=== PATIENT | female | born 1975 | race Caucasian/White ===

== ENCOUNTER 2020-08-11 17:58 | Emergency (ER) | payer OTHER, SELFPAY ==
[2020-08-11 18:09] VITALS: BP 129/85; PULSE 88; RESP 16; TEMP 37.7; O2SAT 100; BMI 36.8
[2020-08-11 19:58] LABS: MANUAL DIFF FLAG NO
[2020-08-11 20:00] LABS: Basophils Absolute Auto 0.1 X10*3/uL (0.0-0.2); Basophils Percent Auto 0.3 % (0-2); Eosinophils Absolute Auto 0.7 X10*3/uL (0.0-0.4); Eosinophils Percent Auto 4.5 % (0-4); Hematocrit 40.8 % (37-47); Hemoglobin 13.3 g/dl (12.0-16.0); Imm Gran Abs Auto 0.05 X10*3/uL (0.00-0.03); Imm Gran Pct Auto 0.3 % (0.0-0.4); Lymphocytes Absolute Auto 4.4 X10*3/uL (1.2-4.9); Lymphocytes Percent Auto 26.7 % (20-40); Mean Corpuscular HGB Conc 32.6 g/dl (31.0-35.0); Mean Corpuscular Hemoglobin 27.9 pg (27.0-33.0); Mean Corpuscular Volume 85.7 fL (80-98); Monocytes Absolute Auto 1.1 X10*3/uL (0.1-1.2); Monocytes Percent Auto 6.4 % (2-11); Neutrophils Absolute Auto 10.1 X10*3/uL (2.0-8.3); Neutrophils Percent Auto 61.8 % (45-73); Platelet Count 487 X10*3/uL (160-400); Red Blood Count 4.76 X10*6/uL (4.20-5.50); Red Cell Distribution Width 12.7 % (11.0-16.0); White Blood Count 16.4 X10*3/uL (4.8-10.8)
[2020-08-11 20:01] LABS: Glucose Urine UA NEG (NEG); Leukocyte Esterase Urine 2+ (NEG); Nitrite Urine POS (NEG); PH 5.5 (5.0-8.0); Specific Gravity - Urine 1.025 (1.005-1.025); UACC Culture Trigger YES; Urine Blood 2+ (NEG); Urine Ketones 5 MG/DL (NEG); Urine Protein 1+ MG/DL (NEG-TRACE)
[2020-08-11 20:05] VITALS: TEMP 37.8
[2020-08-11 20:05] LABS: Appearance Urine HAZY; Color Urine YELLOW
[2020-08-11] MEDS: Acetaminophen 325 MG TABLET 650 MG PO (20:08)
[2020-08-11 20:12] LABS: Bacteria Urine 3+ /LPF; Mucus Urine 1+ /LPF; Squamous Epithelial Cell Urine 2+ /LPF
[2020-08-11 20:18] LABS: Alanine Aminotransferase 9 U/L (0-31); Albumin Level 3.8 g/dL (3.5-5.0); Alkaline Phosphatase 73 U/L (39-117); Anion Gap 12 (12-20); Aspartate Amino Transferase 8 U/L (5-31); Bilirubin Total 0.7 mg/dL (0.0-1.0); Blood Urea Nitrogen 9 mg/dL (9-16); Calcium 9.4 mg/dL (8.4-10.2); Carbon Dioxide 29 mmol/L (22-29); Chloride 102 mmol/L (96-108); Creatinine Clr Calc Pharmacy 82.9; Estimated Glomerular Filt Rate > 60; Glucose Random 104 mg/dL (60-115); Potassium 3.9 mmol/L (3.3-5.1); Sodium 139 mmol/L (135-145); Total Protein 7.5 g/dL (6.5-8.0)
--- NOTE | 2020-08-11 21:32 | ED.ABDPAIN ---
HPI - Abdominal Pain General Chief Complaint: Abdominal Pain Stated Complaint: LOWER BACK PAIN Time Seen by Provider: 08/11/20 21:24 Source: patient Mode of arrival: ambulatory Limitations: no limitations History of Present Illness HPI narrative: Patient complaining of pain in the right flank and right upper abdomen area since 07:00 o'clock when she woke up patient does have a history of gallstones no nausea no vomiting no fever slight dysuria+ no sign of kidney stone Related Data Previous Rx's Medication Instructions Recorded ciprofloxacin HCl [Cipro] 500 mg PO Q12H #20 tab 08/11/20 ondansetron 4 mg PO Q6-8H PRN #7 tab 08/11/20 Allergies Allergy/AdvReac Type Severity Reaction Status Date / Time No Known Allergies Allergy Verified 08/11/20 18:08 [No Known Allergies*] Review of Systems Review of Systems Constitutional : No Weight loss, No Fever, No Chills ENT/Mouth : No sore throat, No Rhinorrhea Eyes: No Eye Pain, No Swelling Cardiovascular : No Chest Pain, no palpitations Respiratory : No Cough, No Sputum, no shortness of breath Gastrointestinal : no Nausea, No Vomiting, No Diarrhea,+ abdominal Pain, no black stools Genitourinary : No Dysuria, No Urinary Frequency Musculoskeletal : No joint pain, No Myalgias, No Joint Swelling Skin : No Skin Lesions, No rash Neuro : No Weakness, No Numbness, No Dizziness, No Headache Psych : No Anxiety/Panic, No Depression Heme/Lymph: No Bruising, No Lymphadenopathy Endocrine : No Polyuria, No Polydipsia All other systems reviewed and are negative Physical Exam Vital Signs: Vital Signs: Last Vital Signs Temp 100.1 F 08/11/20 20:05 Pulse 78 08/11/20 22:00 Resp 18 08/11/20 22:00 BP 108/70 08/11/20 22:00 Pulse Ox 95 08/11/20 22:00 Body Mass Index 36.8 Appearance: Alert. Oriented X3. No acute distress. Eyes: PERRLA, No Nystagmus ENT: Pharynx normal. Oral Mucosa moist Neck: Normal inspection. Neck supple. CVS: Normal heart rate and rhythm. Pulses normal. Respiratory: No respiratory distress. Equal air entry bilateral, no wheezing/rales/rhonchi Abdomen: Soft and mild tenderness right upper quadrant and right flank area Bowel sounds are present, no mass palpable, right CVA tenderness + Skin: Skin warm and dry. Normal skin color. Normal skin turgor. Extremities: No lower extremity edema. No calf tenderness Neuro: Oriented X 3. No motor deficit. No sensory deficit. MDM - Abdominal Pain MDM Narrative Medical decision making narrative: Patient workup shows UTI with normal LFTs will start her on ciprofloxacin 500 mg twice daily received 1 dose of Rocephin in the ER Lab Data Attestation: I reviewed the patient's lab results. Result diagrams: 08/11/20 19:47 08/11/20 19:47 Labs: Lab Results 08/11/20 08/11/20 08/11/20 Range/Units 19:47 19:47 19:47 WBC 16.4 H (4.8-10.8) X10*3/uL RBC 4.76 (4.20-5.50) X10*6/uL Hgb 13.3 (12.0-16.0) g/dl Hct 40.8 (37-47) % MCV 85.7 (80-98) fL MCH 27.9 (27.0-33.0) pg MCHC 32.6 (31.0-35.0) g/dl RDW 12.7 (11.0-16.0) % Plt Count 487 H (160-400) X10*3/uL MPV 10.0 (9.4-12.3) fL Immature Gran % (Auto) 0.3 (0.0-0.4) % Neut % (Auto) 61.8 (45-73) % Lymph % (Auto) 26.7 (20-40) % [place] % (Auto) 6.4 (2-11) % Eos % (Auto) 4.5 H (0-4) % Baso % (Auto) 0.3 (0-2) % Lymph # (Auto) 4.4 (1.2-4.9) X10*3/uL [place] # (Auto) 1.1 (0.1-1.2) X10*3/uL Eos # (Auto) 0.7 H (0.0-0.4) X10*3/uL Baso # (Auto) 0.1 (0.0-0.2) X10*3/uL Abs Immat Gran (auto) 0.05 H (0.00-0.03) X10*3/uL Absolute Neuts (auto) 10.1 H (2.0-8.3) X10*3/uL Absolute Nucleated RBC 0.000 (0.0-0.012) X10*3/uL Nucleated RBC % (auto) 0.0 (0.0-0.2) /100WBC Hold Blue Top SEE NOTE Sodium 139 (135-145) mmol/L Potassium 3.9 (3.3-5.1) mmol/L Chloride 102 (96-108) mmol/L Carbon Dioxide 29 (22-29) mmol/L Anion Gap 12 (12-20) BUN 9 (9-16) mg/dL Creatinine 0.78 (0.5-1.4) mg/dL Estim Creat Clear Calc 82.9 Estimated GFR > 60 Random Glucose 104 (60-115) mg/dL Calcium 9.4 (8.4-10.2) mg/dL Total Bilirubin 0.7 (0.0-1.0) mg/dL AST 8 (5-31) U/L ALT 9 (0-31) U/L Alkaline Phosphatase 73 (39-117) U/L Total Protein 7.5 (6.5-8.0) g/dL Albumin 3.8 (3.5-5.0) g/dL Lipase 4 L (8-78) U/L Urine Color Urine Appearance Urine pH (5.0-8.0) Ur Specific [place] (1.005-1.025) Urine Protein (NEG-TRACE) MG/DL Urine Glucose (UA) (NEG) MG/DL Urine Ketones (NEG) MG/DL Urine Blood (NEG) Urine Nitrite (NEG) Ur Leukocyte Esterase (NEG) Urine RBC (0) /HPF Urine WBC (0-4) /HPF Ur Squamous Epith Cells /LPF Urine Bacteria /LPF Urine Mucus /LPF 08/11/20 Range/Units 19:53 WBC (4.8-10.8) X10*3/uL RBC (4.20-5.50) X10*6/uL Hgb (12.0-16.0) g/dl Hct (37-47) % MCV (80-98) fL MCH (27.0-33.0) pg MCHC (31.0-35.0) g/dl RDW (11.0-16.0) % Plt Count (160-400) X10*3/uL MPV (9.4-12.3) fL Immature Gran % (Auto) (0.0-0.4) % Neut % (Auto) (45-73) % Lymph % (Auto) (20-40) % [place] % (Auto) (2-11) % Eos % (Auto) (0-4) % Baso % (Auto) (0-2) % Lymph # (Auto) (1.2-4.9) X10*3/uL [place] # (Auto) (0.1-1.2) X10*3/uL Eos # (Auto) (0.0-0.4) X10*3/uL Baso # (Auto) (0.0-0.2) X10*3/uL Abs Immat Gran (auto) (0.00-0.03) X10*3/uL Absolute Neuts (auto) (2.0-8.3) X10*3/uL Absolute Nucleated RBC (0.0-0.012) X10*3/uL Nucleated RBC % (auto) (0.0-0.2) /100WBC Hold Blue Top Sodium (135-145) mmol/L Potassium (3.3-5.1) mmol/L Chloride (96-108) mmol/L Carbon Dioxide (22-29) mmol/L Anion Gap (12-20) BUN (9-16) mg/dL Creatinine (0.5-1.4) mg/dL Estim Creat Clear Calc Estimated GFR Random Glucose (60-115) mg/dL Calcium (8.4-10.2) mg/dL Total Bilirubin (0.0-1.0) mg/dL AST (5-31) U/L ALT (0-31) U/L Alkaline Phosphatase (39-117) U/L Total Protein (6.5-8.0) g/dL Albumin (3.5-5.0) g/dL Lipase (8-78) U/L Urine Color YELLOW Urine Appearance HAZY Urine pH 5.5 (5.0-8.0) Ur Specific [place] 1.025 (1.005-1.025) Urine Protein 1+ H (NEG-TRACE) MG/DL Urine Glucose (UA) NEG (NEG) MG/DL Urine Ketones 5 (NEG) MG/DL Urine Blood 2+ H (NEG) Urine Nitrite POS H (NEG) Ur Leukocyte Esterase 2+ H (NEG) Urine RBC 1-4 (0) /HPF Urine WBC 15-29 H (0-4) /HPF Ur Squamous Epith Cells 2+ /LPF Urine Bacteria 3+ /LPF Urine Mucus 1+ /LPF Discharge Plan Discharge Clinical Impression: UTI (urinary tract infection) Patient Disposition: Home, Self-Care Instructions: Urinary Tract Infection in Women (ED) Additional Instructions: Drink plenty of fluids take antibiotic as prescribed. Report to the ER/PCP for high-grade fever/vomiting/increased abdominal pain Prescriptions: New ondansetron 4 mg tablet,disintegrating 4 mg PO Q6-8H PRN (Reason: nausea and vomiting) Qty: 7 RF: 0 ciprofloxacin HCl [Cipro] 500 mg tablet 500 mg PO Q12H Qty: 20 RF: 0 Interventions: ED Discharge Assessment Last Done: 08/11/20 23:48 Discharge Date/Time: 08/11/20 23:49 [facility] Past Medical History Medical History Depression GERD (gastroesophageal reflux disease) Hypercholesteremia Hypothyroid Leg swelling Surgical History Gastric bypass status for obesity History of History of hysterectomy Social History Social History Alcohol intake: never Use of substances other than those prescribed or required for medical reasons: No Advance Directives: No Advance Directives Information Provided: Yes Patient : No
[2020-08-11 21:55] LABS: Lipase 4 U/L (8-78)
[2020-08-11 22:00] VITALS: BP 108/70; PULSE 78; RESP 18; O2SAT 95
[2020-08-11] MEDS: cefTRIAXone sodium 1 GM in 0.9 % Sodium Chloride 50 ML IV (22:03)
[2020-08-11] MEDS: ondansetron HCL 4 MG/2 ML VIAL IVPUSH (22:03)
[2020-08-11] MEDS: Ketorolac Tromethamine 30 MG/ML VIAL IVPUSH (22:06)
== END 2020-08-11 23:49 | disposition home or self-care (01) ==
PROVIDERS: Emergency Provider Internal Medicine; PCP Internal Medicine
DX: N39.0 Urinary tract infection, site not specified (principal)
CPT/HCPCS: 36415; 80053; 81001; 81003; 83690; 85025; 87086; 87088; 87186; 96365; 96375; 99284; 99285; J0696; J1885; J2405

== ENCOUNTER → 2020-11-25 13:54 | Outpatient (BNVA) | payer OTHER, SELFPAY | PROVIDERS: PCP Internal Medicine; Visit Provider Nurse Practitioner Family | DX: R14.0 Abdominal distension (gaseous) (principal); K21.9 Gastro-esophageal reflux disease without esophagitis; K59.00 Constipation, unspecified | CPT/HCPCS: 99202 ==

== ENCOUNTER 2020-11-27 08:55 | Outpatient (REF) | payer OTHER, SELFPAY ==
--- NOTE | ~2020-11-27 | US_ITS ---
EXAMINATION: US ABDOMEN COMPLETE CLINICAL INFORMATION: Gaseous abdominal distention. COMPARISON: CT abdomen and pelvis 12/29/2010; abdominal ultrasound dated 12/29/2010. TECHNIQUE: Real-time imaging of the abdominal viscera. FINDINGS: PANCREAS: Largely obscured by overlapping bowel gas. ABDOMINAL AORTA: The proximal, mid, and distal segments are normal in caliber. INFERIOR VENA CAVA: Visualized portions are normal. LIVER: The liver is normal in size. The liver contour is normal. There is diffuse increased liver parenchymal echotexture. Corresponding with the prior CT examination, a 1.3 x 1.5 x 1.2 cm hyperechoic, circumscribed hemangioma is seen within hepatic segment 4A, abutting the diaphragm. Dimensions appear relatively stable from the prior CT examination (102:13). There is no intrahepatic biliary duct dilatation seen. GALLBLADDER: There are large shadowing gallstones. No evidence of gallbladder wall thickening or pericholecystic fluid. COMMON BILE DUCT: Normal in caliber measuring 0.3 cm in diameter. RIGHT KIDNEY: Normal. No hydronephrosis. No renal calculi or focal parenchymal lesions. The kidney measures 9.6 cm in maximum dimension. LEFT KIDNEY: Normal. No hydronephrosis. No renal calculi or focal parenchymal lesions. The kidney measures 11.3 cm in maximum dimension. SPLEEN: Normal. The spleen measures 10.5 cm in maximum dimension. FREE FLUID: None. US/US abdomen complete IMPRESSION: 1. There is cholelithiasis, without cholecystitis or choledocholithiasis. 2. A small benign hepatic hemangioma is redemonstrated.
== END 2020-11-27 08:56 | disposition home or self-care (01) ==
LOC: HO.HMGCX 08:55
PROVIDERS: PCP Internal Medicine; Visit Provider Nurse Practitioner Family
DX: R14.0 Abdominal distension (gaseous) (principal)
CPT/HCPCS: 76700

== ENCOUNTER → 2020-12-26 13:22 | Outpatient (BNVA) | payer OTHER, SELFPAY | PROVIDERS: PCP Internal Medicine; Visit Provider Nurse Practitioner Family | DX: K59.04 Chronic idiopathic constipation (principal); K21.9 Gastro-esophageal reflux disease without esophagitis; R14.0 Abdominal distension (gaseous) | CPT/HCPCS: 99212 ==

== ENCOUNTER 2021-01-10 10:04 | Outpatient (REF) | payer OTHER, SELFPAY ==
[2021-01-10 11:27] LABS: C Reactive Protein 0.35 mg/dL (< or = 0.50); Lipase 8 U/L (8-78)
[2021-01-14 05:26] LABS: Transglutaminase Ab IgG <1.0 U/mL; Transglutaminase IgA <1.0 U/mL
== END 2021-01-10 10:05 | disposition home or self-care (01) ==
LOC: HO.HMGCLDS 10:04
PROVIDERS: PCP Internal Medicine; Visit Provider Nurse Practitioner Family
DX: R19.7 Diarrhea, unspecified (principal); K58.9 Irritable bowel syndrome, unspecified; R14.0 Abdominal distension (gaseous); R10.11 Right upper quadrant pain
CPT/HCPCS: 36415; 83516; 83690; 86140

== ENCOUNTER 2021-11-24 09:56 | Emergency (ER) | payer OTHER, SELFPAY ==
--- NOTE | ~2021-11-24 | CT_ITS ---
EXAMINATION: CT ABDOMEN AND PELVIS WITHOUT CONTRAST CLINICAL INFORMATION: Right upper quadrant abdominal pain, gastric sleeve, bloated, diarrhea. COMPARISON: CT abdomen and pelvis 12/29/2010 and ultrasound abdomen 11/27/2020. TECHNIQUE: Multidetector volumetric imaging was performed from the superior aspect of the liver through the pubic symphysis. Sagittal and coronal reformatted images were obtained on the technologist's workstation. This CT examination was performed using dose optimization techniques as appropriate, variously including the following: *Automated exposure control *Adjustment of mA and/or kV according to patient size (this includes techniques or standardized protocols for targeted exams where dose is matched to indication/reason for exam; i.e. extremities or head) *Use of iterative reconstruction technique DLP: 479 mGy-cm FINDINGS: LUNG BASES: The visualized lung bases are unremarkable. LIVER, GALLBLADDER, AND BILIARY TREE: The liver is enlarged measuring 23 cm in greatest length. Attenuation remains significantly higher than the spleen, not suggestive of hepatic steatosis. Normal in size, shape, and attenuation. Some punctate calcified granulomas are present. No focal hepatic lesion or biliary ductal dilatation is present. The gallbladder is distended and contains multiple large gallstones measuring approximately 2 cm in size. No gallbladder wall thickening or pericholecystic fluid is present. Similar findings were seen on the prior ultrasound. The common bile duct measures 5.5 mm. No obstructing calculi are seen. PANCREAS: Unremarkable. SPLEEN: Unremarkable. ADRENAL GLANDS: Unremarkable. KIDNEYS AND URETERS: The kidneys are normal in size, shape, and attenuation. No hydronephrosis, hydroureter, or calculi seen. No perinephric stranding. BLADDER: There is a cystic mass anterior and just slightly superior to the bladder which measures 3.2 x 2.2 x 2.6 cm. There is an ill-defined cystic/solid component just to the right of this measuring 2.2 x 1.6 x 2.2 cm. In retrospect, this was present on the 12/29/2010 study. The solid/complex component appears about the same size but the cystic component was smaller measuring 1.6 x 1.1 cm. This most likely represents a urachal remnant. GASTROINTESTINAL TRACT: A small hiatal hernia is present. Patient is status post gastric sleeve. The small and large bowel are unremarkable. The appendix is not seen with certainty. ABDOMINAL WALL: Midline scar lower abdomen. No abdominal wall hernias. LYMPH NODES: No retroperitoneal lymphadenopathy. VASCULAR: Unremarkable. PELVIC VISCERA: Surgically removed. OSSEOUS STRUCTURES: Degenerative changes at L5-S1. No bony destructive lesions are seen. CT/CT abdomen pelvis wo con IMPRESSION: 1. Cholelithiasis without cholecystitis. 2. Status post gastric sleeve with small hiatal hernia. 3. Hepatomegaly. 4. 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 Pre and postcontrast MRI is recommended for further evaluation to exclude enhancing components that might suggest urachal carcinoma. Fleischner guidelines were followed.
[2021-11-24 10:02] VITALS: BP 141/85; PULSE 106; RESP 16; TEMP 36.9; O2SAT 98; BMI 30.2
--- NOTE | 2021-11-24 11:33 | ED_ITS ---
HPI - Abdominal Pain General Chief Complaint: Nausea/Vomiting/Diarrhea Stated Complaint: fever, vomiting, backache Time Seen by Provider: 11/24/21 11:18 Source: patient Mode of arrival: ambulatory Limitations: no limitations History of Present Illness HPI narrative: 46-year-old female who presents emergency department for evaluation abdominal pain, lower back pain, nausea, vomiting, diarrhea and fever. 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 She states that 5 days prior to presentation she developed lower back pain, pain came on gradually and is constant, she points to her lumbar sacral spinal area when asked to localize the pain. She states the pain is a constant, steady, gnawing pain which is worse with movement. She states that this morning at 03:00 hours she woke up with abdominal pain. She runs her hand across her upper abdomen when asked to localize the pain. She describes the pain as a bloating achiness. She states that came on suddenly. The pain is constant but waxes and wanes in intensity. The pain is 5/10 at its worst. The patient has had associated nausea and belching with 2 episodes of vomiting. She also states that since last night she has had diarrhea. She describes the stool as watery with no blood in the, she has had at least 5 episodes. She states she did developed a fever this morning of 100.8 degrees F. She denied chills, rhinorrhea, sore throat, cough, chest pain, shortness of breath, frequency, dysuria, black stools or bloody stools. She has noted dark urine over the past 3 days despite staying hydrated. The patient has not traveled anywhere and has not been on antibiotics recently. The patient had a gastric sleeve surgery 05/2020 at [facility]. She states that since the gastric sleeve surgery she has had persistent bloating sensation with negative workup. She had a . She has also had a hysterectomy in the past complicated by injury to the ureter and bladder. MD elicited complaint: abdominal pain Pertinent past history: other (Gastric sleeve surgery 05/2021, hysterectomy) Onset (ago): hour(s) (8) Pain Consistency: constant (Waxes and wanes in intensity) Location: epigastric, LUQ and RUQ Severity: moderate Pain scale (0-10): 5 Quality: aching and other (Bloated) Radiation: none Migration to: no migration Exacerbating factors: nothing Relieving factors: nothing Associated symptoms: nausea, vomiting, diarrhea and fever Related Data Home Medications Medication Instructions Recorded Confirmed bupropion HCl 150 mg 24 hr tablet, 150 mg PO DAILY 11/25/20 extended release furosemide 20 mg tablet 20 mg PO DAILY 11/25/20 levothyroxine 100 mcg tablet 100 mcg PO DAILY 11/25/20 pantoprazole 40 mg tablet,delayed 40 mg PO BID 11/25/20 release sertraline 100 mg tablet 200 mg PO DAILY 11/25/20 Previous Rx's Medication Instructions Recorded docusate sodium 100 mg capsule 100 mg PO BEDTIME #30 caps 11/25/20 sennosides 8.6 mg tablet (Natural 8.6 mg PO BEDTIME constipation #30 11/25/20 Senna Laxative) tabs simethicone 180 mg capsule (Gas 180 mg PO BID PRN abdominal 11/25/20 Relief (simethicone)) distention #60 caps morphine 15 mg immediate release 15 mg PO Q4-6H PRN pain #10 tabs 11/24/21 tablet ondansetron 4 mg disintegrating 4 mg PO Q6-8H PRN nausea and 11/24/21 tablet vomiting #14 tabs Allergies Allergy/AdvReac Type Severity Reaction Status Date / Time No Known Allergies Allergy Verified 12/26/20 13:39 [No Known Allergies*] Review of Systems Review of Systems Yes all other systems are reviewed and are negative [facility] Past Medical History [facility] Narrative: Social history: 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 She denies tobacco use. She states she rarely drinks alcohol. She denies drug use. Medical History Depression GERD (gastroesophageal reflux disease) Hypercholesteremia Hypothyroid Leg swelling Surgical History Gastric bypass status for obesity History of History of hysterectomy Social History Social History Alcohol intake: never Patient Tobacco Use Status: Never used Tobacco Physical Exam ED Vital Signs: Vital Signs - 24 hr 11/24/21 10:02 11/24/21 11:42 11/24/21 14:15 Temperature 98.5 F 99.3 F 99.1 F Pulse Rate 106 H 97 94 Respiratory Rate 16 18 12 Blood Pressure 141/85 H 122/81 110/67 Pulse Oximetry 98 97 96 Oxygen Delivery Method Room Air Room Air Room Air BMI result Body Mass Index 30.2 Const General: cooperative and no acute distress Orientation/consciousness: oriented to person and oriented to place Limitations: no limitations HENMT Head: Yes normal to inspection, Yes normocephalic and Yes atraumatic Ears: external ears normal General nose exam: Normal external nose present Face and sinus: Yes normal facial exam Mouth: Normal oral and palatal mucosa present Throat: Yes posterior oropharynx normal Eyes General: appearance normal, both eyes and all related structures Pupils: Equal, round and reactive pupils present Neck Neck: Yes normal visual inspection, Yes no lymphadenopathy, Yes trachea midline and Yes supple Chest Chest palpation & inspection: normal inspection of the chest and normal palpation of entire chest wall Resp Effort & Inspection: normal respiratory effort and able to speak in complete sentences Auscultation: clear to auscultation bilaterally Cardio Rate: regular rate Rhythm: regular rhythm Heart sounds: S1 normal heart sound present, S2 normal heart sound present and no murmurs GI Other: Patient has upper abdominal tenderness with increased tenderness in the right upper quadrant which is [id number], she has hyperactive bowel sounds, does not appear to be distended, she has no rebound, there is a midline umbilical to pelvic scar General: Yes no CVA tenderness Back/Spine/Pelvis Other: She has tenderness palpation of her paraspinal muscles in lumbar sacral area with no spasm Back: no CVA tenderness Skin General skin exam: no rashes or lesions noted Neuro General: oriented to person and oriented to place Cranial nerves: Yes CN's II-XII intact bilaterally and Yes Equal, round and reactive pupils present Cognition (Neuro): normal cognition Motor exam (neuro): 5/5 motor strength present throughout Extrem General: Yes normal to inspection Psych Appearance: grossly normal Speech and movement: Normal speech and movement present Affect: normal affect Attitude: cooperative Thought process: Normal thought process present Thought content: Normal thought content present Course Course Course Narrative: 46-year-old female who presents emergency department fever, upper abdominal pain, nausea, vomiting and diarrhea 03:00 hours and lower back pain x5 days. She has also noted dark urine over 3 days. Patient does have a history of gastric sleeve surgery in 2020, and hysterectomy. Initial vital signs revealed an elevated blood pressure 141/85 with an elevated heart rate of 106. Patient's abdominal exam did reveal upper abdominal tenderness greater in the right upper quadrant and hyperactive bowel sounds. She does have pain with palpation of the lower lumbar spine and paraspinal muscles in lumbar sacral area. Differential includes was not limited to cholecystitis, colitis, pyelonephritis, kidney stone, intra-abdominal hernia with incarceration/ischemic bowel, pancreatitis. I ordered a CBC, CMP, PT/INR, PTT, lipase, lactic acid, blood cultures x2, urinalysis, GI panel, C diff. CT scan of the abdomen pelvis with IV contrast will be obtained. Patient's pain and nausea was treated with Toradol 15 mg IV and Zofran 4 mg IV. She was also ordered to get normal saline x1 L. 1654: Laboratory evaluation: CBC normal. CMP normal. COVID-19 negative. Urinalysis/microscopic unremarkable. GI panel positive for norovirus. Radiology evaluation: CT scan of the abdomen pelvis with IV contrast, radiology reading as follows: IMPRESSION: 1. Cholelithiasis without cholecystitis. 2. Status post gastric sleeve with small hiatal hernia. 3. Hepatomegaly. 4. 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 Pre and postcontrast MRI is recommended for further evaluation to exclude enhancing components that might suggest urachal carcinoma. Fleischner guidelines were followed. Dictated By:Johnnie Price MD The patient got only minimal with the Toradol and was given morphine 4 mg IV with significant improvement discomfort. The patient's presentation is consistent with viral diarrhea secondary to norovirus. I did discuss this with the patient. The patient will be discharged home with printed and verbal instructions. There was an incidental finding on CT scan (uracchal remnant- increase in size) which I discussed with the patient. Radiologist recommends MRI with and without contrast for follow-up. Patient was advised to take Tylenol and ibuprofen for pain and for pain not relieved by these 2 medications she was prescribed morphine. She also prescribed Zofran. She was advised to try Gaviscon to see if this helps with her belching increased gas. MDM - Abdominal Pain Lab Data Result diagrams: 11/24/21 14:18 11/24/21 14:18 Labs: Lab Results 11/24/21 11/24/2111/24/22 Range/Units 14:00 14:00 14:03 WBC (4.8-10.8) X10*3/uL RBC (4.20-5.50) X10*6/uL Hgb (12.0-16.0) g/dl Hct (37.0-47.0) % MCV (80.0-98.0) fL MCH (27.0-33.0) pg MCHC (31.0-35.0) g/dl RDW (11.0-16.0) % Plt Count (160-400) X10*3/uL MPV (9.4-12.3) fL Immature Gran % (Auto) (0.0-0.4) % Neut % (Auto) (45-73) % Lymph % (Auto) (20-40) % [place] % (Auto) (2-11) % Eos % (Auto) (0-4) % Baso % (Auto) (0-2) % Lymph # (Auto) (1.2-4.9) X10*3/uL [place] # (Auto) (0.1-1.2) X10*3/uL Eos # (Auto) (0.0-0.4) X10*3/uL Baso # (Auto) (0.0-0.2) X10*3/uL Abs Immat Gran (auto) (0.00-0.03) X10*3/uL Absolute Neuts (auto) (2.0-8.3) x10*3/uL Absolute Nucleated RBC (0.0-0.012) X10*3/uL Nucleated RBC % (auto) (0.0-0.2) /100WBC PT (10.0-13.1) SEC INR (0.9-1.1) APTT (26.0-36.4) SEC Sodium (135-145) mmol/L Potassium (3.3-5.1) mmol/L Chloride (96-108) mmol/L Carbon Dioxide (22-29) mmol/L Anion Gap (12-20) BUN (9-16) mg/dL Creatinine (0.5-1.4) mg/dL Estim Creat Clear Calc Estimated GFR Random Glucose (60-115) mg/dL Lactic Acid 1.3 (0.5-2.0) mmol/L Calcium (8.4-10.2) mg/dL Total Bilirubin (0.0-1.0) mg/dL AST (5-31) U/L ALT (0-31) U/L Alkaline Phosphatase (39-117) U/L Total Protein (6.5-8.0) g/dL Albumin (3.5-5.0) g/dL Lipase (8-78) U/L Urine Color Urine Appearance Urine pH (5.0-8.0) Ur Specific [place] (1.005-1.025) Urine Protein (Neg-Trace) mg/dL Urine Glucose (UA) (Negative) mg/dL Urine Ketones (Negative) mg/dL Urine Blood (Negative) Urine Nitrite (Negative) Ur Leukocyte Esterase (Negative) Urine RBC (0-2) /HPF Urine WBC (0-5) /HPF Ur Squamous Epith Cells (0-2) /HPF Urine Bacteria (None Seen) Hyaline Casts (0-2) /LPF Stl C. cayetanensis PCR Not Detected (Not Detect.) Stool Rotavirus A PCR Not Detected (Not Detect.) Stl Adenov F 40/41 PCR Not Detected (Not Detect.) Stool Astrovirus (PCR) Not Detected (Not Detect.) Stool Campylobacter PCR Not Detected (Not Detect.) Stool Cryptosporidium PCR Not Detected (Not Detect.) Stl Sh Tox Pr E STEC PCR Not Detected (Not Detect.) Stool E coli O157 PCR Not applicable (Not Detect.) Stl Enterotoxigenic E PCR Not Detected (Not Detect.) Stool EPEC (PCR) Not Detected (Not Detect.) Stool EAEC (PCR) Not Detected (Not Detect.) Stl E. histolytica PCR Not Detected (Not Detect.) Stool Giardia Lamblia PCR Not Detected (Not Detect.) Stl P. shigelloides PCR Not Detected (Not Detect.) Stool Salmonella PCR Not Detected (Not Detect.) Stool Sapovirus (PCR) Not Detected (Not Detect.) Stl Shigella/EIEC PCR Not Detected (Not Detect.) St Y.enterocolitica PCR Not Detected (Not Detect.) Stool Vibrio (PCR) Not Detected (Not Detect.) Stl Vibrio cholerae PCR Not Detected (Not Detect.) Stl Norovirus GI/GII PCR Detected A (Not Detect.) COVID-19 (JOSE) Negative (Negative) COVID-19 Clin Com See Note 11/24/21 11/24/21 11/24/21 Range/Units 14:18 14:18 14:18 WBC 9.4 (4.8-10.8) X10*3/uL RBC 4.49 (4.20-5.50) X10*6/uL Hgb 13.0 (12.0-16.0) g/dl Hct 38.7 (37.0-47.0) % MCV 86.2 (80.0-98.0) fL MCH 29.0 (27.0-33.0) pg MCHC 33.6 (31.0-35.0) g/dl RDW 12.1 (11.0-16.0) % Plt Count 264 (160-400) X10*3/uL MPV 9.4 (9.4-12.3) fL Immature Gran % (Auto) 0.2 (0.0-0.4) % Neut % (Auto) 87.8 H (45-73) % Lymph % (Auto) 6.0 L (20-40) % [place] % (Auto) 3.7 (2-11) % Eos % (Auto) 2.1 (0-4) % Baso % (Auto) 0.2 (0-2) % Lymph # (Auto) 0.6 L (1.2-4.9) X10*3/uL [place] # (Auto) 0.4 (0.1-1.2) X10*3/uL Eos # (Auto) 0.2 (0.0-0.4) X10*3/uL Baso # (Auto) 0.0 (0.0-0.2) X10*3/uL Abs Immat Gran (auto) 0.02 (0.00-0.03) X10*3/uL Absolute Neuts (auto) 8.3 (2.0-8.3) x10*3/uL Absolute Nucleated RBC 0.000 (0.0-0.012) X10*3/uL Nucleated RBC % (auto) 0.0 (0.0-0.2) /100WBC PT 10.9 (10.0-13.1) SEC INR 1.0 (0.9-1.1) APTT 32.0 (26.0-36.4) SEC Sodium 139 (135-145) mmol/L Potassium 4.4 (3.3-5.1) mmol/L Chloride 105 (96-108) mmol/L Carbon Dioxide 27 (22-29) mmol/L Anion Gap 11 L (12-20) BUN 18 H (9-16) mg/dL Creatinine 0.74 (0.5-1.4) mg/dL Estim Creat Clear Calc 73.5 Estimated GFR > 60 Random Glucose 99 (60-115) mg/dL Lactic Acid (0.5-2.0) mmol/L Calcium 8.3 L D (8.4-10.2) mg/dL Total Bilirubin 0.6 (0.0-1.0) mg/dL AST 10 (5-31) U/L ALT 7 (0-31) U/L Alkaline Phosphatase 58 D (39-117) U/L Total Protein 6.4 L (6.5-8.0) g/dL Albumin 3.6 (3.5-5.0) g/dL Lipase 44 (8-78) U/L Urine Color Urine Appearance Urine pH (5.0-8.0) Ur Specific [place] (1.005-1.025) Urine Protein (Neg-Trace) mg/dL Urine Glucose (UA) (Negative) mg/dL Urine Ketones (Negative) mg/dL Urine Blood (Negative) Urine Nitrite (Negative) Ur Leukocyte Esterase (Negative) Urine RBC (0-2) /HPF Urine WBC (0-5) /HPF Ur Squamous Epith Cells (0-2) /HPF Urine Bacteria (None Seen) Hyaline Casts (0-2) /LPF Stl C. cayetanensis PCR (Not Detect.) Stool Rotavirus A PCR (Not Detect.) Stl Adenov F 40/41 PCR (Not Detect.) Stool Astrovirus (PCR) (Not Detect.) Stool Campylobacter PCR (Not Detect.) Stool Cryptosporidium PCR (Not Detect.) Stl Sh Tox Pr E STEC PCR (Not Detect.) Stool E coli O157 PCR (Not Detect.) Stl Enterotoxigenic E PCR (Not Detect.) Stool EPEC (PCR) (Not Detect.) Stool EAEC (PCR) (Not Detect.) Stl E. histolytica PCR (Not Detect.) Stool Giardia Lamblia PCR (Not Detect.) Stl P. shigelloides PCR (Not Detect.) Stool Salmonella PCR (Not Detect.) Stool Sapovirus (PCR) (Not Detect.) Stl Shigella/EIEC PCR (Not Detect.) St Y.enterocolitica PCR (Not Detect.) Stool Vibrio (PCR) (Not Detect.) Stl Vibrio cholerae PCR (Not Detect.) Stl Norovirus GI/GII PCR (Not Detect.) COVID-19 (JOSE) (Negative) COVID-19 Clin Com 11/24/21 Range/Units 15:48 WBC (4.8-10.8) X10*3/uL RBC (4.20-5.50) X10*6/uL Hgb (12.0-16.0) g/dl Hct (37.0-47.0) % MCV (80.0-98.0) fL MCH (27.0-33.0) pg MCHC (31.0-35.0) g/dl RDW (11.0-16.0) % Plt Count (160-400) X10*3/uL MPV (9.4-12.3) fL Immature Gran % (Auto) (0.0-0.4) % Neut % (Auto) (45-73) % Lymph % (Auto) (20-40) % [place] % (Auto) (2-11) % Eos % (Auto) (0-4) % Baso % (Auto) (0-2) % Lymph # (Auto) (1.2-4.9) X10*3/uL [place] # (Auto) (0.1-1.2) X10*3/uL Eos # (Auto) (0.0-0.4) X10*3/uL Baso # (Auto) (0.0-0.2) X10*3/uL Abs Immat Gran (auto) (0.00-0.03) X10*3/uL Absolute Neuts (auto) (2.0-8.3) x10*3/uL Absolute Nucleated RBC (0.0-0.012) X10*3/uL Nucleated RBC % (auto) (0.0-0.2) /100WBC PT (10.0-13.1) SEC INR (0.9-1.1) APTT (26.0-36.4) SEC Sodium (135-145) mmol/L Potassium (3.3-5.1) mmol/L Chloride (96-108) mmol/L Carbon Dioxide (22-29) mmol/L Anion Gap (12-20) BUN (9-16) mg/dL Creatinine (0.5-1.4) mg/dL Estim Creat Clear Calc Estimated GFR Random Glucose (60-115) mg/dL Lactic Acid (0.5-2.0) mmol/L Calcium (8.4-10.2) mg/dL Total Bilirubin (0.0-1.0) mg/dL AST (5-31) U/L ALT (0-31) U/L Alkaline Phosphatase (39-117) U/L Total Protein (6.5-8.0) g/dL Albumin (3.5-5.0) g/dL Lipase (8-78) U/L Urine Color Dark Yellow Urine Appearance Clear Urine pH 6.0 (5.0-8.0) Ur Specific [place] >= 1.030 H (1.005-1.025) Urine Protein Trace (Neg-Trace) mg/dL Urine Glucose (UA) Negative (Negative) mg/dL Urine Ketones Trace (Negative) mg/dL Urine Blood Negative (Negative) Urine Nitrite Negative (Negative) Ur Leukocyte Esterase Trace H (Negative) Urine RBC 0-2 (0-2) /HPF Urine WBC 0-5 (0-5) /HPF Ur Squamous Epith Cells 6-10 (0-2) /HPF Urine Bacteria 1+ (None Seen) Hyaline Casts 0-2 (0-2) /LPF Stl C. cayetanensis PCR (Not Detect.) Stool Rotavirus A PCR (Not Detect.) Stl Adenov F 40/41 PCR (Not Detect.) Stool Astrovirus (PCR) (Not Detect.) Stool Campylobacter PCR (Not Detect.) Stool Cryptosporidium PCR (Not Detect.) Stl Sh Tox Pr E STEC PCR (Not Detect.) Stool E coli O157 PCR (Not Detect.) Stl Enterotoxigenic E PCR (Not Detect.) Stool EPEC (PCR) (Not Detect.) Stool EAEC (PCR) (Not Detect.) Stl E. histolytica PCR (Not Detect.) Stool Giardia Lamblia PCR (Not Detect.) Stl P. shigelloides PCR (Not Detect.) Stool Salmonella PCR (Not Detect.) Stool Sapovirus (PCR) (Not Detect.) Stl Shigella/EIEC PCR (Not Detect.) St Y.enterocolitica PCR (Not Detect.) Stool Vibrio (PCR) (Not Detect.) Stl Vibrio cholerae PCR (Not Detect.) Stl Norovirus GI/GII PCR (Not Detect.) COVID-19 (JOSE) (Negative) COVID-19 Clin Com Discharge Plan Discharge Clinical Impression: Norovirus, Abdominal pain, Anomalies of urachus Diarrhea Qualifiers: Diarrhea type: infectious Qualified Code(s): A09 - Infectious gastroenteritis and colitis, unspecified Patient Disposition: Home, Self-Care Instructions: Acute Diarrhea (ED) Additional Instructions: Your laboratory evaluation was unremarkable. Your COVID-19 test was negative. Your GI panel was positive for norovirus. This is a common virus that can cause diarrhea. This virus is contagious and can be spread by stool that gets on your finger, then gets on a surface and if someone comes in contact with the contaminated service and touches there mouth they will get infected as well (oral fecal route). Your contagious and cannot work until your diarrhea has resolved for at least 24 hours. Please see the work note. Stay on a brat diet for the next 24-48 hours (bananas, rice, applesauce, tea and toast) Take Tylenol (acetaminophen) 2 pills every 4-6 hours as needed for pain. For pain not relieved by Tylenol take morphine 15 mg pills, 1 pill every 4 hours as needed for pain. This medication will make you sleepy, do not drive or work while taking this medication. Morphine is a narcotic medication and can be addicting. If you are concerned about addiction you can ask the pharmacist for less pills or do not get this prescription filled. Take Zofran ODT 4 mg pills, 1 pill dissolved in your mouth every 8 hours as needed for nausea and vomiting. Take Gaviscon as directed on the bottle for increased gas and belching. Follow-up with your doctor in 2 days. Please return to the emergency department if your symptoms get worse or if you develop any symptoms that are concerning to you. Please see the work note You have [address] scan. 1. The radiologist is recommending that you get an MRI with and without contrast to evaluate the increased size of the urachal remnant 2. You have gallstones without any evidence inflammation of the gallbladder IMPRESSION: 1. Cholelithiasis without cholecystitis. 2. Status post gastric sleeve with small hiatal hernia. 3. Hepatomegaly. 4. 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 Pre and postcontrast MRI is recommended for further evaluation to exclude enhancing components that might suggest urachal carcinoma. Fleischner guidelines were followed. Dictated By:Johnnie Price MD Prescriptions: New morphine 15 mg tablet 15 mg PO Q4-6H PRN (Reason: pain) Qty: 10 0RF Rx Instructions: The patient may ask for partial fill; Partial Fill upon patient request. ondansetron 4 mg tablet,disintegrating 4 mg PO Q6-8H PRN (Reason: nausea and vomiting) Qty: 14 0RF No Action levothyroxine 100 mcg tablet 100 mcg PO DAILY furosemide 20 mg tablet 20 mg PO DAILY pantoprazole 40 mg tablet,delayed release (DR/EC) 40 mg PO BID sertraline 100 mg tablet 200 mg PO DAILY bupropion HCl 150 mg tablet extended release 24 hr 150 mg PO DAILY sennosides [Natural Senna Laxative] 8.6 mg tablet 8.6 mg PO BEDTIME Qty: 30 2RF docusate sodium 100 mg capsule 100 mg PO BEDTIME Qty: 30 3RF simethicone [Gas Relief (simethicone)] 180 mg capsule 180 mg PO BID PRN (Reason: abdominal distention) Qty: 60 1RF Stand Alone Forms: Work/School Release
[2021-11-24 11:42] VITALS: BP 122/81; PULSE 97; RESP 18; TEMP 37.4; O2SAT 97
--- NOTE | 2021-11-24 11:48 | PC.NURSE ---
patient a/ox4 . pearrla . lungs clear . heart rate regular at 100 . skin pink warm and dry . abdomin soft . tender on palpation . hyper active bowel sounds . patient c/o belching excessively . history of gastric sleeve procedure 16 months ago at [facility] . patient has had these similar symptoms of increased nausea / diarrhea and vomiting over the last 16 months . patient placed on monitor . aware of plan of care .
[2021-11-24] MEDS: ondansetron HCL 4 MG/2 ML VIAL IVPUSH (12:18)
[2021-11-24] MEDS: Ketorolac Tromethamine 15 MG/ML VIAL IVPUSH (12:18)
[2021-11-24] MEDS: 0.9 % Sodium Chloride 1,000 ML 999 ML IV (12:19)
[2021-11-24 14:15] VITALS: BP 110/67; PULSE 94; RESP 12; TEMP 37.3; O2SAT 96
[2021-11-24 14:16] LABS: Lactic Acid 1.3 mmol/L (0.5-2.0)
[2021-11-24 14:23] LABS: MANUAL DIFF FLAG NO
[2021-11-24] MEDS: Morphine Sulfate 4 MG/ML CARTRIDGE IVPUSH (14:24)
[2021-11-24 14:25] LABS: Basophils Percent Auto 0.2 % (0-2); Eosinophils Absolute Auto 0.2 X10*3/uL (0.0-0.4); Eosinophils Percent Auto 2.1 % (0-4); Hematocrit 38.7 % (37.0-47.0); Imm Gran Abs Auto 0.02 X10*3/uL (0.00-0.03); Imm Gran Pct Auto 0.2 % (0.0-0.4); Lymphocytes Absolute Auto 0.6 X10*3/uL (1.2-4.9); Mean Corpuscular HGB Conc 33.6 g/dl (31.0-35.0); Mean Corpuscular Volume 86.2 fL (80.0-98.0); Mean Platelet Volume 9.4 fL (9.4-12.3); Monocytes Absolute Auto 0.4 X10*3/uL (0.1-1.2); Monocytes Percent Auto 3.7 % (2-11); Neutrophils Absolute Auto 8.3 x10*3/uL (2.0-8.3); Neutrophils Percent Auto 87.8 % (45-73); Platelet Count 264 X10*3/uL (160-400); Red Blood Count 4.49 X10*6/uL (4.20-5.50); Red Cell Distribution Width 12.1 % (11.0-16.0); White Blood Count 9.4 X10*3/uL (4.8-10.8)
[2021-11-24 14:35] LABS: Prothrombin Time 10.9 SEC (10.0-13.1)
[2021-11-24 14:50] LABS: COVID-19 Test Negative (Negative)
[2021-11-24 14:52] LABS: Alanine Aminotransferase 7 U/L (0-31); Albumin Level 3.6 g/dL (3.5-5.0); Alkaline Phosphatase 58 U/L (39-117); Anion Gap 11 (12-20); Aspartate Amino Transferase 10 U/L (5-31); Bilirubin Total 0.6 mg/dL (0.0-1.0); Blood Urea Nitrogen 18 mg/dL (9-16); Calcium 8.3 mg/dL (8.4-10.2); Carbon Dioxide 27 mmol/L (22-29); Chloride 105 mmol/L (96-108); Creatinine Clr Calc Pharmacy 73.5; Estimated Glomerular Filt Rate > 60; Glucose Random 99 mg/dL (60-115); Lipase 44 U/L (8-78); Potassium 4.4 mmol/L (3.3-5.1); Sodium 139 mmol/L (135-145); Total Protein 6.4 g/dL (6.5-8.0)
[2021-11-24 15:57] LABS: Appearance Urine Clear; Color Urine Dark Yellow; Glucose Urine UA Negative (Negative); Leukocyte Esterase Urine Trace (Negative); Nitrite Urine Negative (Negative); Urine Blood Negative (Negative); Urine Ketones Trace mg/dL (Negative); Urine Protein Trace mg/dL (Neg-Trace)
[2021-11-24 16:00] LABS: Bacteria Urine 1+ (None Seen); Hyaline Casts Urine 0-2 /LPF (0-2); RBC Urine 0-2 /HPF (0-2); WBC Urine 0-5 /HPF (0-5)
[2021-11-24 16:01] LABS: Specific Gravity - Urine >= 1.030 (1.005-1.025); UACC Culture Trigger YES
[2021-11-24 16:17] LABS: Adenovirus F 40/41 Not Detected (Not Detect.); Astrovirus Not Detected (Not Detect.); Campylobacter Not Detected (Not Detect.); Cryptosporidium Not Detected (Not Detect.); Cyclospora cayetanensis Not Detected (Not Detect.); E. coli EAEC Not Detected (Not Detect.); E. coli EPEC Not Detected (Not Detect.); E. coli ETEC Not Detected (Not Detect.); E. coli STEC Not Detected (Not Detect.); Entamoeba histolytica Not Detected (Not Detect.); Giardia lamblia Not Detected (Not Detect.); Plesiomonas shigelloides Not Detected (Not Detect.); Rotavirus A Not Detected (Not Detect.); Salmonella Not Detected (Not Detect.); Sapovirus Not Detected (Not Detect.); Shigella sp./EIEC Not Detected (Not Detect.); Vibrio Not Detected (Not Detect.); Vibrio Cholerae Not Detected (Not Detect.); Yersinia enterocolitica Not Detected (Not Detect.)
[2021-11-24 16:19] LABS: Norovirus GI/GII Detected (Not Detect.)
[2021-11-24 16:43] LABS: CDiff Gene PCR NEGATIVE (Negative)
--- NOTE | 2021-11-24 17:36 | PC.NURSE ---
patient pain controlled . ambulatory . went over discharge instructions as ordered by provider . no questions at this time .
== END 2021-11-24 17:37 | disposition home or self-care (01) ==
PROVIDERS: Emergency Provider Emergency Medicine Emergency Medical Services; PCP Internal Medicine
DX: R11.2 Nausea with vomiting, unspecified (principal); A09 Infectious gastroenteritis and colitis, unspecified; A08.11 Acute gastroenteropathy due to Norwalk agent; M54.50 Low back pain, unspecified; Z20.822 Contact with and (suspected) exposure to COVID-19; Z98.84 Bariatric surgery status; Z79.899 Other long term (current) drug therapy
CPT/HCPCS: 36415; 74176; 80053; 81001; 83605; 83690; 85025; 85610; 85730; 87040; 87086; 87493; 87507; 87635; 96361; 96374; 96375; 99284; J1885; J2270; J2405

== ENCOUNTER 2022-04-01 18:33 | Outpatient (REF) | payer OTHER, SELFPAY ==
[2022-04-01 19:05] LABS: COVID-19 Test Positive (Negative)
== END 2022-04-01 18:34 | disposition home or self-care (01) ==
LOC: HO.LAB 18:33
PROVIDERS: PCP Internal Medicine; Visit Provider Internal Medicine
DX: Z20.822 Contact with and (suspected) exposure to COVID-19 (principal)
CPT/HCPCS: 87635

== ENCOUNTER 2022-08-09 06:58 | Outpatient (REF) | payer OTHER, SELFPAY ==
[2022-08-09 07:10] LABS: MANUAL DIFF FLAG NO
[2022-08-09 07:31] LABS: Basophils Absolute Auto 0.1 X10*3/uL (0.0-0.2); Basophils Percent Auto 1.1 % (0-2); Eosinophils Absolute Auto 0.4 X10*3/uL (0.0-0.4); Eosinophils Percent Auto 5.2 % (0-4); Hematocrit 42.1 % (37.0-47.0); Hemoglobin 14.4 g/dl (12.0-16.0); Imm Gran Abs Auto 0.02 X10*3/uL (0.00-0.03); Imm Gran Pct Auto 0.3 % (0.0-0.4); Lymphocytes Percent Auto 27.6 % (20-40); Mean Corpuscular HGB Conc 34.2 g/dl (31.0-35.0); Mean Corpuscular Hemoglobin 29.6 pg (27.0-33.0); Mean Corpuscular Volume 86.6 fL (80.0-98.0); Mean Platelet Volume 9.6 fL (9.4-12.3); Monocytes Absolute Auto 0.4 X10*3/uL (0.1-1.2); Monocytes Percent Auto 5.8 % (2-11); Neutrophils Absolute Auto 4.2 x10*3/uL (2.0-8.3); Platelet Count 373 X10*3/uL (160-400); Red Blood Count 4.86 X10*6/uL (4.20-5.50); Red Cell Distribution Width 12.2 % (11.0-16.0); White Blood Count 7.1 X10*3/uL (4.8-10.8)
[2022-08-09 08:03] LABS: Anion Gap 12 (12-20); Blood Urea Nitrogen 9 mg/dL (9-16); Calcium 9.4 mg/dL (8.4-10.2); Carbon Dioxide 29 mmol/L (22-29); Chloride 105 mmol/L (96-108); Cholesterol 257 mg/dL; Estimated Glomerular Filt Rate > 60; HDL Cholesterol 63 mg/dL; LDL Cholesterol Calculated 155 mg/dl; Potassium 4.2 mmol/L (3.3-5.1); Sodium 142 mmol/L (135-145); Triglycerides 197 mg/dL
[2022-08-09 12:01] LABS: Glucose Random 93 mg/dL (60-115)
== END 2022-08-09 06:59 | disposition home or self-care (01) ==
LOC: HO.LAB 06:58
PROVIDERS: PCP Internal Medicine; Visit Provider Internal Medicine
DX: Z13.220 Encounter for screening for lipoid disorders (principal); R06.02 Shortness of breath; I10 Essential (primary) hypertension
CPT/HCPCS: 36415; 80048; 80061; 85025

== ENCOUNTER 2022-08-18 07:25 | Outpatient (REF) | payer OTHER, SELFPAY ==
[2022-08-18 09:11] LABS: Free T4 (Free Thyroxine) 0.98 ng/dL (0.71-1.85); Thyroid Stimulating Hormone 1.99 uIU/mL (0.32-4.0)
== END 2022-08-18 07:26 | disposition home or self-care (01) ==
LOC: HO.LAB 07:25
PROVIDERS: Visit Provider Internal Medicine
DX: E03.9 Hypothyroidism, unspecified (principal)
CPT/HCPCS: 36415; 84439; 84443

== ENCOUNTER 2022-09-15 12:50 | Outpatient (REF) | payer OTHER, SELFPAY ==
[2022-09-15 14:46] LABS: CDiff Gene PCR NEGATIVE (Negative)
[2022-09-16 08:58] LABS: Adenovirus F 40/41 Not Detected (Not Detect.); Astrovirus Not Detected (Not Detect.); Campylobacter Not Detected (Not Detect.); Cryptosporidium Not Detected (Not Detect.); Cyclospora cayetanensis Not Detected (Not Detect.); E. coli EAEC Not Detected (Not Detect.); E. coli EPEC Not Detected (Not Detect.); E. coli ETEC Not Detected (Not Detect.); E. coli STEC Not Detected (Not Detect.); Entamoeba histolytica Not Detected (Not Detect.); Giardia lamblia Not Detected (Not Detect.); Norovirus GI/GII Not Detected (Not Detect.); Plesiomonas shigelloides Not Detected (Not Detect.); Rotavirus A Not Detected (Not Detect.); Salmonella Not Detected (Not Detect.); Sapovirus Not Detected (Not Detect.); Shigella sp./EIEC Not Detected (Not Detect.); Vibrio Not Detected (Not Detect.); Vibrio Cholerae Not Detected (Not Detect.); Yersinia enterocolitica Not Detected (Not Detect.)
== END 2022-09-15 12:51 | disposition home or self-care (01) ==
LOC: HO.LNP 12:50
PROVIDERS: Visit Provider Internal Medicine
DX: A09 Infectious gastroenteritis and colitis, unspecified (principal)
CPT/HCPCS: 87493; 87507

== ENCOUNTER 2022-10-14 11:45 | Outpatient (REF) | payer OTHER, SELFPAY ==
--- NOTE | ~2022-10-14 | MR_ITS ---
EXAMINATION: MRI PELVIS WITH AND WITHOUT CONTRAST CLINICAL INFORMATION: Reason for Exam MALFORMATION OF URACHUS, URACHAL REMNANT COMPARISON: CT of abdomen 11/24/2021 TECHNIQUE: Multiple routine MRI sequences through the pelvis were obtained on a high-field MRI before and after the uneventful administration of 6.5 mL of Gadavist gadolinium-based IV contrast. FINDINGS: PARTIALLY VISUALIZED UPPER ABDOMEN: Cholelithiasis without evidence of acute cholecystitis. Liver appears enlarged measuring 21.4 cm in span. 2 normally positioned kidneys without hydronephrosis. VISUALIZED BOWEL:: Rectum are significantly distended with gas. REPRODUCTIVE ORGANS: Status post hysterectomy. No adnexal mass. BLADDER: Urinary bladder is completely decompressed limiting evaluation. 2.9 cm cystic structure along the dome of the bladder suggesting a urachal cyst versus possibly a vesicourethral diverticulum. Motion degradation on postcontrast images and artifact from bowel gas obscures evaluation of the urachal remnant on the postcontrast sequences limiting assessment for any solid enhancing components however there is no solid components appreciated on the T2-weighted sequences. PELVIC FREE FLUID: No free fluid or ascites. LYMPH NODES: No pathologically enlarged lymph nodes. OSSEOUS STRUCTURES AND SOFT TISSUES: No acute or suspicious osseous abnormalities. Midline ventral abdominal surgical scarring. MR/MR pelvis wo/w con IMPRESSION: 1. A 2.9 cm cystic structure along the dome of the bladder suggesting a urachal cyst versus possibly a vesicourethral diverticulum. Motion degradation on postcontrast images and artifact from bowel gas obscures evaluation of the urachal remnant on the postcontrast sequences limiting assessment for any solid enhancing components however there is no solid components appreciated on the T2-weighted sequences. Given limitations of a CT urogram may be of adequate diagnostic value. 2. Cholelithiasis without evidence of acute cholecystitis. 3. Liver appears enlarged measuring 21.4 cm in span.
== END 2022-10-14 11:46 | disposition home or self-care (01) ==
LOC: HO.MRI 11:45
PROVIDERS: PCP Internal Medicine; Visit Provider Internal Medicine
DX: Q64.4 Malformation of urachus (principal)
CPT/HCPCS: 72197; A9585

== ENCOUNTER 2022-11-20 09:58 | Emergency (ER) | payer OTHER, SELFPAY ==
[2022-11-20 10:27] VITALS: BP 177/112; PULSE 86; RESP 16; TEMP 37.1; O2SAT 98; BMI 30.3
--- OUTSIDE RECORDS SUMMARY | 2022-11-20 11:46 | XMS_ITS | Continuity of Care Document ---
Author Name Unknown Organization [facility] Jodie mehreen Address [address] [place] [address] [address] [place] [address]- Care Team Providers Care Visual Specialist Name Role Phone Keven Robison MD Primary Care Physician [phone] Encounter [facility] [place] Date(s): 09/05/19 - 10/17/19 [facility] [address] [place] [address] Drive [address] [place] [address]- [facility] Attending Physician: Gregg Hayward MD Referring Physician: Keven Robison MD Allergies, Adverse Reactions, Alerts Substance Reaction Severity Status NKA Active Immunizations Given and Recorded Vaccine Date Status Refusal Reason tetanus/diphtheria/pertussis, acel(Tdap) 1 10/19/17 Given influenza virus vaccine, inactivated 02/24/08 Give n Pneumococcal Vaccine (oldterm) 02/24/08 Given Not Given Vaccine Date Status Refusal Reason influenza virus vaccine, inactivated 06/11/15 Not Given Patient Refuses 1Result Comment: [10/19/2017] [id number] Medications atorvastatin 40 mg oral tablet 1 tablet = 40 mg, By Mouth, Daily, INCREASED DOSE, # 90 tablet, 1 Refills, Maintenance, 07/20/19 10:58:00 EDT, [facility] #[id number], INCREASED DOSE DC 20mg daily, 147.32, cm, 06/22/19 9:10:00 EDT, Height, 108.3, kg, 12/05/18 11:18:00 EDT, Dry W... Start Date: 07/20/19 Status: Ordered CPAP Machine See Instructions, # 1 each, Maintenance, iVAPS with EPAP 5 and TVa of 5.5 and PS min of 4 and PS max of 12 and MT 20 and height 80 inches with 2 liters oxygen. DME Provider--[facility]., 02/05/18 16:53:41 EDT, Compound Start Date: 02/05/18 Status: Ordered furosemide 20 mg oral tablet 20 mg, 1, tablet, By Mouth, Daily, # 30 tablet, Refills 5, Tot. Refills 5, Maintenance, 10/10/19 16:17:00 EDT, Route to Pharmacy Electronically, [facility] #[id number], 147.32, cm, 10/01/19 9:28:00 EDT, Height, 108.3, kg, 12/05/18 11:18:00 EDT, D... Start Date: 10/10/19 Status: Ordered levothyroxine 0.1 mg oral tablet 1 tablet = 100 mcg, By Mouth, Daily, # 90 tablet, 1 Refills, Maintenance, 05/11/19 19:48:00 EST, Tablet, [facility] #[id number], 147.32, cm, 04/16/19 8:24:00 EST, Height, 108.3, kg, 12/05/18 11:18:00 EDT, Dry Weight Start Date: 05/11/19 Status: Ordered metFORMIN 500 mg oral tablet, extended release 1 tablet = 500 mg, By Mouth, Daily, # 30 tablet, 5 Refills, Maintenance, 10/10/19 16:17:00 EDT, ER Tablet, [facility] #[id number], 147.32, cm, 10/01/19 9:28:00 EDT, Height, 108.3, kg, 12/05/18 11:18:00 EDT, Dry Weight Start Date: 10/10/19 Stop Date: 04/07/20 Status: Ordered Multivitamin Daily, 0 Refills, Maintenance, 05/22/19 14:28:00 EST Start Date: 05/22/19 Status: Ordered pantoprazole 40 mg oral delayed release tablet 1 tablet, By Mouth, Daily, # 90 tablet, 2 Refills, Maintenance, 06/13/19 12:01:00 EST, 147.32, cm, 05/22/19 14:26:00 EST, Height, 108.3, kg, 12/05/18 11:18:00 EDT, Dry Weight Start Date: 06/13/19 Status: Ordered sertraline 100 mg oral tablet 2 tablet = 200 mg, By Mouth, Daily, REFAXED, # 180 tablet, 1 Refills, Maintenance, 08/31/19 13:43:00 EDT, [facility] #[id number], 147.32, cm, 08/30/19 12:07:00 EDT, Height, 108.3, kg, 12/05/18 11:18:00 EDT, Dry Weight Start Date: 08/31/19 Status: Ordered Wellbutrin XL 150 mg/24 hours oral tablet, extended release 1 tablet = 150 mg, By Mouth, Every 24 hours, do not crush or chew., # 30 tablet, 5 Refills, Maintenance, 08/14/19 14:27:00 EDT, ER Tablet, [facility] #[id number], 147.32, cm, 06/22/19 9:10:00 EDT, Height, 108.3, kg, 12/05/18 11:18:00 EDT, Dry Weight Start Date: 08/14/19 Status: Ordered Problem List Condition Effective Dates Status Health Status Inform ant Anxiety and depression(Confirmed) Active Binge eating disorder, mild, in partial remission(Confirmed) Active Morbid obesity with BMI of 4 5.0-49.9, adult(Confirmed) Active Central sleep apnea(Confirmed) Active Chalazion(Confirmed) Active Chronic active hepatitis C(Confirmed) Active Depression(Confirmed) Active Drug addiction(Confirmed) Active Leg edema(Confirmed) Active Fibroma of mouth(Confirmed) Active GERD without esophagitis(Confirmed) Active Status post LASIK surgery(Confirmed) Active Hyperlipidemia(Confirmed) Active Hypothyroidism(Confirmed) Active Insomnia(Confirmed) Active Acute neck pain(Confirmed) Active NON-HEALING SURGICAL WOUND(Confirmed) Active MILTON (obstructive sleep apnea)(Confirmed) Active Prediabetes(Confirmed) Active Social History Social History Type Response Smoking Status Never smoker; Tobacc o user in household: No entered on: 06/20/15 Sex
--- OUTSIDE RECORDS SUMMARY | 2022-11-20 11:46 | XMS_ITS | Continuity of Care Document ---
Author Name Unknown Organization [facility] Address [address] [place] [address] [address] [place] [address]- Care Team Providers Care Cash Room Clerk Name Role Phone Enriqueta DUMONT, Keven Cho Primary Care Physician [phone] Encounter [facility] Date(s): 04/01/20 - 05/01/[address] [place] [address]- Attending Physician: Admtr, Ludy Admitting Physician: AdmtrLudy Referring Physician: Admtr, Ar8 Allergies, Adverse Reactions, Alerts Substance Reaction Severity Status NKA Active Immunizations Given and Recorded Vaccine Date Status Refusal Reason tetanus/diphtheria/pertussis, acel(Tdap) 1 10/19/17 Given influenza virus vaccine, inactivated 02/24/08 Give n Pneumococcal Vaccine (oldterm) 02/24/08 Given Not Given Vaccine Date Status Refusal Reason influenza virus vaccine, inactivated 06/11/15 Not Given Patient Refuses 1Result Comment: [10/19/2017] [id number] Medications atorvastatin 40 mg oral tablet 1 tablet = 40 mg, By Mouth, Daily, INCREASED DOSE, # 90 tablet, 1 Refills, Maintenance, 01/25/20 8:43:00 EDT, [facility] #[id number], INCREASED DOSE DC 20mg daily, 149.86, cm, 01/25/20 8:03:00 EDT, Height, 103, kg, 11/21/19 8:04:00 EDT, Dry Weight Start Date: 01/25/20 Status: Ordered CPAP Machine See Instructions, # 1 each, Maintenance, iVAPS with EPAP 5 and TVa of 5.5 and PS min of 4 and PS max of 12 and DE 20 and height 80 inches with 2 liters oxygen. DME Provider--[facility]., 02/05/18 16:53:41 EDT, Compound Start Date: 02/05/18 Status: Ordered furosemide 20 mg oral tablet 20 mg, 1, tablet, By Mouth, Daily, # 90 tablet, Refills 1, Tot. Refills 1, Maintenance, 01/25/20 8:44:00 EDT, Route to Pharmacy Electronically, [email or web address] #[id number], 149.86, cm, 01/25/20 8:03:00 EDT, Height, 103, kg, 11/21/19 8:04:00 EDT, Dry W... Start Date: 01/25/20 Status: Ordered levothyroxine 0.1 mg oral tablet 1 tablet = 100 mcg, By Mouth, Daily, # 90 tablet, 1 Refills, Maintenance, 11/20/19 12:52:00 EDT, Tablet, [facility] #[id number], 147.32, cm, 10/01/19 9:28:00 EDT, Height, 108.3, kg, 12/05/18 11:18:00 EDT, Dry Weight Start Date: 11/20/19 Status: Ordered metFORMIN 500 mg oral tablet, extended release 1 tablet = 500 mg, By Mouth, Daily, # 90 tablet, 1 Refills, Maintenance, 04/07/20 16:17:00 EST, ER Tablet, [email or web address] #[id number], 149.86, cm, 01/25/20 8:03:00 EDT, Height, 103, kg, 11/21/19 8:04:00 EDT, Dry Weight Start Date: 04/07/20 Status: Ordered Multivitamin 1 gummy, By Mouth, Daily in AM, 0 Refills, Maintenance, 05/22/19 14:28:00 EST Start Date: 05/22/19 Status: Ordered pantoprazole 40 mg oral delayed release tablet 1 tablet, By Mouth, Daily, # 90 tablet, 1 Refills, Maintenance, 01/25/20 8:47:00 EDT, 149.86, cm, 01/25/20 8:03:00 EDT, Height, 103, kg, 11/21/19 8:04:00 EDT, Dry Weight Start Date: 01/25/20 Status: Ordered sertraline 100 mg oral tablet 2 tablet = 200 mg, By Mouth, Daily, REFAXED, # 180 tablet, 3 Refills, Maintenance, 01/25/20 8:47:00EDT, [facility] #[id number], 149.86, cm, 01/25/20 8:03:00 EDT, Height, 103, kg, 11/21/19 8:04:00 EDT, Dry Weight Start Date: 01/25/20 Status: Ordered Wellbutrin XL 150 mg/24 hours oral tablet, extended release 1 tablet = 150 mg, By Mouth, Every 24 hours, do not crush or chew., # 90 tablet, 1 Refills, Maintenance, 01/25/20 8:44:00 EDT, ER Tablet, [facility] #[id number], 149.86, cm, 01/25/20 8:03:00 EDT, Height, 103, kg, 11/21/19 8:04:00 EDT, Dry Weight Start Date: 01/25/20 Status: Ordered Problem List Condition Effective Dates [...]
--- OUTSIDE RECORDS SUMMARY | 2022-11-20 11:46 | XMS_ITS | Continuity of Care Document ---
Author Name Unknown Organization [facility] Norm Address [address] [place] [address]- Care Team Providers Care Leadlighter Name Role Phone Keven Robison MD Primary Care Physician [phone] [place] [facility] [place] 01/09[place]21 - 05/09/21 [facility] [address] [place] [address]- Attending Physician: Keven Robison MD Allergies, Adverse Reactions, Alerts No Known Allergies Immunizations Given and Recorded Vaccine Date Status Refusal Reason SARS-CoV-2 (COVID-19) mRNA BNT-162b2 vac 10/13/20 Recorded SARS-CoV-2 (COVID-19) mRNA BNT-162b2 vac 08/30/20 Recorded tetanus/diphtheria/pertussis, acel(Tdap) 1 10/19/17 Given tetanus/diphtheria/pertussis, acel(Tdap) 05/20/11 Recorded Measles/Mumps/Rubella Virus Vaccine 06/21/11 Recor ded Measles/Mumps/Rubella Virus Vaccine 05/20/11 Recor ded influenza virus vaccine, inactivated 02/24/08 Give n Pneumococcal Vaccine (oldterm) 02/24/08 Given Not Given Vaccine Date Status Refusal Reason influenza virus vaccine, inactivated 06/11/15 Not Given Patient Refuses 1Result Comment: [10/19/2017] [id number] Medications buPROPion 150 mg/24 hours (XL) oral tablet, extended release 1 tablet, By Mouth, Every 24 hours, DO NOT CRUSH OR CHEW, # 90 tablet, 1 Refills, [facility] #[id number], 90, TAKE 1 TABLET BY MOUTH EVERY 24 HOURS. DO NOT CRUSH OR CHEW, 149.86, cm, 10/03/20 15:02:00 EDT, Height, 73.3, kg, 10/03/20 15:02:00 EDT,... Start Date: 02/17/21 Status: Ordered furosemide 20 mg oral tablet 1, tablet, By Mouth, Daily, # 30 tablet, Refills 0, Tot. Refills 0, Maintenance, 09/15/20 8:51:00 EDT, Route to Pharmacy Electronically, [facility] #[id number], 149.86, cm, 08/01/20 16:14:00 EDT, Height, 100.91, kg, 05/20/20 15:45:00 EST, Dry Weight Start Date: 09/15/20 Status: Ordered furosemide 20 mg oral tablet See Instructions, TAKE 1 TABLET BY MOUTH DAILY, # 30 tablet, Refills 0, Instructions Replace Required Details, Route to Pharmacy Electronically, [facility] #[id number], 149.86, cm, 10/03/20 15:02:00 EDT, Height, 73.3, kg, 10/03/20 15:02:00 EDT, D... Start Date: 12/29/20 Status: Ordered furosemide 20 mg oral tablet See Instructions, TAKE 1 TABLET BY MOUTH DAILY, # 30 tablet, Refills 0, Instructions Replace Required Details, Route to Pharmacy Electronically, [facility] #[id number], 149.86, cm, 10/03/20 15:02:00 EDT, Height, 73.3, kg, 10/03/20 15:02:00 EDT, D... Start Date: 12/01/20 Status: Ordered levothyroxine 0.1 mg oral tablet 1 tablet, By Mouth, Daily, # 90 tablet, 1 Refills, Maintenance, 11/11/20 16:04:00 EDT, [facility] #[id number], 149.86, cm, 10/03/20 15:02:00 EDT, Height, 73.3, kg, 10/03/20 15:02:00 EDT, Dry Weight Start Date: 11/11/20 Status: Ordered Multivitamin Daily, 0 Refills, Maintenance, 05/30/20 10:28:00 EST, Partial fill upon patient request if the prescription is for a schedule II opioid drug. Start Date: 05/30/20 Status: Ordered pantoprazole 40 mg oral delayed release tablet 1 tablet = 40 mg, By Mouth, 2 times a day, # 60 tablet, 2 Refills, Maintenance, 04/15/21 18:32:00 EST, CR Tablet, 149.86, cm, 10/03/20 15:02:00 EDT, Height, 73.3, kg, 10/03/20 15:02:00 EDT, Dry Weight Start Date: 04/15/21 Status: Ordered Protonix 40 mg oral delayed release tablet 1 tablet = 40 mg, By Mouth, 2 times a day, # 60 tablet, 6 Refills, Maintenance, 07/01/20 18:49:00 EDT, CR Tablet, 149.86, cm, 05/30/20 10:26:00 EST, Height, 100.91, kg, 05/20/20 15:45:00 EST, Dry Weight Start Date: 07/01/20 Status: Ordered sertraline 100 mg oral tablet See Instructions, TAKE 2 TABLETS BY MOUTH DAILY, # 180 tablet, 0 Refills, [facility] #[id number], 149.86, cm, 10/03/20 15:02:00 EDT, Height, 73.3, kg, 10/03/20 15:02:00 EDT, Dry Weight Start Date: 12/29/20 Status: Ordered sertraline 100 mg oral tablet 2 tablet = 200 mg, By Mouth, Daily, REFAXED, # 180 tablet, 3 Refills, Maintenance, 01/25/20 8:47:00EDT, [facility] #[id number], 149.86, cm, 01/25/20 8:03:00 EDT, Height, 103, [...]
--- OUTSIDE RECORDS SUMMARY | 2022-11-20 11:46 | XMS_ITS | Continuity of Care Document ---
Author Name Unknown Organization [facility] lt Address [address] [place] [address]- Care Team Providers Care Orthotics Prosthetics Technician Name Role Phone Keven Robison MD Primary Care Physician Encounter [facility] [place] Date(s): 01/25/20 - 02/01/20 [facility] [address] [place] [address]- [facility] Attending Physician: Keven Robison MD Allergies, Adverse Reactions, Alerts Substance Reaction Severity Status NKA Active Immunizations Given and Recorded Vaccine Date Status Refusal Reason tetanus/diphtheria/pertussis, acel(Tdap) 1 10/19/17 Given influenza virus vaccine, inactivated 02/24/08 Give n Pneumococcal Vaccine (oldterm) 02/24/08 Given Not Given Vaccine Date Status Refusal Reason influenza virus vaccine, inactivated 06/11/15 Not Given Patient Refuses 1Result Comment: [10/19/2017] [id number] Medications atorvastatin 40 mg oral tablet 1 tablet = 40 mg, By Mouth, Daily, INCREASED DOSE, # 90 tablet, 1 Refills, Maintenance, 01/25/20 8:43:00 EDT, [facility] #[id number], INCREASED DOSE DC 20mg daily, 149.86, cm, 01/25/20 8:03:00 EDT, Height, 103, kg, 11/21/19 8:04:00 EDT, Dry Weight Start Date: 01/25/20 Status: Ordered CPAP Machine See Instructions, # 1 each, Maintenance, iVAPS with EPAP 5 and TVa of 5.5 and PS min of 4 and PS max of 12 and NE 20 and height 80 inches with 2 liters oxygen. DME Provider--[facility]., 02/05/18 16:53:41 EDT, Compound Start Date: 02/05/18 Status: Ordered furosemide 20 mg oral tablet 20 mg, 1, tablet, By Mouth, Daily, # 90 tablet, Refills 1, Tot. Refills 1, Maintenance, 01/25/20 8:44:00 EDT, Route to Pharmacy Electronically, [facility] #[id number], 149.86, cm, 01/25/20 8:03:00 EDT, Height, 103, kg, 11/21/19 8:04:00 EDT, Dry W... Start Date: 01/25/20 Status: Ordered levothyroxine 0.1 mg oral tablet 1 tablet = 100 mcg, By Mouth, Daily, # 90 tablet, 1 Refills, Maintenance, 11/20/19 12:52:00 EDT, Tablet, [facility] #[id number], 147.32, cm, 10/01/19 9:28:00 EDT, Height, 108.3, kg, 12/05/18 11:18:00 EDT, Dry Weight Start Date: 11/20/19 Status: Ordered metFORMIN 500 mg oral tablet, extended release 1 tablet = 500 mg, By Mouth, Daily, # 90 tablet, 1 Refills, Maintenance, 04/07/20 16:17:00 EST, ER Tablet, [facility] #[id number], 149.86, cm, 01/25/20 8:03:00 EDT, Height, 103, kg, 11/21/19 8:04:00 EDT, Dry Weight Start Date: 04/07/20 Status: Ordered Multivitamin Daily, 0 [...] 180 tablet, 3 Refills, Maintenance, 01/25/20 8:47:00EDT, [facility] #[id number], 149.86, cm, 01/25/20 8:03:00 EDT, Height, 103, kg, 11/21/19 8:04:00 EDT, Dry Weight Start Date: 01/25/20 Status: Ordered Wellbutrin XL 150 mg/24 hours oral tablet, extended release 1 tablet = 150 mg, By Mouth, Every 24 hours, do not crush or chew., # 90 tablet, 1 Refills, Maintenance, 01/25/20 8:44:00 EDT, ER Tablet, [facility] #[id number], 149.86, cm, 01/25/20 8:03:00 EDT, Height, 103, [...] MILTON (obstructive sleep apnea)(Confirmed) Active Prediabetes(Confirmed) Active Vital Signs Most recent to oldest [Reference Range]: 1 Height 149.86 cm (01/25/20 8:03 AM) Social History Social History Type Response Smoking Status Never smoker; Tobacc o user in household: No entered on: 06/20/15 Sex
--- OUTSIDE RECORDS SUMMARY | 2022-11-20 11:46 | XMS_ITS | Continuity of Care Document ---
Author Name Unknown Organization [facility] Address [address] [place] [address]- Care Team Providers Care Training Instructor Name Role Phone Keven Robison MD Primary Care Physician [phone] [facility] [place] Date(s): 11/01/20 - 11/02/[address] [address]- Encounter Diagnosis S/P gastric surgery(Final) - 11/01/20 Discharge Disposition: A-D/C Home Attending Physician: Ivan Mi MD Admitting Physician: Ivan Mi MD Referring Physician: Not on Staff, Referring MD Allergies, Adverse Reactions, Alerts Substance Reaction Severity Status NKA Active Immunizations Given and Recorded Vaccine Date Status Refusal Reason SARS-CoV-2 (COVID-19) mRNA BNT-162b2 vac 08/30/20 Recorded tetanus/diphtheria/pertussis, acel(Tdap) 1 10/19/17 Given tetanus/diphtheria/pertussis, acel(Tdap) 05/20/11 Recorded Measles/Mumps/Rubella Virus Vaccine 06/21/11 Recor ded Measles/Mumps/Rubella Virus Vaccine 05/20/11 Recor ded influenza virus vaccine, inactivated 02/24/08 Give n Pneumococcal Vaccine (oldterm) 02/24/08 Given Not Given Vaccine Date Status Refusal Reason influenza virus vaccine, inactivated 06/11/15 Not Given Patient Refuses 1Result Comment: [10/19/2017] [id number] Medications furosemide 20 mg oral tablet 1, tablet, By Mouth, Daily, # 30 tablet, Refills 0, Tot. Refills 0, Maintenance, 09/15/20 8:51:00 EDT, Route to Pharmacy Electronically, [facility] #[id number], 149.86, cm, 08/01/20 16:14:00 EDT, Height, 100.91, kg, 05/20/20 15:45:00 EST, Dry Weight Start Date: 09/15/20 Status: Ordered levothyroxine 0.1 mg oral tablet 1 tablet = 100 mcg, By Mouth, Daily, # 90 tablet, 1 Refills, Maintenance, 05/23/20 9:52:00 EST, Tablet, [facility] #[id number], 149.86, cm, 05/22/20 13:49:00 EST, Height, 100.91, kg, 05/20/20 15:45:00 EST, Dry Weight Start Date: 05/23/20 Status: Ordered Multivitamin Daily, 0 Refills, Maintenance, 05/30/20 10:28:00 EST, Partial fill upon patient request if the prescription is for a schedule II opioid drug. Start Date: 05/30/20 Status: Ordered Protonix 40 mg oral delayed [...] 180 tablet, 3 Refills, Maintenance, 01/25/20 8:47:00EDT, [facility] #[id number], 149.86, cm, 01/25/20 8:03:00 EDT, Height, 103, kg, 11/21/19 8:04:00 EDT, Dry Weight Start Date: 01/25/20 Status: Ordered Wellbutrin XL 150 mg/24 hours oral tablet, extended release 1 tablet = 150 mg, By Mouth, Every 24 hours, # 30 tablet, 5 Refills, Maintenance, 09/29/20 13:43:00EDT, ER Tablet, Partial fill upon patient request if the prescription is for a schedule II opioid drug. Start Date: 09/29/20 Status: Ordered Problem List Condition Effective Dates [...] MILTON (obstructive sleep apnea)(Confirmed) Active Prediabetes(Confirmed) Active Results Radiology Reports * Exam Date Time Procedure Performing Provider Status 11/02/20 12:35 AM Chest 2 Views Frontal and Lat Jens Watt (Verified) Notes: (Chest 2 Views Frontal and Lat) Reason For Exam: Abdominal Pain RESULT: Chest 2 Views Frontal and Lat Examination: Chest performed on 11/02/2020.. History: Recent gastric sleeve with persistent burping and vomiting. Findings: Frontal and lateral views of the chest are compared to a prior study dated 05/27/2020. The cardiac and mediastinal silhouettes are within normal limits. The lungs are clear. Osteophyte formation within the thoracic spine is noted. Impression: There is no acute cardiopulmonary disease. WSN: [id number] Ordering Physician: Diane King Dictated By: Gala Capone MD Dictated Date/Time: 11/02/20 7:46 am Reviewed By: Gala Capone MD Signed By: Gala Capone MD Signed Date/Time: 11/02/20 7:46 am Transcribed By: MIMA Transcribed Date/Time: 11/02/20 7:45 am Vital Signs Most recent to oldest [Reference Range]: 1 2 3 Oxygen Saturation [94-100 %] 98 % (11/02/20 1:30 AM) 98 % (11/01/20 7:05 PM) 99 % (11/01/20 6:20 PM) Pulse Rate [55-90 bpm] 68 bpm (11/02/20 1:30 AM) 75 bpm (11/01/20 7:05 PM) 74 bpm (11/01/20 6:20 PM) Blood Pressure [90-138/55-84 mm Hg] 140/94mm Hg *H* (11/02/20 1:30 AM) 156/114mm Hg *H* (11/01/20 7:05 PM) 130/99mm Hg (11/01/20 6:20 PM) Respiratory Rate [16-30 br/min] 18 br/min (11/02/20 1:30 AM) 16 br/min (11/01/20 7:05 PM) 17 br/min (11/01/20 6:20 PM) Temperature [96.8-100.4 DegF] 97.9 DegF (11/02/20 1:30 AM) 98.1 DegF (11/01/20 7:05 PM) 98.1 DegF (11/01/20 6:20 PM) Mode of Delivery (Oxygen) Room air (11/02/20 1:30 AM) Room air (11/01/20 7:05 PM) Room air (11/01/20 6:20 PM) Temperature Route Oral (11/02/20 1:30 AM) Oral (11/01/20 7:05 PM) Oral (11/01/20 6:20 PM) Social History Social History Type Response Smoking Status Never smoker; Tobacc o user in household: No entered on: 06/20/15 Sex
--- OUTSIDE RECORDS SUMMARY | 2022-11-20 11:46 | XMS_ITS | Continuity of Care Document ---
Author Name Unknown Organization [facility] Address [address] [place] [address] ve [address] [place] [address]- Care Team Providers Care Powder Coat Painter Name Role Phone Enriqueta DUMONT, Keven Cho Primary Care Physician [phone] Encounter [facility] Date(s): 05/02/19 - 07/28/[address] [place] [address]- [facility] Attending Physician: Dc Cobian MD Referring Physician: Not on Staff, Referring MD Allergies, Adverse Reactions, Alerts Substance Reaction Severity Status NKA Active Immunizations Given and Recorded Vaccine Date Status Refusal Reason tetanus/diphtheria/pertussis, acel(Tdap) 1 10/19/17 Given influenza virus vaccine, inactivated 02/24/08 Give n Pneumococcal Vaccine (oldterm) 02/24/08 Given Not Given Vaccine Date Status Refusal Reason influenza virus vaccine, inactivated 06/11/15 Not Given Patient Refuses 1Result Comment: [10/19/2017] [id number] Medications atorvastatin 40 mg oral tablet 1 tablet = 40 mg, By Mouth, Daily, INCREASED DOSE, # 90 tablet, 1 Refills, Maintenance, 07/20/19 10:58:00 EDT, [facility] #[id number], INCREASED DOSE DC 20mg daily, 147.32, cm, 06/22/19 9:10:00 EDT, Height, 108.3, kg, 12/05/18 11:18:00 EDT, Dry W... Start Date: 07/20/19 Status: Ordered CPAP Machine See Instructions, # 1 each, Maintenance, iVAPS with EPAP 5 and TVa of 5.5 and PS min of 4 and PS max of 12 and AR 20 and height 80 inches with 2 liters oxygen. DME Provider--[facility] 02/05/18 16:53:41 EDT, Compound Start Date: 02/05/18 Status: Ordered furosemide 20 mg oral tablet 20 mg, 1, tablet, By Mouth, Daily, # 30 tablet, Refills 2, Tot. Refills 2, Maintenance, 07/20/19 9:06:00 EDT, Route to Pharmacy Electronically, [facility] #[id number], 147.32, cm, 06/22/19 9:10:00 EDT, Height, 108.3, kg, 12/05/18 11:18:00 EDT, . Start Date: 07/20/19 Status: Ordered levothyroxine 0.1 mg oral tablet 1 tablet = 100 mcg, By Mouth, Daily, # 90 tablet, 1 Refills, Maintenance, 05/11/19 19:48:00 EST, Tablet, [facility] #[id number], 147.32, cm, 04/16/19 8:24:00 EST, Height, 108.3, kg, 12/05/18 11:18:00 EDT, Dry Weight Start Date: 05/11/19 Status: Ordered metFORMIN 500 mg oral tablet, extended release 1 tablet = 500 mg, By Mouth, Daily, # 30 tablet, 5 Refills, Maintenance, 04/06/19 12:06:00 EST, ER Tablet, [facility], 147.32, cm, 03/05/19 9:49:00 EST, Height, 108.3, kg, 12/05/18 11:18:00 EDT, Dry Weight Start Date: 04/06/19 Stop Date: 10/03/19 Status: Ordered Multivitamin Daily, 0 Refills, Maintenance, 05/22/19 14:28:00 EST Start Date: 05/22/19 Status: Ordered pantoprazole 40 mg oral delayed release tablet 1 tablet, By Mouth, Daily, # 90 tablet, 2 Refills, Maintenance, 06/13/19 12:01:00 EST, 147.32, cm, 05/22/19 14:26:00 EST, Height, 108.3, kg, 12/05/18 11:18:00 EDT, Dry Weight Start Date: 06/13/19 Status: Ordered Wellbutrin XL 150 mg/24 hours oral tablet, extended release 1 tablet = 150 mg, By Mouth, Every 24 hours, do not crush or chew., # 30 tablet, 3 Refills, Maintenance, 02/09/19 11:05:38 EDT, ER Tablet Start Date: 02/09/19 Status: Ordered Zoloft 100 mg oral tablet 2 tablet = 200 mg, By Mouth, Daily, # 180 tablet, 1 Refills, Maintenance, 01/24/19 16:06:35 EDT, Tablet Start Date: 01/24/19 Status: Ordered Problem List Condition Effective Dates Status Health Status Inform ant Anxiety and depression(Confirmed) Active Binge eating disorder, mild, in partial remission(Confirmed) Active Morbid obesity with BMI of 4 5.0-49.9, adult(Confirmed) Active Central sleep apnea(Confirmed) Active Chalazion(Confirmed) Active Chronic active hepatitis C(Confirmed) Active Depression(Confirmed) Active Drug addiction(Confirmed) Active Leg edema(Confirmed) Active GERD without esophagitis(Confirmed) Active Status post LASIK surgery(Confirmed) Active Hyperlipidemia(Confirmed) Active Hypothyroidism(Confirmed) Active Insomnia(Confirmed) Active Acute neck pain(Confirmed) Active NON-HEALING SURGICAL WOUND(Confirmed) Active MILTON (obstructive sleep apnea)(Confirmed) Active Prediabetes(Confirmed) Active Social History Social History Type Response Smoking Status Never smoker; Tobacc o user in household: No entered on: 06/20/15 Sex
--- OUTSIDE RECORDS SUMMARY | 2022-11-20 11:46 | XMS_ITS | Continuity of Care Document ---
Author Name Unknown Organization [facility] Norm lt Address [address] [place] [address]- Care Team Providers Care Wound Care Center Consultant Name Role Phone Keven Robison MD Primary Care Physician [phone] Encounter [facility] [place] Date(s): 06/22/19 - 06/29/19 [facility] [address] [place] [address] Encounter Diagnosis Anxiety and depression(Discharge Diagnosis) - 06/22/19 Central sleep apnea(Discharge Diagnosis) - 06/22/19 Drug addiction(Discharge Diagnosis) - 06/22/19 Morbid obesity with BMI of 45.0-49.9, adult(Discharge Diagnosis) - 06/22/19 Attending Physician: Radha Corado NP Referring Physician: Keven Robison MD Allergies, Adverse Reactions, Alerts Substance Reaction Severity Status NKA Active Immunizations Given and Recorded Vaccine Date Status Refusal Reason tetanus/diphtheria/pertussis, acel(Tdap) 1 10/19/17 Given influenza virus vaccine, inactivated 02/24/08 Give n Pneumococcal Vaccine (oldterm) 02/24/08 Given Not Given Vaccine Date Status Refusal Reason influenza virus vaccine, inactivated 06/11/15 Not Given Patient Refuses 1Result Comment: [10/19/2017] [id number] Medications atorvastatin 40 mg oral tablet 1 tablet = 40 mg, By Mouth, Daily, INCREASED DOSE, # 30 tablet, 6 Refills, Maintenance, 01/24/19 16:53:45 EDT, INCREASED DOSE DC 20mg daily Start Date: 01/24/19 Status: Ordered CPAP Machine See Instructions, # [...] By Mouth, Daily, # 30 tablet, Refills 1, Tot. Refills 1, Maintenance, 05/11/19 19:48:00 EST, Route to Pharmacy Electronically, [facility] #[id number], 147.32, cm, 04/16/19 8:24:00 EST, Height, 108.3, kg, 12/05/18 11:18:00 EDT, D... Start Date: 05/11/19 Status: Ordered levothyroxine 0.1 mg oral tablet 1 tablet = 100 mcg, By Mouth, Daily, # 90 tablet, 1 Refills, Maintenance, 05/11/19 19:48:00 EST, Tablet, [facility] #[id number], 147.32, cm, 04/16/19 8:24:00 EST, Height, 108.3, kg, 12/05/18 11:18:00 EDT, Dry Weight Start Date: 05/11/19 Status: Ordered metFORMIN 500 mg oral tablet, extended release 1 tablet = 500 mg, By Mouth, Daily, # 30 tablet, 5 Refills, Maintenance, 04/06/19 12:06:00 EST, ER Tablet, [facility], 147.32, cm, 03/05/19 9:49:00 EST, Height, 108.3, [...] MILTON (obstructive sleep apnea)(Confirmed) Active Prediabetes(Confirmed) Active Diagnosis Diagnosis Type Effective Dates Health Status Clinical Service Informant Anxiety and depression Discharge Diagnosis 06/22/19 Central sleep apnea Discharge Diagnosis 06/22/19 Drug addiction Discharge Diagnosis 06/22/19 Morbid obesity with BMI of 45.0-49.9, adult Discharge Diagnosis 06/22/19 Vital Signs Most recent to oldest [Reference Range]: 1 Height 147.32 cm (06/22/19 9:10 AM) Weight 101.7 kg (06/22/19 9:10 AM) Oxygen Saturation [94-100 %] 97 % (06/22/19 9:10 AM) Pulse Rate [55-90 bpm] 103 bpm *H* (06/22/19 9:10 AM) Body Mass Index [18.5-24.99] 46.86 *>HHI* (06/22/19 9:10 AM) Blood Pressure [90-138/55-84 mm Hg] 118/ 80mm Hg (06/22/19 9:10 AM) Respiratory Rate [16-30 br/min] 16 br/mi n (06/22/19 9:10 AM) Temperature [96.8-100.4 DegF] 98.2 DegF (06/22/19 9:10 AM) Mode of Delivery (Oxygen) Room air (06/22/19 9:10 AM) Blood pressure sites Arm, right (06/22/19 9:10 AM) Temperature Route Oral (06/22/19 9:10 AM) Weight Obtained Via Standing scale (06/22/19 9:10 AM) Social History Social History Type Response Smoking Status Never smoker; Tobacc o user in household: No entered on: 06/20/15 Sex
--- OUTSIDE RECORDS SUMMARY | 2022-11-20 11:46 | XMS_ITS | Continuity of Care Document ---
Author Name Unknown Organization [facility] Norm lt Address [address] [place] [address]- Care Team Providers Care Ledger Poster Name Role Phone Keven Robison MD Primary Care Physician Encounter [facility] [place] Date(s): 06/08/21 - 07/08/21 [facility] Adult [address] [place] [address]- Allergies, Adverse Reactions, Alerts No Known Allergies [...] Not Given Patient Refuses 1Result Comment: [10/19/2017] [id number] Medications buPROPion 150 mg/24 hours (XL) oral tablet, extended release 1 tablet, By Mouth, Every 24 hours, DO NOT CRUSH OR CHEW, # 90 tablet, 1 Refills, [facility] #[id number], 90, TAKE 1 TABLET BY MOUTH EVERY 24 HOURS. DO NOT CRUSH OR CHEW, 149.86, cm, 10/03/20 15:02:00 EDT, Height, 73.3, kg, 10/03/20 15:02:00 EDT,... Start Date: 02/17/21 Status: Ordered furosemide 20 mg oral tablet 1, tablet, By Mouth, Daily, # 30 tablet, Refills 0, Tot. Refills 0, Maintenance, 09/15/20 8:51:00 EDT, Route to Pharmacy Electronically, [facility] #[id number], 149.86, cm, 08/01/20 16:14:00 EDT, Height, 100.91, kg, 05/20/20 15:45:00 EST, Dry Weight Start Date: 09/15/20 Status: Ordered furosemide 20 mg oral tablet See Instructions, TAKE 1 TABLET BY MOUTH DAILY, # 30 tablet, Refills 0, Instructions Replace Required Details, Route to Pharmacy Electronically, [facility] #[id number], 149.86, cm, 10/03/20 15:02:00 EDT, Height, 73.3, kg, 10/03/20 15:02:00 EDT, D... Start Date: 12/29/20 Status: Ordered furosemide 20 mg oral tablet See Instructions, TAKE 1 TABLET BY MOUTH DAILY, # 30 tablet, Refills 0, Instructions Replace Required Details, Route to Pharmacy Electronically, [facility] #[id number], 149.86, cm, 10/03/20 15:02:00 EDT, Height, 73.3, kg, 10/03/20 15:02:00 EDT, D... Start Date: 12/01/20 Status: Ordered levothyroxine 0.1 mg oral tablet 1 tablet, By Mouth, Daily, # 90 tablet, 1 Refills, Maintenance, 11/11/20 16:04:00 EDT, [facility] #[id number], 149.86, cm, 10/03/20 15:02:00 EDT, Height, 73.3, [...] MOUTH DAILY, # 180 tablet, 0 Refills, [facility] #[id number], 149.86, cm, 10/03/20 15:02:00 EDT, Height, 73.3, kg, 10/03/20 15:02:00 EDT, Dry Weight Start Date: 12/29/20 Status: Ordered sertraline 100 mg oral tablet 2 tablet = 200 mg, By Mouth, Daily, REFAXED, # 180 tablet, 3 Refills, Maintenance, 01/25/20 8:47:00EDT, [facility] #[id number], 149.86, cm, 01/25/20 8:03:00 EDT, Height, 103, kg, 11/21/19 8:04:00 EDT, Dry Weight Start Date: 01/25/20 Status: Ordered Wellbutrin XL 150 mg/24 hours oral tablet, extended release 1 tablet = 150 mg, By Mouth, Every 24 hours, # 90 tablet, 1 Refills, Maintenance, 06/08/21 13:12:00EST, [facility] #[id number], Partial fill upon patient request if the prescription is for a schedule II opioid drug., 149.86, cm, 05/29/21 8:37:00... Start Date: 06/08/21 Status: Ordered Problem List Condition Effective Dates [...]
--- OUTSIDE RECORDS SUMMARY | 2022-11-20 11:46 | XMS_ITS | Continuity of Care Document ---
Author Name Unknown Organization [facility] Address [address] [place] [address] ve [address] [place] [address]- Care Team Providers Care Grizzly Worker Name Role Phone Enriqueta DUMONT, Keven Cho Primary Care Physician Encounter [facility] Date(s): 12/05/19 - 01/04/20 [facility] [address] [place] [address]- [facility] Attending Physician: Admtr, [id number] Admitting Physician: [id number] Referring Physician: Admtr, Ar8 Allergies, Adverse Reactions, Alerts Substance Reaction Severity Status NKA Active Immunizations Given and Recorded Vaccine Date Status Refusal Reason tetanus/diphtheria/pertussis, acel(Tdap) 1 10/19/17 Given influenza virus vaccine, inactivated 02/24/08 Give n Pneumococcal Vaccine (oldterm) 02/24/08 Given Not Given Vaccine Date Status Refusal Reason influenza virus vaccine, inactivated 06/11/15 Not Given Patient Refuses 1Result Comment: [10/19/2017] [id number] Medications atorvastatin 40 mg oral tablet 1 tablet = 40 mg, By Mouth, Daily, INCREASED DOSE, # 90 tablet, 1 Refills, Maintenance, 07/20/19 10:58:00 EDT, [facility] #[id number], INCREASED DOSE DC 20mg daily, 147.32, cm, 06/22/19 9:10:00 EDT, Height, 108.3, kg, 12/05/18 11:18:00 EDT, Dry W... Start Date: 07/20/19 Status: Ordered CPAP Machine See Instructions, # 1 each, Maintenance, iVAPS with EPAP 5 and TVa of 5.5 and PS min of 4 and PS max of 12 and [place] 20 and height 80 inches with 2 liters oxygen. DME Provider--[facility]., 02/05/18 16:53:41 EDT, Compound Start Date: 02/05/18 Status: Ordered furosemide 20 mg oral tablet 20 mg, 1, tablet, By Mouth, Daily, # 30 tablet, Refills 5, Tot. Refills 5, Maintenance, 10/10/19 16:17:00 EDT, Route to Pharmacy Electronically, [facility] #[id number], 147.32, cm, 10/01/19 9:28:00 EDT, Height, 108.3, kg, 12/05/18 11:18:00 EDT, D... Start Date: 10/10/19 Status: Ordered levothyroxine 0.1 mg oral tablet 1 tablet = 100 mcg, By Mouth, Daily, # 90 tablet, 1 Refills, Maintenance, 11/20/19 12:52:00 EDT, Tablet, [facility] #[id number], 147.32, cm, 10/01/19 9:28:00 EDT, Height, 108.3, kg, 12/05/18 11:18:00 EDT, Dry Weight Start Date: 11/20/19 Status: Ordered metFORMIN 500 mg oral tablet, extended release 1 tablet = 500 mg, By Mouth, Daily, # 30 tablet, 5 Refills, Maintenance, 10/10/19 16:17:00 EDT, ER Tablet, [facility] #[id number], 147.32, cm, 10/01/19 9:28:00 EDT, Height, 108.3, [...] REFAXED, # 180 tablet, 1 Refills, Maintenance, 12/03/19 15:01:00 EDT, [facility] #[id number], 149.86, cm, 11/21/19 8:04:00 EDT, Height, 103, kg, 11/21/19 8:04:00 EDT, Dry Weight Start Date: 12/03/19 Status: Ordered Wellbutrin XL 150 mg/24 hours oral tablet, extended release 1 tablet = 150 mg, By Mouth, Every 24 hours, do not crush or chew., # 30 tablet, 5 Refills, Maintenance, 08/14/19 14:27:00 EDT, ER Tablet, [facility] #[id number], 147.32, cm, 06/22/19 9:10:00 EDT, Height, 108.3, [...]
--- OUTSIDE RECORDS SUMMARY | 2022-11-20 11:46 | XMS_ITS | Continuity of Care Document ---
Author Name Unknown Organization [facility] Address [address] [place] [address] [address] [place] [address]- Care Team Providers Care Cloth Shader Name Role Phone Keven Robison MD Primary Care Physician [phone] Encounter [facility] [place] Date(s): 06/04/20 - 06/11/[address] [place] [address]- Attending Physician: Knee RD, Dary Allergies, Adverse Reactions, Alerts Substance Reaction Severity Status NKA Active Immunizations Given and Recorded Vaccine Date Status Refusal Reason tetanus/diphtheria/pertussis, acel(Tdap) 1 10/19/17 Given influenza virus vaccine, inactivated 02/24/08 Give n Pneumococcal Vaccine (oldterm) 02/24/08 Given Not Given Vaccine Date Status Refusal Reason influenza virus vaccine, inactivated 06/11/15 Not Given Patient Refuses 1Result Comment: [10/19/2017] [id number] Medications atorvastatin 40 mg oral tablet 1 tablet = 40 mg, By Mouth, Daily, INCREASED DOSE, # 90 tablet, 1 Refills, Maintenance, 01/25/20 8:43:00 EDT, [facility] #[id number], INCREASED DOSE DC 20mg daily, 149.86, cm, 01/25/20 8:03:00 EDT, Height, 103, kg, 11/21/19 8:04:00 EDT, Dry Weight Start Date: 01/25/20 Status: Ordered Colace sodium 100 mg oral capsule 100 mg, 1, capsule, By Mouth, 2 times a day, with plenty of water, # 60 capsule, Refills 0, Tot. Refills 0, Maintenance, 05/22/20 12:36:00 EST, Route to Pharmacy Electronically, [facility], Partial fill upon patient request if the prescr... Start Date: 05/22/20 Status: Ordered CPAP Machine See Instructions, # 1 each, Maintenance, iVAPS with EPAP 5 and TVa of 5.5 and PS min of 4 and PS max of 12 and HI 20 and height 80 inches with 2 liters oxygen. DME Provider--[facility]., 02/05/18 16:53:41 EDT, Compound Start Date: 02/05/18 Status: Ordered furosemide 20 mg oral tablet 20 mg, 1, tablet, By Mouth, Daily, # 90 tablet, Refills 1, Tot. Refills 1, Maintenance, 01/25/20 8:44:00 EDT, Route to Pharmacy Electronically, [facility] #[id number], 149.86, cm, 01/25/20 8:03:00 EDT, Height, 103, kg, 11/21/19 8:04:00 EDT, Dry W... Start Date: 01/25/20 Status: Ordered levothyroxine 0.1 mg oral tablet 1 tablet = 100 mcg, By Mouth, Daily, # 90 tablet, 1 Refills, Maintenance, 05/23/20 9:52:00 EST, Tablet, [facility] #[id number], 149.86, cm, 05/22/20 13:49:00 EST, Height, 100.91, kg, 05/20/20 15:45:00 EST, Dry Weight Start Date: 05/23/20 Status: Ordered Multivitamin Daily, 0 Refills, Maintenance, 05/30/20 10:28:00 EST, Partial fill upon patient request if the prescription is for a schedule II opioid drug. Start Date: 05/30/20 Status: Ordered oxyCODONE 5 mg oral tablet 5 mg, 1, tablet, By Mouth, Every 4 hours, PRN, # 12 tablet, Refills 0, Tot. Refills 0, Maintenance,Pain , Severe, 05/22/20 12:36:00 EST, Route to Pharmacy Electronically, [facility], Partial fill upon patient request if the prescription... Start Date: 05/22/20 Status: Ordered pantoprazole 40 mg oral delayed release tablet 1 tablet, By Mouth, Daily, # 90 tablet, 1 Refills, Maintenance, 01/25/20 8:47:00 EDT, 149.86, cm, 01/25/20 8:03:00 EDT, Height, 103, kg, 11/21/19 8:04:00 EDT, Dry Weight Start Date: 01/25/20 Status: Ordered sertraline 100 mg oral tablet 2 tablet = 200 mg, By Mouth, Daily, REFAXED, # 180 tablet, 3 Refills, Maintenance, 01/25/20 8:47:00EDT, [facility] #[id number], 149.86, cm, 01/25/20 8:03:00 EDT, Height, 103, kg, 11/21/19 8:04:00 EDT, Dry Weight Start Date: 01/25/20 Status: Ordered Tylenol 325 mg oral tablet 975 mg, 3, tablet, By Mouth, Every 8 hours, Refills 0, Maintenance, 05/22/20 12:36:00 EST, Partial fill upon patient request if the prescription is for a schedule II opioid drug. Start Date: 05/22/20 Status: Ordered Wellbutrin XL 150 mg/24 hours oral tablet, extended release 1 tablet = 150 mg, By Mouth, Every 24 hours, do not crush or chew., # 90 tablet, 1 Refills, Maintenance, 01/25/20 8:44:00 EDT, ER Tablet, [facility] #[id number], 149.86, cm, 01/25/20 8:03:00 EDT, Height, 103, [...]
--- OUTSIDE RECORDS SUMMARY | 2022-11-20 11:46 | XMS_ITS | Continuity of Care Document ---
Author Name Unknown Organization [facility] Norm lt Address [address] [place] [address]- Care Team Providers Care Player Development Executive Name Role Phone Keven Robison MD Primary Care Physician Encounter [facility] [place] Date(s): 09/29/20 - 10/06/20 [facility] Adult [address] [place] [address]- Attending Physician: Keven Robison MD Allergies, Adverse [...] Not Given Patient Refuses 1Result Comment: [10/19/2017] [id number] Medications furosemide 20 mg oral tablet 1, tablet, By Mouth, Daily, # 30 tablet, Refills 0, Tot. Refills 0, Maintenance, 09/15/20 8:51:00 EDT, Route to Pharmacy Electronically, [facility] #[id number], 149.86, cm, 08/01/20 16:14:00 EDT, Height, 100.91, kg, 05/20/20 15:45:00 EST, Dry Weight Start Date: 09/15/20 Status: Ordered levothyroxine 0.1 mg oral tablet 1 tablet = 100 mcg, By Mouth, Daily, # 90 tablet, 1 Refills, Maintenance, 05/23/20 9:52:00 EST, Tablet, [facility] #[id number], 149.86, cm, 05/22/20 13:49:00 EST, Height, 100.91, [...] 180 tablet, 3 Refills, Maintenance, 01/25/20 8:47:00EDT, [facility] #[id number], 149.86, cm, 01/25/20 8:03:00 EDT, Height, 103, [...] oldest [Reference Range]: 1 Height 149.86 cm (09/29/20 8:33 AM) Weight 73.0 kg (09/29/20 8:33 AM) Oxygen Saturation [94-100 %] 99 % (09/29/20 8:33 AM) Pulse Rate [55-90 bpm] 96 bpm *H* (09/29/20 8:33 AM) Body Mass Index [18.5-24.99] 32.51 *>HHI* (09/29/20 8:33 AM) Blood Pressure [90-138/55-84 mm Hg] 98/7 2mm Hg (09/29/20 8:33 AM) Respiratory Rate [16-30 br/min] 16 br/mi n (09/29/20 8:33 AM) Temperature [96.8-100.4 DegF] 98.5 DegF (09/29/20 8:33 AM) Mode of Delivery (Oxygen) Room air (09/29/20 8:33 AM) Blood pressure sites Arm, right (09/29/20 8:33 AM) Temperature Route Oral (09/29/20 8:33 AM) Weight Obtained Via Standing scale (09/29/20 8:33 AM) Social History Social History Type Response Smoking Status Never smoker; Tobacc o user in household: No entered on: 06/20/15 Sex
--- OUTSIDE RECORDS SUMMARY | 2022-11-20 11:46 | XMS_ITS | Continuity of Care Document ---
Author Name Unknown Organization [facility] Norm lt Address [address] [place] [address]- Care Team Providers Care Crew Member Name Role Phone Enriqueta DUMONT, Keven Cho Primary Care Physician Encounter [facility] [place] Date(s): 08/30/19 - 09/29/19 [facility] Adult [address] [place] [address]- [facility] Attending Physician: AdmLudy camacho Admitting Physician: AdmtrLudy Referring Physician: AdmtrLudy Allergies, Adverse Reactions, Alerts Substance Reaction Severity Status NKA Active Immunizations Given and Recorded Vaccine Date Status Refusal Reason tetanus/diphtheria/pertussis, acel(Tdap) 1 10/19/17 Given influenza virus vaccine, inactivated 02/24/08 Give n Pneumococcal Vaccine (oldterm) 02/24/08 Given Not Given Vaccine Date Status Refusal Reason influenza virus vaccine, inactivated 06/11/15 Not Given Patient Refuses 1Result Comment: [10/19/2017] [id number] Medications atorvastatin 40 mg oral tablet 1 tablet = 40 mg, By Mouth, Daily, INCREASED DOSE, # 90 tablet, 1 Refills, Maintenance, 07/20/19 10:58:00 EDT, [facility] #[id number], INCREASED DOSE DC 20mg daily, 147.32, cm, 06/22/19 9:10:00 EDT, Height, 108.3, kg, 12/05/18 11:18:00 EDT, Dry W... Start Date: 07/20/19 Status: Ordered CPAP Machine See Instructions, # 1 each, Maintenance, iVAPS with EPAP 5 and TVa of 5.5 and PS min of 4 and PS max of 12 and [place] 20 and height 80 inches with 2 liters oxygen. DME Provider--[facility] 02/05/18 16:53:41 EDT, Compound Start Date: 02/05/18 Status: Ordered furosemide 20 mg oral tablet 20 mg, 1, tablet, By Mouth, Daily, # 30 tablet, Refills 2, Tot. Refills 2, Maintenance, 07/20/19 9:06:00 EDT, Route to Pharmacy Electronically, [facility] #[id number], 147.32, cm, 06/22/19 9:10:00 EDT, Height, 108.3, kg, 12/05/18 11:18:00 EDT, . Start Date: 07/20/19 Status: Ordered levothyroxine 0.1 mg oral tablet 1 tablet = 100 mcg, By Mouth, Daily, # 90 tablet, 1 Refills, Maintenance, 05/11/19 19:48:00 EST, Tablet, [facility] #[id number], 147.32, cm, 04/16/19 8:24:00 EST, Height, 108.3, kg, 12/05/18 11:18:00 EDT, Dry Weight Start Date: 05/11/19 Status: Ordered metFORMIN 500 mg oral tablet, extended release 1 tablet = 500 mg, By Mouth, Daily, # 30 tablet, 5 Refills, Maintenance, 04/06/19 12:06:00 EST, ER Tablet, [facility], 147.32, cm, 03/05/19 9:49:00 EST, Height, [...] tablet, 1 Refills, Maintenance, 08/31/19 13:43:00 EDT, [facility] #[id number], 147.32, cm, 08/30/19 12:07:00 EDT, Height, 108.3, kg, 12/05/18 11:18:00 EDT, Dry Weight Start Date: 08/31/19 Status: Ordered Wellbutrin XL 150 mg/24 hours oral tablet, extended release 1 tablet = 150 mg, By Mouth, Every 24 hours, do not crush or chew., # 30 tablet, 5 Refills, Maintenance, 08/14/19 14:27:00 EDT, ER Tablet, [facility] #[id number], 147.32, cm, 06/22/19 9:10:00 EDT, Height, 108.3, [...]
--- OUTSIDE RECORDS SUMMARY | 2022-11-20 11:46 | XMS_ITS | Continuity of Care Document ---
Author Name Unknown Organization [facility] Address [address] [place] [address] [address] [place] [address]- Care Team Providers Care Powdered Sugar Pulverizer Operator Name Role Phone Enriqueta DUMONT, Keven Cho Primary Care Physician [facility] Date(s): 08/12/22 - 09/11/22 [facility] [address] [place], [place] [address] Allergies, Adverse Reactions, Alerts No Known Allergies Immunizations Given and Recorded Vaccine Date Status Refusal Reason influenza virus vaccine, inactivated 02/03/22 Saúl rded influenza virus vaccine, inactivated 02/24/08 Give n SARS-CoV-2 (COVID-19) mRNA BNT-162b2 vac 10/13/20 Recorded SARS-CoV-2 (COVID-19) mRNA BNT-162b2 vac 08/30/20 Recorded tetanus/diphtheria/pertussis, acel(Tdap) 1 10/19/17 Given tetanus/diphtheria/pertussis, acel(Tdap) 05/20/11 Recorded Measles/Mumps/Rubella Virus Vaccine 06/21/11 Recor ded Measles/Mumps/Rubella Virus Vaccine 05/20/11 Recor ded Pneumococcal Vaccine (oldterm) 02/24/08 Given Not Given Vaccine Date Status Refusal Reason influenza virus vaccine, inactivated 06/11/15 Not Given Patient Refuses 1Result Comment: [10/19/2017] [id number] Medications furosemide 20 mg oral tablet See Instructions, TAKE 1 TABLET BY MOUTH DAILY, # 30 tablet, Refills 2, Tot. Refills 2, 01/15/22 11:17:00 EDT, Instructions Replace Required Details, Route to Pharmacy Electronically, [facility] #[id number], 147, cm, 01/01/22 10:56:00 EDT, Height... Start Date: 01/15/22 Status: Ordered furosemide 20 mg oral tablet 20 mg, 1, tablet, By Mouth, Daily, # 30 tablet, Refills 0, Tot. Refills 0, 07/20/22 15:16:00 EDT, Route to Pharmacy Electronically, [facility] #[id number], 147, cm, 05/31/22 15:05:00 EST, Height, 60.8, kg, 07/07/21 7:44:00 EDT, Dry Weight Start Date: 07/20/22 Status: Ordered levothyroxine 0.1 mg oral tablet 1 tablet, By Mouth, Daily, # 90 tablet, 0 Refills, Maintenance, 07/14/22 20:53:00 EDT, [facility] #[id number], 147, cm, 05/31/22 15:05:00 EST, Height, 60.8, kg, 07/07/21 7:44:00 EDT, Dry Weight Start Date: 07/14/22 Status: Ordered pantoprazole 40 mg oral delayed release tablet 1 tablet = 40 mg, By Mouth, 2 times a day, # 60 tablet, 0 Refills, Maintenance, 07/20/22 15:16:00 EDT, CR Tablet, 147, cm, 05/31/22 15:05:00 EST, Height, 60.8, kg, 07/07/21 7:44:00 EDT, Dry Weight Start Date: 07/20/22 Status: Ordered Protonix 40 mg oral delayed release tablet 1 tablet = 40 mg, By Mouth, 2 times a day, # 60 tablet, 2 Refills, Maintenance, 08/03/21 15:27:00 EDT, CR Tablet, 147, cm, 08/03/21 15:14:00 EDT, Height, 60.8, kg, 07/07/21 7:44:00 EDT, Dry Weight Start Date: 08/03/21 Status: Ordered Wellbutrin XL 150 mg/24 hours oral tablet, extended release 1 tablet = 150 mg, By Mouth, Every 24 hours, # 90 tablet, 3 Refills, Maintenance, 08/17/22 14:51:00EDT, [facility] #[id number], Partial fill upon patient request if the prescription is for a schedule II opioid drug., 147, cm, 05/09/23 14:33:00 E... Start Date: 08/17/22 Status: Ordered Problem List Condition Confirmation Course Effective Dates Status H ealth Status Informant Anxiety and depression Confirmed Active Binge eating disorder, mild, in partial remission Confirmed Active Morbid obesity with BMI of 45.0-49.9, adult Confirmed Active Central sleep apnea Confirmed Active Chalazion Confirmed Active Chronic active hepatitis C Confirmed Active Depression Confirmed Active Drug addiction Confirmed Active Leg edema Confirmed Active Fibroma of mouth Confirmed Active GERD without esophagitis Confirmed Active Status post LASIK surgery Confirmed Active Hyperlipidemia Confirmed Active Hypothyroidism Confirmed Active Insomnia Confirmed Active Urachal remnant Confirmed Active Acute neck pain Confirmed Active NON-HEALING SURGICAL WOUND Confirmed Active Obese class I Confirmed Active MILTON (obstructive sleep apnea) Confirmed Active Prediabetes Confirmed Active Social History Social History Type Response Smoking Status Never smoker; Tobacc o user in household: No entered on: 06/20/15 Sex Female Patient Care team information Care Team Personnel Name: Bozena Bateman RN Position: [facility] SN RN Member Role: Primary Care Nurse Name: Swati Thomas NP Position: [facility] Associate Professional Member Role: Primary Care Nurse Name: Kyara Catalan RN Position: [facility] RN Member Role: Primary Care Nurse Name: Torrey Blanchard MD Position: [facility] SURGERY SCHEDULING COORDINATOR MD Member Role: Lifetime SURGERY SCHEDULING COORDINATOR Physician Address: Address: [address] [place] [address] SURGERY [place] [address]- Name: Paz Villarreal RN Position: [facility] SN RN Member Role: Primary Care Nurse Name: Gege Paulino NP Position: [facility] Associate Professional Member Role: Primary Care Nurse Address: Address: [address] [facility] [place] [address]- Name: Hanh Devlin RN Position: [facility] RN Member Role: Primary Care Nurse Name: Christina Guerrero RN Position: [facility] RN Member Role: Primary Care Nurse Name: Jennifer Zendejas RN Position: [facility] RN Member Role: Primary Care Nurse Name: Keven Robison MD Position: [facility] Physician - Primary Care Member Role: PCP Address: Address: [address] [place] [address]- [place] Name: Dary Jensen RN Position: [facility] RN Member Role: Primary Care Nurse Care Team Related Persons Name: JUDI MARTINI Address: [address] [address]
--- OUTSIDE RECORDS SUMMARY | 2022-11-20 11:46 | XMS_ITS | Continuity of Care Document ---
Author Name Unknown Organization [facility] Address [address] [place] [address] [address] [place] [address]- Care Team Providers Care Team Leader/Research Psychologist Name Role Phone Enriqueta DUMONT, Keven Cho Primary Care Physician [facility] Date(s): 09/27/22 - 10/27/[address] [place], [place] [address] Allergies, Adverse Reactions, Alerts No Known Allergies [...] Not Given Patient Refuses 1Result Comment: [10/19/2017] [id number] Medications furosemide 20 mg oral tablet See Instructions, TAKE 1 TABLET BY MOUTH DAILY, # 30 tablet, Refills 2, Tot. Refills 2, 01/15/22 11:17:00 EDT, Instructions Replace Required Details, Route to Pharmacy Electronically, [facility] #[id number], 147, cm, 01/01/22 10:56:00 EDT, Height... Start Date: 01/15/22 Status: Ordered furosemide 20 mg oral tablet 20 mg, 1, tablet, By Mouth, Daily, # 30 tablet, Refills 0, Tot. Refills 0, 07/20/22 15:16:00 EDT, Route to Pharmacy Electronically, [facility] #[id number], 147, cm, 05/31/22 15:05:00 EST, Height, 60.8, kg, 07/07/21 7:44:00 EDT, Dry Weight Start Date: 07/20/22 Status: Ordered levothyroxine 0.1 mg oral tablet 1 tablet, By Mouth, Daily, # 90 tablet, 0 Refills, Maintenance, 07/14/22 20:53:00 EDT, [facility] #[id number], 147, cm, 05/31/22 15:05:00 EST, Height, 60.8, [...] 90 tablet, 3 Refills, Maintenance, 08/17/22 14:51:00EDT, [facility] #[id number], Partial fill upon patient request if the prescription is for a schedule II opioid drug., 147, cm, 08/17/22 14:33:00 E... Start Date: 08/17/22 Status: Ordered [...] Team Personnel Name: Bozena Bateman RN Position: [facility] SN RN Member Role: Primary Care Nurse Name: Swati Thomas NP Position: [facility] Associate Professional Member Role: Primary Care Nurse Name: Kyara Catalan RN Position: [facility] RN Member Role: Primary Care Nurse Name: Torrey Blanchard MD Position: [facility] PAPER GOODS MACHINE SET UP OPERATOR MD Member Role: Lifetime PAPER GOODS MACHINE SET UP OPERATOR Physician Address: Address: [address] [place] [address] [employer]ER [employer], [place] [address]- Name: Paz Villarreal RN Position: [facility] SN RN Member Role: Primary Care Nurse Name: Gege Paulino NP Position: [facility] PCO Associate Professional Member Role: Primary Care Nurse Address: Address: [address] [facility] [place] [address]- [place] Name: Hanh Devlin RN Position: [facility] RN Member Role: Primary Care Nurse Name: Christina Guerrero RN Position: [facility] RN Member Role: Primary Care Nurse Name: Jennifer Zendejas RN Position: [facility] RN Member Role: Primary Care Nurse Name: Keven Robison MD Position: [facility] Physician - Primary Care Member Role: PCP Address: Address: [address] [place] [address]- [place] Name: Dary Jensen RN Position: [facility] RN Member Role: Primary Care Nurse Care Team Related Persons Name: JUDI MARTINI Address: [address] [address]
--- OUTSIDE RECORDS SUMMARY | 2022-11-20 11:46 | XMS_ITS | Continuity of Care Document ---
Author Name Unknown Organization [facility] Address [address] [place] [address] [address] [place] [address]- Care Team Providers Care Wire Taper Name Role Phone Keven Robison MD Primary Care Physician [phone] [place] [facility] [place]/20 - 06/06/[address] [place] [address]- Encounter Diagnosis Morbid obesity with BMI of 45.0-49.9, adult(Discharge Diagnosis) - 05/30/20 Attending Physician: Dc Cobian MD Referring Physician: Keven Robison MD Allergies, Adverse Reactions, Alerts Substance Reaction Severity Status NKA Active Immunizations Given and Recorded Vaccine Date Status Refusal Reason tetanus/diphtheria/pertussis, acel(Tdap) 1 10/19/17 Given influenza virus vaccine, inactivated 02/24/08 Give n Pneumococcal Vaccine (oldterm) 02/24/08 Given Not Given Vaccine Date Status Refusal Reason influenza virus vaccine, inactivated 06/11/15 Not Given Patient Refuses 1Result Comment: [10/19/2017] [id number] Medications atorvastatin 40 mg oral tablet 1 tablet = 40 mg, By Mouth, Daily, INCREASED DOSE, # 90 tablet, 1 Refills, Maintenance, 01/25/20 8:43:00 EDT, [facility] #[id number], INCREASED DOSE DC 20mg daily, 149.86, cm, 01/25/20 8:03:00 EDT, Height, 103, kg, 11/21/19 8:04:00 EDT, Dry Weight Start Date: 01/25/20 Status: Ordered Colace sodium 100 mg oral capsule 100 mg, 1, capsule, By Mouth, 2 times a day, with plenty of water, # 60 capsule, Refills 0, Tot. Refills 0, Maintenance, 05/22/20 12:36:00 EST, Route to Pharmacy Electronically, [facility], Partial fill upon patient request if the prescr... Start Date: 05/22/20 Status: Ordered CPAP Machine See Instructions, # 1 each, Maintenance, iVAPS with EPAP 5 and TVa of 5.5 and PS min of 4 and PS max of 12 and VT 20 and height 80 inches with 2 liters oxygen. DME Provider--[facility] 02/05/18 16:53:41 EDT, Compound Start Date: 02/05/18 Status: Ordered furosemide 20 mg oral tablet 20 mg, 1, tablet, By Mouth, Daily, # 90 tablet, Refills 1, Tot. Refills 1, Maintenance, 01/25/20 8:44:00 EDT, Route to Pharmacy Electronically, [facility] #[id number], 149.86, cm, 01/25/20 8:03:00 EDT, Height, 103, kg, 11/21/19 8:04:00 EDT, Dry W... Start Date: 01/25/20 Status: Ordered levothyroxine 0.1 mg oral tablet 1 tablet = 100 mcg, By Mouth, Daily, # 90 tablet, 1 Refills, Maintenance, 05/23/20 9:52:00 EST, Tablet, [facility] #[id number], 149.86, cm, 05/22/20 13:49:00 EST, Height, 100.91, [...] 05/22/20 12:36:00 EST, Route to Pharmacy Electronically, [facility], Partial fill upon patient request [...] 180 tablet, 3 Refills, Maintenance, 01/25/20 8:47:00EDT, [facility] #25486, 149.86, cm, 01/25/20 8:03:00 EDT, Height, 103, [...] Refills, Maintenance, 01/25/20 8:44:00 EDT, ER Tablet, [facility] #[id number], 149.86, cm, 01/25/20 8:03:00 EDT, Height, 103, [...] Diagnosis Diagnosis Type Effective Dates Health Status Cl inical Service Informant Morbid obesity with BMI of 45.0-49.9, adult Discharge Diagnosis 05/30/20 Vital Signs Most recent to oldest [Reference Range]: 1 Height 149.86 cm (05/30/20 10:26 AM) Weight 95.9 kg (05/30/20 10:26 AM) Pulse Rate [55-90 bpm] 78 bpm (05/30/20 10:26 AM) Body Mass Index [18.5-24.99] 42.7 *>HHI* (05/30/20 10:26 AM) Blood Pressure [90-138/55-84 mm Hg] 116/ 73mm Hg (05/30/20 10:26 AM) Respiratory Rate [16-30 br/min] 16 br/mi n (05/30/20 10:26 AM) Temperature [96.8-100.4 DegF] 96.9 DegF (05/30/20 10:26 AM) Blood pressure sites Arm, right (05/30/20 10:26 AM) Temperature Route Temporal (05/30/20 10:26 AM) Weight Obtained Via Standing scale (05/30/20 10:26 AM) Social History Social History Type Response Smoking Status Never smoker; Tobacc o user in household: No entered on: 06/20/15 Sex
--- OUTSIDE RECORDS SUMMARY | 2022-11-20 11:46 | XMS_ITS | Continuity of Care Document ---
Author Name Unknown Organization [facility] Address [address] [place] [address] ve [address] [place] [address]- Care Team Providers Care Systems Support Specialist Name Role Phone Enriqueta DUMONT, Keven Cho Primary Care Physician [place] [facility] [place]/19 - 07/08/[address] [place] [address]- [facility] Attending Physician: Ludy Thakur Admitting Physician: AdmLudy camacho Referring Physician: AdmtrLudy Allergies, Adverse Reactions, Alerts Substance Reaction Severity Status NKA Active Immunizations Given and Recorded Vaccine Date Status Refusal Reason tetanus/diphtheria/pertussis, acel(Tdap) 1 10/19/17 Given influenza virus vaccine, inactivated 02/24/08 Give n Pneumococcal Vaccine (oldterm) 02/24/08 Given Not Given Vaccine Date Status Refusal Reason influenza virus vaccine, inactivated 06/11/15 Not Given Patient Refuses 1Result Comment: [10/19/2017] [id number] Medications atorvastatin 40 mg oral tablet 1 tablet = 40 mg, By Mouth, Daily, INCREASED DOSE, # 30 tablet, 6 Refills, Maintenance, 01/24/19 16:53:45 EDT, INCREASED DOSE DC 20mg daily Start Date: 01/24/19 Status: Ordered CPAP Machine See Instructions, # 1 each, Maintenance, iVAPS with EPAP 5 and TVa of 5.5 and PS min of 4 and PS max of 12 and IA 20 and height 80 inches with 2 liters oxygen. DME Provider--[facility] 02/05/18 16:53:41 EDT, Compound Start Date: 02/05/18 Status: Ordered furosemide 20 mg oral tablet 20 mg, 1, tablet, By Mouth, Daily, # 30 tablet, Refills 1, Tot. Refills 1, Maintenance, 05/11/19 19:48:00 EST, Route to Pharmacy Electronically, [facility] #[id number], 147.32, cm, 04/16/19 8:24:00 EST, Height, 108.3, kg, 12/05/18 11:18:00 EDT, D... Start Date: 05/11/19 Status: Ordered levothyroxine 0.1 mg oral tablet 1 tablet = 100 mcg, By Mouth, Daily, # 90 tablet, 1 Refills, Maintenance, 05/11/19 19:48:00 EST, Tablet, [facility] #[id number], 147.32, cm, 04/16/19 8:24:00 EST, Height, 108.3, kg, 12/05/18 11:18:00 EDT, Dry Weight Start Date: 05/11/19 Status: Ordered metFORMIN 500 mg oral tablet, extended release 1 tablet = 500 mg, By Mouth, Daily, # 30 tablet, 5 Refills, Maintenance, 04/06/19 12:06:00 EST, ER Tablet, [facility], 147.32, cm, 03/05/19 9:49:00 EST, Height, 108.3, [...]
--- OUTSIDE RECORDS SUMMARY | 2022-11-20 11:46 | XMS_ITS | Continuity of Care Document ---
Author Name Unknown Organization [facility] Address [address] [facility], [address] Floor, [address] [place] [address]- Care Team Providers Care Community Outreach Specialist Name Role Phone Enriqueta DUMONT, Keven Cho Primary Care Physician [place] [facility] [place] 10/10/20 - 11/09/20 [facility] [address] [place], [address] Floor, [address] [place] [address]- Allergies, Adverse Reactions, Alerts Substance Reaction Severity [...] Not Given Patient Refuses 1Result Comment: [10/19/2017] [id number] Medications furosemide 20 mg oral tablet 1, tablet, By Mouth, Daily, # 30 tablet, Refills 0, Tot. Refills 0, Maintenance, 09/15/20 8:51:00 EDT, Route to Pharmacy Electronically, [facility] #[id number], 149.86, cm, 08/01/20 16:14:00 EDT, Height, 100.91, kg, 05/20/20 15:45:00 EST, Dry Weight Start Date: 09/15/20 Status: Ordered levothyroxine 0.1 mg oral tablet 1 tablet = 100 mcg, By Mouth, Daily, # 90 tablet, 1 Refills, Maintenance, 05/23/20 9:52:00 EST, Tablet, [facility] #30639, 149.86, cm, 05/22/20 13:49:00 EST, Height, 100.91, [...] 180 tablet, 3 Refills, Maintenance, 01/25/20 8:47:00EDT, [facility] #00077, 149.86, cm, 01/25/20 8:03:00 EDT, Height, 103, [...]
--- OUTSIDE RECORDS SUMMARY | 2022-11-20 11:46 | XMS_ITS | Continuity of Care Document ---
Author Name Unknown Organization [facility] Address [address] [place] [address] ve [address] [place] [address]- Care Team Providers Care Range Examiner Name Role Phone Enriqueta DUMONT, Keven Cho Primary Care Physician [facility] Date(s): 03/18/20 - 04/17/[address] [place] [address]- Allergies, Adverse Reactions, Alerts Substance Reaction Severity Status NKA Active Immunizations Given and Recorded Vaccine Date Status Refusal Reason tetanus/diphtheria/pertussis, acel(Tdap) 1 10/19/17 Given influenza virus vaccine, inactivated 02/24/08 Give n Pneumococcal Vaccine (oldterm) 02/24/08 Given Not Given Vaccine Date Status Refusal Reason influenza virus vaccine, inactivated 06/11/15 Not Given Patient Refuses 1Result Comment: [10/19/2017] [id number] Medications atorvastatin 40 mg oral tablet 1 tablet = 40 mg, By Mouth, Daily, INCREASED DOSE, # 90 tablet, 1 Refills, Maintenance, 01/25/20 8:43:00 EDT, [facility] #[id number], INCREASED DOSE DC 20mg daily, 149.86, cm, 01/25/20 8:03:00 EDT, Height, 103, kg, 11/21/19 8:04:00 EDT, Dry Weight Start Date: 01/25/20 Status: Ordered CPAP Machine See Instructions, # 1 each, Maintenance, iVAPS with EPAP 5 and TVa of 5.5 and PS min of 4 and PS max of 12 and OR 20 and height 80 inches with 2 liters oxygen. DME Provider--[facility] 02/05/18 16:53:41 EDT, Compound Start Date: 02/05/18 Status: Ordered furosemide 20 mg oral tablet 20 mg, 1, tablet, By Mouth, Daily, # 90 tablet, Refills 1, Tot. Refills 1, Maintenance, 01/25/20 8:44:00 EDT, Route to Pharmacy Electronically, [facility] #[id number], 149.86, cm, 01/25/20 8:03:00 EDT, Height, 103, kg, 11/21/19 8:04:00 EDT, Dry W... Start Date: 01/25/20 Status: Ordered levothyroxine 0.1 mg oral tablet 1 tablet = 100 mcg, By Mouth, Daily, # 90 tablet, 1 Refills, Maintenance, 11/20/19 12:52:00 EDT, Tablet, [facility] #15803, 147.32, cm, 10/01/19 9:28:00 EDT, Height, 108.3, kg, 12/05/18 11:18:00 EDT, Dry Weight Start Date: 11/20/19 Status: Ordered metFORMIN 500 mg oral tablet, extended release 1 tablet = 500 mg, By Mouth, Daily, # 90 tablet, 1 Refills, Maintenance, 04/07/20 16:17:00 EST, ER Tablet, [facility] #[id number], 149.86, cm, 01/25/20 8:03:00 EDT, Height, 103, [...] 180 tablet, 3 Refills, Maintenance, 01/25/20 8:47:00EDT, [facility] #[id number], 149.86, cm, 01/25/20 8:03:00 EDT, Height, 103, kg, 11/21/19 8:04:00 EDT, Dry Weight Start Date: 01/25/20 Status: Ordered Wellbutrin XL 150 mg/24 hours oral tablet, extended release 1 tablet = 150 mg, By Mouth, Every 24 hours, do not crush or chew., # 90 tablet, 1 Refills, Maintenance, 01/25/20 8:44:00 EDT, ER Tablet, [facility] #[id number], 149.86, cm, 01/25/20 8:03:00 EDT, Height, 103, [...]
--- OUTSIDE RECORDS SUMMARY | 2022-11-20 11:46 | XMS_ITS | Continuity of Care Document ---
Author Name Unknown Organization [facility] Address [address] [place] [address]- Care Team Providers Care Grain Receiver Name Role Phone Enriqueta DUMONT, Keven Cho Primary Care Physician [phone] [facility]counter [facility] Date[facility]s): 09/16/22 - 10/16/22 [facility] [address] [place] [address]- Allergies, Adverse Reactions, Alerts No Known Allergies [...] Not Given Patient Refuses 1Result Comment: [10/19/2017] [id number] Medications furosemide 20 mg oral tablet See Instructions, TAKE 1 TABLET BY MOUTH DAILY, # 30 tablet, Refills 2, Tot. Refills 2, 01/15/22 11:17:00 EDT, Instructions Replace Required Details, Route to Pharmacy Electronically, [facility][id number], 147, cm, 01/01/22 10:56:00 EDT, Height... Start Date: 01/15/22 Status: Ordered furosemide 20 mg oral tablet 20 mg, 1, tablet, By Mouth, Daily, # 30 tablet, Refills 0, Tot. Refills 0, 07/20/22 15:16:00 EDT, Route to Pharmacy Electronically, [facility] #[id number], 147, cm, 05/31/22 15:05:00 EST, Height, 60.8, kg, 07/07/21 7:44:00 EDT, Dry Weight Start Date: 07/20/22 Status: Ordered levothyroxine 0.1 mg oral tablet 1 tablet, By Mouth, Daily, # 90 tablet, 0 Refills, Maintenance, 07/14/22 20:53:00 EDT, [facility] #59563, 147, cm, 05/31/22 15:05:00 EST, Height, 60.8, [...] 90 tablet, 3 Refills, Maintenance, 08/17/22 14:51:00EDT, [facility] #02265, Partial fill upon patient request if the [...] Team Personnel Name: Bozena Bateman RN Position: [facility] SN RN Member Role: Primary Care Nurse Name: Swati Thomas NP Position: [facility] Associate Professional Member Role: Primary Care Nurse Name: Kyara Catalan RN Position: [facility] RN Member Role: Primary Care Nurse Name: Torrey Blanchard MD Position: [facility] [employer]ER P[employer]ER MD Member Role: Lifetime VENEER P[employer]ER Physician Address: Address: [address] [place] [address] [employer], [place] [address]- Name: Paz Villarreal RN Position: [facility] SN RN Member Role: Primary Care Nurse Name: Gege Paulino NP Position: [facility] Associate Professional Member Role: Primary Care Nurse Address: Address: [address] [facility] [place] [address]- [place] Name: Hanh Devlin RN Position: [facility] RN Member Role: Primary Care Nurse Name: Christina Guerrero RN Position: [facility] RN Member Role: Primary Care Nurse Name: Jennifer Zendejas RN Position: [facility] RN Member Role: Primary Care Nurse Name: Keven Robison MD Position: [facility] Physician - Primary Care Member Role: PCP Address: Address: [address] [place] [address]- [place] Name: Dary Jensen RN Position: [facility] RN Member Role: Primary Care Nurse Care Team Related Persons Name: JUDI MARTINI Address: [address] [address]
--- OUTSIDE RECORDS SUMMARY | 2022-11-20 11:46 | XMS_ITS | Continuity of Care Document ---
Author Name Unknown Organization [facility] ter Address [address] [place] [address]- Care Team Providers Care Branch Sales And Service Representative Name Role Phone Keven Robison MD Primary Care Physician [phone] Encounter [facility] Date(s): 06/17/20 - 08/11/[address] [address] Attending Physician: Keven Robison MD Admitting Physician: Keven Robison MD Referring Physician: Keven Robison MD Allergies, Adverse Reactions, Alerts Substance Reaction Severity Status NKA Active Immunizations Given and Recorded Vaccine Date Status Refusal Reason tetanus/diphtheria/pertussis, acel(Tdap) 1 10/19/17 Given influenza virus vaccine, inactivated 02/24/08 Give n Pneumococcal Vaccine (oldterm) 02/24/08 Given Not Given Vaccine Date Status Refusal Reason influenza virus vaccine, inactivated 06/11/15 Not Given Patient Refuses 1Result Comment: [10/19/2017] [id number] Medications Colace sodium 100 mg oral capsule 100 mg, 1, capsule, By Mouth, 2 times a day, with plenty of water, # 60 capsule, Refills 0, Tot. Refills 0, Maintenance, 05/22/20 12:36:00 EST, Route to Pharmacy Electronically, [facility], Partial fill upon patient request if the prescr... Start Date: 05/22/20 Status: Ordered furosemide 20 mg oral tablet 20 mg, 1, tablet, By Mouth, Daily, # 90 tablet, Refills 1, Tot. Refills 1, Maintenance, 01/25/20 8:44:00 EDT, Route to Pharmacy Electronically, [facility] #[id number], 149.86, cm, 01/25/20 8:03:00 EDT, Height, 103, kg, 11/21/19 8:04:00 EDT, Dry W... Start Date: 01/25/20 Status: Ordered levothyroxine 0.1 mg oral tablet 1 tablet = 100 mcg, By Mouth, Daily, # 90 tablet, 1 Refills, Maintenance, 05/23/20 9:52:00 EST, Tablet, [facility] #[id number], 149.86, cm, 05/22/20 13:49:00 EST, Height, 100.91, [...] Dry Weight Start Date: 07/01/20 Status: Ordered Reglan 10 mg oral tablet 1 tablet = 10 mg, By Mouth, 4 times a day, # 120 tablet, 0 Refills, Acute 09/03/20 16:21:00 EDT, 08/04/20 16:21:00 EDT, Tablet, [facility] #[id number], Partial fill upon patient request if the prescription is for a schedule II opioid drug., 149.8... Start Date: 08/04/20 Stop Date: 09/03/20 Status: Ordered sertraline 100 mg oral tablet 2 tablet = 200 mg, By Mouth, Daily, REFAXED, # 180 tablet, 3 Refills, Maintenance, 01/25/20 8:47:00EDT, [facility] #[id number], 149.86, cm, 01/25/20 8:03:00 EDT, Height, 103, kg, 11/21/19 8:04:00 EDT, Dry Weight Start Date: 01/25/20 Status: Ordered Wellbutrin XL 300 mg/24 hours oral tablet, extended release 1 tablet = 300 mg, By Mouth, Every 24 hours, # 30 tablet, 5 Refills, Maintenance, 07/25/20 8:33:00 EDT, [facility] #[id number], Partial fill upon patient request if the prescription is for a schedule II opioid drug., 149.86, cm, 07/25/20 8:11:00... Start Date: 07/25/20 Status: Ordered Problem List Condition Effective Dates [...]
--- OUTSIDE RECORDS SUMMARY | 2022-11-20 11:46 | XMS_ITS | Continuity of Care Document ---
Author Name Unknown Organization [facility] lt Address [address] [place] [address]- Care Team Providers Care Human Resources Trainee Name Role Phone Keven Robison MD Primary Care Physician Encounter [facility] Date(s): 08/03/21 - 08/10/21 [facility] [address] [place] [address]- Attending Physician: Not on Staff, Attending MD Referring Physician: Keven Robison MD Allergies, [...] Not Given Patient Refuses 1Result Comment: [10/19/2017] [id number] Medications buPROPion 150 mg/24 hours (XL) oral tablet, extended release 1 tablet, By Mouth, Every 24 hours, DO NOT CRUSH OR CHEW, # 90 tablet, 1 Refills, [email or web address] #[id number], 90, TAKE 1 TABLET BY MOUTH EVERY 24 HOURS. DO NOT CRUSH OR CHEW, 149.86, cm, 10/03/20 15:02:00 EDT, Height, 73.3, kg, 10/03/20 15:02:00 EDT,... Start Date: 02/17/21 Status: Ordered furosemide 20 mg oral tablet 1, tablet, By Mouth, Daily, # 30 tablet, Refills 0, Tot. Refills 0, Maintenance, 09/15/20 8:51:00 EDT, Route to Pharmacy Electronically, [facility] #[id number], 149.86, cm, 08/01/20 16:14:00 EDT, Height, 100.91, kg, 05/20/20 15:45:00 EST, Dry Weight Start Date: 09/15/20 Status: Ordered furosemide 20 mg oral tablet See Instructions, TAKE 1 TABLET BY MOUTH DAILY, # 30 tablet, Refills 0, Instructions Replace Required Details, Route to Pharmacy Electronically, [facility] #[id number], 149.86, cm, 10/03/20 15:02:00 EDT, Height, 73.3, kg, 10/03/20 15:02:00 EDT, D... Start Date: 12/29/20 Status: Ordered furosemide 20 mg oral tablet See Instructions, TAKE 1 TABLET BY MOUTH DAILY, # 30 tablet, Refills 0, Instructions Replace Required Details, Route to Pharmacy Electronically, [facility] #[id number], 149.86, cm, 10/03/20 15:02:00 EDT, Height, 73.3, kg, 10/03/20 15:02:00 EDT, D... Start Date: 12/01/20 Status: Ordered levothyroxine 0.1 mg oral tablet 1 tablet, By Mouth, Daily, # 90 tablet, 1 Refills, Maintenance, 11/11/20 16:04:00 EDT, [facility] #[id number], 149.86, cm, 10/03/20 15:02:00 EDT, Height, 73.3, [...] Dry Weight Start Date: 08/03/21 Status: Ordered sertraline 100 mg oral tablet See Instructions, TAKE 2 TABLETS BY MOUTH DAILY, # 180 tablet, 0 Refills, [facility] #48245, 149.86, cm, 10/03/20 15:02:00 EDT, Height, 73.3, kg, 10/03/20 15:02:00 EDT, Dry Weight Start Date: 12/29/20 Status: Ordered sertraline 100 mg oral tablet 2 tablet = 200 mg, By Mouth, Daily, REFAXED, # 180 tablet, 3 Refills, Maintenance, 01/25/20 8:47:00EDT, [facility] #73253, 149.86, cm, 01/25/20 8:03:00 EDT, Height, 103, kg, 11/21/19 8:04:00 EDT, Dry Weight Start Date: 01/25/20 Status: Ordered Wellbutrin XL 150 mg/24 hours oral tablet, extended release 1 tablet = 150 mg, By Mouth, Every 24 hours, # 90 tablet, 1 Refills, Maintenance, 06/08/21 13:12:00EST, [facility] #[id number], Partial fill upon patient request if the [...] recent to oldest [Reference Range]: 1 Height 147 cm (08/03/21 3:14 PM) Weight 63.1 kg (08/03/21 3:14 PM) Oxygen Saturation [94-100 %] 100 % (08/03/21 3:14 PM) Body Mass Index [18.5-24.99] 29.2 *H* (08/03/21 3:14 PM) Blood Pressure [90-138/55-84 mm Hg] 127/ 84mm Hg (08/03/21 3:14 PM) Blood pressure sites Arm, right (08/03/21 3:14 PM) Weight Obtained Via Standing scale (08/03/21 3:14 PM) Social History Social History Type Response Smoking Status Never smoker; Tobacc o user in household: No entered on: 06/20/15 Sex Female
--- OUTSIDE RECORDS SUMMARY | 2022-11-20 11:46 | XMS_ITS | Continuity of Care Document ---
Author Name Unknown Organization [facility] Address [address] [place] [address] [address] [place] [address]- Care Team Providers Care Wool Carder Name Role Phone Enriqueta DUMONT, Keven Cho Primary Care Physician Encounter [facility] Date(s): 08/07/20 - 09/06/[address] [place] [address]- Allergies, Adverse Reactions, Alerts Substance Reaction Severity Status NKA Active Immunizations Given and Recorded Vaccine Date Status Refusal Reason tetanus/diphtheria/pertussis, acel(Tdap) 1 10/19/17 Given influenza virus vaccine, inactivated 02/24/08 Give n Pneumococcal Vaccine (oldterm) 02/24/08 Given Not Given Vaccine Date Status Refusal Reason influenza virus vaccine, inactivated 06/11/15 Not Given Patient Refuses 1Result Comment: [10/19/2017] [id number] Medications Colace sodium 100 mg oral capsule 100 mg, 1, capsule, By Mouth, 2 times a day, with plenty of water, # 60 capsule, Refills 0, Tot. Refills 0, Maintenance, 05/22/20 12:36:00 EST, Route to Pharmacy Electronically, [facility], Partial fill upon patient request if the prescr... Start Date: 05/22/20 Status: Ordered furosemide 20 mg oral tablet 20 mg, 1, tablet, By Mouth, Daily, # 90 tablet, Refills 1, Tot. Refills 1, Maintenance, 01/25/20 8:44:00 EDT, Route to Pharmacy Electronically, [facility] #[id number], 149.86, cm, 01/25/20 8:03:00 EDT, Height, 103, kg, 11/21/19 8:04:00 EDT, Dry W... Start Date: 01/25/20 Status: Ordered levothyroxine 0.1 mg oral tablet 1 tablet = 100 mcg, By Mouth, Daily, # 90 tablet, 1 Refills, Maintenance, 05/23/20 9:52:00 EST, Tablet, [facility] #[id number], 149.86, cm, 05/22/20 13:49:00 EST, Height, 100.91, [...] 180 tablet, 3 Refills, Maintenance, 01/25/20 8:47:00EDT, [facility] #10812, 149.86, cm, 01/25/20 8:03:00 EDT, Height, 103, kg, 11/21/19 8:04:00 EDT, Dry Weight Start Date: 01/25/20 Status: Ordered Wellbutrin XL 300 mg/24 hours oral tablet, extended release 1 tablet = 300 mg, By Mouth, Every 24 hours, # 30 tablet, 5 Refills, Maintenance, 07/25/20 8:33:00 EDT, [facility] #[id number], Partial fill upon patient request if the [...]
--- OUTSIDE RECORDS SUMMARY | 2022-11-20 11:46 | XMS_ITS | Continuity of Care Document ---
Author Name Unknown Organization [facility] Address [address] [place] [address]- Care Team Providers Care Help Desk Agent Name Role Phone Enriqueta DUMONT, Keven Cho Primary Care Physician Encounter [facility] Date(s): 05/15/19 - 05/25/19 [facility] [address] [address] Attending Physician: Ludy Thakur Admitting Physician: Ludy Thakur Referring Physician: AdmLudy camacho Allergies, Adverse Reactions, Alerts Substance Reaction Severity Status NKA Active Immunizations Given and Recorded Vaccine Date Status Refusal Reason tetanus/diphtheria/pertussis, acel(Tdap) 1 10/19/17 Given influenza virus vaccine, inactivated 02/24/08 Give n Pneumococcal Vaccine (oldterm) 02/24/08 Given Not Given Vaccine Date Status Refusal Reason influenza virus vaccine, inactivated 06/11/15 Not Given Patient Refuses 1Result Comment: [10/19/2017] [id number] Medications atorvastatin 40 mg oral tablet 1 tablet = 40 mg, By Mouth, Daily, INCREASED DOSE, # 30 tablet, 6 Refills, Maintenance, 01/24/19 16:53:45 EDT, INCREASED DOSE DC 20mg daily Start Date: 01/24/19 Status: Ordered CPAP Machine See Instructions, # 1 each, Maintenance, iVAPS with EPAP 5 and TVa of 5.5 and PS min of 4 and PS max of 12 and DC 20 and height 80 inches with 2 liters oxygen. DME Provider--[facility]., 02/05/18 16:53:41 EDT, Compound Start Date: 02/05/18 Status: Ordered furosemide 20 mg oral tablet 20 mg, 1, tablet, By Mouth, Daily, # 30 tablet, Refills 1, Tot. Refills 1, Maintenance, 05/11/19 19:48:00 EST, Route to Pharmacy Electronically, [facility] #[id number], 147.32, cm, 04/16/19 8:24:00 EST, Height, 108.3, kg, 12/05/18 11:18:00 EDT, D... Start Date: 05/11/19 Status: Ordered levothyroxine 0.1 mg oral tablet 1 tablet = 100 mcg, By Mouth, Daily, # 90 tablet, 1 Refills, Maintenance, 05/11/19 19:48:00 EST, Tablet, [facility] #[id number], 147.32, cm, 04/16/19 8:24:00 EST, Height, 108.3, kg, 12/05/18 11:18:00 EDT, Dry Weight Start Date: 05/11/19 Status: Ordered metFORMIN 500 mg oral tablet, extended release 1 tablet = 500 mg, By Mouth, Daily, # 30 tablet, 5 Refills, Maintenance, 04/06/19 12:06:00 EST, ER Tablet, [facility], 147.32, cm, 03/05/19 9:49:00 EST, Height, 108.3, kg, 12/05/18 11:18:00 EDT, Dry Weight Start Date: 04/06/19 Stop Date: 10/03/19 Status: Ordered Multivitamin Daily, 0 Refills, Maintenance, 05/22/19 14:28:00 EST Start Date: 05/22/19 Status: Ordered pantoprazole 40 mg oral delayed release tablet See Instructions, # 90 tablet, take 1 tablet by mouth once daily, [facility] Start Date: 01/14/19 Status: Ordered traZODone 50 mg oral tablet 50 mg, 1, tablet, By Mouth, Daily at bedtime, with food, # 30 tablet, Refills 5, Tot. Refills 5, Maintenance, 02/09/19 11:41:02 EDT, Route to Pharmacy Electronically, [id number], [facility] Start Date: 02/09/19 Stop Date: 08/08/19 Status: Ordered Wellbutrin XL 150 mg/24 hours [...]
--- OUTSIDE RECORDS SUMMARY | 2022-11-20 11:46 | XMS_ITS | Continuity of Care Document ---
Author Name Unknown Organization [facility] Address [address] [place] [address]- Care Team Providers Care Manager Local Name Role Phone Enriqueta DUMONT, Keven Cho Primary Care Physician [phone] Encounter [facility] Date(s): 12/01/20 - 12/31/[address] [address]- Attending Physician: Ludy Thakur Admitting Physician: Ludy Thakur Referring Physician: AdmtrLudy Allergies, Adverse Reactions, Alerts [...] Not Given Patient Refuses 1Result Comment: [10/19/2017] [id number] Medications furosemide 20 mg oral tablet 1, tablet, By Mouth, Daily, # 30 tablet, Refills 0, Tot. Refills 0, Maintenance, 09/15/20 8:51:00 EDT, Route to Pharmacy Electronically, [facility] #[id number], 149.86, cm, 08/01/20 16:14:00 EDT, Height, 100.91, kg, 05/20/20 15:45:00 EST, Dry Weight Start Date: 09/15/20 Status: Ordered furosemide 20 mg oral tablet See Instructions, TAKE 1 TABLET BY MOUTH DAILY, # 30 tablet, Refills 0, Instructions Replace Required Details, Route to Pharmacy Electronically, [facility][id number], 149.86, cm, 10/03/20 15:02:00 EDT, Height, 73.3, kg, 10/03/20 15:02:00 EDT, D... Start Date: 12/29/20 Status: Ordered furosemide 20 mg oral tablet See Instructions, TAKE 1 TABLET BY MOUTH DAILY, # 30 tablet, Refills 0, Instructions Replace Required Details, [id number], 149.86, cm, 10/03/20 15:02:00 EDT, Height, 73.3, kg, 10/03/20 15:02:00 EDT, D... Start Date: 12/01/20 Status: Ordered levothyroxine 0.1 mg oral tablet 1 tablet, By Mouth, Daily, # 90 tablet, 1 Refills, Maintenance, 11/11/20 16:04:00 EDT, [id number], 149.86, cm, 10/03/20 15:02:00 EDT, Height, 73.3, [...] MOUTH DAILY, # 180 tablet, 0 Refills, [facility] #[id number], 149.86, cm, 10/03/20 15:02:00 EDT, Height, 73.3, kg, 10/03/20 15:02:00 EDT, Dry Weight Start Date: 12/29/20 Status: Ordered sertraline 100 mg oral tablet 2 tablet = 200 mg, By Mouth, Daily, REFAXED, # 180 tablet, 3 Refills, Maintenance, 01/25/20 8:47:00EDT, [facility] #[id number], 149.86, cm, 01/25/20 8:03:00 EDT, Height, 103, [...]
--- OUTSIDE RECORDS SUMMARY | 2022-11-20 11:46 | XMS_ITS | Continuity of Care Document ---
Author Name Unknown Organization [facility] Norm lt Address [address] [place] [address]- Care Team Providers Care Senior Net Developer Architect Name Role Phone Keven Robison MD Primary Care Physician Encounter [facility] Date(s): 03/05/20 - 04/04/20 [facility] Adult [address] [place] [address]- Attending Physician: Admtr, Ar8 Admitting Physician: Admtr, Ar8 Referring Physician: Admtr, Ar8 Allergies, Adverse Reactions, Alerts Substance Reaction Severity Status NKA Active Immunizations Given and Recorded Vaccine Date Status Refusal Reason tetanus/diphtheria/pertussis, acel(Tdap) 1 10/19/17 Given influenza virus vaccine, inactivated 02/24/08 Give n Pneumococcal Vaccine (oldterm) 02/24/08 Given Not Given Vaccine Date Status Refusal Reason influenza virus vaccine, inactivated 06/11/15 Not Given Patient Refuses 1Result Comment: [10/19/2017] [id number] Medications atorvastatin 40 mg oral tablet 1 tablet = 40 mg, By Mouth, Daily, INCREASED DOSE, # 90 tablet, 1 Refills, Maintenance, 01/25/20 8:43:00 EDT, [facility] #[id number], INCREASED DOSE DC 20mg daily, 149.86, cm, 01/25/20 8:03:00 EDT, Height, 103, kg, 11/21/19 8:04:00 EDT, Dry Weight Start Date: 01/25/20 Status: Ordered CPAP Machine See Instructions, # 1 each, Maintenance, iVAPS with EPAP 5 and TVa of 5.5 and PS min of 4 and PS max of 12 and WA 20 and height 80 inches with 2 liters oxygen. DME Provider--[facility]., 02/05/18 16:53:41 EDT, Compound Start Date: 02/05/18 Status: Ordered furosemide 20 mg oral tablet 20 mg, 1, tablet, By Mouth, Daily, # 90 tablet, Refills 1, Tot. Refills 1, Maintenance, 01/25/20 8:44:00 EDT, Route to Pharmacy Electronically, [facility] #[id number], 149.86, cm, 01/25/20 8:03:00 EDT, Height, 103, kg, 11/21/19 8:04:00 EDT, Dry W... Start Date: 01/25/20 Status: Ordered levothyroxine 0.1 mg oral tablet 1 tablet = 100 mcg, By Mouth, Daily, # 90 tablet, 1 Refills, Maintenance, 11/20/19 12:52:00 EDT, Tablet, [facility] #[id number], 147.32, cm, 10/01/19 9:28:00 EDT, Height, 108.3, kg, 12/05/18 11:18:00 EDT, Dry Weight Start Date: 11/20/19 Status: Ordered metFORMIN 500 mg oral tablet, extended release 1 tablet = 500 mg, By Mouth, Daily, # 90 tablet, 1 Refills, Maintenance, 04/07/20 16:17:00 EST, ER Tablet, [facility] #[id number], 149.86, cm, 01/25/20 8:03:00 EDT, Height, 103, [...] 180 tablet, 3 Refills, Maintenance, 01/25/20 8:47:00EDT, [facility] #[id number], 149.86, cm, 01/25/20 8:03:00 EDT, Height, 103, kg, 11/21/19 8:04:00 EDT, Dry Weight Start Date: 01/25/20 Status: Ordered Wellbutrin XL 150 mg/24 hours oral tablet, extended release 1 tablet = 150 mg, By Mouth, Every 24 hours, do not crush or chew., # 90 tablet, 1 Refills, Maintenance, 01/25/20 8:44:00 EDT, ER Tablet, [facility] #58346, 149.86, cm, 01/25/20 8:03:00 EDT, Height, 103, [...]
--- OUTSIDE RECORDS SUMMARY | 2022-11-20 11:46 | XMS_ITS | Continuity of Care Document ---
Author Name Unknown Organization [facility] ter Address [address] [place] [address]- Care Team Providers Care Auto Body Repairman Name Role Phone Keven Robison MD Primary Care Physician Encounter [facility] Date(s): 09/09/22 - 11/09/[address] [email or web address] Attending Physician: Keven Robison MD Admitting Physician: [...] Not Given Patient Refuses 1Result Comment: [10/19/2017] [id number] Medications furosemide 20 mg oral tablet See Instructions, TAKE 1 TABLET BY MOUTH DAILY, # 30 tablet, Refills 2, Tot. Refills 2, 01/15/22 11:17:00 EDT, Instructions Replace Required Details, Route to Pharmacy Electronically, [facility][id number], 147, cm, 01/01/22 10:56:00 EDT, Height... Start Date: 01/15/22 Status: Ordered furosemide 20 mg oral tablet 20 mg, 1, tablet, By Mouth, Daily, # 30 tablet, Refills 0, Tot. Refills 0, 07/20/22 15:16:00 EDT, Route to Pharmacy Electronically, [facility]26302, 147, cm, 05/31/22 15:05:00 EST, Height, 60.8, kg, 07/07/21 7:44:00 EDT, Dry Weight Start Date: 07/20/22 Status: Ordered levothyroxine 0.1 mg oral tablet 1 tablet, By Mouth, Daily, # 90 tablet, 1 Refills, Maintenance, 11/02/22 17:25:00 EDT, [facility][id number], 147, cm, 08/17/22 14:33:00 EDT, Height, 60.8, kg, 07/07/21 7:44:00 EDT, Dry Weight Start Date: 11/02/22 Status: Ordered pantoprazole 40 mg oral delayed [...] mg, By Mouth, Daily, # 180 tablet, 3 Refills, Maintenance, 11/04/22 12:01:00 EDT, [facility][id number], Partial fill upon patient request if the prescription is for a schedule II opioid drug., 147, cm, 08/17/22 14:33:00 EDTHeig... Start Date: 11/04/22 Status: Ordered Wellbutrin XL 150 mg/24 hours oral tablet, extended release 1 tablet = 150 mg, By Mouth, Every 24 hours, # 90 tablet, 3 Refills, Maintenance, 08/17/22 14:[facility], Partial fill upon patient request if the [...] Team Personnel Name: Bozena Bateman RN Position: [facility] RN Member Role: Primary Care Nurse Name: Swati Thomas NP [facility] Associate Professional Member Role: Primary Care Nurse Name: Kyara Catalan RN Position: [facility] RN Member Role: Primary Care Nurse Name: Torrey Blanchard MD Position: [facility] CASE INVESTIGATOR MD Member Role: Lifetime CASE INVESTIGATOR Physician Address: Address: [address] [place] [address] CASE INVESTIGATOR Group, [address] Name: Paz Villarreal RN Position: [facility] RN Member Role: Primary Care Nurse Name: Gege Paulino NP Position: [facility] Associate Professional Member Role: Primary Care Nurse Address: Address: [address] [facility] [place] [address]- [place] Name: Hanh Devlin RN Position: S RN Member Role: Primary Care Nurse Name: Christina Guerrero RN Position: S RN Member Role: Primary Care Nurse Name: Jennifer Zendejas RN Position: S RN Member Role: Primary Care Nurse Name: Keven Robison MD Position: S Physician - Primary Care Member Role: PCP Address: Address: [address] [place] [address]- [place] Name: Dary Jensen RN Position: S RN Member Role: Primary Care Nurse Care Team Related Persons Name: JUDI MARTINI Address: [address] [address]
--- OUTSIDE RECORDS SUMMARY | 2022-11-20 11:46 | XMS_ITS | Continuity of Care Document ---
Author Name Unknown Organization [facility] Address [address] [place] [address] Dr [address] [place] [address]- Care Team Providers Care Bus Or Truck Garage Mechanic Name Role Phone Enriqueta DUMONT, Keven Cho Primary Care Physician [phone] Encounter [facility] Date(s): 09/09/20 - 10/09/[address] [place] [address]- Allergies, Adverse Reactions, Alerts Substance Reaction Severity [...] Not Given Patient Refuses 1Result Comment: [10/19/2017] [id number] Medications furosemide 20 mg oral tablet 1, tablet, By Mouth, Daily, # 30 tablet, Refills 0, Tot. Refills 0, Maintenance, 09/15/20 8:51:00 EDT, Route to Pharmacy Electronically, [facility] #[id number], 149.86, cm, 08/01/20 16:14:00 EDT, Height, 100.91, kg, 05/20/20 15:45:00 EST, Dry Weight Start Date: 09/15/20 Status: Ordered levothyroxine 0.1 mg oral tablet 1 tablet = 100 mcg, By Mouth, Daily, # 90 tablet, 1 Refills, Maintenance, 05/23/20 9:52:00 EST, Tablet, [facility] #[id number], 149.86, cm, 05/22/20 13:49:00 EST, Height, 100.91, [...] 180 tablet, 3 Refills, Maintenance, 01/25/20 8:47:00EDT, [facility] #54858, 149.86, cm, 01/25/20 8:03:00 EDT, Height, 103, [...]
--- OUTSIDE RECORDS SUMMARY | 2022-11-20 11:46 | XMS_ITS | Continuity of Care Document ---
Author Name Unknown Organization [facility] Address [address] [place] [address] [address] [place] [address]- Care Team Providers Care Business Continuity Analyst Name Role Phone Enriqueta DUMONT, Keven Cho Primary Care Physician Encounter [facility] Date(s): 11/19/19 - 12/19/[address] [place] [address]- [facility] Allergies, Adverse Reactions, Alerts Substance Reaction Severity Status NKA Active Immunizations Given and Recorded Vaccine Date Status Refusal Reason tetanus/diphtheria/pertussis, acel(Tdap) 1 10/19/17 Given influenza virus vaccine, inactivated 02/24/08 Give n Pneumococcal Vaccine (oldterm) 02/24/08 Given Not Given Vaccine Date Status Refusal Reason influenza virus vaccine, inactivated 06/11/15 Not Given Patient Refuses 1Result Comment: [10/19/2017] [id number] Medications atorvastatin 40 mg oral tablet 1 tablet = 40 mg, By Mouth, Daily, INCREASED DOSE, # 90 tablet, 1 Refills, Maintenance, 07/20/19 10:58:00 EDT, [facility] #[id number], INCREASED DOSE DC 20mg daily, 147.32, cm, 06/22/19 9:10:00 EDT, Height, 108.3, kg, 12/05/18 11:18:00 EDT, Dry W... Start Date: 07/20/19 Status: Ordered CPAP Machine See Instructions, # 1 each, Maintenance, iVAPS with EPAP 5 and TVa of 5.5 and PS min of 4 and PS max of 12 and OK 20 and height 80 inches with 2 liters oxygen. DME Provider--[facility]., 02/05/18 16:53:41 EDT, Compound Start Date: 02/05/18 Status: Ordered furosemide 20 mg oral tablet 20 mg, 1, tablet, By Mouth, Daily, # 30 tablet, Refills 5, Tot. Refills 5, Maintenance, 10/10/19 16:17:00 EDT, Route to Pharmacy Electronically, [facility] #[id number], 147.32, cm, 10/01/19 9:28:00 EDT, Height, 108.3, kg, 12/05/18 11:18:00 EDT, D... Start Date: 10/10/19 Status: Ordered levothyroxine 0.1 mg oral tablet 1 tablet = 100 mcg, By Mouth, Daily, # 90 tablet, 1 Refills, Maintenance, 11/20/19 12:52:00 EDT, Tablet, [facility] #[id number], 147.32, cm, 10/01/19 9:28:00 EDT, Height, 108.3, kg, 12/05/18 11:18:00 EDT, Dry Weight Start Date: 11/20/19 Status: Ordered metFORMIN 500 mg oral tablet, extended release 1 tablet = 500 mg, By Mouth, Daily, # 30 tablet, 5 Refills, Maintenance, 10/10/19 16:17:00 EDT, ER Tablet, [facility] #[id number], 147.32, cm, 10/01/19 9:28:00 EDT, Height, 108.3, [...] tablet, 1 Refills, Maintenance, 12/03/19 15:01:00 EDT, [facility] #[id number], 149.86, cm, 11/21/19 8:04:00 EDT, Height, 103, kg, 11/21/19 8:04:00 EDT, Dry Weight Start Date: 12/03/19 Status: Ordered Wellbutrin XL 150 mg/24 hours oral tablet, extended release 1 tablet = 150 mg, By Mouth, Every 24 hours, do not crush or chew., # 30 tablet, 5 Refills, Maintenance, 08/14/19 14:27:00 EDT, ER Tablet, [facility] #[id number], 147.32, cm, 06/22/19 9:10:00 EDT, Height, 108.3, [...]
--- OUTSIDE RECORDS SUMMARY | 2022-11-20 11:46 | XMS_ITS | Continuity of Care Document ---
Author Name Unknown Organization [facility] Address [address] [place] [address]- Care Team Providers Care General Repairer Name Role Phone Keven Robison MD Primary Care Physician [phone] [place] [facility] [place] 11/08/21 [facility] [place], [facility] [address] [place] [address]- Allergies, Adverse Reactions, Alerts No Known Allergies [...] Not Given Patient Refuses 1Result Comment: [10/19/2017] [id number] Medications buPROPion 150 mg/24 hours (XL) oral tablet, extended release 1 tablet, By Mouth, Every 24 hours, DO NOT CRUSH OR CHEW, # 90 tablet, 1 Refills, [facility] #[id number], 90, TAKE 1 TABLET BY MOUTH EVERY 24 HOURS. DO NOT CRUSH OR CHEW, 149.86, cm, 10/03/20 15:02:00 EDT, Height, 73.3, kg, 10/03/20 15:02:00 EDT,... Start Date: 02/17/21 Status: Ordered furosemide 20 mg oral tablet 1, tablet, By Mouth, Daily, # 30 tablet, Refills 0, Tot. Refills 0, Maintenance, 09/15/20 8:51:00 EDT, Route to Pharmacy Electronically, [facility] #[id number], 149.86, cm, 08/01/20 16:14:00 EDT, Height, 100.91, kg, 05/20/20 15:45:00 EST, Dry Weight Start Date: 09/15/20 Status: Ordered furosemide 20 mg oral tablet See Instructions, TAKE 1 TABLET BY MOUTH DAILY, # 30 tablet, Refills 2, Tot. Refills 2, 09/24/21 11:39:00 EDT, Instructions Replace Required Details, Route to Pharmacy Electronically, [facility] #[id number], 147, cm, 08/03/21 15:14:00 EDT, Height... Start Date: 09/24/21 Status: Ordered furosemide 20 mg oral tablet See Instructions, TAKE 1 TABLET BY MOUTH DAILY, # 30 tablet, Refills 0, Instructions Replace Required Details, Route to Pharmacy Electronically, [facility] #[id number], 149.86, cm, 10/03/20 15:02:00 EDT, Height, 73.3, kg, 10/03/20 15:02:00 EDT, D... Start Date: 12/01/20 Status: Ordered levothyroxine 0.1 mg oral tablet 1 tablet, By Mouth, Daily, # 90 tablet, 1 Refills, Maintenance, 09/24/21 11:40:00 EDT, [facility] #85656, 147, cm, 08/03/21 15:14:00 EDT, Height, 60.8, kg, 07/07/21 7:44:00 EDT, Dry Weight Start Date: 09/24/21 Status: Ordered Multivitamin Daily, 0 Refills, Maintenance, [...] Dry Weight Start Date: 04/15/21 Status: Ordered penicillin V potassium 500 mg oral tablet 1 tablet = 500 mg, By Mouth, 2 times a day, # 20 tablet, 0 Refills, Maintenance, 10/06/21 11:09:00 EDT, [facility] #[id number], Partial fill upon patient request if the prescription is for a schedule II opioid drug., 147, cm, 10/06/21 10:57:00 ED... Start Date: 10/06/21 Status: Ordered Protonix 40 mg oral delayed [...] MOUTH DAILY, # 180 tablet, 0 Refills, 09/24/21 11:39:00 EDT, [facility] #[id number], 147, cm, 08/03/21 15:14:00 EDT, Height, 60.8, kg, 07/07/21 7:44:00 EDT, Dry Weight Start Date: 09/24/21 Status: Ordered sertraline 100 mg oral tablet 2 tablet = 200 mg, By Mouth, Daily, REFAXED, # 180 tablet, 3 Refills, Maintenance, 01/25/20 8:47:00EDT, [facility] #[id number], 149.86, cm, 01/25/20 8:03:00 EDT, Height, 103, kg, 11/21/19 8:04:00 EDT, Dry Weight Start Date: 01/25/20 Status: Ordered Wellbutrin XL 150 mg/24 hours oral tablet, extended release 1 tablet = 150 mg, By Mouth, Every 24 hours, # 90 tablet, 1 Refills, Maintenance, 06/08/21 13:12:00[id number], Partial fill upon patient request if the [...]
--- OUTSIDE RECORDS SUMMARY | 2022-11-20 11:46 | XMS_ITS | Continuity of Care Document ---
Author Name Unknown Organization [facility] ter Address [address] [place] [address]- Care Team Providers Care Pleating Supervisor Name Role Phone Keven Robison MD Primary Care Physician Encounter [facility] Date(s): 11/21/19 - 11/21/[address] [address]- [facility] Discharge Disposition: A-D/C Home Attending Physician: Gregg Hayward MD Admitting Physician: Gregg Hayward MD Referring Physician: Gregg Hayward MD Allergies, Adverse Reactions, Alerts Substance Reaction Severity Status NKA Active Immunizations Given and Recorded Vaccine Date Status Refusal Reason tetanus/diphtheria/pertussis, acel(Tdap) 1 10/19/17 Given influenza virus vaccine, inactivated 02/24/08 Give n Pneumococcal Vaccine (oldterm) 02/24/08 Given Not Given Vaccine Date Status Refusal Reason influenza virus vaccine, inactivated 06/11/15 Not Given Patient Refuses 1Result Comment: [10/19/2017] [id number] Medications atorvastatin 40 mg oral tablet 1 tablet = 40 mg, By Mouth, Daily, INCREASED DOSE, # 90 tablet, 1 Refills, Maintenance, 07/20/19 10:58:00 EDT, [facility] #[id number], INCREASED DOSE DC 20mg daily, 147.32, cm, 06/22/19 9:10:00 EDT, Height, 108.3, kg, 12/05/18 11:18:00 EDT, Dry W... Start Date: 07/20/19 Status: Ordered Augmentin 875 mg-125 mg oral tablet 1 tablet, By Mouth, Every 12 hours, for 5 days, # 10 tablet, 0 Refills, Acute 11/26/19 10:36:00 EDT, 11/21/19 10:36:00 EDT, Tablet, [facility] #[id number], 149.86, cm, 11/21/19 8:04:00 EDT, Height, 103, kg, 11/21/19 8:04:00 EDT, Dry Weight Start Date: 11/21/19 Stop Date: 11/26/19 Status: Ordered CPAP Machine See Instructions, # 1 each, Maintenance, iVAPS with EPAP 5 and TVa of 5.5 and PS min of 4 and PS max of 12 and ND 20 and height 80 inches with 2 liters oxygen. DME Provider--[facility]., 02/05/18 16:53:41 EDT, Compound Start Date: 02/05/18 Status: Ordered furosemide 20 mg oral tablet 20 mg, 1, tablet, By Mouth, Daily, # 30 tablet, Refills 5, Tot. Refills 5, Maintenance, 10/10/19 16:17:00 EDT, Route to Pharmacy Electronically, [facility] #[id number], 147.32, cm, 10/01/19 9:28:00 EDT, Height, 108.3, kg, 12/05/18 11:18:00 EDT, [facility].. Start Date: 10/10/19 Status: Ordered ibuprofen 600 mg oral tablet 600 mg, 1, tablet, By Mouth, Every 6 hours, for 14 days, # 56 tablet, Refills 0, Tot. Refills 0, Acute 12/05/19 10:36:00 EDT, 11/21/19 10:36:00 EDT, Route to Pharmacy Electronically, [facility] #[id number], 149.86, cm, 11/21/19 8:04:00 EDT, [place] Start Date: 11/21/19 Stop Date: 12/05/19 Status: Ordered levothyroxine 0.1 mg oral tablet 1 tablet = 100 mcg, By Mouth, Daily, # 90 tablet, 1 Refills, Maintenance, 11/20/19 12:52:00 EDT, Tablet, [facility] #[id number], 147.32, cm, 10/01/19 9:28:00 EDT, Height, 108.3, kg, 12/05/18 11:18:00 EDT, Dry Weight Start Date: 11/20/19 Status: Ordered metFORMIN 500 mg oral tablet, extended release 1 tablet = 500 mg, By Mouth, Daily, # 30 tablet, 5 Refills, Maintenance, 10/10/19 16:17:00 EDT, ER Tablet, [facility] #[id number], 147.32, cm, 10/01/19 9:28:00 EDT, Height, 108.3, [...] tablet, 1 Refills, Maintenance, 08/31/19 13:43:00 EDT, [facility] #[id number], 147.32, cm, 08/30/19 12:07:00 EDT, Height, 108.3, kg, 12/05/18 11:18:00 EDT, Dry Weight Start Date: 08/31/19 Status: Ordered Tylenol 325 mg oral capsule 2 capsule = 650 mg, By Mouth, Every 6 hours, PRN as needed for pain, for 14 days, # 112 capsule, 0 Refills, Acute 12/05/19 10:36:00 EDT, 11/21/19 10:36:00 EDT, Capsule, [facility] #[id number], 149.86, cm, 11/21/19 8:04:00 EDT, Height, 103, kg, 08... Start Date: 11/21/19 Stop Date: 12/05/19 Status: Ordered Wellbutrin XL 150 mg/24 hours oral tablet, extended release 1 tablet = 150 mg, By Mouth, Every 24 hours, do not crush or chew., # 30 tablet, 5 Refills, Maintenance, 08/14/19 14:27:00 EDT, ER Tablet, [facility] #[id number], 147.32, cm, 06/22/19 9:10:00 EDT, Height, 108.3, [...] to oldest [Reference Range]: 1 2 3 Height 149.86 cm (11/21/19 8:04 AM) 149.86 cm (11/20/19 2:44 PM) Weight 103 kg (11/21/19 8:04 AM) 100.91 kg (11/20/19 2:44 PM) Oxygen Saturation [94-100 %] 94 % (11/21/19 11:30 AM) 100 % (11/21/19 11:15 AM) 99 % (11/21/19 11:00 AM) Pulse Rate [55-90 bpm] 104 bpm *H* (11/21/19 8:04 AM) Body Mass Index [18.5-24.99] 45.86 *>HHI* (11/21/19 8:04 AM) 44.93 *>HHI* (11/20/19 2:44 PM) Blood Pressure [90-138/55-84 mm Hg] 117/71mm Hg (11/21/19 11:30 AM) 117/58mm Hg (11/21/19 11:15 AM) 131/78mm Hg (11/21/19 11:00 AM) Respiratory Rate [16-30 br/min] 14 br/min *L* (11/21/19 11:30 AM) 12 br/min *L* (11/21/19 11:15 AM) 11 br/min *L* (11/21/19 11:00 AM) Temperature [96.8-100.4 DegF] 98.8 DegF (11/21/19 11:30 AM) 98.3 DegF (11/21/19 10:30 AM) 98.2 DegF (11/21/19 8:04 AM) Liters per Minute 2 L/min (11/21/19 11:15 AM) 2 L/min (11/21/19 11:00 AM) Mode of Delivery (Oxygen) Room air (11/21/19 11:30 AM) Nasal cannula (11/21/19 11:15 AM) Nasal cannula (11/21/19 11:00 AM) Blood pressure sites Arm, right (11/21/19 8:04 AM) Temperature Route Temporal (11/21/19 11:30 AM) Temporal (11/21/19 10:30 AM) Temporal (11/21/19 8:04 AM) Dry Weight 103 kg (11/21/19 8:04 AM) 100.91 kg (11/20/19 2:44 PM) Weight Obtained Via Standing scale (11/21/19 8:04 AM) Patient/family stated (11/20/19 2:44 PM) Dry Weight Obtained Via Standing scale (11/21/19 8:04 AM) Patient/family stated (11/20/19 2:44 PM) Social History Social History Type Response Smoking Status Never smoker; Tobacc o user in household: No entered on: 06/20/15 Sex
--- OUTSIDE RECORDS SUMMARY | 2022-11-20 11:47 | XMS_ITS | Continuity of Care Document ---
Author Name Unknown Organization [facility] ter Address [address] [place] [address]- Care Team Providers Care Defensive Fire Control Systems Operator Name Role Phone Keven Robison MD Primary Care Physician [phone] Encounter [facility] [place] Date(s): 05/20/20 - 05/22/[address] [address] Discharge Disposition: A-D/C Home Attending Physician: Dc Cobian MD Admitting Physician: Dc Cobian MD Referring Physician: Dc Cobian MD Allergies, Adverse Reactions, Alerts Substance Reaction Severity Status NKA Active Immunizations Given and Recorded Vaccine Date Status Refusal Reason tetanus/diphtheria/pertussis, acel(Tdap) 1 10/19/17 Given influenza virus vaccine, inactivated 02/24/08 Give n Pneumococcal Vaccine (oldterm) 02/24/08 Given Not Given Vaccine Date Status Refusal Reason influenza virus vaccine, inactivated 06/11/15 Not Given Patient Refuses 1Result Comment: [10/19/2017] [id number] Medications atorvastatin 40 mg oral tablet 1 tablet = 40 mg, By Mouth, Daily, INCREASED DOSE, # 90 tablet, 1 Refills, Maintenance, 01/25/20 8:43:00 EDT, [facility] #[id number], INCREASED DOSE DC 20mg daily, 149.86, cm, 01/25/20 8:03:00 EDT, Height, 103, kg, 11/21/19 8:04:00 EDT, Dry Weight Start Date: 01/25/20 Status: Ordered Colace sodium 100 mg oral capsule 100 mg, 1, capsule, By Mouth, 2 times a day, with plenty of water, # 60 capsule, Refills 0, Tot. Refills 0, Maintenance, 05/22/20 12:36:00 EST, Route to Pharmacy Electronically, [facility], Partial fill upon patient request if the prescr... Start Date: 05/22/20 Status: Ordered CPAP Machine See Instructions, # 1 each, Maintenance, iVAPS with EPAP 5 and TVa of 5.5 and PS min of 4 and PS max of [address] 20 and height 80 inches with 2 liters oxygen. DME Provider--[facility]., 02/05/18 16:53:41 EDT, Compound Start Date: 02/05/18 Status: Ordered furosemide 20 mg oral tablet 20 mg, 1, tablet, By Mouth, Daily, # 90 tablet, Refills 1, Tot. Refills 1, Maintenance, 01/25/20 8:44:00 EDT, Route to Pharmacy Electronically, [facility] #[id number], 149.86, cm, 01/25/20 8:03:00 EDT, Height, 103, kg, 11/21/19 8:04:00 EDT, Dry W... Start Date: 01/25/20 Status: Ordered levothyroxine 0.1 mg oral tablet 1 tablet = 100 mcg, By Mouth, Daily, # 90 tablet, 1 Refills, Maintenance, 11/20/19 12:52:00 EDT, Tablet, [facility] #[id number], 147.32, cm, 10/01/19 9:28:00 EDT, Height, 108.3, kg, 12/05/18 11:18:00 EDT, Dry Weight Start Date: 11/20/19 Status: Ordered oxyCODONE 5 mg oral tablet 5 mg, Tablet, By Mouth, Every 4 hours, PRN for Pain , Severe, Routine, 05/20/20 10:35:00 EST Start Date: 05/20/20 Stop Date: 05/23/20 Status: Discontinued oxyCODONE 5 mg oral tablet 5 mg, 1, tablet, By Mouth, Every 4 hours, PRN, # 12 tablet, Refills 0, Tot. Refills 0, Maintenance,Pain , Severe, 05/22/20 12:36:00 EST, Route to Pharmacy Electronically, [facility], Partial fill upon patient [...] 180 tablet, 3 Refills, Maintenance, 01/25/20 8:47:00EDT, [facility] #[id number], 149.86, cm, 01/25/20 8:03:00 EDT, Height, 103, [...] Refills, Maintenance, 01/25/20 8:44:00 EDT, ER Tablet, [facility] #[id number], 149.86, cm, 01/25/20 8:03:00 EDT, Height, 103, [...] Range]: 1 2 3 Height 149.86 cm (05/22/20 1:49 PM) 149.86 cm (05/22/20 11:15 AM) 149.86 cm (05/22/20 7:20 AM) Weight 100.91 kg (05/20/20 3:45 PM) 101.6 kg (05/20/20 6:30 AM) 100.91 kg (05/12/20 5:08 PM) Oxygen Saturation [94-100 %] 94 % (05/22/20 1:49 PM) 95 % (05/22/20 11:15 AM) 94 % (05/22/20 7:20 AM) Pulse Rate [55-90 bpm] 112 bpm *H* (05/22/20 1:49 PM) 107 bpm *H* (05/22/20 11:15 AM) 94 bpm *H* (05/22/20 7:20 AM) Body Mass Index [18.5-24.99] 44.93 *>HHI* (05/20/20 3:45 PM) 45.24 *>HHI* (05/20/20 6:30 AM) 44.93 *>HHI* (05/12/20 5:08 PM) Blood Pressure [90-138/55-84 mm Hg] 152/90mm Hg *H* (05/22/20 1:49 PM) 160/82mm Hg *H* (05/22/20 11:15 AM) 147/98mm Hg *H* (05/22/20 7:20 AM) Respiratory Rate [16-30 br/min] 18 br/min (05/22/20 1:49 PM) 18 br/min (05/22/20 11:31 AM) 16 br/min (05/22/20 11:15 AM) Temperature [96.8-100.4 DegF] 98.8 DegF (05/22/20 1:49 PM) 98.3 DegF (05/22/20 11:15 AM) 98.2 DegF (05/22/20 7:20 AM) Liters per Minute 0 L/min (05/20/20 11:42 PM) 2 L/min (05/20/20 3:45 PM) 6 L/min (05/20/20 2:00 PM) Mode of Delivery (Oxygen) Room air (05/22/20 1:49 PM) Room air (05/22/20 11:15 AM) Room air (05/22/20 7:20 AM) Blood pressure sites Arm, right (05/22/20 1:49 PM) Arm, right (05/22/20 11:15 AM) Arm, right (05/22/20 7:20 AM) Temperature Route Oral (05/22/20 1:49 PM) Oral (05/22/20 11:15 AM) Oral (05/22/20 7:20 AM) Dry Weight 100.91 kg (05/20/20 3:45 PM) 100.91 kg (05/12/20 5:08 PM) Weight Obtained Via Standing scale (05/20/20 6:30 AM) Patient/family stated (05/12/20 5:08 PM) Dry Weight Obtained Via Patient/family s tated (05/12/20 5:08 PM) Social History Social History Type Response Smoking Status Never smoker; Tobacc o user in household: No entered on: 06/20/15 Sex
--- OUTSIDE RECORDS SUMMARY | 2022-11-20 11:47 | XMS_ITS | Continuity of Care Document ---
Author Name Unknown Organization [facility] Chris Norm lt Address [address] [place] [address]- Care Team Providers Care Plant Hr Manager Name Role Phone Enriqueta DUMONT, Keven Cho Primary Care Physician [facility]counter [facility] Date(s): 12/25/21 - 01/24/22 [facility] [address] [place] [address]- Allergies, Adverse Reactions, Alerts No Known Allergies [...] Not Given Patient Refuses 1Result Comment: [10/19/2017] [id number] Medications buPROPion 150 mg/24 hours (XL) oral tablet, extended release 1 tablet, By Mouth, Every 24 hours, DO NOT CRUSH OR CHEW, # 90 tablet, 1 Refills, [facility] #[id number], 90, TAKE 1 TABLET BY MOUTH EVERY 24 HOURS. DO NOT CRUSH OR CHEW, 149.86, cm, 10/03/20 15:02:00 EDT, Height, 73.3, kg, 10/03/20 15:02:00 EDT,... Start Date: 02/17/21 Status: Ordered furosemide 20 mg oral tablet 1, tablet, By Mouth, Daily, # 30 tablet, Refills 0, Tot. Refills 0, Maintenance, 09/15/20 8:51:00 EDT, Route to Pharmacy Electronically, [facility][id number], 149.86, cm, 08/01/20 16:14:00 EDT, Height, 100.91, kg, 05/20/20 15:45:00 EST, Dry Weight Start Date: 09/15/20 Status: Ordered furosemide 20 mg oral tablet See Instructions, TAKE 1 TABLET BY MOUTH DAILY, # 30 tablet, Refills 2, Tot. Refills 2, 01/15/22 11:17:00 EDT, Instructions Replace Required Details, Route to Pharmacy Electronically, [facility] #[id number], 147, cm, 01/01/22 10:56:00 EDT, Height... Start Date: 01/15/22 Status: Ordered furosemide 20 mg oral tablet See Instructions, TAKE 1 TABLET BY MOUTH DAILY, # 30 tablet, Refills 0, Instructions Replace Required Details, Route to Pharmacy Electronically, [facility] #[id number], 149.86, cm, 10/03/20 15:02:00 EDT, Height, 73.3, kg, 10/03/20 15:02:00 EDT, D... Start Date: 12/01/20 Status: Ordered levothyroxine 0.1 mg oral tablet 1 tablet, By Mouth, Daily, # 90 tablet, 1 Refills, Maintenance, 09/24/21 11:40:00 EDT, [facility] #[id number], 147, cm, 08/03/21 15:14:00 EDT, Height, 60.8, [...] By Mouth, 2 times a day, # 180 tablet, 0 Refills, Maintenance, 11/11/21 17:25:00 EDT, CR Tablet, 147, cm, 10/06/21 10:57:00 EDT, Height, 60.8, kg, 07/07/21 7:44:00 EDT, Dry Weight Start Date: 11/11/21 Status: Ordered penicillin V potassium 500 mg oral tablet 1 tablet = 500 mg, By Mouth, 2 times a day, # 20 tablet, 0 Refills, Maintenance, 10/06/21 11:09:00 EDT, [facility] #[id number], Partial fill upon patient request if the [...] 180 tablet, 3 Refills, Maintenance, 01/25/20 8:47:00EDT, [facility] #[id number], 149.86, cm, 01/25/20 8:03:00 EDT, Height, 103, kg, 11/21/19 8:04:00 EDT, Dry Weight Start Date: 01/25/20 Status: Ordered sertraline 100 mg oral tablet See Instructions, TAKE 2 TABLETS BY MOUTH DAILY, # 180 tablet, 3 Refills, 12/26/21 13:09:00 EDT, [facility] #[id number], 147, cm, 10/06/21 10:57:00 EDT, Height, 60.8, kg, 07/07/21 7:44:00 EDT, Dry Weight Start Date: 12/26/21 Status: Ordered Wellbutrin XL 150 mg/24 hours oral tablet, extended release 1 tablet = 150 mg, By Mouth, Every 24 hours, # 90 tablet, 1 Refills, Maintenance, 06/08/21 13:12:00EST, [facility] #[id number], Partial fill upon patient request if the prescription is for a schedule II opioid drug., 149.86, cm, 05/29/21 8:37:00... Start Date: 06/08/21 Status: Ordered Problem List Condition Confirmation Course [...] Active Hypothyroidism Confirmed Active Insomnia Confirmed Active Acute neck pain Confirmed Active NON-HEALING SURGICAL WOUND Confirmed Active MILTON (obstructive sleep apnea) Confirmed Active Prediabetes Confirmed Active Social History Social History Type Response Smoking Status Never smoker; Tobacc o user in household: No entered on: 06/20/15 Sex Female Patient Care team information Personnel Name: Enriqueta DUMONT, Keven Cho Address: Address: [address] [place] [id number]
--- OUTSIDE RECORDS SUMMARY | 2022-11-20 11:47 | XMS_ITS | Continuity of Care Document ---
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 Refills 0, Maintenance, 09/15/20 8:51:00 EDT, Route to Pharmacy Electronically, [facility] #[id number], 149.86, cm, 08/01/20 16:14:00 EDT, Height, 100.91, kg, 05/20/20 15:45:00 EST, Dry Weight Start Date: 09/15/20 Status: Ordered levothyroxine 0.1 mg oral tablet 1 tablet = 100 mcg, By Mouth, Daily, # 90 tablet, 1 Refills, Maintenance, 05/23/20 9:52:00 EST, Tablet, [facility] #[id number], 149.86, cm, 05/22/20 13:49:00 EST, Height, 100.91, [...] 180 tablet, 3 Refills, Maintenance, 01/25/20 8:47:00EDT, [facility] #[id number], 149.86, cm, 01/25/20 8:03:00 EDT, Height, 103, [...]
--- OUTSIDE RECORDS SUMMARY | 2022-11-20 11:47 | XMS_ITS | Continuity of Care Document ---
Author Name Unknown Organization [facility] Norm lt Address [address] [place] [address]- Care Team Providers Care Finger Buff Sewer Name Role Phone Enriqueta DUMONT, Keven Cho Primary Care Physician [place] [facility] [place] 10/10/19 - 11/09/19 [facility] Adult [address] [place] [address]- [facility] Allergies, Adverse Reactions, Alerts Substance Reaction Severity Status NKA Active Immunizations Given and Recorded Vaccine Date Status Refusal Reason tetanus/diphtheria/pertussis, acel(Tdap) 1 10/19/17 Given influenza virus vaccine, inactivated 02/24/08 Give n Pneumococcal Vaccine (oldterm) 02/24/08 Given Not Given Vaccine Date Status Refusal Reason influenza virus vaccine, inactivated 06/11/15 Not Given Patient Refuses 1Result Comment: [10/19/2017] [id number] Medications atorvastatin 40 mg oral tablet 1 tablet = 40 mg, By Mouth, Daily, INCREASED DOSE, # 90 tablet, 1 Refills, Maintenance, 07/20/19 10:58:00 EDT, [facility] #[id number], INCREASED DOSE DC 20mg daily, 147.32, cm, 06/22/19 9:10:00 EDT, Height, 108.3, kg, 12/05/18 11:18:00 EDT, Dry W... Start Date: 07/20/19 Status: Ordered CPAP Machine See Instructions, # 1 each, Maintenance, iVAPS with EPAP 5 and TVa of 5.5 and PS min of 4 and PS max of 12 and [place] 20 and height 80 inches with 2 liters oxygen. DME Provider--[facility]., 02/05/18 16:53:41 EDT, Compound Start Date: 02/05/18 Status: Ordered furosemide 20 mg oral tablet 20 mg, 1, tablet, By Mouth, Daily, # 30 tablet, Refills 5, Tot. Refills 5, Maintenance, 10/10/19 16:17:00 EDT, Route to Pharmacy Electronically, [facility] #[id number], 147.32, cm, 10/01/19 9:28:00 EDT, Height, 108.3, kg, 12/05/18 11:18:00 EDT, D... Start Date: 10/10/19 Status: Ordered levothyroxine 0.1 mg oral tablet 1 tablet = 100 mcg, By Mouth, Daily, # 90 tablet, 1 Refills, Maintenance, 05/11/19 19:48:00 EST, Tablet, [facility] #[id number], 147.32, cm, 04/16/19 8:24:00 EST, Height, 108.3, kg, 12/05/18 11:18:00 EDT, Dry Weight Start Date: 05/11/19 Status: Ordered metFORMIN 500 mg oral tablet, extended release 1 tablet = 500 mg, By Mouth, Daily, # 30 tablet, 5 Refills, Maintenance, 10/10/19 16:17:00 EDT, ER Tablet, [facility] #[id number], 147.32, cm, 10/01/19 9:28:00 EDT, Height, 108.3, [...] tablet, 1 Refills, Maintenance, 08/31/19 13:43:00 EDT, [facility] #[id number], 147.32, cm, 08/30/19 12:07:00 EDT, Height, 108.3, kg, 12/05/18 11:18:00 EDT, Dry Weight Start Date: 08/31/19 Status: Ordered Wellbutrin XL 150 mg/24 hours oral tablet, extended release 1 tablet = 150 mg, By Mouth, Every 24 hours, do not crush or chew., # 30 tablet, 5 Refills, Maintenance, 08/14/19 14:27:00 EDT, ER Tablet, [facility] #38779, 147.32, cm, 06/22/19 9:10:00 EDT, Height, 108.3, [...]
--- OUTSIDE RECORDS SUMMARY | 2022-11-20 11:47 | XMS_ITS | Continuity of Care Document ---
Author Name Unknown Organization [facility] Norm lt Address [address] [place] [address]- Care Team Providers Care Eligibility Consultant Name Role Phone Enriqueta DUMONT, Keven Cho Primary Care Physician [facility] [place] Date(s): 07/25/20 - 08/24/20 [facility] Adult [address] [place] [address]- Attending Physician: Admtr, Ar8 Admitting Physician: Admtr, [...] Not Given Patient Refuses 1Result Comment: [10/19/2017] [id number] Medications Colace sodium 100 mg oral capsule 100 mg, 1, capsule, By Mouth, 2 times a day, with plenty of water, # 60 capsule, Refills 0, Tot. Refills 0, Maintenance, 05/22/20 12:36:00 EST, Route to Pharmacy Electronically, [facility], Partial fill upon patient request if the prescr... Start Date: 05/22/20 Status: Ordered furosemide 20 mg oral tablet 20 mg, 1, tablet, By Mouth, Daily, # 90 tablet, Refills 1, Tot. Refills 1, Maintenance, 01/25/20 8:44:00 EDT, Route to Pharmacy Electronically, [facility] #[id number], 149.86, cm, 01/25/20 8:03:00 EDT, Height, 103, kg, 11/21/19 8:04:00 EDT, Dry W... Start Date: 01/25/20 Status: Ordered levothyroxine 0.1 mg oral tablet 1 tablet = 100 mcg, By Mouth, Daily, # 90 tablet, 1 Refills, Maintenance, 05/23/20 9:52:00 EST, Tablet, [facility] #[id number], 149.86, cm, 05/22/20 13:49:00 EST, Height, 100.91, [...] 09/03/20 16:21:00 EDT, 08/04/20 16:21:00 EDT, Tablet, [facility] #[id number], Partial fill upon patient request if the prescription is for a schedule II opioid drug., 149.8... Start Date: 08/04/20 Stop Date: 09/03/20 Status: Ordered sertraline 100 mg oral tablet 2 tablet = 200 mg, By Mouth, Daily, REFAXED, # 180 tablet, 3 Refills, Maintenance, 01/25/20 8:47:00EDT, [facility] #[id number], 149.86, cm, 01/25/20 8:03:00 EDT, Height, 103, kg, 11/21/19 8:04:00 EDT, Dry Weight Start Date: 01/25/20 Status: Ordered Wellbutrin XL 300 mg/24 hours oral tablet, extended release 1 tablet = 300 mg, By Mouth, Every 24 hours, # 30 tablet, 5 Refills, Maintenance, 07/25/20 8:33:00 EDT, [facility] #[id number], Partial fill upon patient request if the [...]
--- OUTSIDE RECORDS SUMMARY | 2022-11-20 11:47 | XMS_ITS | Continuity of Care Document ---
Author Name Unknown Organization 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 [address] [place] [address]- Attending Physician: Jarad Muñoz MD Admitting Physician: Jarad Muñoz MD Referring Physician: Dc Cobian MD Allergies, [...] Not Given Patient Refuses 1Result Comment: [10/19/2017] [id number] Medications buPROPion 150 mg/24 hours (XL) oral tablet, extended release 1 tablet, By Mouth, Every 24 hours, DO NOT CRUSH OR CHEW, # 90 tablet, 1 Refills, [facility] #[id number], 90, TAKE 1 TABLET BY MOUTH EVERY 24 HOURS. DO NOT CRUSH OR CHEW, 149.86, cm, 10/03/20 15:02:00 EDT, Height, 73.3, kg, 10/03/20 15:02:00 EDT,... Start Date: 02/17/21 Status: Ordered furosemide 20 mg oral tablet 1, tablet, By Mouth, Daily, # 30 tablet, Refills 0, Tot. Refills 0, Maintenance, 09/15/20 8:51:00 EDT, Route to Pharmacy Electronically, [facility] #[id number], 149.86, cm, 08/01/20 16:14:00 EDT, Height, 100.91, kg, 05/20/20 15:45:00 EST, Dry Weight Start Date: 09/15/20 Status: Ordered furosemide 20 mg oral tablet See Instructions, TAKE 1 TABLET BY MOUTH DAILY, # 30 tablet, Refills 0, Instructions Replace Required Details, Route to Pharmacy Electronically, [facility] #[id number], 149.86, cm, 10/03/20 15:02:00 EDT, Height, 73.3, kg, 10/03/20 15:02:00 EDT, D... Start Date: 12/29/20 Status: Ordered furosemide 20 mg oral tablet See Instructions, TAKE 1 TABLET BY MOUTH DAILY, # 30 tablet, Refills 0, Instructions Replace Required Details, Route to Pharmacy Electronically, [facility] #[id number], 149.86, cm, 10/03/20 15:02:00 EDT, Height, 73.3, kg, 10/03/20 15:02:00 EDT, D... Start Date: 12/01/20 Status: Ordered levothyroxine 0.1 mg oral tablet 1 tablet, By Mouth, Daily, # 90 tablet, 1 Refills, Maintenance, 11/11/20 16:04:00 EDT, [facility] #[id number], 149.86, cm, 10/03/20 15:02:00 EDT, Height, 73.3, [...] MOUTH DAILY, # 180 tablet, 0 Refills, [facility] #21805, 149.86, cm, 10/03/20 15:02:00 EDT, Height, 73.3, kg, 10/03/20 15:02:00 EDT, Dry Weight Start Date: 12/29/20 Status: Ordered sertraline 100 mg oral tablet 2 tablet = 200 mg, By Mouth, Daily, REFAXED, # 180 tablet, 3 Refills, Maintenance, 01/25/20 8:47:00EDT, [facility] #[id number], 149.86, cm, 01/25/20 8:03:00 EDT, Height, 103, [...]
--- OUTSIDE RECORDS SUMMARY | 2022-11-20 11:47 | XMS_ITS | Continuity of Care Document ---
Author Name Unknown Organization [facility] Norm Address [address] [place] [address]- Care Team Providers Care Dam Tender Assistant Name Role Phone Enriqueta DUMONT, Keven Cho Primary Care Physician Encounter [facility] Date(s): 09/08/22 - 10/08/22 [facility] Adult [address] [place] [address]- Allergies, Adverse Reactions, Alerts No Known Allergies [...] Not Given Patient Refuses 1Result Comment: [10/19/2017] [id number] Medications furosemide 20 mg oral tablet See Instructions, TAKE 1 TABLET BY MOUTH DAILY, # 30 tablet, Refills 2, Tot. Refills 2, 01/15/22 11:17:00 EDT, Instructions Replace Required Details, Route to Pharmacy Electronically, [facility] #[id number], 147, cm, 01/01/22 10:56:00 EDT, Height... Start Date: 01/15/22 Status: Ordered furosemide 20 mg oral tablet 20 mg, 1, tablet, By Mouth, Daily, # 30 tablet, Refills 0, Tot. Refills 0, 07/20/22 15:16:00 EDT, Route to Pharmacy Electronically, [facility] #[id number], 147, cm, 05/31/22 15:05:00 EST, Height, 60.8, kg, 07/07/21 7:44:00 EDT, Dry Weight Start Date: 07/20/22 Status: Ordered levothyroxine 0.1 mg oral tablet 1 tablet, By Mouth, Daily, # 90 tablet, 0 Refills, Maintenance, 07/14/22 20:53:00 EDT, [facility] #[id number], 147, cm, 05/31/22 15:05:00 EST, Height, 60.8, [...] 90 tablet, 3 Refills, Maintenance, 08/17/22 14:51:00EDT, [facility] #[id number], Partial fill upon patient request if the [...] Personnel Name: Bozena Bateman RN Position: [facility] SN RN Member Role: Primary Care Nurse Name: Swati Thomas NP Position: [facility] Associate Professional Member Role: Primary Care Nurse Name: Kyara Catalan RN Position: [facility] RN Member Role: Primary Care Nurse Name: Torrey Blanchard MD Position: [facility] SENIOR MECHANICAL DEVELOPMENT ENGINEER MD Member Role: Lifetime SENIOR MECHANICAL DEVELOPMENT ENGINEER Physician Address: Address: [address] [place] [address] [employer], [place] [address]- Name: Paz Villarreal RN Position: [facility] SN RN Member Role: Primary Care Nurse Name: Gege Paulino NP Position: [facility] Associate Professional Member Role: Primary Care Nurse Address: Address: [address] [facility] [place] [address]- [place] Name: Hanh Devlin RN Position: [facility] RN Member Role: Primary Care Nurse Name: Christina Guerrero RN Position: [facility] RN Member Role: Primary Care Nurse Name: Jennifer Zendejas RN Position: [facility] RN Member Role: Primary Care Nurse Name: Keven Robison MD Position: [facility] Physician - Primary Care Member Role: PCP Address: Address: [address] [place] [address]- [place] Name: Dary Jensen RN Position: [facility] RN Member Role: Primary Care Nurse Care Team Related Persons Name: JUDI MARTINI Address: [address] [address]
--- OUTSIDE RECORDS SUMMARY | 2022-11-20 11:47 | XMS_ITS | Continuity of Care Document ---
Author Name Unknown Organization [facility] Address [address] [place] [address] ve [address] [place] [address]- Care Team Providers Care Director Payment Name Role Phone Keven Robison MD Primary Care Physician [place] [facility] [place] 08/08/[address] [place] [address]- Attending Physician: Dc Cobian MD Referring Physician: [...] Not Given Patient Refuses 1Result Comment: [10/19/2017] [id number] Medications Colace sodium 100 mg oral capsule 100 mg, 1, capsule, By Mouth, 2 times a day, with plenty of water, # 60 capsule, Refills 0, Tot. Refills 0, Maintenance, 05/22/20 12:36:00 EST, Route to Pharmacy Electronically, [facility], Partial fill upon patient request if the prescr... Start Date: 05/22/20 Status: Ordered furosemide 20 mg oral tablet 20 mg, 1, tablet, By Mouth, Daily, # 90 tablet, Refills 1, Tot. Refills 1, Maintenance, 01/25/20 8:44:00 EDT, Route to Pharmacy Electronically, [facility] #[id number], 149.86, cm, 01/25/20 8:03:00 EDT, Height, 103, kg, 11/21/19 8:04:00 EDT, Dry W... Start Date: 01/25/20 Status: Ordered levothyroxine 0.1 mg oral tablet 1 tablet = 100 mcg, By Mouth, Daily, # 90 tablet, 1 Refills, Maintenance, 05/23/20 9:52:00 EST, Tablet, [facility] #[id number], 149.86, cm, 05/22/20 13:49:00 EST, Height, 100.91, [...] 09/03/20 16:21:00 EDT, 08/04/20 16:21:00 EDT, Tablet, [facility] #39511, Partial fill upon patient request if the prescription is for a schedule II opioid drug., 149.8... Start Date: 08/04/20 Stop Date: 09/03/20 Status: Ordered sertraline 100 mg oral tablet 2 tablet = 200 mg, By Mouth, Daily, REFAXED, # 180 tablet, 3 Refills, Maintenance, 01/25/20 8:47:00EDT, [facility] #[id number], 149.86, cm, 01/25/20 8:03:00 EDT, Height, 103, kg, 11/21/19 8:04:00 EDT, Dry Weight Start Date: 01/25/20 Status: Ordered Wellbutrin XL 300 mg/24 hours oral tablet, extended release 1 tablet = 300 mg, By Mouth, Every 24 hours, # 30 tablet, 5 Refills, Maintenance, 07/25/20 8:33:00 EDT, [facility] #[id number], Partial fill upon patient request if the [...] oldest [Reference Range]: 1 Height 149.86 cm (08/01/20 4:14 PM) Weight 82.1 kg (08/01/20 4:14 PM) Pulse Rate [55-90 bpm] 103 bpm *H* (08/01/20 4:14 PM) Body Mass Index [18.5-24.99] 36.56 *>HHI* (08/01/20 4:14 PM) Blood Pressure [90-138/55-84 mm Hg] 129/ 91mm Hg (08/01/20 4:14 PM) Respiratory Rate [16-30 br/min] 16 br/mi n (08/01/20 4:14 PM) Temperature [96.8-100.4 DegF] 98.1 DegF (08/01/20 4:14 PM) Temperature Route Temporal (08/01/20 4:14 PM) Weight Obtained Via Standing scale (08/01/20 4:14 PM) Social History Social History Type Response Smoking Status Never smoker; Tobacc o user in household: No entered on: 06/20/15 Sex
--- OUTSIDE RECORDS SUMMARY | 2022-11-20 11:47 | XMS_ITS | Continuity of Care Document ---
Author Name Unknown Organization [facility] Address [address] [place] [address] [address] [place] [address]- Care Team Providers Care Printing Gray Cloth Tender Name Role Phone Enriqueta DUMONT, Keven Cho Primary Care Physician [place] [facility] [place] 06/[place]/[address] [place] [address]- Attending Physician: Knee RD, Dary Allergies, Adverse Reactions, Alerts Substance Reaction Severity Status NKA Active Immunizations Given and Recorded Vaccine Date Status Refusal Reason tetanus/diphtheria/pertussis, acel(Tdap) 1 10/19/17 Given influenza virus vaccine, inactivated 02/24/08 Give n Pneumococcal Vaccine (oldterm) 02/24/08 Given Not Given Vaccine Date Status Refusal Reason influenza virus vaccine, inactivated 06/11/15 Not Given Patient Refuses 1Result Comment: [10/19/2017] [id number] Medications atorvastatin 40 mg oral tablet 1 tablet = 40 mg, By Mouth, Daily, INCREASED DOSE, # 90 tablet, 1 Refills, Maintenance, 01/25/20 8:43:00 EDT, [facility] #[id number], INCREASED DOSE DC 20mg daily, 149.86, cm, 01/25/20 8:03:00 EDT, Height, 103, kg, 11/21/19 8:04:00 EDT, Dry Weight Start Date: 01/25/20 Status: Ordered Colace sodium 100 mg oral capsule 100 mg, 1, capsule, By Mouth, 2 times a day, with plenty of water, # 60 capsule, Refills 0, Tot. Refills 0, Maintenance, 05/22/20 12:36:00 EST, Route to Pharmacy Electronically, [facility], Partial fill upon patient request if the prescr... Start Date: 05/22/20 Status: Ordered CPAP Machine See Instructions, # 1 each, Maintenance, iVAPS with EPAP 5 and TVa of 5.5 and PS min of 4 and PS max of 12 and [place] 20 and height 80 inches with 2 liters oxygen. DME Provider--[facility]., 02/05/18 16:53:41 EDT, Compound Start Date: 02/05/18 Status: Ordered furosemide 20 mg oral tablet 20 mg, 1, tablet, By Mouth, Daily, # 90 tablet, Refills 1, Tot. Refills 1, Maintenance, 01/25/20 8:44:00 EDT, Route to Pharmacy Electronically, [facility] #[id number], 149.86, cm, 01/25/20 8:03:00 EDT, Height, 103, kg, 11/21/19 8:04:00 EDT, Dry W... Start Date: 01/25/20 Status: Ordered levothyroxine 0.1 mg oral tablet 1 tablet = 100 mcg, By Mouth, Daily, # 90 tablet, 1 Refills, Maintenance, 05/23/20 9:52:00 EST, Tablet, [facility] #[id number], 149.86, cm, 05/22/20 13:49:00 EST, Height, 100.91, [...] 05/22/20 12:36:00 EST, Route to Pharmacy Electronically, [facility], Partial fill upon patient request [...] 180 tablet, 3 Refills, Maintenance, 01/25/20 8:47:00EDT, [facility] #41451, 149.86, cm, 01/25/20 8:03:00 EDT, Height, 103, [...] Refills, Maintenance, 01/25/20 8:44:00 EDT, ER Tablet, [facility] #49267, 149.86, cm, 01/25/20 8:03:00 EDT, Height, 103, [...]
--- OUTSIDE RECORDS SUMMARY | 2022-11-20 11:47 | XMS_ITS | Continuity of Care Document ---
Author Name Unknown Organization [facility] ter Address [address] [place] [address]- Care Team Providers Care Banquet Attendant Name Role Phone Enriqueta DUMONT, Keven Cho Primary Care Physician [place] [facility] [place] - 04/18/[address] [address] Attending Physician: Dc Cobian MD Referring Physician: Dc [...] Not Given Patient Refuses 1Result Comment: [10/19/2017] [id number] Medications atorvastatin 40 mg oral tablet 1 tablet = 40 mg, By Mouth, Daily, INCREASED DOSE, # 90 tablet, 1 Refills, Maintenance, 01/25/20 8:43:00 EDT, [facility] #[id number], INCREASED DOSE DC 20mg daily, 149.86, cm, 01/25/20 8:03:00 EDT, Height, 103, kg, 11/21/19 8:04:00 EDT, Dry Weight Start Date: 01/25/20 Status: Ordered CPAP Machine See Instructions, # 1 each, Maintenance, iVAPS with EPAP 5 and TVa of 5.5 and PS min of 4 and PS max of 12 and [place] 20 and height 80 inches with 2 liters oxygen. DME Provider--[facility]., 02/05/18 16:53:41 EDT, Compound Start Date: 02/05/18 Status: Ordered furosemide 20 mg oral tablet 20 mg, 1, tablet, By Mouth, Daily, # 90 tablet, Refills 1, Tot. Refills 1, Maintenance, 01/25/20 8:44:00 EDT, Route to Pharmacy Electronically, [facility] #[id number], 149.86, cm, 01/25/20 8:03:00 EDT, Height, 103, kg, 11/21/19 8:04:00 EDT, Dry W... Start Date: 01/25/20 Status: Ordered levothyroxine 0.1 mg oral tablet 1 tablet = 100 mcg, By Mouth, Daily, # 90 tablet, 1 Refills, Maintenance, 11/20/19 12:52:00 EDT, Tablet, [facility] #29492, 147.32, cm, 10/01/19 9:28:00 EDT, Height, 108.3, kg, 12/05/18 11:18:00 EDT, Dry Weight Start Date: 11/20/19 Status: Ordered metFORMIN 500 mg oral tablet, extended release 1 tablet = 500 mg, By Mouth, Daily, # 90 tablet, 1 Refills, Maintenance, 04/07/20 16:17:00 EST, ER Tablet, [facility] #01689, 149.86, cm, 01/25/20 8:03:00 EDT, Height, 103, [...] 180 tablet, 3 Refills, Maintenance, 01/25/20 8:47:00EDT, [facility] #74061, 149.86, cm, 01/25/20 8:03:00 EDT, Height, 103, kg, 11/21/19 8:04:00 EDT, Dry Weight Start Date: 01/25/20 Status: Ordered Wellbutrin XL 150 mg/24 hours oral tablet, extended release 1 tablet = 150 mg, By Mouth, Every 24 hours, do not crush or chew., # 90 tablet, 1 Refills, Maintenance, 01/25/20 8:44:00 EDT, ER Tablet, [facility] #[id number], 149.86, cm, 01/25/20 8:03:00 EDT, Height, 103, [...] oldest [Reference Range]: 1 Height 149.86 cm (03/17/20 3:49 PM) Weight 101 kg (03/17/20 3:49 PM) Body Mass Index [18.5-24.99] 44.97 *>HHI* (03/17/20 3:49 PM) Dry Weight 101 kg (03/17/20 3:49 PM) Weight Obtained Via Patient/family state d (03/17/20 3:49 PM) Dry Weight Obtained Via Patient/family s tated (03/17/20 3:49 PM) Social History Social History Type Response Smoking Status Never smoker; Tobacc o user in household: No entered on: 06/20/15 Sex
--- OUTSIDE RECORDS SUMMARY | 2022-11-20 11:47 | XMS_ITS | Continuity of Care Document ---
Author Name Unknown Organization [facility] Norm lt Address [address] [place] [address]- Care Team Providers Care Photoengraver Name Role Phone Enriqueta DUMONT, Keven Cho Primary Care Physician Encounter [facility] Date(s): 12/25/21 - 01/24/22 [facility] Adult [address] [place] [address]- Allergies, Adverse Reactions, Alerts No Known Allergies [...] Not Given Patient Refuses 1Result Comment: [10/19/2017] [id number] Medications buPROPion 150 mg/24 hours (XL) oral tablet, extended release 1 tablet, By Mouth, Every 24 hours, DO NOT CRUSH OR CHEW, # 90 tablet, 1 Refills, [facility] #[id number], 90, TAKE 1 TABLET BY MOUTH EVERY 24 HOURS. DO NOT CRUSH OR CHEW, 149.86, cm, 10/03/20 15:02:00 EDT, Height, 73.3, kg, 10/03/20 15:02:00 EDT,... Start Date: 02/17/21 Status: Ordered furosemide 20 mg oral tablet 1, tablet, By Mouth, Daily, # 30 tablet, Refills 0, Tot. Refills 0, Maintenance, 09/15/20 8:51:00 EDT, Route to Pharmacy Electronically, [facility] #[id number], 149.86, cm, 08/01/20 16:14:00 EDT, Height, 100.91, kg, 05/20/20 15:45:00 EST, Dry Weight Start Date: 09/15/20 Status: Ordered furosemide 20 mg oral tablet See Instructions, TAKE 1 TABLET BY MOUTH DAILY, # 30 tablet, Refills 2, Tot. Refills 2, 01/15/22 11:17:00 EDT, Instructions Replace Required Details, Route to Pharmacy Electronically, [facility] #[id number], 147, cm, 01/01/22 10:56:00 EDT, Height... Start Date: 01/15/22 Status: Ordered furosemide 20 mg oral tablet See Instructions, TAKE 1 TABLET BY MOUTH DAILY, # 30 tablet, Refills 0, Instructions Replace Required Details, Route to Pharmacy Electronically, [facility] #[id number], 149.86, cm, 10/03/20 15:02:00 EDT, Height, 73.3, kg, 10/03/20 15:02:00 EDT, D... Start Date: 12/01/20 Status: Ordered levothyroxine 0.1 mg oral tablet 1 tablet, By Mouth, Daily, # 90 tablet, 1 Refills, Maintenance, 09/24/21 11:40:00 EDT, [facility] #[id number], 147, cm, 08/03/21 15:14:00 EDT, Height, 60.8, [...] tablet, 0 Refills, Maintenance, 10/06/21 11:09:00 EDT, [facility] #20606, Partial fill upon patient request if the [...] 180 tablet, 3 Refills, Maintenance, 01/25/20 8:47:00EDT, [facility] #[id number], 149.86, cm, 01/25/20 8:03:00 EDT, Height, 103, kg, 11/21/19 8:04:00 EDT, Dry Weight Start Date: 01/25/20 Status: Ordered sertraline 100 mg oral tablet See Instructions, TAKE 2 TABLETS BY MOUTH DAILY, # 180 tablet, 3 Refills, 12/26/21 13:09:00 EDT, [facility] #80052, 147, cm, 10/06/21 10:57:00 EDT, Height, 60.8, kg, 07/07/21 7:44:00 EDT, Dry Weight Start Date: 12/26/21 Status: Ordered Wellbutrin XL 150 mg/24 hours oral tablet, extended release 1 tablet = 150 mg, By Mouth, Every 24 hours, # 90 tablet, 1 Refills, Maintenance, 06/08/21 13:12:00[facility] #[id number], Partial fill upon patient request if the [...] Name: Enriqueta DUMONT, Keven Cho Address: Address: [address] [place] [id number]
--- OUTSIDE RECORDS SUMMARY | 2022-11-20 11:47 | XMS_ITS | Continuity of Care Document ---
Author Name Unknown Organization [facility] Address [address] [place] [address] [address] [place] [address]- Care Team Providers Care Procurement Technician Name Role Phone Enriqueta DUMONT, Keven Cho Primary Care Physician [place] [facility] [place]s): 05/22/19 - 05/29/19 [facility] [address] [place] [address]- [facility] Encounter Diagnosis Morbid obesity with BMI of 45.0-49.9, adult(Discharge Diagnosis) - 05/25/19 Attending Physician: Dc Cobian MD Referring Physician: [...] Not Given Patient Refuses 1Result Comment: [10/19/2017] [id number] Medications atorvastatin 40 mg oral tablet 1 tablet = 40 mg, By Mouth, Daily, INCREASED DOSE, # 30 tablet, 6 Refills, Maintenance, 01/24/19 16:53:45 EDT, INCREASED DOSE DC 20mg daily Start Date: 01/24/19 Status: Ordered CPAP Machine See Instructions, # 1 each, Maintenance, iVAPS with EPAP 5 and TVa of 5.5 and PS min of 4 and PS max of 12 and CA 20 and height 80 inches with 2 liters oxygen. DME Provider--[facility]., 02/05/18 16:53:41 EDT, Compound Start Date: 02/05/18 Status: Ordered furosemide 20 mg oral tablet 20 mg, 1, tablet, By Mouth, Daily, # 30 tablet, Refills 1, Tot. Refills 1, Maintenance, 05/11/19 19:48:00 EST, Route to Pharmacy Electronically, [facility] #[id number], 147.32, cm, 04/16/19 8:24:00 EST, Height, 108.3, kg, 12/05/18 11:18:00 EDT, D... Start Date: 05/11/19 Status: Ordered levothyroxine 0.1 mg oral tablet 1 tablet = 100 mcg, By Mouth, Daily, # 90 tablet, 1 Refills, Maintenance, 05/11/19 19:48:00 EST, Tablet, [facility] #[id number], 147.32, cm, 04/16/19 8:24:00 EST, Height, 108.3, kg, 12/05/18 11:18:00 EDT, Dry Weight Start Date: 05/11/19 Status: Ordered metFORMIN 500 mg oral tablet, extended release 1 tablet = 500 mg, By Mouth, Daily, # 30 tablet, 5 Refills, Maintenance, 04/06/19 12:06:00 EST, ER Tablet, [facility], 147.32, cm, 03/05/19 9:49:00 EST, Height, 108.3, kg, 12/05/18 11:18:00 EDT, Dry Weight Start Date: 04/06/19 Stop Date: 10/03/19 Status: Ordered Multivitamin Daily, 0 Refills, Maintenance, 05/22/19 14:28:00 EST Start Date: 05/22/19 Status: Ordered pantoprazole 40 mg oral delayed release tablet See Instructions, # 90 tablet, take 1 tablet by mouth once daily, [facility] Start Date: 01/14/19 Status: Ordered traZODone 50 mg oral tablet 50 mg, 1, tablet, By Mouth, Daily at bedtime, with food, # 30 tablet, Refills 5, Tot. Refills 5, Maintenance, 02/09/19 11:41:02 EDT, Route to Pharmacy Electronically, OKPDP_[id number], [facility] Start Date: 02/09/19 Stop Date: 08/08/19 Status: [...] with BMI of 45.0-49.9, adult Discharge Diagnosis 05/25/19 Vital Signs Most recent to oldest [Reference Range]: 1 Height 147.32 cm (05/22/19 2:26 PM) Weight 101 kg (05/22/19 2:26 PM) Pulse Rate [55-90 bpm] 103 bpm *H* (05/22/19 2:26 PM) Body Mass Index [18.5-24.99] 46.54 *>HHI* (05/22/19 2:26 PM) Blood Pressure [90-138/55-84 mm Hg] 122/ 87mm Hg (05/22/19 2:26 PM) Respiratory Rate [16-30 br/min] 16 br/mi n (05/22/19 2:26 PM) Temperature [96.8-100.4 DegF] 97.5 DegF (05/22/19 2:26 PM) Blood pressure sites Arm, right (05/22/19 2:26 PM) Temperature Route Temporal (05/22/19 2:26 PM) Weight Obtained Via Standing scale (05/22/19 2:26 PM) Social History Social History Type Response Smoking Status Never smoker; Tobacc o user in household: No entered on: 06/20/15 Sex
--- OUTSIDE RECORDS SUMMARY | 2022-11-20 11:47 | XMS_ITS | Continuity of Care Document ---
Author Name Unknown Organization [facility] Address [address] [place] [address] [address] [place] [address]- Care Team Providers Care Shroud Line Tier Name Role Phone Keven Robison MD Primary Care Physician [phone] [place] [facility] [facility] [place] - 05/09/[address] [place] [address]- [facility] Attending Physician: Dary Palma RD Referring Physician: Keven Robison MD Allergies, Adverse Reactions, Alerts Substance Reaction Severity Status NKA Active Immunizations Given and Recorded Vaccine Date Status Refusal Reason tetanus/diphtheria/pertussis, acel(Tdap) 1 10/19/17 Given influenza virus vaccine, inactivated 02/24/08 Give n Pneumococcal Vaccine (oldterm) 02/24/08 Given Not Given Vaccine Date Status Refusal Reason influenza virus vaccine, inactivated 06/11/15 Not Given Patient Refuses 1Result Comment: [10/19/2017] [id number] Medications atorvastatin 40 mg oral tablet 1 tablet = 40 mg, By Mouth, Daily, INCREASED DOSE, # 30 tablet, 6 Refills, Maintenance, 01/24/19 16:53:45 EDT, INCREASED DOSE DC 20mg daily Start Date: 01/24/19 Status: Ordered CPAP Machine See Instructions, # 1 each, Maintenance, iVAPS with EPAP 5 and TVa of 5.5 and PS min of 4 and PS max of 12 and [place] 20 and height 80 inches with 2 liters oxygen. DME Provider--[facility]., 02/05/18 16:53:41 EDT, Compound Start Date: 02/05/18 Status: Ordered furosemide 20 mg oral tablet 20 mg, 1, tablet, By Mouth, Daily, # 90 tablet, Refills 1, Tot. Refills 1, Maintenance, 01/24/19 16:53:45 EDT, Route to Pharmacy Electronically, NCPDP_ID- [id number], [facility] Start Date: 01/24/19 Status: Ordered levothyroxine 0.1 mg oral tablet 1 tablet = 100 mcg, By Mouth, Daily, # 90 tablet, 1 Refills, Maintenance, 01/24/19 16:53:44 EDT, Tablet Start Date: 01/24/19 Status: Ordered metFORMIN 500 mg oral tablet, extended release 1 tablet = 500 mg, By Mouth, Daily, # 30 tablet, 5 Refills, Maintenance, 04/06/19 12:06:00 EST, ER Tablet, [facility], 147.32, cm, 03/05/19 9:49:00 EST, Height, 108.3, kg, 12/05/18 11:18:00 EDT, Dry Weight Start Date: 04/06/19 Stop Date: 10/03/19 Status: Ordered pantoprazole 40 mg oral delayed release tablet See Instructions, # 90 tablet, take 1 tablet by mouth once daily, [facility] Start Date: 01/14/19 Status: Ordered traZODone 50 mg oral tablet 50 mg, 1, tablet, By Mouth, Daily at bedtime, with food, # 30 tablet, Refills 5, Tot. Refills 5, Maintenance, 02/09/19 11:41:02 EDT, Route to Pharmacy Electronically, NCPDP_ID-[id number], [facility] Start Date: 02/09/19 Stop Date: [...]
--- OUTSIDE RECORDS SUMMARY | 2022-11-20 11:47 | XMS_ITS | Continuity of Care Document ---
Author Name Unknown Organization [facility] Address [address] [place] [address] [address] [place] [address]- Care Team Providers Care Medical Record Assistant Name Role Phone Enriqueta DUMONT, Keven Cho Primary Care Physician [place] [facility] [place] 08/01/20 - 08/31/[address] [place] [address]- Attending Physician: AdmLudy camacho Admitting Physician: Admtr, Ar8 Referring Physician: Admtr, Ar8 Allergies, Adverse Reactions, Alerts Substance Reaction Severity Status NKA Active Immunizations Given and Recorded Vaccine Date Status Refusal Reason tetanus/diphtheria/pertussis, acel(Tdap) 1 10/19/17 Given influenza virus vaccine, inactivated 02/24/08 Give n Pneumococcal Vaccine (oldterm) 02/24/08 Given Not Given Vaccine Date Status Refusal Reason influenza virus vaccine, inactivated 06/11/15 Not Given Patient Refuses 1Result Comment: [10/19/2017] [id number] Medications Colace sodium 100 mg oral capsule 100 mg, 1, capsule, By Mouth, 2 times a day, with plenty of water, # 60 capsule, Refills 0, Tot. Refills 0, Maintenance, 05/22/20 12:36:00 EST, Route to Pharmacy Electronically, [facility], Partial fill upon patient request if the prescr... Start Date: 05/22/20 Status: Ordered furosemide 20 mg oral tablet 20 mg, 1, tablet, By Mouth, Daily, # 90 tablet, Refills 1, Tot. Refills 1, Maintenance, 01/25/20 8:44:00 EDT, Route to Pharmacy Electronically, [facility] #[id number], 149.86, cm, 01/25/20 8:03:00 EDT, Height, 103, kg, 11/21/19 8:04:00 EDT, Dry W... Start Date: 01/25/20 Status: Ordered levothyroxine 0.1 mg oral tablet 1 tablet = 100 mcg, By Mouth, Daily, # 90 tablet, 1 Refills, Maintenance, 05/23/20 9:52:00 EST, Tablet, [facility] #[id number], 149.86, cm, 05/22/20 13:49:00 EST, Height, 100.91, [...] 09/03/20 16:21:00 EDT, 08/04/20 16:21:00 EDT, Tablet, [facility] #[id number], Partial fill upon patient request if the prescription is for a schedule II opioid drug., 149.8... Start Date: 08/04/20 Stop Date: 09/03/20 Status: Ordered sertraline 100 mg oral tablet 2 tablet = 200 mg, By Mouth, Daily, REFAXED, # 180 tablet, 3 Refills, Maintenance, 01/25/20 8:47:00EDT, [facility] #[id number], 149.86, cm, 01/25/20 8:03:00 EDT, Height, 103, kg, 11/21/19 8:04:00 EDT, Dry Weight Start Date: 01/25/20 Status: Ordered Wellbutrin XL 300 mg/24 hours oral tablet, extended release 1 tablet = 300 mg, By Mouth, Every 24 hours, # 30 tablet, 5 Refills, Maintenance, 07/25/20 8:33:00 EDT, [facility] #[id number], Partial fill upon patient request if the [...]
--- OUTSIDE RECORDS SUMMARY | 2022-11-20 11:47 | XMS_ITS | Continuity of Care Document ---
Author Name Unknown Organization [facility] Address [address] [place] [address]- Care Team Providers Care Gun Perforator Loader Name Role Phone Enriqueta DUMONT, Keven Cho Primary Care Physician [place] [facility] [place] Date(s[place] 08/11/20 - 08/11/[address] [address]- Discharge Disposition: A-D/C Walkout Attending Physician: Not on Staff, Attending MD Admitting Physician: Not on Staff, Admitting MD Referring Physician: Not on Staff, Referring MD Allergies, Adverse Reactions, Alerts Substance Reaction Severity Status NKA Active Immunizations Given and Recorded Vaccine Date Status Refusal Reason tetanus/diphtheria/pertussis, acel(Tdap) 1 10/19/17 Given influenza virus vaccine, inactivated 02/24/08 Give n Pneumococcal Vaccine (oldterm) 02/24/08 Given Not Given Vaccine Date Status Refusal Reason influenza virus vaccine, inactivated 06/11/15 Not Given Patient Refuses 1Result Comment: [10/19/2017] [id number] Medications Colace sodium 100 mg oral capsule 100 mg, 1, capsule, By Mouth, 2 times a day, with plenty of water, # 60 capsule, Refills 0, Tot. Refills 0, Maintenance, 05/22/20 12:36:00 EST, Route to Pharmacy Electronically, [facility], Partial fill upon patient request if the prescr... Start Date: 05/22/20 Status: Ordered furosemide 20 mg oral tablet 20 mg, 1, tablet, By Mouth, Daily, # 90 tablet, Refills 1, Tot. Refills 1, Maintenance, 01/25/20 8:44:00 EDT, Route to Pharmacy Electronically, [facility] #[id number], 149.86, cm, 01/25/20 8:03:00 EDT, Height, 103, kg, 11/21/19 8:04:00 EDT, Dry W... Start Date: 01/25/20 Status: Ordered levothyroxine 0.1 mg oral tablet 1 tablet = 100 mcg, By Mouth, Daily, # 90 tablet, 1 Refills, Maintenance, 05/23/20 9:52:00 EST, Tablet, [facility] #[id number], 149.86, cm, 05/22/20 13:49:00 EST, Height, 100.91, [...] 09/03/20 16:21:00 EDT, 08/04/20 16:21:00 EDT, Tablet, [facility] #[id number], Partial fill upon patient request if the prescription is for a schedule II opioid drug., 149.8... Start Date: 08/04/20 Stop Date: 09/03/20 Status: Ordered sertraline 100 mg oral tablet 2 tablet = 200 mg, By Mouth, Daily, REFAXED, # 180 tablet, 3 Refills, Maintenance, 01/25/20 8:47:00EDT, [facility] #[id number], 149.86, cm, 01/25/20 8:03:00 EDT, Height, 103, kg, 11/21/19 8:04:00 EDT, Dry Weight Start Date: 01/25/20 Status: Ordered Wellbutrin XL 300 mg/24 hours oral tablet, extended release 1 tablet = 300 mg, By Mouth, Every 24 hours, # 30 tablet, 5 Refills, Maintenance, 07/25/20 8:33:00 EDT, [facility] #[id number], Partial fill upon patient request if the [...] 1 2 3 Oxygen Saturation [94-100 %] 100 % (08/11/20 5:36 PM) 100 % (08/11/20 4:03 PM) 100 % (08/11/20 2:42 PM) Pulse Rate [55-90 bpm] 83 bpm (08/11/20 5:36 PM) 89 bpm (08/11/20 4:03 PM) 104 bpm *H* (08/11/20 2:42 PM) Blood Pressure [90-138/55-84 mm Hg] 132/75mm Hg (08/11/20 5:36 PM) 135/85mm Hg (08/11/20 4:03 PM) Respiratory Rate [16-30 br/min] 16 br/min (08/11/20 5:36 PM) 20 br/min (08/11/20 4:03 PM) Temperature [96.8-100.4 DegF] 98.9 DegF (08/11/20 5:36 PM) 100.1 DegF (08/11/20 4:03 PM) Mode of Delivery (Oxygen) Room air (08/11/20 5:36 PM) Room air (08/11/20 4:03 PM) Room air (08/11/20 2:42 PM) Blood pressure sites Arm, left (08/11/20 5:36 PM) Temperature Route Oral (08/11/20 5:36 PM) Oral (08/11/20 4:03 PM) Social History Social History Type Response Smoking Status Never smoker; Tobacc o user in household: No entered on: 06/20/15 Sex
--- OUTSIDE RECORDS SUMMARY | 2022-11-20 11:47 | XMS_ITS | Continuity of Care Document ---
Author Name Unknown Organization [facility] Address Unknown Care Team Providers Care Aerial Photographer Name Role Phone Enriqueta DUMONT, Keven Cho Primary Care Physician [place] [facility] [place] 05/29/21 - 06/05/21 [facility] Attending Physician: Dc Cobian MD Referring Physician: [...] Not Given Patient Refuses 1Result Comment: [10/19/2017] [id number] Medications buPROPion 150 mg/24 hours (XL) oral tablet, extended release 1 tablet, By Mouth, Every 24 hours, DO NOT CRUSH OR CHEW, # 90 tablet, 1 Refills, [facility] #[id number], 90, TAKE 1 TABLET BY MOUTH EVERY 24 HOURS. DO NOT CRUSH OR CHEW, 149.86, cm, 10/03/20 15:02:00 EDT, Height, 73.3, kg, 10/03/20 15:02:00 EDT,... Start Date: 02/17/21 Status: Ordered furosemide 20 mg oral tablet 1, tablet, By Mouth, Daily, # 30 tablet, Refills 0, Tot. Refills 0, Maintenance, 09/15/20 8:51:00 EDT, Route to Pharmacy Electronically, [facility] #[id number], 149.86, cm, 08/01/20 16:14:00 EDT, Height, 100.91, kg, 05/20/20 15:45:00 EST, Dry Weight Start Date: 09/15/20 Status: Ordered furosemide 20 mg oral tablet See Instructions, TAKE 1 TABLET BY MOUTH DAILY, # 30 tablet, Refills 0, Instructions Replace Required Details, Route to Pharmacy Electronically, [facility] #[id number], 149.86, cm, 10/03/20 15:02:00 EDT, Height, 73.3, kg, 10/03/20 15:02:00 EDT, D... Start Date: 12/29/20 Status: Ordered furosemide 20 mg oral tablet See Instructions, TAKE 1 TABLET BY MOUTH DAILY, # 30 tablet, Refills 0, Instructions Replace Required Details, Route to Pharmacy Electronically, [facility] #[id number], 149.86, cm, 10/03/20 15:02:00 EDT, Height, 73.3, kg, 10/03/20 15:02:00 EDT, D... Start Date: 12/01/20 Status: Ordered levothyroxine 0.1 mg oral tablet 1 tablet, By Mouth, Daily, # 90 tablet, 1 Refills, Maintenance, 11/11/20 16:04:00 EDT, [facility] #[id number], 149.86, cm, 10/03/20 15:02:00 EDT, Height, 73.3, [...] MOUTH DAILY, # 180 tablet, 0 Refills, [facility] #[id number], 149.86, cm, 10/03/20 15:02:00 EDT, Height, 73.3, kg, 10/03/20 15:02:00 EDT, Dry Weight Start Date: 12/29/20 Status: Ordered sertraline 100 mg oral tablet 2 tablet = 200 mg, By Mouth, Daily, REFAXED, # 180 tablet, 3 Refills, Maintenance, 01/25/20 8:47:00EDT, [facility] #[id number], 149.86, cm, 01/25/20 8:03:00 EDT, Height, 103, [...] oldest [Reference Range]: 1 Height 149.86 cm (05/29/21 8:37 AM) Weight 60.6 kg (05/29/21 8:37 AM) Pulse Rate [55-90 bpm] 80 bpm (05/29/21 8:37 AM) Body Mass Index [18.5-24.99] 26.98 *H* (05/29/21 8:37 AM) Blood Pressure [90-138/55-84 mm Hg] 122/ 54mm Hg (05/29/21 8:37 AM) Respiratory Rate [16-30 br/min] 16 br/mi n (05/29/21 8:37 AM) Temperature [96.8-100.4 DegF] 97.9 DegF (05/29/21 8:37 AM) Blood pressure sites Arm, right (05/29/21 8:37 AM) Temperature Route Temporal (05/29/21 8:37 AM) Weight Obtained Via Standing scale (05/29/21 8:37 AM) Social History Social History Type Response Smoking Status Never smoker; Tobacc o user in household: No entered on: 06/20/15 Sex
--- OUTSIDE RECORDS SUMMARY | 2022-11-20 11:47 | XMS_ITS | Continuity of Care Document ---
Author Name Unknown Organization [facility] Address [address] [place] [address] ve [address] [place] [address]- Care Team Providers Care Consumer Marketing Analyst Name Role Phone Keven Robison MD Primary Care Physician [place] [facility] [place]05[place]19 - 12/12/19 [facility] [address] [place] [address]- [facility] Attending Physician: Jolene Jones NP Referring Physician: Keven Robison MD Allergies, Adverse Reactions, Alerts Substance Reaction Severity Status NKA Active Immunizations Given and Recorded Vaccine Date Status Refusal Reason tetanus/diphtheria/pertussis, acel(Tdap) 1 10/19/17 Given influenza virus vaccine, inactivated 02/24/08 Give n Pneumococcal Vaccine (oldterm) 02/24/08 Given Not Given Vaccine Date Status Refusal Reason influenza virus vaccine, inactivated 06/11/15 Not Given Patient Refuses 1Result Comment: [10/19/2017] [id number] Medications atorvastatin 40 mg oral tablet 1 tablet = 40 mg, By Mouth, Daily, INCREASED DOSE, # 90 tablet, 1 Refills, Maintenance, 07/20/19 10:58:00 EDT, [facility] #[id number], INCREASED DOSE DC 20mg daily, 147.32, cm, 06/22/19 9:10:00 EDT, Height, 108.3, kg, 12/05/18 11:18:00 EDT, Dry W... Start Date: 07/20/19 Status: Ordered CPAP Machine See Instructions, # 1 each, Maintenance, iVAPS with EPAP 5 and TVa of 5.5 and PS min of 4 and PS max of 12 and [place] 20 and height 80 inches with 2 liters oxygen. DME Provider--[facility]., 02/05/18 16:53:41 EDT, Compound Start Date: 02/05/18 Status: Ordered furosemide 20 mg oral tablet 20 mg, 1, tablet, By Mouth, Daily, # 30 tablet, Refills 5, Tot. Refills 5, Maintenance, 10/10/19 16:17:00 EDT, Route to Pharmacy Electronically, [facility] #[id number], 147.32, cm, 10/01/19 9:28:00 EDT, Height, 108.3, kg, 12/05/18 11:18:00 EDT, D... Start Date: 10/10/19 Status: Ordered levothyroxine 0.1 mg oral tablet 1 tablet = 100 mcg, By Mouth, Daily, # 90 tablet, 1 Refills, Maintenance, 11/20/19 12:52:00 EDT, Tablet, [facility] #[id number], 147.32, cm, 10/01/19 9:28:00 EDT, Height, 108.3, kg, 12/05/18 11:18:00 EDT, Dry Weight Start Date: 11/20/19 Status: Ordered metFORMIN 500 mg oral tablet, extended release 1 tablet = 500 mg, By Mouth, Daily, # 30 tablet, 5 Refills, Maintenance, 10/10/19 16:17:00 EDT, ER Tablet, [facility] #[id number], 147.32, cm, 10/01/19 9:28:00 EDT, Height, 108.3, [...] tablet, 1 Refills, Maintenance, 12/03/19 15:01:00 EDT, [facility] #[id number], 149.86, cm, 11/21/19 8:04:00 EDT, Height, 103, kg, 11/21/19 8:04:00 EDT, Dry Weight Start Date: 12/03/19 Status: Ordered Wellbutrin XL 150 mg/24 hours oral tablet, extended release 1 tablet = 150 mg, By Mouth, Every 24 hours, do not crush or chew., # 30 tablet, 5 Refills, Maintenance, 08/14/19 14:27:00 EDT, ER Tablet, [facility] #[id number], 147.32, cm, 06/22/19 9:10:00 EDT, Height, 108.3, [...] oldest [Reference Range]: 1 Height 149.86 cm (12/05/19 1:31 PM) Temperature [96.8-100.4 DegF] 98.6 DegF (12/05/19 1:31 PM) Temperature Route Temporal (12/05/19 1:31 PM) Social History Social History Type Response Smoking Status Never smoker; Tobacc o user in household: No entered on: 06/20/15 Sex
--- OUTSIDE RECORDS SUMMARY | 2022-11-20 11:47 | XMS_ITS | Continuity of Care Document ---
Author Name Unknown Organization [facility] Address [address] [place] [address] [address] [place] [address]- Care Team Providers Care Senior Telecommunications Consultant Name Role Phone Enriqueta DUMONT, Keven Cho Primary Care Physician Encounter [facility] Date(s): 12/04/19 - 12/11/[address] [place] [address]- [facility] Attending Physician: Dary Palma RD Allergies, Adverse Reactions, Alerts Substance Reaction Severity Status NKA Active Immunizations Given and Recorded Vaccine Date Status Refusal Reason tetanus/diphtheria/pertussis, acel(Tdap) 1 10/19/17 Given influenza virus vaccine, inactivated 02/24/08 Give n Pneumococcal Vaccine (oldterm) 02/24/08 Given Not Given Vaccine Date Status Refusal Reason influenza virus vaccine, inactivated 06/11/15 Not Given Patient Refuses 1Result Comment: [10/19/2017] [id number] Medications atorvastatin 40 mg oral tablet 1 tablet = 40 mg, By Mouth, Daily, INCREASED DOSE, # 90 tablet, 1 Refills, Maintenance, 07/20/19 10:58:00 EDT, [facility] #[id number], INCREASED DOSE DC 20mg daily, 147.32, cm, 06/22/19 9:10:00 EDT, Height, 108.3, kg, 12/05/18 11:18:00 EDT, Dry W... Start Date: 07/20/19 Status: Ordered CPAP Machine See Instructions, # 1 each, Maintenance, iVAPS with EPAP 5 and TVa of 5.5 and PS min of 4 and PS max of 12 and [place] 20 and height 80 inches with 2 liters oxygen. DME Provider--[facility]., 02/05/18 16:53:41 EDT, Compound Start Date: 02/05/18 Status: Ordered furosemide 20 mg oral tablet 20 mg, 1, tablet, By Mouth, Daily, # 30 tablet, Refills 5, Tot. Refills 5, Maintenance, 10/10/19 16:17:00 EDT, Route to Pharmacy Electronically, [facility] #[id number], 147.32, cm, 10/01/19 9:28:00 EDT, Height, 108.3, kg, 12/05/18 11:18:00 EDT, D... Start Date: 10/10/19 Status: Ordered levothyroxine 0.1 mg oral tablet 1 tablet = 100 mcg, By Mouth, Daily, # 90 tablet, 1 Refills, Maintenance, 11/20/19 12:52:00 EDT, Tablet, [facility] #[id number], 147.32, cm, 10/01/19 9:28:00 EDT, Height, 108.3, kg, 12/05/18 11:18:00 EDT, Dry Weight Start Date: 11/20/19 Status: Ordered metFORMIN 500 mg oral tablet, extended release 1 tablet = 500 mg, By Mouth, Daily, # 30 tablet, 5 Refills, Maintenance, 10/10/19 16:17:00 EDT, ER Tablet, [facility] #[id number], 147.32, cm, 10/01/19 9:28:00 EDT, Height, 108.3, [...] tablet, 1 Refills, Maintenance, 12/03/19 15:01:00 EDT, [facility] #[id number], 149.86, cm, 11/21/19 8:04:00 EDT, Height, 103, kg, 11/21/19 8:04:00 EDT, Dry Weight Start Date: 12/03/19 Status: Ordered Wellbutrin XL 150 mg/24 hours oral tablet, extended release 1 tablet = 150 mg, By Mouth, Every 24 hours, do not crush or chew., # 30 tablet, 5 Refills, Maintenance, 08/14/19 14:27:00 EDT, ER Tablet, [facility] #[id number], 147.32, cm, 06/22/19 9:10:00 EDT, Height, 108.3, [...]
--- OUTSIDE RECORDS SUMMARY | 2022-11-20 11:47 | XMS_ITS | Continuity of Care Document ---
Author Name Unknown Organization [facility] Norm Address [address] [place] [id number]- Care Team Providers Care Analysis Evaluator Name Role Phone Enriqueta DUMONT, Keven Cho Primary Care Physician [phone] Encounter [facility] [place] Date(s): 04/09/21 - 05/09/21 [facility] Adult [address] [place] [address]- Attending Physician: AdmEdmond [id number] Admitting Physician: AdmtrLudy Referring Physician: Admtr, Ar8 Allergies, Adverse Reactions, Alerts No Known Allergies [...] Not Given Patient Refuses 1Result Comment: [10/19/2017] [id number] Medications buPROPion 150 mg/24 hours (XL) oral tablet, extended release 1 tablet, By Mouth, Every 24 hours, DO NOT CRUSH OR CHEW, # 90 tablet, 1 Refills, [facility] #[id number], 90, TAKE 1 TABLET BY MOUTH EVERY 24 HOURS. DO NOT CRUSH OR CHEW, 149.86, cm, 10/03/20 15:02:00 EDT, Height, 73.3, kg, 10/03/20 15:02:00 EDT,... Start Date: 02/17/21 Status: Ordered furosemide 20 mg oral tablet 1, tablet, By Mouth, Daily, # 30 tablet, Refills 0, Tot. Refills 0, Maintenance, 09/15/20 8:51:00 EDT, Route to Pharmacy Electronically, [facility] #[id number], 149.86, cm, 08/01/20 16:14:00 EDT, Height, 100.91, kg, 05/20/20 15:45:00 EST, Dry Weight Start Date: 09/15/20 Status: Ordered furosemide 20 mg oral tablet See Instructions, TAKE 1 TABLET BY MOUTH DAILY, # 30 tablet, Refills 0, Instructions Replace Required Details, Route to Pharmacy Electronically, [facility] #[id number], 149.86, cm, 10/03/20 15:02:00 EDT, Height, 73.3, kg, 10/03/20 15:02:00 EDT, D... Start Date: 12/29/20 Status: Ordered furosemide 20 mg oral tablet See Instructions, TAKE 1 TABLET BY MOUTH DAILY, # 30 tablet, Refills 0, Instructions Replace Required Details, Route to Pharmacy Electronically, [facility] #[id number], 149.86, cm, 10/03/20 15:02:00 EDT, Height, 73.3, kg, 10/03/20 15:02:00 EDT, D... Start Date: 12/01/20 Status: Ordered levothyroxine 0.1 mg oral tablet 1 tablet, By Mouth, Daily, # 90 tablet, 1 Refills, Maintenance, 11/11/20 16:04:00 EDT, [facility] #[id number], 149.86, cm, 10/03/20 15:02:00 EDT, Height, 73.3, [...] MOUTH DAILY, # 180 tablet, 0 Refills, [facility] #[id number], 149.86, cm, 10/03/20 15:02:00 EDT, Height, 73.3, kg, 10/03/20 15:02:00 EDT, Dry Weight Start Date: 12/29/20 Status: Ordered sertraline 100 mg oral tablet 2 tablet = 200 mg, By Mouth, Daily, REFAXED, # 180 tablet, 3 Refills, Maintenance, 01/25/20 8:47:00EDT, [facility] #[id number], 149.86, cm, 01/25/20 8:03:00 EDT, Height, 103, [...]
--- OUTSIDE RECORDS SUMMARY | 2022-11-20 11:47 | XMS_ITS | Continuity of Care Document ---
Author Name Unknown Organization [facility] Norm Address [address] [place] [address]- Care Team Providers Care Cloud Physicist Name Role Phone Enriqueta DUMONT, Keven Cho Primary Care Physician Encounter [facility] Date(s): 07/18/22 - 08/17/22 [facility] Adult [address] [place] [address]- Allergies, Adverse Reactions, Alerts No Known Allergies [...] Not Given Patient Refuses 1Result Comment: [10/19/2017] [id number] Medications furosemide 20 mg oral tablet See Instructions, TAKE 1 TABLET BY MOUTH DAILY, # 30 tablet, Refills 2, Tot. Refills 2, 01/15/22 11:17:00 EDT, Instructions Replace Required Details, Route to Pharmacy Electronically, [facility] #[id number], 147, cm, 01/01/22 10:56:00 EDT, Height... Start Date: 01/15/22 Status: Ordered furosemide 20 mg oral tablet 20 mg, 1, tablet, By Mouth, Daily, # 30 tablet, Refills 0, Tot. Refills 0, 07/20/22 15:16:00 EDT, Route to Pharmacy Electronically, [facility] #[id number], 147, cm, 05/31/22 15:05:00 EST, Height, 60.8, kg, 07/07/21 7:44:00 EDT, Dry Weight Start Date: 07/20/22 Status: Ordered levothyroxine 0.1 mg oral tablet 1 tablet, By Mouth, Daily, # 90 tablet, 0 Refills, Maintenance, 07/14/22 20:53:00 EDT, [facility] #48262, 147, cm, 05/31/22 15:05:00 EST, Height, 60.8, [...] 90 tablet, 3 Refills, Maintenance, 08/17/22 14:51:00EDT, [facility] #60095, Partial fill upon patient request if the [...] Team Personnel Name: Bozena Bateman RN Position: [facility] SN RN Member Role: Primary Care Nurse Name: Swati Thomas NP Position: [facility] Associate Professional Member Role: Primary Care Nurse Name: Kyara Catalan RN Position: [facility] RN Member Role: Primary Care Nurse Name: Torrey Blanchard MD Position: [facility] CENSUS CLERK MD Member Role: Lifetime CENSUS CLERK Physician Address: Address: [address] [place] [address] [place] [address]- Name: Paz Villarreal RN Position: [facility] SN RN Member Role: Primary Care Nurse Name: Gege Paulino NP Position: [facility] Associate Professional Member Role: Primary Care Nurse Address: Address: [address] [facility] [place] [address]- Name: Hanh Devlin RN Position: [facility] RN Member Role: Primary Care Nurse Name: Christina Guerrero RN Position: [facility] RN Member Role: Primary Care Nurse Name: Jennifer Zendejas RN Position: [facility] RN Member Role: Primary Care Nurse Name: Keven Robison MD Position: [facility] Primary Care Physician Member Role: PCP Address: Address: [address] [place] [address]- [place] Name: Dary Jensen RN Position: [facility] RN Member Role: Primary Care Nurse Care Team Related Persons Name: JUDI MARTINI Address: [address] [address]
--- OUTSIDE RECORDS SUMMARY | 2022-11-20 11:47 | XMS_ITS | Continuity of Care Document ---
Author Name Unknown Organization [facility] Norm lt Address [address] [place] [address]- Care Team Providers Care Crewman Armoured Personnel Carrier M113 Name Role Phone Keven Robison MD Primary Care Physician [phone] Encounter [facility] [place] Date(s): 08/03/21 - 09/02/21 [facility] Adult [address] [place] [address]- Attending Physician: Admtr, Ar8 Admitting Physician: Admtr, [...] Not Given Patient Refuses 1Result Comment: [10/19/2017] [id number] Medications buPROPion 150 mg/24 hours (XL) oral tablet, extended release 1 tablet, By Mouth, Every 24 hours, DO NOT CRUSH OR CHEW, # 90 tablet, 1 Refills, [facility] #[id number], 90, TAKE 1 TABLET BY MOUTH EVERY 24 HOURS. DO NOT CRUSH OR CHEW, 149.86, cm, 10/03/20 15:02:00 EDT, Height, 73.3, kg, 10/03/20 15:02:00 EDT,... Start Date: 02/17/21 Status: Ordered furosemide 20 mg oral tablet 1, tablet, By Mouth, Daily, # 30 tablet, Refills 0, Tot. Refills 0, Maintenance, 09/15/20 8:51:00 EDT, Route to Pharmacy Electronically, [facility] #84905, 149.86, cm, 08/01/20 16:14:00 EDT, Height, 100.91, kg, 05/20/20 15:45:00 EST, Dry Weight Start Date: 09/15/20 Status: Ordered furosemide 20 mg oral tablet See Instructions, TAKE 1 TABLET BY MOUTH DAILY, # 30 tablet, Refills 0, Instructions Replace Required Details, Route to Pharmacy Electronically, [facility] #[id number], 149.86, cm, 10/03/20 15:02:00 EDT, Height, 73.3, kg, 10/03/20 15:02:00 EDT, D... Start Date: 12/29/20 Status: Ordered furosemide 20 mg oral tablet See Instructions, TAKE 1 TABLET BY MOUTH DAILY, # 30 tablet, Refills 0, Instructions Replace Required Details, Route to Pharmacy Electronically, [facility] #[id number], 149.86, cm, 10/03/20 15:02:00 EDT, Height, 73.3, kg, 10/03/20 15:02:00 EDT, D... Start Date: 12/01/20 Status: Ordered levothyroxine 0.1 mg oral tablet 1 tablet, By Mouth, Daily, # 90 tablet, 1 Refills, Maintenance, 11/11/20 16:04:00 EDT, [facility] #86301, 149.86, cm, 10/03/20 15:02:00 EDT, Height, 73.3, [...] MOUTH DAILY, # 180 tablet, 0 Refills, [facility] #06027, 149.86, cm, 10/03/20 15:02:00 EDT, Height, 73.3, kg, 10/03/20 15:02:00 EDT, Dry Weight Start Date: 12/29/20 Status: Ordered sertraline 100 mg oral tablet 2 tablet = 200 mg, By Mouth, Daily, REFAXED, # 180 tablet, 3 Refills, Maintenance, 01/25/20 8:47:00EDT, [facility] #86892, 149.86, cm, 01/25/20 8:03:00 EDT, Height, 103, kg, 11/21/19 8:04:00 EDT, Dry Weight Start Date: 01/25/20 Status: Ordered Wellbutrin XL 150 mg/24 hours oral tablet, extended release 1 tablet = 150 mg, By Mouth, Every 24 hours, # 90 tablet, 1 Refills, Maintenance, 06/08/21 13:12:00EST, [facility] #[id number], Partial fill upon patient request if the [...]
--- OUTSIDE RECORDS SUMMARY | 2022-11-20 11:47 | XMS_ITS | Continuity of Care Document ---
Author Name Unknown Organization [facility] Address [address] [place] [address]- Care Team Providers Care Multimedia Programmer Name Role Phone Keven Robison MD Primary Care Physician En[place] [facility] [place] Date(s): 03/11/21 - 04/10/21 [facility] [address] [place] [address]- Attending Physician: AdmEdmond [id number] Admitting Physician: Admtr, Ar8 Referring Physician: Admtr, [...] Not Given Patient Refuses 1Result Comment: [10/19/2017] [id number] Medications buPROPion 150 mg/24 hours (XL) oral tablet, extended release 1 tablet, By Mouth, Every 24 hours, DO NOT CRUSH OR CHEW, # 90 tablet, 1 Refills, [facility] #[id number], 90, TAKE 1 TABLET BY MOUTH EVERY 24 HOURS. DO NOT CRUSH OR CHEW, 149.86, cm, 10/03/20 15:02:00 EDT, Height, 73.3, kg, 10/03/20 15:02:00 EDT,... Start Date: 02/17/21 Status: Ordered furosemide 20 mg oral tablet 1, tablet, By Mouth, Daily, # 30 tablet, Refills 0, Tot. Refills 0, Maintenance, 09/15/20 8:51:00 EDT, Route to Pharmacy Electronically, [facility] #81674, 149.86, cm, 08/01/20 16:14:00 EDT, Height, 100.91, kg, 05/20/20 15:45:00 EST, Dry Weight Start Date: 09/15/20 Status: Ordered furosemide 20 mg oral tablet See Instructions, TAKE 1 TABLET BY MOUTH DAILY, # 30 tablet, Refills 0, Instructions Replace Required Details, Route to Pharmacy Electronically, [facility] #[id number], 149.86, cm, 10/03/20 15:02:00 EDT, Height, 73.3, kg, 10/03/20 15:02:00 EDT, D... Start Date: 12/29/20 Status: Ordered furosemide 20 mg oral tablet See Instructions, TAKE 1 TABLET BY MOUTH DAILY, # 30 tablet, Refills 0, Instructions Replace Required Details, Route to Pharmacy Electronically, [facility] #85679, 149.86, cm, 10/03/20 15:02:00 EDT, Height, 73.3, kg, 10/03/20 15:02:00 EDT, D... Start Date: 12/01/20 Status: Ordered levothyroxine 0.1 mg oral tablet 1 tablet, By Mouth, Daily, # 90 tablet, 1 Refills, Maintenance, 11/11/20 16:04:00 EDT, [facility] #38221, 149.86, cm, 10/03/20 15:02:00 EDT, Height, 73.3, [...] MOUTH DAILY, # 180 tablet, 0 Refills, [facility] #24089, 149.86, cm, 10/03/20 15:02:00 EDT, Height, 73.3, kg, 10/03/20 15:02:00 EDT, Dry Weight Start Date: 12/29/20 Status: Ordered sertraline 100 mg oral tablet 2 tablet = 200 mg, By Mouth, Daily, REFAXED, # 180 tablet, 3 Refills, Maintenance, 01/25/20 8:47:00EDT, [facility] #[id number], 149.86, cm, 01/25/20 8:03:00 EDT, Height, 103, [...]
--- OUTSIDE RECORDS SUMMARY | 2022-11-20 11:47 | XMS_ITS | Continuity of Care Document ---
Author Name Unknown Organization [facility] Norm Address [address] [place] [address]- Care Team Providers Care Customs Brokerage Manager Name Role Phone Keven Robison MD Primary Care Physician Encounter [facility] [place] Date(s): 07/25/20 - 08/01/20 [facility] Adult [address] [place] [address]- Attending Physician: Keven Robison MD Allergies, Adverse Reactions, Alerts Substance Reaction Severity Status NKA Active Immunizations Given and Recorded Vaccine Date Status Refusal Reason tetanus/diphtheria/pertussis, acel(Tdap) 1 10/19/17 Given influenza virus vaccine, inactivated 02/24/08 Give n Pneumococcal Vaccine (oldterm) 02/24/08 Given Not Given Vaccine Date Status Refusal Reason influenza virus vaccine, inactivated 06/11/15 Not Given Patient Refuses 1Result Comment: [10/19/2017] [id number] Medications Colace sodium 100 mg oral capsule 100 mg, 1, capsule, By Mouth, 2 times a day, with plenty of water, # 60 capsule, Refills 0, Tot. Refills 0, Maintenance, 05/22/20 12:36:00 EST, Route to Pharmacy Electronically, [facility], Partial fill upon patient request if the prescr... Start Date: 05/22/20 Status: Ordered furosemide 20 mg oral tablet 20 mg, 1, tablet, By Mouth, Daily, # 90 tablet, Refills 1, Tot. Refills 1, Maintenance, 01/25/20 8:44:00 EDT, Route to Pharmacy Electronically, [facility] #[id number], 149.86, cm, 01/25/20 8:03:00 EDT, Height, 103, kg, 11/21/19 8:04:00 EDT, Dry W... Start Date: 01/25/20 Status: Ordered levothyroxine 0.1 mg oral tablet 1 tablet = 100 mcg, By Mouth, Daily, # 90 tablet, 1 Refills, Maintenance, 05/23/20 9:52:00 EST, Tablet, [facility] #[id number], 149.86, cm, 05/22/20 13:49:00 EST, Height, 100.91, [...] day, # 120 tablet, 0 Refills, Acute 08/31/20 16:21:00 EDT, 08/01/20 16:21:00 EDT, Tablet, [facility] #[id number], Partial fill upon patient request if the prescription is for a schedule II opioid drug., 149.8... Start Date: 08/01/20 Stop Date: 08/31/20 Status: Ordered sertraline 100 mg oral tablet 2 tablet = 200 mg, By Mouth, Daily, REFAXED, # 180 tablet, 3 Refills, Maintenance, 01/25/20 8:47:00EDT, [facility] #03739, 149.86, cm, 01/25/20 8:03:00 EDT, Height, 103, kg, 11/21/19 8:04:00 EDT, Dry Weight Start Date: 01/25/20 Status: Ordered Wellbutrin XL 300 mg/24 hours oral tablet, extended release 1 tablet = 300 mg, By Mouth, Every 24 hours, # 30 tablet, 5 Refills, Maintenance, 07/25/20 8:33:00 EDT, [facility] #[id number], Partial fill upon patient request if the [...] [place]TON (obstructive sleep apnea)(Confirmed) Active Prediabetes(Confirmed) Active Procedures Procedure Date Related Diagnosis Body Site Status Surgery 1 05/20/20 Completed 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
--- OUTSIDE RECORDS SUMMARY | 2022-11-20 11:47 | XMS_ITS | Continuity of Care Document ---
Author Name Unknown Organization [facility] Address [address] [place] [address] ve [address] [place] [address]- Care Team Providers Care Handbag Designer Name Role Phone Enriqueta DUMONT, Keven Cho Primary Care Physician [place] [facility] [place]/05/[place] - 09/12/[address] [place] [address]- [facility] Attending Physician: Dary Palma RD Allergies, Adverse Reactions, Alerts Substance Reaction Severity Status NKA Active Immunizations Given and Recorded Vaccine Date Status Refusal Reason tetanus/diphtheria/pertussis, acel(Tdap) 1 10/19/17 Given influenza virus vaccine, inactivated 02/24/08 Give n Pneumococcal Vaccine (oldterm) 02/24/08 Given Not Given Vaccine Date Status Refusal Reason influenza virus vaccine, inactivated 06/11/15 Not Given Patient Refuses 1Result Comment: [10/19/2017] [id number] Medications atorvastatin 40 mg oral tablet 1 tablet = 40 mg, By Mouth, Daily, INCREASED DOSE, # 90 tablet, 1 Refills, Maintenance, 07/20/19 10:58:00 EDT, [facility] #[id number], INCREASED DOSE DC 20mg daily, 147.32, cm, 06/22/19 9:10:00 EDT, Height, 108.3, kg, 12/05/18 11:18:00 EDT, Dry W... Start Date: 07/20/19 Status: Ordered CPAP Machine See Instructions, # 1 each, Maintenance, iVAPS with EPAP 5 and TVa of 5.5 and PS min of 4 and PS max of 12 and UT 20 and height 80 inches with 2 liters oxygen. DME Provider--[facility]., 10/28/18 16:53:41 EDT, Compound Start Date: 02/05/18 Status: Ordered furosemide 20 mg oral tablet 20 mg, 1, tablet, By Mouth, Daily, # 30 tablet, Refills 2, Tot. Refills 2, Maintenance, 07/20/19 9:06:00 EDT, Route to Pharmacy Electronically, [facility] #[id number], 147.32, cm, 06/22/19 9:10:00 EDT, Height, 108.3, kg, 12/05/18 11:18:00 EDT, . Start Date: 07/20/19 Status: Ordered levothyroxine 0.1 mg oral tablet 1 tablet = 100 mcg, By Mouth, Daily, # 90 tablet, 1 Refills, Maintenance, 05/11/19 19:48:00 EST, Tablet, [facility] #71547, 147.32, cm, 04/16/19 8:24:00 EST, Height, 108.3, kg, 12/05/18 11:18:00 EDT, Dry Weight Start Date: 05/11/19 Status: Ordered metFORMIN 500 mg oral tablet, extended release 1 tablet = 500 mg, By Mouth, Daily, # 30 tablet, 5 Refills, Maintenance, 04/06/19 12:06:00 EST, ER Tablet, [facility], 147.32, cm, 03/05/19 9:49:00 EST, Height, 108.3, [...] tablet, 1 Refills, Maintenance, 08/31/19 13:43:00 EDT, [facility] #[id number], 147.32, cm, 08/30/19 12:07:00 EDT, Height, 108.3, kg, 12/05/18 11:18:00 EDT, Dry Weight Start Date: 08/31/19 Status: Ordered Wellbutrin XL 150 mg/24 hours oral tablet, extended release 1 tablet = 150 mg, By Mouth, Every 24 hours, do not crush or chew., # 30 tablet, 5 Refills, Maintenance, 08/14/19 14:27:00 EDT, ER Tablet, [facility] #[id number], 147.32, cm, 06/22/19 9:10:00 EDT, Height, 108.3, [...]
--- OUTSIDE RECORDS SUMMARY | 2022-11-20 11:47 | XMS_ITS | Continuity of Care Document ---
Author Name Unknown Organization [facility] Address [address] [place] [address] ve [address] [place] [address]- Care Team Providers Care Fence Installer Foreman Name Role Phone Enriqueta DUMONT, Keven Cho Primary Care Physician [place] [facility] [place] 08/07/19 - 08/14/[address] [place] [address]- [facility] Attending Physician: Dary Palma RD Allergies, Adverse Reactions, Alerts Substance Reaction Severity Status NKA Active Immunizations Given and Recorded Vaccine Date Status Refusal Reason tetanus/diphtheria/pertussis, acel(Tdap) 1 10/19/17 Given influenza virus vaccine, inactivated 02/24/08 Give n Pneumococcal Vaccine (oldterm) 02/24/08 Given Not Given Vaccine Date Status Refusal Reason influenza virus vaccine, inactivated 06/11/15 Not Given Patient Refuses 1Result Comment: [10/19/2017] [id number] Medications atorvastatin 40 mg oral tablet 1 tablet = 40 mg, By Mouth, Daily, INCREASED DOSE, # 90 tablet, 1 Refills, Maintenance, 07/20/19 10:58:00 EDT, [facility] #[id number], INCREASED DOSE DC 20mg daily, 147.32, cm, 06/22/19 9:10:00 EDT, Height, 108.3, kg, 12/05/18 11:18:00 EDT, Dry W... Start Date: 07/20/19 Status: Ordered CPAP Machine See Instructions, # 1 each, Maintenance, iVAPS with EPAP 5 and TVa of 5.5 and PS min of 4 and PS max of 12 and [place] 20 and height 80 inches with 2 liters oxygen. DME Provider--[facility] 10/28/18 16:53:41 EDT, Compound Start Date: 02/05/18 Status: Ordered furosemide 20 mg oral tablet 20 mg, 1, tablet, By Mouth, Daily, # 30 tablet, Refills 2, Tot. Refills 2, Maintenance, 07/20/19 9:06:00 EDT, Route to Pharmacy Electronically, [facility] #[id number], 147.32, cm, 06/22/19 9:10:00 EDT, Height, 108.3, kg, 12/05/18 11:18:00 EDT, . Start Date: 07/20/19 Status: Ordered levothyroxine 0.1 mg oral tablet 1 tablet = 100 mcg, By Mouth, Daily, # 90 tablet, 1 Refills, Maintenance, 05/11/19 19:48:00 EST, Tablet, [facility] #11444, 147.32, cm, 04/16/19 8:24:00 EST, Height, 108.3, [...] Refills, Maintenance, 08/14/19 14:27:00 EDT, ER Tablet, [facility] #58518, 147.32, cm, 06/22/19 9:10:00 EDT, Height, 108.3, kg, 12/05/18 11:18:00 EDT, Dry Weight Start Date: 08/14/19 Status: Ordered Zoloft 100 mg oral tablet [...]
--- OUTSIDE RECORDS SUMMARY | 2022-11-20 11:47 | XMS_ITS | Continuity of Care Document ---
Author Name Unknown Organization [facility] Address [address] [place] [address]- Care Team Providers Care Engineering Instructor Name Role Phone Enriqueta DUMONT, Keven Cho Primary Care Physician [phone] Encounter [facility] [place] Date(s): 07/14/21 - 08/13/21 [facility] [address] [place] [address]- [place] Allergies, Adverse Reactions, Alerts No Known Allergies [...] Not Given Patient Refuses 1Result Comment: [10/19/2017] [id number] Medications buPROPion 150 mg/24 hours (XL) oral tablet, extended release 1 tablet, By Mouth, Every 24 hours, DO NOT CRUSH OR CHEW, # 90 tablet, 1 Refills, [facility] #[id number], 90, TAKE 1 TABLET BY MOUTH EVERY 24 HOURS. DO NOT CRUSH OR CHEW, 149.86, cm, 10/03/20 15:02:00 EDT, Height, 73.3, kg, 10/03/20 15:02:00 EDT,... Start Date: 02/17/21 Status: Ordered furosemide 20 mg oral tablet 1, tablet, By Mouth, Daily, # 30 tablet, Refills 0, Tot. Refills 0, Maintenance, 09/15/20 8:51:00 EDT, Route to Pharmacy Electronically, [facility]315[facility], 149.86, cm, 08/01/20 16:14:00 EDT, Height, 100.91, kg, 05/20/20 15:45:00 EST, Dry Weight Start Date: 09/15/20 Status: Ordered furosemide 20 mg oral tablet See Instructions, TAKE 1 TABLET BY MOUTH DAILY, # 30 tablet, Refills 0, Instructions Replace Required Details, Route to Pharmacy Electronically, [facility] #[id number], 149.86, cm, 10/03/20 15:02:00 EDT, Height, 73.3, kg, 10/03/20 15:02:00 EDT, D... Start Date: 12/29/20 Status: Ordered furosemide 20 mg oral tablet See Instructions, TAKE 1 TABLET BY MOUTH DAILY, # 30 tablet, Refills 0, Instructions Replace Required Details, [facility]16[facility], 149.86, cm, 10/03/20 15:02:00 EDT, Height, 73.3, kg, 10/03/20 15:02:00 EDT, D... Start Date: 12/01/20 Status: Ordered levothyroxine 0.1 mg oral tablet 1 tablet, By Mouth, Daily, # 90 tablet, 1 Refills, Maintenance, 11/11/20 16:04:00 EDT, [facility] #[id number], 149.86, cm, 10/03/20 15:02:00 EDT, Height, 73.3, [...] MOUTH DAILY, # 180 tablet, 0 Refills, [facility] #63826, 149.86, cm, 10/03/20 15:02:00 EDT, Height, 73.3, kg, 10/03/20 15:02:00 EDT, Dry Weight Start Date: 12/29/20 Status: Ordered sertraline 100 mg oral tablet 2 tablet = 200 mg, By Mouth, Daily, REFAXED, # 180 tablet, 3 Refills, Maintenance, 01/25/20 8:47:00EDT, [facility] #94300, 149.86, cm, 01/25/20 8:03:00 EDT, Height, 103, kg, 11/21/19 8:04:00 EDT, Dry Weight Start Date: 01/25/20 Status: Ordered Wellbutrin XL 150 mg/24 hours oral tablet, extended release 1 tablet = 150 mg, By Mouth, Every 24 hours, # 90 tablet, 1 Refills, Maintenance, 06/08/21 13:12:00EST, [facility] #36525, Partial fill upon patient request if the [...]
--- OUTSIDE RECORDS SUMMARY | 2022-11-20 11:47 | XMS_ITS | Continuity of Care Document ---
Author Name Unknown Organization [facility] Address [address] [place] [address] Dr [address] [place] [address]- Care Team Providers Care Pay Station Attendant Name Role Phone Enriqueta DUMONT, Keven Cho Primary Care Physician [facility] Date[facility]s): 08/04/20 - 09/03/[address] [place] [address]- Allergies, Adverse Reactions, Alerts Substance Reaction Severity Status NKA Active Immunizations Given and Recorded Vaccine Date Status Refusal Reason tetanus/diphtheria/pertussis, acel(Tdap) 1 10/19/17 Given influenza virus vaccine, inactivated 02/24/08 Give n Pneumococcal Vaccine (oldterm) 02/24/08 Given Not Given Vaccine Date Status Refusal Reason influenza virus vaccine, inactivated 06/11/15 Not Given Patient Refuses 1Result Comment: [10/19/2017] [id number] Medications Colace sodium 100 mg oral capsule 100 mg, 1, capsule, By Mouth, 2 times a day, with plenty of water, # 60 capsule, Refills 0, Tot. Refills 0, Maintenance, 05/22/20 12:36:00 EST, Route to Pharmacy Electronically, [facility], Partial fill upon patient request if the prescr... Start Date: 05/22/20 Status: Ordered furosemide 20 mg oral tablet 20 mg, 1, tablet, By Mouth, Daily, # 90 tablet, Refills 1, Tot. Refills 1, Maintenance, 01/25/20 8:44:00 EDT, Route to Pharmacy Electronically, [facility] #[id number], 149.86, cm, 01/25/20 8:03:00 EDT, Height, 103, kg, 11/21/19 8:04:00 EDT, Dry W... Start Date: 01/25/20 Status: Ordered levothyroxine 0.1 mg oral tablet 1 tablet = 100 mcg, By Mouth, Daily, # 90 tablet, 1 Refills, Maintenance, 05/23/20 9:52:00 EST, Tablet, [facility] #[id number], 149.86, cm, 05/22/20 13:49:00 EST, Height, 100.91, [...] 180 tablet, 3 Refills, Maintenance, 01/25/20 8:47:00EDT, [facility] #[id number], 149.86, cm, 01/25/20 8:03:00 EDT, Height, 103, kg, 11/21/19 8:04:00 EDT, Dry Weight Start Date: 01/25/20 Status: Ordered Wellbutrin XL 300 mg/24 hours oral tablet, extended release 1 tablet = 300 mg, By Mouth, Every 24 hours, # 30 tablet, 5 Refills, Maintenance, 07/25/20 8:33:00 EDT, [facility] #[id number], Partial fill upon patient request if the [...]
--- OUTSIDE RECORDS SUMMARY | 2022-11-20 11:47 | XMS_ITS | Continuity of Care Document ---
Author Name Unknown Organization [facility] Address [address] [place] [address]- Care Team Providers Care Manager Motor Name Role Phone Enriqueta DUMONT, Keven Cho Primary Care Physician [facility] Date[facility]s): 08/11/20 - 09/10/20 [facility] [address] [place] [address]- Allergies, Adverse Reactions, Alerts Substance Reaction Severity Status NKA Active Immunizations Given and Recorded Vaccine Date Status Refusal Reason tetanus/diphtheria/pertussis, acel(Tdap) 1 10/19/17 Given influenza virus vaccine, inactivated 02/24/08 Give n Pneumococcal Vaccine (oldterm) 02/24/08 Given Not Given Vaccine Date Status Refusal Reason influenza virus vaccine, inactivated 06/11/15 Not Given Patient Refuses 1Result Comment: [10/19/2017] [id number] Medications Colace sodium 100 mg oral capsule 100 mg, 1, capsule, By Mouth, 2 times a day, with plenty of water, # 60 capsule, Refills 0, Tot. Refills 0, Maintenance, 05/22/20 12:36:00 EST, Route to Pharmacy Electronically, [facility], Partial fill upon patient request if the prescr... Start Date: 05/22/20 Status: Ordered furosemide 20 mg oral tablet 20 mg, 1, tablet, By Mouth, Daily, # 90 tablet, Refills 1, Tot. Refills 1, Maintenance, 01/25/20 8:44:00 EDT, Route to Pharmacy Electronically, [facility] #[id number], 149.86, cm, 01/25/20 8:03:00 EDT, Height, 103, kg, 11/21/19 8:04:00 EDT, Dry W... Start Date: 01/25/20 Status: Ordered levothyroxine 0.1 mg oral tablet 1 tablet = 100 mcg, By Mouth, Daily, # 90 tablet, 1 Refills, Maintenance, 05/23/20 9:52:00 EST, Tablet, [facility] #[id number], 149.86, cm, 05/22/20 13:49:00 EST, Height, 100.91, [...] 180 tablet, 3 Refills, Maintenance, 01/25/20 8:47:00EDT, [facility] #[id number], 149.86, cm, 01/25/20 8:03:00 EDT, Height, 103, kg, 11/21/19 8:04:00 EDT, Dry Weight Start Date: 01/25/20 Status: Ordered Wellbutrin XL 300 mg/24 hours oral tablet, extended release 1 tablet = 300 mg, By Mouth, Every 24 hours, # 30 tablet, 5 Refills, Maintenance, 07/25/20 8:33:00 EDT, [facility] #[id number], Partial fill upon patient request if the [...]
--- OUTSIDE RECORDS SUMMARY | 2022-11-20 11:47 | XMS_ITS | Continuity of Care Document ---
Author Name Unknown Organization [facility] Address [address] [place] [address] [address] [place] [address]- Care Team Providers Care Patrol Conductor Name Role Phone Enriqueta DUMONT, Keven Cho Primary Care Physician Encounter [facility] Date(s): 03/14/19 - 03/21/19 [facility] [address] [place] [address]- [facility] Attending Physician: Dary Palma RD Allergies, Adverse Reactions, Alerts Substance Reaction Severity Status NKA Active Immunizations Given and Recorded Vaccine Date Status Refusal Reason tetanus/diphtheria/pertussis, acel(Tdap) 1 10/19/17 Given influenza virus vaccine, inactivated 02/24/08 Give n Pneumococcal Vaccine (oldterm) 02/24/08 Given Not Given Vaccine Date Status Refusal Reason influenza virus vaccine, inactivated 06/11/15 Not Given Patient Refuses 1Result Comment: [10/19/2017] [id number] Medications atorvastatin 40 mg oral tablet 1 [...] 16:53:45 EDT, Route to Pharmacy Electronically, [id number], [facility] Start Date: 01/24/19 Status: Ordered levothyroxine 0.1 mg oral tablet 1 tablet = 100 mcg, By Mouth, Daily, # 90 tablet, 1 Refills, Maintenance, 01/24/19 16:53:44 EDT, Tablet Start Date: 01/24/19 Status: Ordered metFORMIN 500 mg oral tablet, extended release 1 tablet = 500 mg, By Mouth, Daily, # 30 tablet, 0 Refills, Maintenance, 02/09/19 11:06:52 EDT, ER Tablet Start Date: 02/09/19 Stop Date: 03/11/19 Status: Ordered pantoprazole 40 mg oral delayed release tablet See Instructions, # 90 tablet, take 1 tablet by mouth once daily, [facility] Start Date: 01/14/19 Status: Ordered traZODone 50 mg oral tablet 50 mg, 1, tablet, By Mouth, Daily at bedtime, with food, # 30 tablet, Refills 5, Tot. Refills 5, Maintenance, 02/09/19 11:41:02 EDT, Route to Pharmacy Electronically, [id number], [facility] Start Date: 02/09/19 Stop Date: 08/08/19 Status: [...]
--- OUTSIDE RECORDS SUMMARY | 2022-11-20 11:47 | XMS_ITS | Continuity of Care Document ---
Author Name Unknown Organization [facility] Address [address] [place] [address] [address] [place] [address]- Care Team Providers Care Shot Peen Operator Name Role Phone Keven Robison MD Primary Care Physician [place] [facility] [place] 10/03/[place] - 10/10/[address] [place] [address]- Attending Physician: Dc Cobian MD Referring Physician: [...] Not Given Patient Refuses 1Result Comment: [10/19/2017] [id number] Medications furosemide 20 mg oral tablet 1, tablet, By Mouth, Daily, # 30 tablet, Refills 0, Tot. Refills 0, Maintenance, 09/15/20 8:51:00 EDT, Route to Pharmacy Electronically, [facility] #[id number], 149.86, cm, 08/01/20 16:14:00 EDT, Height, 100.91, kg, 05/20/20 15:45:00 EST, Dry Weight Start Date: 09/15/20 Status: Ordered levothyroxine 0.1 mg oral tablet 1 tablet = 100 mcg, By Mouth, Daily, # 90 tablet, 1 Refills, Maintenance, 05/23/20 9:52:00 EST, Tablet, [facility] #[id number], 149.86, cm, 05/22/20 13:49:00 EST, Height, 100.91, [...] 180 tablet, 3 Refills, Maintenance, 01/25/20 8:47:00EDT, [facility] #[id number], 149.86, cm, 01/25/20 8:03:00 EDT, Height, 103, [...] oldest [Reference Range]: 1 Height 149.86 cm (10/03/20 3:02 PM) Weight 73.3 kg (10/03/20 3:02 PM) Pulse Rate [55-90 bpm] 102 bpm *H* (10/03/20 3:02 PM) Body Mass Index [18.5-24.99] 32.64 *>HHI* (10/03/20 3:02 PM) Blood Pressure [90-138/55-84 mm Hg] 149/ 92mm Hg *H* (10/03/20 3:02 PM) Temperature [96.8-100.4 DegF] 98.1 DegF (10/03/20 3:02 PM) Blood pressure sites Arm, left (10/03/20 3:02 PM) Temperature Route Temporal (10/03/20 3:02 PM) Dry Weight 73.3 kg (10/03/20 3:02 PM) Weight Obtained Via Standing scale (10/03/20 3:02 PM) Social History Social History Type Response Smoking Status Never smoker; Tobacc o user in household: No entered on: 06/20/15 Sex
--- OUTSIDE RECORDS SUMMARY | 2022-11-20 11:47 | XMS_ITS | Continuity of Care Document ---
Author Name Unknown Organization [facility] Address [address] [place] [address]- Care Team Providers Care Hydroelectric Production Manager Name Role Phone Enriqueta DUMONT, Keven Cho Primary Care Physician [phone] [facility]counter [facility] Date(s): 03/02/20 - 04/01/20 [facility] Adult [address] [place] [address]- Allergies, Adverse Reactions, Alerts Substance Reaction Severity Status NKA Active Immunizations Given and Recorded Vaccine Date Status Refusal Reason tetanus/diphtheria/pertussis, acel(Tdap) 1 10/19/17 Given influenza virus vaccine, inactivated 02/24/08 Give n Pneumococcal Vaccine (oldterm) 02/24/08 Given Not Given Vaccine Date Status Refusal Reason influenza virus vaccine, inactivated 06/11/15 Not Given Patient Refuses 1Result Comment: [10/19/2017] [id number] Medications atorvastatin 40 mg oral tablet 1 tablet = 40 mg, By Mouth, Daily, INCREASED DOSE, # 90 tablet, 1 Refills, Maintenance, 01/25/20 8:43:00 EDT, [facility] #[id number], INCREASED DOSE DC 20mg daily, 149.86, cm, [...] Medical., 02/05/18 16:53:41 EDT, Compound Start Date: 10/28/18 Status: Ordered furosemide 20 mg oral tablet 20 mg, 1, tablet, By Mouth, Daily, # 90 tablet, Refills 1, Tot. Refills 1, Maintenance, 01/25/20 8:44:00 EDT, Route to Pharmacy Electronically, [facility] #[id number], 149.86, cm, 01/25/20 8:03:00 EDT, Height, 103, kg, 11/21/19 8:04:00 EDT, Dry W... Start Date: 01/25/20 Status: Ordered levothyroxine 0.1 mg oral tablet 1 tablet = 100 mcg, By Mouth, Daily, # 90 tablet, 1 Refills, Maintenance, 11/20/19 12:52:00 EDT, Tablet, [facility] #[id number], 147.32, cm, 10/01/19 9:28:00 EDT, Height, 108.3, kg, 12/05/18 11:18:00 EDT, Dry Weight Start Date: 11/20/19 Status: Ordered metFORMIN 500 mg oral tablet, extended release 1 tablet = 500 mg, By Mouth, Daily, # 90 tablet, 1 Refills, Maintenance, 04/07/20 16:17:00 EST, ER Tablet, [facility] #[id number], 149.86, cm, 01/25/20 8:03:00 EDT, Height, 103, [...] 180 tablet, 3 Refills, Maintenance, 01/25/20 8:47:00EDT, [facility] #[id number], 149.86, cm, 01/25/20 8:03:00 EDT, Height, 103, kg, 11/21/19 8:04:00 EDT, Dry Weight Start Date: 01/25/20 Status: Ordered Wellbutrin XL 150 mg/24 hours oral tablet, extended release 1 tablet = 150 mg, By Mouth, Every 24 hours, do not crush or chew., # 90 tablet, 1 Refills, Maintenance, 01/25/20 8:44:00 EDT, ER Tablet, [facility] #11768, 149.86, cm, 01/25/20 8:03:00 EDT, Height, 103, [...]
--- OUTSIDE RECORDS SUMMARY | 2022-11-20 11:47 | XMS_ITS | Continuity of Care Document ---
Author Name Unknown Organization [facility] Address [address] [place] [address] [address] [place] [address]- Care Team Providers Care Trencher Driver Name Role Phone Enriqueta DUMONT, Keven Cho Primary Care Physician [facility]counter [facility] Date(s): 01/02/20 - 05/01/[address] [place] [address]- Attending Physician: Dc Cobian MD Allergies, Adverse Reactions, Alerts Substance Reaction Severity Status NKA Active Immunizations Given and Recorded Vaccine Date Status Refusal Reason tetanus/diphtheria/pertussis, acel(Tdap) 1 10/19/17 Given influenza virus vaccine, inactivated 02/24/08 Give n Pneumococcal Vaccine (oldterm) 02/24/08 Given Not Given Vaccine Date Status Refusal Reason influenza virus vaccine, inactivated 06/11/15 Not Given Patient Refuses 1Result Comment: [10/19/2017] [id number] Medications atorvastatin 40 mg oral tablet 1 tablet = 40 mg, By Mouth, Daily, INCREASED DOSE, # 90 tablet, 1 Refills, Maintenance, 01/25/20 8:43:00 EDT, [facility] #[id number], INCREASED DOSE DC 20mg daily, 149.86, cm, [...] 01/25/20 8:44:00 EDT, Route to Pharmacy Electronically, [facility] #[id number], 149.86, cm, 01/25/20 8:03:00 EDT, Height, 103, kg, 11/21/19 8:04:00 EDT, Dry W... Start Date: 01/25/20 Status: Ordered levothyroxine 0.1 mg oral tablet 1 tablet = 100 mcg, By Mouth, Daily, # 90 tablet, 1 Refills, Maintenance, 11/20/19 12:52:00 EDT, Tablet, [facility] #[id number], 147.32, cm, 10/01/19 9:28:00 EDT, Height, 108.3, kg, 12/05/18 11:18:00 EDT, Dry Weight Start Date: 11/20/19 Status: Ordered metFORMIN 500 mg oral tablet, extended release 1 tablet = 500 mg, By Mouth, Daily, # 90 tablet, 1 Refills, Maintenance, 04/07/20 16:17:00 EST, ER Tablet, [facility] #[id number], 149.86, cm, 01/25/20 8:03:00 EDT, Height, 103, [...] 180 tablet, 3 Refills, Maintenance, 01/25/20 8:47:00EDT, [facility] #04204, 149.86, cm, 01/25/20 8:03:00 EDT, Height, 103, kg, 11/21/19 8:04:00 EDT, Dry Weight Start Date: 01/25/20 Status: Ordered Wellbutrin XL 150 mg/24 hours oral tablet, extended release 1 tablet = 150 mg, By Mouth, Every 24 hours, do not crush or chew., # 90 tablet, 1 Refills, Maintenance, 01/25/20 8:44:00 EDT, ER Tablet, [facility] #03104, 149.86, cm, 01/25/20 8:03:00 EDT, Height, 103, [...]
--- OUTSIDE RECORDS SUMMARY | 2022-11-20 11:48 | XMS_ITS | Continuity of Care Document ---
Author Name Unknown Organization [facility] Address Unknown Care Team Providers Care Roofer Helper Name Role Phone Keven Robison MD Primary Care Physician [phone] Encounter [facility] [place] Date(s): 07/24/21 - 07/31/21 [facility] Attending Physician: Dc Cobian MD [...] Not Given Patient Refuses 1Result Comment: [10/19/2017] [id number] Medications buPROPion 150 mg/24 hours (XL) oral tablet, extended release 1 tablet, By Mouth, Every 24 hours, DO NOT CRUSH OR CHEW, # 90 tablet, 1 Refills, [facility] #[id number], 90, TAKE 1 TABLET BY MOUTH EVERY 24 HOURS. DO NOT CRUSH OR CHEW, 149.86, cm, 10/03/20 15:02:00 EDT, Height, 73.3, kg, 10/03/20 15:02:00 EDT,... Start Date: 02/17/21 Status: Ordered furosemide 20 mg oral tablet 1, tablet, By Mouth, Daily, # 30 tablet, Refills 0, Tot. Refills 0, Maintenance, 09/15/20 8:51:00 EDT, Route to Pharmacy Electronically, [facility] #53946, 149.86, cm, 08/01/20 16:14:00 EDT, Height, 100.91, kg, 05/20/20 15:45:00 EST, Dry Weight Start Date: 09/15/20 Status: Ordered furosemide 20 mg oral tablet See Instructions, TAKE 1 TABLET BY MOUTH DAILY, # 30 tablet, Refills 0, Instructions Replace Required Details, Route to Pharmacy Electronically, [facility] #72201, 149.86, cm, 10/03/20 15:02:00 EDT, Height, 73.3, kg, 10/03/20 15:02:00 EDT, D... Start Date: 12/29/20 Status: Ordered furosemide 20 mg oral tablet See Instructions, TAKE 1 TABLET BY MOUTH DAILY, # 30 tablet, Refills 0, Instructions Replace Required Details, Route to Pharmacy Electronically, [facility] #[id number], 149.86, cm, 10/03/20 15:02:00 EDT, Height, 73.3, kg, 10/03/20 15:02:00 EDT, D... Start Date: 12/01/20 Status: Ordered levothyroxine 0.1 mg oral tablet 1 tablet, By Mouth, Daily, # 90 tablet, 1 Refills, Maintenance, 11/11/20 16:04:00 EDT, [facility] #[id number], 149.86, cm, 10/03/20 15:02:00 EDT, Height, 73.3, [...] MOUTH DAILY, # 180 tablet, 0 Refills, [facility] #[id number], 149.86, cm, 10/03/20 15:02:00 EDT, Height, 73.3, kg, 10/03/20 15:02:00 EDT, Dry Weight Start Date: 12/29/20 Status: Ordered sertraline 100 mg oral tablet 2 tablet = 200 mg, By Mouth, Daily, REFAXED, # 180 tablet, 3 Refills, Maintenance, 01/25/20 8:47:00EDT, [facility] #[id number], 149.86, cm, 01/25/20 8:03:00 EDT, Height, 103, kg, 11/21/19 8:04:00 EDT, Dry Weight Start Date: 01/25/20 Status: Ordered Wellbutrin XL 150 mg/24 hours oral tablet, extended release 1 tablet = 150 mg, By Mouth, Every 24 hours, # 90 tablet, 1 Refills, Maintenance, 06/08/21 13:12:00EST, [facility] #[id number], Partial fill upon patient request if the [...] oldest [Reference Range]: 1 Height 147 cm (07/24/21 9:08 AM) Weight 62.6 kg (07/24/21 9:08 AM) Pulse Rate [55-90 bpm] 87 bpm (07/24/21 9:08 AM) Body Mass Index [18.5-24.99] 28.97 *H* (07/24/21 9:08 AM) Blood Pressure [90-138/55-84 mm Hg] 142/ 94mm Hg *H* (07/24/21 9:08 AM) Respiratory Rate [16-30 br/min] 16 br/mi n (07/24/21 9:08 AM) Temperature [96.8-100.4 DegF] 97.6 DegF (07/24/21 9:08 AM) Blood pressure sites Arm, right (07/24/21 9:08 AM) Temperature Route Temporal (07/24/21 9:08 AM) Weight Obtained Via Standing scale (07/24/21 9:08 AM) Social History Social History Type Response Smoking Status Never smoker; Tobacc o user in household: No entered on: 06/20/15 Sex Female
--- OUTSIDE RECORDS SUMMARY | 2022-11-20 11:48 | XMS_ITS | Continuity of Care Document ---
Author Name Unknown Organization [facility] Address [address] [place] [address]- Care Team Providers Care Geotechnical Intern Name Role Phone Enriqueta DUMONT, Keven Cho Primary Care Physician [phone] [facility] Date[facility]s): 09/23/22 - 10/23/22 [facility] Adult [address] [place] [address]- Allergies, Adverse Reactions, Alerts No Known Allergies [...] Not Given Patient Refuses 1Result Comment: [10/19/2017] [id number] Medications furosemide 20 mg oral tablet See Instructions, TAKE 1 TABLET BY MOUTH DAILY, # 30 tablet, Refills 2, Tot. Refills 2, 01/15/22 11:17:00 EDT, Instructions Replace Required Details, Route to Pharmacy Electronically, [facility] #[id number], 147, cm, 01/01/22 10:56:00 EDT, Height... Start Date: 01/15/22 Status: Ordered furosemide 20 mg oral tablet 20 mg, 1, tablet, By Mouth, Daily, # 30 tablet, Refills 0, Tot. Refills 0, 07/20/22 15:16:00 EDT, Route to Pharmacy Electronically, [facility] #01186, 147, cm, 05/31/22 15:05:00 EST, Height, 60.8, kg, 07/07/21 7:44:00 EDT, Dry Weight Start Date: 07/20/22 Status: Ordered levothyroxine 0.1 mg oral tablet 1 tablet, By Mouth, Daily, # 90 tablet, 0 Refills, Maintenance, 07/14/22 20:53:00 EDT, [facility] #[id number], 147, cm, 05/31/22 15:05:00 EST, Height, 60.8, [...] 90 tablet, 3 Refills, Maintenance, 08/17/22 14:51:00EDT, [facility] #05168, Partial fill upon patient request if the [...] Team Personnel Name: Bozena Bateman RN Position: [facility] SN RN Member Role: Primary Care Nurse Name: Swati Thomas NP [facility] Associate Professional Member Role: Primary Care Nurse Name: Kyara Catalan RN Position: [facility] RN Member Role: Primary Care Nurse Name: Torrey Blanchard MD Position: [facility] SCALE MECHANIC MD Member Role: Lifetime SCALE MECHANIC Physician Address: Address: [address] [place] [address] [employer], [place] [address]- Name: Paz Villarreal RN Position: [facility] SN RN Member Role: Primary Care Nurse Name: Gege Paulino NP Position: [facility] Associate Professional Member Role: Primary Care Nurse Address: Address: [address] [facility] [place] [address]- [place] Name: Hanh Devlin RN Position: [facility] RN Member Role: Primary Care Nurse Name: Christina Guerrero RN Position: [facility] RN Member Role: Primary Care Nurse Name: Jennifer Zendejas RN Position: [facility] RN Member Role: Primary Care Nurse Name: Keven Robison MD Position: [facility] Physician - Primary Care Member Role: PCP Address: Address: [address] [place] [address]- [place] Name: Dary Jensen RN Position: [facility] RN Member Role: Primary Care Nurse Care Team Related Persons Name: JUDI MARTINI Address: [address] [address]
--- OUTSIDE RECORDS SUMMARY | 2022-11-20 11:48 | XMS_ITS | Continuity of Care Document ---
Author Name Unknown Organization [facility] Address [address] [place] [address]- Care Team Providers Care Felt Tipping Machine Tender Name Role Phone Enriqueta DUMONT, Keven Cho Primary Care Physician [facility] Date(s): 04/13/21 - 05/13/21 [facility] Adult [address] [place] [address]- Allergies, Adverse Reactions, Alerts No Known Allergies [...] Not Given Patient Refuses 1Result Comment: [10/19/2017] [id number] Medications buPROPion 150 mg/24 hours (XL) oral tablet, extended release 1 tablet, By Mouth, Every 24 hours, DO NOT CRUSH OR CHEW, # 90 tablet, 1 Refills, [facility] #[id number], 90, TAKE 1 TABLET BY MOUTH EVERY 24 HOURS. DO NOT CRUSH OR CHEW, 149.86, cm, 10/03/20 15:02:00 EDT, Height, 73.3, kg, 10/03/20 15:02:00 EDT,... Start Date: 02/17/21 Status: Ordered furosemide 20 mg oral tablet 1, tablet, By Mouth, Daily, # 30 tablet, Refills 0, Tot. Refills 0, Maintenance, 09/15/20 8:51:00 EDT, Route to Pharmacy Electronically, [facility] #46124, 149.86, cm, 08/01/20 16:14:00 EDT, Height, 100.91, kg, 05/20/20 15:45:00 EST, Dry Weight Start Date: 09/15/20 Status: Ordered furosemide 20 mg oral tablet See Instructions, TAKE 1 TABLET BY MOUTH DAILY, # 30 tablet, Refills 0, Instructions Replace Required Details, Route to Pharmacy Electronically, [facility] #[id number], 149.86, cm, 10/03/20 15:02:00 EDT, Height, 73.3, kg, 10/03/20 15:02:00 EDT, D... Start Date: 12/29/20 Status: Ordered furosemide 20 mg oral tablet See Instructions, TAKE 1 TABLET BY MOUTH DAILY, # 30 tablet, Refills 0, Instructions Replace Required Details, Route to Pharmacy Electronically, [facility] #[id number], 149.86, cm, 10/03/20 15:02:00 EDT, Height, 73.3, kg, 10/03/20 15:02:00 EDT, D... Start Date: 12/01/20 Status: Ordered levothyroxine 0.1 mg oral tablet 1 tablet, By Mouth, Daily, # 90 tablet, 1 Refills, Maintenance, 11/11/20 16:04:00 EDT, [facility] #[id number], 149.86, cm, 10/03/20 15:02:00 EDT, Height, 73.3, [...] MOUTH DAILY, # 180 tablet, 0 Refills, [facility] #49723, 149.86, cm, 10/03/20 15:02:00 EDT, Height, 73.3, kg, 10/03/20 15:02:00 EDT, Dry Weight Start Date: 12/29/20 Status: Ordered sertraline 100 mg oral tablet 2 tablet = 200 mg, By Mouth, Daily, REFAXED, # 180 tablet, 3 Refills, Maintenance, 01/25/20 8:47:00EDT, [facility] #48877, 149.86, cm, 01/25/20 8:03:00 EDT, Height, 103, [...]
--- OUTSIDE RECORDS SUMMARY | 2022-11-20 11:48 | XMS_ITS | Continuity of Care Document ---
Author Name Unknown Organization [facility] Address Unknown Care Team Providers Care Home Demonstrator Name Role Phone Enriqueta DUMONT, Keven Cho Primary Care Physician [phone] [place] [facility] [place] 06/17/21 - 07/17/21 [facility] Allergies, Adverse Reactions, Alerts No Known Allergies Immunizations Given and Recorded Vaccine Date Status Refusal Reason SARS-CoV-2 (COVID-19) mRNA BNT-162b2 vac 10/13/20 Recorded SARS-CoV-2 (COVID-19) mRNA BNT-162t1 vac 08/30/20 Recorded tetanus/diphtheria/pertussis, acel(Tdap) 1 10/19/17 Given tetanus/diphtheria/pertussis, acel(Tdap) 05/20/11 Recorded Measles/Mumps/Rubella Virus Vaccine 06/21/11 Recor ded Measles/Mumps/Rubella Virus Vaccine 05/20/11 Recor ded influenza virus vaccine, inactivated 02/24/08 Give n Pneumococcal Vaccine (oldterm) 02/24/08 Given Not Given Vaccine Date Status Refusal Reason influenza virus vaccine, inactivated 06/11/15 Not Given Patient Refuses 1Result Comment: [10/19/2017] [id number] Medications buPROPion 150 mg/24 hours (XL) oral tablet, extended release 1 tablet, By Mouth, Every 24 hours, DO NOT CRUSH OR CHEW, # 90 tablet, 1 Refills, [email or web address] #[id number], 90, TAKE 1 TABLET BY MOUTH EVERY 24 HOURS. DO NOT CRUSH OR CHEW, 149.86, cm, 10/03/20 15:02:00 EDT, Height, 73.3, kg, 10/03/20 15:02:00 EDT,... Start Date: 02/17/21 Status: Ordered furosemide 20 mg oral tablet 1, tablet, By Mouth, Daily, # 30 tablet, Refills 0, Tot. Refills 0, Maintenance, 09/15/20 8:51:00 EDT, Route to Pharmacy Electronically, [facility] #[id number], 149.86, cm, 08/01/20 16:14:00 EDT, Height, 100.91, kg, 05/20/20 15:45:00 EST, Dry Weight Start Date: 09/15/20 Status: Ordered furosemide 20 mg oral tablet See Instructions, TAKE 1 TABLET BY MOUTH DAILY, # 30 tablet, Refills 0, Instructions Replace Required Details, [id number], 149.86, cm, 10/03/20 15:02:00 EDT, Height, 73.3, kg, 10/03/20 15:02:00 EDT, D... Start Date: 12/29/20 Status: Ordered furosemide 20 mg oral tablet See Instructions, TAKE 1 TABLET BY MOUTH DAILY, # 30 tablet, Refills 0, Instructions Replace Required Details, [id number], 149.86, cm, 10/03/20 15:02:00 EDT, Height, 73.3, kg, 10/03/20 15:02:00 EDT, D... Start Date: 12/01/20 Status: Ordered levothyroxine 0.1 mg oral tablet 1 tablet, By Mouth, Daily, # 90 tablet, 1 Refills, Maintenance, 11/11/20 16:04:00 EDT, [id number], 149.86, cm, 10/03/20 15:02:00 EDT, Height, 73.3, [...] MOUTH DAILY, # 180 tablet, 0 Refills, [facility] #[id number], 149.86, cm, 10/03/20 15:02:00 EDT, Height, 73.3, kg, 10/03/20 15:02:00 EDT, Dry Weight Start Date: 12/29/20 Status: Ordered sertraline 100 mg oral tablet 2 tablet = 200 mg, By Mouth, Daily, REFAXED, # 180 tablet, 3 Refills, Maintenance, 01/25/20 8:47:00EDT, [facility] #[id number], 149.86, cm, 01/25/20 8:03:00 EDT, Height, 103, kg, 11/21/19 8:04:00 EDT, Dry Weight Start Date: 01/25/20 Status: Ordered Wellbutrin XL 150 mg/24 hours oral tablet, extended release 1 tablet = 150 mg, By Mouth, Every 24 hours, # 90 tablet, 1 Refills, Maintenance, 06/08/21 13:12:00EST, [facility] #[id number], Partial fill upon patient request if the [...]
--- OUTSIDE RECORDS SUMMARY | 2022-11-20 11:48 | XMS_ITS | Continuity of Care Document ---
Author Name Unknown Organization [facility] Address [address] [place] [address]- Care Team Providers Care Vice President Corporate Communications Name Role Phone Enriqueta DUMONT, Keven Cho Primary Care Physician En[facility] [place] 07/14/22 - 08/13/22 [facility] [address] [place] [address]- Allergies, Adverse Reactions, Alerts No Known Allergies [...] Not Given Patient Refuses 1Result Comment: [10/19/2017] [id number] Medications furosemide 20 mg oral tablet See Instructions, TAKE 1 TABLET BY MOUTH DAILY, # 30 tablet, Refills 2, Tot. Refills 2, 01/15/22 11:17:00 EDT, Instructions Replace Required Details, Route to Pharmacy Electronically, [facility] #[id number], 147, cm, 01/01/22 10:56:00 EDT, Height... Start Date: 01/15/22 Status: Ordered furosemide 20 mg oral tablet 20 mg, 1, tablet, By Mouth, Daily, # 30 tablet, Refills 0, Tot. Refills 0, 07/20/22 15:16:00 EDT, Route to Pharmacy Electronically, [facility] #68401, 147, cm, 05/31/22 15:05:00 EST, Height, 60.8, kg, 07/07/21 7:44:00 EDT, Dry Weight Start Date: 07/20/22 Status: Ordered levothyroxine 0.1 mg oral tablet 1 tablet, By Mouth, Daily, # 90 tablet, 0 Refills, Maintenance, 07/14/22 20:53:00 EDT, [facility] #[id number], 147, cm, 05/31/22 15:05:00 EST, Height, 60.8, [...] 180 tablet, 3 Refills, Maintenance, 01/25/20 8:47:00EDT, [facility] #[id number], 149.86, cm, 01/25/20 8:03:00 EDT, Height, 103, kg, 11/21/19 8:04:00 EDT, Dry Weight Start Date: 01/25/20 Status: Ordered sertraline 100 mg oral tablet See Instructions, TAKE 2 TABLETS BY MOUTH DAILY, # 180 tablet, 3 Refills, 12/26/21 13:09:00 EDT, [facility] #[id number], 147, cm, 10/06/21 10:57:00 EDT, Height, 60.8, kg, 07/07/21 7:44:00 EDT, Dry Weight Start Date: 12/26/21 Status: Ordered Wellbutrin XL 150 mg/24 hours oral tablet, extended release 1 tablet = 150 mg, By Mouth, Every 24 hours, # 90 tablet, 0 Refills, Maintenance, 07/14/22 20:56:00EDT, [facility] #[id number], Partial fill upon patient request if the prescription is for a schedule II opioid drug., 147, cm, 05/31/22 15:05:00 E... Start Date: 07/14/22 Status: Ordered Problem List Condition Confirmation Course [...] Team Personnel Name: Bozena Bateman RN Position: [facility] SN RN Member Role: Primary Care Nurse Name: Swati Thomas NP Position: [facility] PCO Associate Professional Member Role: Primary Care Nurse Name: Kyara Catalan RN Position: [facility] RN Member Role: Primary Care Nurse Name: Torrey Blanchard MD Position: [facility] FURRIER SHOP SUPERVISOR MD Member Role: Lifetime FURRIER SHOP SUPERVISOR Physician Address: Address: [address] [place] [address] [employer], [address] Name: Paz Villarreal RN Position: [facility] SN RN Member Role: Primary Care Nurse Name: Gege Paulino NP Position: [facility] PCO Associate Professional Member Role: Primary Care Nurse Address: Address: [address] [place] [address]- [place] Name: Hanh Devlin RN Position: [facility] RN Member Role: Primary Care Nurse Name: Christina Guerrero RN Position: [facility] RN Member Role: Primary Care Nurse Name: Jennifer Zendejas RN Position: [facility] RN Member Role: Primary Care Nurse Name: Keven Robison MD Position: [facility] Primary Care Physician Member Role: PCP Address: Address: [address] [place] [address]- [place] Name: Dary Jensen RN Position: [facility] RN Member Role: Primary Care Nurse Care Team Related Persons Name: JUDI MARTINI Address: [address] [address]
--- OUTSIDE RECORDS SUMMARY | 2022-11-20 11:48 | XMS_ITS | Continuity of Care Document ---
Author Name Unknown Organization [facility] Jodie mehreen Address [address] [place] [address] Dri ve [address] [place] [address]- Care Team Providers Care Leisure Travel Agent Name Role Phone Keven Robison MD Primary Care Physician [phone] [place] [facility] [place] 10[place]19 [facility] [address] [place] [address] Drive [address] [place] [address]- [facility] Attending Physician: Gregg Hayward MD Referring Physician: [...] Not Given Patient Refuses 1Result Comment: [10/19/2017] [id number] Medications atorvastatin 40 mg oral tablet 1 tablet = 40 mg, By Mouth, Daily, INCREASED DOSE, # 90 tablet, 1 Refills, Maintenance, 07/20/19 10:58:00 EDT, [facility] #[id number], INCREASED DOSE DC 20mg daily, 147.32, cm, [...] 07/20/19 9:06:00 EDT, Route to Pharmacy Electronically, [facility] #[id number], 147.32, cm, 06/22/19 9:10:00 EDT, Height, 108.3, kg, 12/05/18 11:18:00 EDT, . Start Date: 07/20/19 Status: Ordered levothyroxine 0.1 mg oral tablet 1 tablet = 100 mcg, By Mouth, Daily, # 90 tablet, 1 Refills, Maintenance, 05/11/19 19:48:00 EST, Tablet, [facility] #[id number], 147.32, cm, 04/16/19 8:24:00 EST, Height, 108.3, kg, 12/05/18 11:18:00 EDT, Dry Weight Start Date: 05/11/19 Status: Ordered metFORMIN 500 mg oral tablet, extended release 1 tablet = 500 mg, By Mouth, Daily, # 30 tablet, 5 Refills, Maintenance, 04/06/19 12:06:00 EST, ER Tablet, [facility], 147.32, cm, 03/05/19 9:49:00 EST, Height, 108.3, [...] tablet, 1 Refills, Maintenance, 08/31/19 13:43:00 EDT, [facility] #[id number], 147.32, cm, 08/30/19 12:07:00 EDT, Height, 108.3, kg, 12/05/18 11:18:00 EDT, Dry Weight Start Date: 08/31/19 Status: Ordered Wellbutrin XL 150 mg/24 hours oral tablet, extended release 1 tablet = 150 mg, By Mouth, Every 24 hours, do not crush or chew., # 30 tablet, 5 Refills, Maintenance, 08/14/19 14:27:00 EDT, ER Tablet, [facility] #66123, 147.32, cm, 06/22/19 9:10:00 EDT, Height, 108.3, [...] oldest [Reference Range]: 1 Height 147.32 cm (10/01/19 9:28 AM) Weight 102.2 kg (10/01/19 9:28 AM) Pulse Rate [55-90 bpm] 104 bpm *H* (10/01/19 9:28 AM) Body Mass Index [18.5-24.99] 47.09 *>HHI* (10/01/19 9:28 AM) Blood Pressure [90-138/55-84 mm Hg] 143/ 95mm Hg *H* (10/01/19 9:28 AM) Temperature [96.8-100.4 DegF] 97.2 DegF (10/01/19 9:28 AM) Blood pressure sites Arm, right (10/01/19 9:28 AM) Temperature Route Temporal (10/01/19 9:28 AM) Social History Social History Type Response Smoking Status Never smoker; Tobacc o user in household: No entered on: 06/20/15 Sex
--- OUTSIDE RECORDS SUMMARY | 2022-11-20 11:48 | XMS_ITS | Continuity of Care Document ---
Author Name Unknown Organization [facility] Address [address] [place] [address]- Care Team Providers Care Residential Nurse Name Role Phone Keven Robison MD Primary Care Physician Encounter [facility] [place] Date(s): 10/09/20 - 11/08/20 [facility] [address] [place] [address]- Allergies, Adverse Reactions, Alerts Substance Reaction Severity [...] Not Given Patient Refuses 1Result Comment: [10/19/2017] [id number] Medications furosemide 20 mg oral tablet 1, tablet, By Mouth, Daily, # 30 tablet, Refills 0, Tot. Refills 0, Maintenance, 09/15/20 8:51:00 EDT, Route to Pharmacy Electronically, [facility] #[id number], 149.86, cm, 08/01/20 16:14:00 EDT, Height, 100.91, kg, 05/20/20 15:45:00 EST, Dry Weight Start Date: 09/15/20 Status: Ordered levothyroxine 0.1 mg oral tablet 1 tablet = 100 mcg, By Mouth, Daily, # 90 tablet, 1 Refills, Maintenance, 05/23/20 9:52:00 EST, Tablet, [facility] #[id number], 149.86, cm, 05/22/20 13:49:00 EST, Height, 100.91, [...] 180 tablet, 3 Refills, Maintenance, 01/25/20 8:47:00EDT, [facility] #[id number], 149.86, cm, 01/25/20 8:03:00 EDT, Height, 103, [...]
--- OUTSIDE RECORDS SUMMARY | 2022-11-20 11:48 | XMS_ITS | Continuity of Care Document ---
Author Name Unknown Organization [facility] Address [address] [place] [address] [address] [place] [address]- Care Team Providers Care Luggage Attendant Name Role Phone Keven Robison MD Primary Care Physician [phone] [place] [facility] [place]/27/20 - 06/03/[address] [place], [place] [address] Attending Physician: Dc Cobian MD Referring Physician: [...] Not Given Patient Refuses 1Result Comment: [10/19/2017] [id number] Medications atorvastatin 40 mg oral tablet 1 tablet = 40 mg, By Mouth, Daily, INCREASED DOSE, # 90 tablet, 1 Refills, Maintenance, 01/25/20 8:43:00 EDT, [facility] #[id number], INCREASED DOSE DC 20mg daily, 149.86, cm, 01/25/20 8:03:00 EDT, Height, 103, kg, 11/21/19 8:04:00 EDT, Dry Weight Start Date: 01/25/20 Status: Ordered Bactrim 400 mg-80 mg oral tablet 2 tablet, By Mouth, 2 times a day, for 7 days, # 28 tablet, 0 Refills, Acute 06/06/20 13:42:00 EST,05/30/20 13:42:00 EST, Tablet, [facility] #[id number], Partial fill upon patient request if the prescription is for a schedule II opioid drug., 2... Start Date: 05/30/20 Stop Date: 06/06/20 Status: Ordered Colace sodium 100 mg oral capsule 100 mg, 1, capsule, By Mouth, 2 times a day, with plenty of water, # 60 capsule, Refills 0, Tot. Refills 0, Maintenance, 05/22/20 12:36:00 EST, Route to Pharmacy Electronically, [facility], Partial fill upon patient request if the prescr... Start Date: 05/22/20 Status: Ordered CPAP Machine See Instructions, # 1 each, Maintenance, iVAPS with EPAP 5 and TVa of 5.5 and PS min of 4 and PS max of 12 and ND 20 and height 80 inches with 2 liters oxygen. DME Provider--[facility] 02/05/18 16:53:41 EDT, Compound Start Date: 02/05/18 Status: Ordered furosemide 20 mg oral tablet 20 mg, 1, tablet, By Mouth, Daily, # 90 tablet, Refills 1, Tot. Refills 1, Maintenance, 01/25/20 8:44:00 EDT, Route to Pharmacy Electronically, [facility] #[id number], 149.86, cm, 01/25/20 8:03:00 EDT, Height, 103, kg, 11/21/19 8:04:00 EDT, Dry W... Start Date: 01/25/20 Status: Ordered levothyroxine 0.1 mg oral tablet 1 tablet = 100 mcg, By Mouth, Daily, # 90 tablet, 1 Refills, Maintenance, 05/23/20 9:52:00 EST, Tablet, [facility] #[id number], 149.86, cm, 05/22/20 13:49:00 EST, Height, 100.91, [...] 05/22/20 12:36:00 EST, Route to Pharmacy Electronically, [facility], Partial fill upon patient request if [...] 180 tablet, 3 Refills, Maintenance, 01/25/20 8:47:00EDT, [facility] #[id number], 149.86, cm, 01/25/20 8:03:00 EDT, Height, 103, [...] Refills, Maintenance, 01/25/20 8:44:00 EDT, ER Tablet, [facility] #[id number], 149.86, cm, 01/25/20 8:03:00 EDT, Height, 103, [...] oldest [Reference Range]: 1 Height 149.86 cm (05/27/20 9:36 AM) Weight 97.7 kg (05/27/20 9:36 AM) Pulse Rate [55-90 bpm] 121 bpm *H* (05/27/20 9:36 AM) Body Mass Index [18.5-24.99] 43.5 *>HHI* (05/27/20 9:36 AM) Blood Pressure [90-138/55-84 mm Hg] 109/ 71mm Hg (05/27/20 9:36 AM) Respiratory Rate [16-30 br/min] 18 br/mi n (05/27/20 9:36 AM) Temperature [96.8-100.4 DegF] 96.4 DegF *L* (05/27/20 9:36 AM) Blood pressure sites Arm, right (05/27/20 9:36 AM) Temperature Route Temporal (05/27/20 9:36 AM) Weight Obtained Via Standing scale (05/27/20 9:36 AM) Social History Social History Type Response Smoking Status Never smoker; Tobacc o user in household: No entered on: 06/20/15 Sex
--- OUTSIDE RECORDS SUMMARY | 2022-11-20 11:48 | XMS_ITS | Continuity of Care Document ---
Author Name Unknown Organization [facility] Address [address] [place] [address]- Care Team Providers Care Supply Manager Name Role Phone Enriqueta DUMONT, Keven Cho Primary Care Physician [phone] [facility] [place] Date(s): 03/26/19 - 03/26/[address] [address]- [facility] Discharge Disposition: A-D/C Home Attending Physician: Deborah Alatorre MD Admitting Physician: Deborah Alatorre MD Referring Physician: Not on Staff, Referring MD Allergies, Adverse Reactions, Alerts Substance Reaction Severity Status NKA Active Immunizations Given and Recorded Vaccine Date Status Refusal Reason tetanus/diphtheria/pertussis, acel(Tdap) 1 10/19/17 Given influenza virus vaccine, inactivated 02/24/08 Give n Pneumococcal Vaccine (oldterm) 02/24/08 Given Not Given Vaccine Date Status Refusal Reason influenza virus vaccine, inactivated 06/11/15 Not Given Patient Refuses 1Result Comment: [10/19/2017] [id number] Medications atorvastatin 40 mg oral tablet 1 tablet = 40 mg, By Mouth, Daily, INCREASED DOSE, # 30 tablet, 6 Refills, Maintenance, 01/24/19 16:53:45 EDT, INCREASED DOSE DC 20mg daily Start Date: 01/24/19 Status: Ordered CPAP Machine See Instructions, # 1 each, Maintenance, iVAPS with EPAP 5 and TVa of 5.5 and PS min of 4 and PS max of 12 and IL 20 and height 80 inches with 2 liters oxygen. DME Provider--[facility] 02/05/18 16:53:41 EDT, Compound Start Date: 02/05/18 Status: Ordered furosemide 20 mg oral tablet 20 mg, 1, tablet, By Mouth, Daily, # 90 tablet, Refills 1, Tot. Refills 1, Maintenance, 01/24/19 16:53:45 EDT, Route to Pharmacy Electronically, [id number], [facility] Start Date: 01/24/19 Status: Ordered levothyroxine 0.1 [...] mouth once daily, [facility] Start Date: 01/14/19 Status: Ordered traZODone 50 mg oral tablet 50 mg, 1, tablet, By Mouth, Daily at bedtime, with food, # 30 tablet, Refills 5, Tot. 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 CPR initiated by father, was agonally breathingon fire dept arrival, given narcan and rescue breaths through BVM, now awake and alert. Reports OD not intentional, pt reports snorting heroin, 1 bag; Other Objective Findings: pt alert and awake, ans COMPARISON: None FINDINGS: LINES AND TUBES: None. LUNGS AND PLEURA: The lungs are clear, and the pulmonary vascularity is normal. No effusion or pneumothorax. HEART, MEDIASTINUM AND HAYLEE: Normal. BONES: No fractures or bone lesions. SOFT TISSUES: Normal. IMPRESSION: No displaced rib fracture. Of note, anterior rib fractures are difficult to exclude without CT. No pneumothorax. WSN: [id number] Dictated By: Shree Alvarez MD Dictated Date/Time: 03/26/19 3:39 pm Reviewed By: Shree Alvarez MD Signed By: Shree Alvarez MD Signed Date/Time: 03/26/19 3:39 pm Transcribed By: MIMA Transcribed Date/Time: 03/26/19 3:27 pm Vital Signs Most recent to oldest [Reference Range]: 1 2 3 Oxygen Saturation [94-100 %] 94 % (03/26/19 4:39 PM) 95 % (03/26/19 4:18 PM) 97 % (03/26/19 1:42 PM) Pulse Rate [55-90 bpm] 108 bpm *H* (03/26/19 4:39 PM) 103 bpm *H* (03/26/19 4:18 PM) 108 bpm *H* (03/26/19 1:42 PM) Blood Pressure [90-138/55-84 mm Hg] 103/80mm Hg (03/26/19 4:39 PM) 131/75mm Hg (03/26/19 4:18 PM) 140/90mm Hg *H* (03/26/19 1:42 PM) Respiratory Rate [16-30 br/min] 19 br/min (03/26/19 4:39 PM) 18 br/min (03/26/19 4:18 PM) 25 br/min (03/26/19 1:42 PM) Temperature [96.8-100.4 DegF] 98.2 DegF (03/26/19 1:42 PM) Mode of Delivery (Oxygen) Room air (03/26/19 4:39 PM) Room air (03/26/19 4:18 PM) Room air (03/26/19 1:42 PM) Blood pressure sites Arm, left (03/26/19 4:39 PM) Arm, right (03/26/19 4:18 PM) Arm, left (03/26/19 1:42 PM) Temperature Route Oral (03/26/19 1:42 PM) Social History Social History Type Response Smoking Status Never smoker; Tobacc o user in household: No entered on: 06/20/15 Sex
--- OUTSIDE RECORDS SUMMARY | 2022-11-20 11:48 | XMS_ITS | Continuity of Care Document ---
Author Name Unknown Organization [facility] Address [address] [place] [address] [address] [place] [address]- Care Team Providers Care Clerical Support Name Role Phone Enriqueta DUMONT, Keven Cho Primary Care Physician Encounter [facility] Date(s): 01/01/20 - 01/08/[address] [place] [address]- [facility] Attending Physician: Dary Palma RD Allergies, Adverse Reactions, Alerts Substance Reaction Severity Status NKA Active Immunizations Given and Recorded Vaccine Date Status Refusal Reason tetanus/diphtheria/pertussis, acel(Tdap) 1 10/19/17 Given influenza virus vaccine, inactivated 02/24/08 Give n Pneumococcal Vaccine (oldterm) 02/24/08 Given Not Given Vaccine Date Status Refusal Reason influenza virus vaccine, inactivated 06/11/15 Not Given Patient Refuses 1Result Comment: [10/19/2017] [id number] Medications atorvastatin 40 mg oral tablet 1 tablet = 40 mg, By Mouth, Daily, INCREASED DOSE, # 90 tablet, 1 Refills, Maintenance, 07/20/19 10:58:00 EDT, [facility] #[id number], INCREASED DOSE DC 20mg daily, 147.32, cm, 06/22/19 9:10:00 EDT, Height, 108.3, kg, 12/05/18 11:18:00 EDT, Dry W... Start Date: 07/20/19 Status: Ordered CPAP Machine See Instructions, # 1 each, Maintenance, iVAPS with EPAP 5 and TVa of 5.5 and PS min of 4 and PS max of 12 and WI 20 and height 80 inches with 2 liters oxygen. DME Provider--[facility]., 02/05/18 16:53:41 EDT, [facility] Start Date: 02/05/18 Status: Ordered furosemide 20 mg oral tablet 20 mg, 1, tablet, By Mouth, Daily, # 30 tablet, Refills 5, Tot. Refills 5, Maintenance, 10/10/19 16:17:00 EDT, Route to Pharmacy Electronically, [facility] #[id number], 147.32, cm, 10/01/19 9:28:00 EDT, Height, 108.3, kg, 12/05/18 11:18:00 EDT, D... Start Date: 10/10/19 Status: Ordered levothyroxine 0.1 mg oral tablet 1 tablet = 100 mcg, By Mouth, Daily, # 90 tablet, 1 Refills, Maintenance, 11/20/19 12:52:00 EDT, Tablet, [facility] #[id number], 147.32, cm, 10/01/19 9:28:00 EDT, Height, 108.3, kg, 12/05/18 11:18:00 EDT, Dry Weight Start Date: 11/20/19 Status: Ordered metFORMIN 500 mg oral tablet, extended release 1 tablet = 500 mg, By Mouth, Daily, # 30 tablet, 5 Refills, Maintenance, 10/10/19 16:17:00 EDT, ER Tablet, [facility] #[id number], 147.32, cm, 10/01/19 9:28:00 EDT, Height, 108.3, [...] tablet, 1 Refills, Maintenance, 12/03/19 15:01:00 EDT, [facility] #[id number], 149.86, cm, 11/21/19 8:04:00 EDT, Height, 103, kg, 11/21/19 8:04:00 EDT, Dry Weight Start Date: 12/03/19 Status: Ordered Wellbutrin XL 150 mg/24 hours oral tablet, extended release 1 tablet = 150 mg, By Mouth, Every 24 hours, do not crush or chew., # 30 tablet, 5 Refills, Maintenance, 08/14/19 14:27:00 EDT, ER Tablet, [facility] #[id number], 147.32, cm, 06/22/19 9:10:00 EDT, Height, 108.3, [...]
--- OUTSIDE RECORDS SUMMARY | 2022-11-20 11:48 | XMS_ITS | Continuity of Care Document ---
Author Name Unknown Organization [facility] Address [address] [place] [address]- Care Team Providers Care Business Office Associate Name Role Phone Keven Robison MD Primary Care Physician Encounter [facility] [place] Date(s): 04/16/19 - 06/14/19 [facility] [address] [address]- [facility] Attending Physician: Sajan Ibrahim MD Admitting Physician: Sajan Ibrahim MD Referring Physician: Keven Robison MD Allergies, Adverse Reactions, Alerts Substance Reaction Severity Status NKA Active Immunizations Given and Recorded Vaccine Date Status Refusal Reason tetanus/diphtheria/pertussis, acel(Tdap) 1 10/19/17 Given influenza virus vaccine, inactivated 02/24/08 Give n Pneumococcal Vaccine (oldterm) 02/24/08 Given Not Given Vaccine Date Status Refusal Reason influenza virus vaccine, inactivated 06/11/15 Not Given Patient Refuses 1Result Comment: [10/19/2017] [id number] Medications atorvastatin 40 mg oral tablet 1 tablet = 40 mg, By Mouth, Daily, INCREASED DOSE, # 30 tablet, 6 Refills, Maintenance, 01/24/19 16:53:45 EDT, INCREASED DOSE DC 20mg daily Start Date: 01/24/19 Status: Ordered CPAP Machine See Instructions, # 1 each, Maintenance, iVAPS with EPAP 5 and TVa of 5.5 and PS min of 4 and PS max of 12 and AL 20 and height 80 inches with 2 liters oxygen. DME Provider--[facility]., 02/05/18 16:53:41 EDT, Compound Start Date: 02/05/18 Status: Ordered furosemide 20 mg oral tablet 20 mg, 1, tablet, By Mouth, Daily, # 30 tablet, Refills 1, Tot. Refills 1, Maintenance, 05/11/19 19:48:00 EST, Route to Pharmacy Electronically, [facility] #[id number], 147.32, cm, 04/16/19 8:24:00 EST, Height, 108.3, kg, 12/05/18 11:18:00 EDT, D... Start Date: 05/11/19 Status: Ordered levothyroxine 0.1 mg oral tablet 1 tablet = 100 mcg, By Mouth, Daily, # 90 tablet, 1 Refills, Maintenance, 05/11/19 19:48:00 EST, Tablet, [facility] #[id number], 147.32, cm, 04/16/19 8:24:00 EST, Height, 108.3, kg, 12/05/18 11:18:00 EDT, Dry Weight Start Date: 05/11/19 Status: Ordered metFORMIN 500 mg oral tablet, extended release 1 tablet = 500 mg, By Mouth, Daily, # 30 tablet, 5 Refills, Maintenance, 04/06/19 12:06:00 EST, ER Tablet, [facility], 147.32, cm, 03/05/19 9:49:00 EST, Height, 108.3, [...] Dry Weight Start Date: 06/13/19 Status: Ordered traZODone 50 mg oral tablet 50 mg, 1, tablet, By Mouth, Daily at bedtime, with food, # 30 tablet, Refills 5, Tot. Refills 5, Maintenance, 02/09/19 11:41:02 EDT, Route to Pharmacy Electronically, [id number], [facility] Start Date: [...]
--- OUTSIDE RECORDS SUMMARY | 2022-11-20 11:48 | XMS_ITS | Continuity of Care Document ---
Author Name Unknown Organization [facility] Address [address] [place] [address]- Care Team Providers Care Hospice Executive Director Name Role Phone Keven Robison MD Primary Care Physician [place] [facility] [place] 10/05/21 - 11/04/21 [facility] [address] [place] [address]- Allergies, Adverse Reactions, Alerts No Known Allergies [...] Not Given Patient Refuses 1Result Comment: [10/19/2017] [id number] Medications buPROPion 150 mg/24 hours (XL) oral tablet, extended release 1 tablet, By Mouth, Every 24 hours, DO NOT CRUSH OR CHEW, # 90 tablet, 1 Refills, [facility] #[id number], 90, TAKE 1 TABLET BY MOUTH EVERY 24 HOURS. DO NOT CRUSH OR CHEW, 149.86, cm, 10/03/20 15:02:00 EDT, Height, 73.3, kg, 10/03/20 15:02:00 EDT,... Start Date: 02/17/21 Status: Ordered furosemide 20 mg oral tablet 1, tablet, By Mouth, Daily, # 30 tablet, Refills 0, Tot. Refills 0, Maintenance, 09/15/20 8:51:00 EDT, Route to Pharmacy Electronically, [facility] #[id number], 149.86, cm, 08/01/20 16:14:00 EDT, Height, 100.91, kg, 05/20/20 15:45:00 EST, Dry Weight Start Date: 09/15/20 Status: Ordered furosemide 20 mg oral tablet See Instructions, TAKE 1 TABLET BY MOUTH DAILY, # 30 tablet, Refills 2, Tot. Refills 2, 09/24/21 11:39:00 EDT, Instructions Replace Required Details, Route to Pharmacy Electronically, [facility] #[id number], 147, cm, 08/03/21 15:14:00 EDT, Height... Start Date: 09/24/21 Status: Ordered furosemide 20 mg oral tablet See Instructions, TAKE 1 TABLET BY MOUTH DAILY, # 30 tablet, Refills 0, Instructions Replace Required Details, Route to Pharmacy Electronically, [facility] #[id number], 149.86, cm, 10/03/20 15:02:00 EDT, Height, 73.3, kg, 10/03/20 15:02:00 EDT, D... Start Date: 12/01/20 Status: Ordered levothyroxine 0.1 mg oral tablet 1 tablet, By Mouth, Daily, # 90 tablet, 1 Refills, Maintenance, 09/24/21 11:40:00 EDT, [facility] #[id number], 147, cm, 08/03/21 15:14:00 EDT, Height, 60.8, [...] tablet, 0 Refills, Maintenance, 10/06/21 11:09:00 EDT, [facility] #[id number], Partial fill upon patient request if the [...] 180 tablet, 0 Refills, 09/24/21 11:39:00 EDT, [facility] #[id number], 147, cm, 08/03/21 15:14:00 EDT, Height, 60.8, kg, 07/07/21 7:44:00 EDT, Dry Weight Start Date: 09/24/21 Status: Ordered sertraline 100 mg oral tablet 2 tablet = 200 mg, By Mouth, Daily, REFAXED, # 180 tablet, 3 Refills, Maintenance, 01/25/20 8:47:00EDT, [facility] #[id number], 149.86, cm, 01/25/20 8:03:00 EDT, Height, 103, kg, 11/21/19 8:04:00 EDT, Dry Weight Start Date: 01/25/20 Status: Ordered Wellbutrin XL 150 mg/24 hours oral tablet, extended release 1 tablet = 150 mg, By Mouth, Every 24 hours, # 90 tablet, 1 Refills, Maintenance, 06/08/21 13:12:00[id number], Partial fill upon patient request if the [...]
--- OUTSIDE RECORDS SUMMARY | 2022-11-20 11:48 | XMS_ITS | Continuity of Care Document ---
Author Name Unknown Organization [facility] Address [address] [place] [address] ve [address] [place] [address]- Care Team Providers Care Aircraft Worker Name Role Phone Enriqueta DUMONT, Keven Cho Primary Care Physician [phone] Encounter [facility] Date(s): 10/01/19 - 10/31/19 [facility] [address] [place] [address]- [facility] Attending Physician: Ludy Thakur Admitting [...] Not Given Patient Refuses 1Result Comment: [10/19/2017] [id number] Medications atorvastatin 40 mg oral tablet 1 tablet = 40 mg, By Mouth, Daily, INCREASED DOSE, # 90 tablet, 1 Refills, Maintenance, 07/20/19 10:58:00 EDT, [facility] #[id number], INCREASED DOSE DC 20mg daily, 147.32, cm, [...] 10/10/19 16:17:00 EDT, Route to Pharmacy Electronically, [facility] #[id number], 147.32, cm, 10/01/19 9:28:00 EDT, Height, 108.3, kg, 12/05/18 11:18:00 EDT, D... Start Date: 10/10/19 Status: Ordered levothyroxine 0.1 mg oral tablet 1 tablet = 100 mcg, By Mouth, Daily, # 90 tablet, 1 Refills, Maintenance, 05/11/19 19:48:00 EST, Tablet, [facility] #[id number], 147.32, cm, 04/16/19 8:24:00 EST, Height, 108.3, kg, 12/05/18 11:18:00 EDT, Dry Weight Start Date: 05/11/19 Status: Ordered metFORMIN 500 mg oral tablet, extended release 1 tablet = 500 mg, By Mouth, Daily, # 30 tablet, 5 Refills, Maintenance, 10/10/19 16:17:00 EDT, ER Tablet, [facility] #[id number], 147.32, cm, 10/01/19 9:28:00 EDT, Height, 108.3, [...] tablet, 1 Refills, Maintenance, 08/31/19 13:43:00 EDT, [facility] #68825, 147.32, cm, 08/30/19 12:07:00 EDT, Height, 108.3, kg, 12/05/18 11:18:00 EDT, Dry Weight Start Date: 08/31/19 Status: Ordered Wellbutrin XL 150 mg/24 hours oral tablet, extended release 1 tablet = 150 mg, By Mouth, Every 24 hours, do not crush or chew., # 30 tablet, 5 Refills, Maintenance, 08/14/19 14:27:00 EDT, ER Tablet, [facility] #28895, 147.32, cm, 06/22/19 9:10:00 EDT, Height, 108.3, [...]
--- OUTSIDE RECORDS SUMMARY | 2022-11-20 11:48 | XMS_ITS | Continuity of Care Document ---
Author Name Unknown Organization [facility] Address [address] [place] [address]- Care Team Providers Care Deburring Machine Operator Name Role Phone Keven Robison MD Primary Care Physician Encounter [facility] Date(s): 05/31/22 - 06/30/22 [facility] [address] [place] [address]- Attending Physician: Admtr, Edmond8 Admitting Physician: [id number] [...] Not Given Patient Refuses 1Result Comment: [10/19/2017] [id number] Medications furosemide 20 mg oral tablet See Instructions, TAKE 1 TABLET BY MOUTH DAILY, # 30 tablet, Refills 2, Tot. Refills 2, 01/15/22 11:17:00 EDT, Instructions Replace Required Details, Route to Pharmacy Electronically, [facility] #[id number], 147, cm, 01/01/22 10:56:00 EDT, Height... Start Date: 01/15/22 Status: Ordered furosemide 20 mg oral tablet See Instructions, TAKE 1 TABLET BY MOUTH DAILY, # 30 tablet, Refills 0, Instructions Replace Required Details, Route to Pharmacy Electronically, [facility] #[id number], 149.86, cm, 10/03/20 15:02:00 EDT, Height, 73.3, kg, 10/03/20 15:02:00 EDT, D... Start Date: 12/01/20 Status: Ordered levothyroxine 0.1 mg oral tablet 1 tablet, By Mouth, Daily, # 90 tablet, 0 Refills, Maintenance, 03/30/22 15:42:00 EST, [facility] #21731, 147, cm, 01/01/22 10:56:00 EDT, Height, 60.8, kg, 07/07/21 7:44:00 EDT, Dry Weight Start Date: 03/30/22 Status: Ordered pantoprazole 40 mg oral delayed release tablet 1 tablet = 40 mg, By Mouth, 2 times a day, # 180 tablet, 0 Refills, Maintenance, 03/30/22 15:42:00 EST, CR Tablet, 147, cm, 01/01/22 10:56:00 EDT, Height, 60.8, kg, 07/07/21 7:44:00 EDT, Dry Weight Start Date: 03/30/22 Status: Ordered Protonix 40 mg oral delayed [...] 180 tablet, 3 Refills, Maintenance, 01/25/20 8:47:00EDT, [facility] #57181, 149.86, cm, 01/25/20 8:03:00 EDT, Height, 103, kg, 11/21/19 8:04:00 EDT, Dry Weight Start Date: 01/25/20 Status: Ordered sertraline 100 mg oral tablet See Instructions, TAKE 2 TABLETS BY MOUTH DAILY, # 180 tablet, 3 Refills, 12/26/21 13:09:00 EDT, [facility] #[id number], 147, cm, 10/06/21 10:57:00 EDT, Height, 60.8, kg, 07/07/21 7:44:00 EDT, Dry Weight Start Date: 12/26/21 Status: Ordered Wellbutrin XL 150 mg/24 hours oral tablet, extended release 1 tablet = 150 mg, By Mouth, Every 24 hours, # 90 tablet, 0 Refills, Maintenance, 03/30/22 15:48:00EST, [facility] #[id number], Partial fill upon patient request if the prescription is for a schedule II opioid drug., 147, cm, 01/01/22 10:56:00 E... Start Date: 03/30/22 Status: Ordered Problem List Condition Confirmation Course [...] Team Personnel Name: Bozena Bateman RN Position: [facility] SN RN Member Role: Primary Care Nurse Name: Swati Thomas NP Position: [facility] PCO Associate Professional Member Role: Primary Care Nurse Name: Kyara Catalan RN Position: [facility] RN Member Role: Primary Care Nurse Name: Torrey Blanchard MD Position: [facility] POWERTRAIN CONTROL SYSTEMS ENGINEER MD Member Role: Lifetime POWERTRAIN CONTROL SYSTEMS ENGINEER Physician Address: Address: [address] [place] [address] [employer], [place] [address]- [place] Name: Paz Villarreal RN Position: [facility] SN RN Member Role: Primary Care Nurse Name: Gege Paulino NP Position: [facility] PCO Associate Professional Member Role: Primary Care Nurse Address: Address: [address] [facility] [place] [address]- [place] Name: Hanh Devlin RN Position: [facility] RN Member Role: Primary Care Nurse Name: Christina Guerrero RN Position: [facility] RN Member Role: Primary Care Nurse Name: Jennifer Zendejas RN Position: [facility] RN Member Role: Primary Care Nurse Name: Keven Robison MD Position: [facility] Primary Care Physician Member Role: PCP Address: Address: [address] [place] [address]- [place] Name: Dary Jensen RN Position: [facility] RN Member Role: Primary Care Nurse Care Team Related Persons Name: JUDI MARTINI Address: [address] [address]
--- OUTSIDE RECORDS SUMMARY | 2022-11-20 11:48 | XMS_ITS | Continuity of Care Document ---
Author Name Unknown Organization [facility] Address [address] [place] [address] [address] [place] [address]- Care Team Providers Care Junior Underwriter Name Role Phone Enriqueta DUMONT, Keven Cho Primary Care Physician [phone] Encounter [facility] Date(s): 07/12/22 - 08/11/22 [facility] [address] [place], [place] [address] Allergies, Adverse Reactions, Alerts No [...] Not Given Patient Refuses 1Result Comment: [10/19/2017] [id number] Medications furosemide 20 mg oral tablet See Instructions, TAKE 1 TABLET BY MOUTH DAILY, # 30 tablet, Refills 2, Tot. Refills 2, 01/15/22 11:17:00 EDT, Instructions Replace Required Details, Route to Pharmacy Electronically, [facility] #[id number], 147, cm, 01/01/22 10:56:00 EDT, Height... Start Date: 01/15/22 Status: Ordered furosemide 20 mg oral tablet 20 mg, 1, tablet, By Mouth, Daily, # 30 tablet, Refills 0, Tot. Refills 0, 07/20/22 15:16:00 EDT, Route to Pharmacy Electronically, [facility] #[id number], 147, cm, 05/31/22 15:05:00 EST, Height, 60.8, kg, 07/07/21 7:44:00 EDT, Dry Weight Start Date: 07/20/22 Status: Ordered levothyroxine 0.1 mg oral tablet 1 tablet, By Mouth, Daily, # 90 tablet, 0 Refills, Maintenance, 07/14/22 20:53:00 EDT, [facility] #67367, 147, cm, 05/31/22 15:05:00 EST, Height, 60.8, [...] 180 tablet, 3 Refills, Maintenance, 01/25/20 8:47:00EDT, [facility] #56853, 149.86, cm, 01/25/20 8:03:00 EDT, Height, 103, kg, 11/21/19 8:04:00 EDT, Dry Weight Start Date: 01/25/20 Status: Ordered sertraline 100 mg oral tablet See Instructions, TAKE 2 TABLETS BY MOUTH DAILY, # 180 tablet, 3 Refills, 12/26/21 13:09:00 EDT, [facility] #[id number], 147, cm, 10/06/21 10:57:00 EDT, Height, 60.8, kg, 07/07/21 7:44:00 EDT, Dry Weight Start Date: 12/26/21 Status: Ordered Wellbutrin XL 150 mg/24 hours oral tablet, extended release 1 tablet = 150 mg, By Mouth, Every 24 hours, # 90 tablet, 0 Refills, Maintenance, 07/14/22 20:56:00EDT, [facility] #[id number], Partial fill upon patient request if the [...] Team Personnel Name: Bozena Bateman RN Position: [facility] SN RN Member Role: Primary Care Nurse Name: Swati Thomas NP Position: [facility] PCO Associate Professional Member Role: Primary Care Nurse Name: Kyara Catalan RN Position: [facility] RN Member Role: Primary Care Nurse Name: Torrey Blanchard MD Position: [facility] LAUNDRY AIDE MD Member Role: Lifetime LAUNDRY AIDE Physician Address: Address: [address] [place] [address] [employer], [address] Name: Paz Villarreal RN Position: [facility] SN RN Member Role: Primary Care Nurse Name: Gege Paulino NP Position: [facility] PCO Associate Professional Member Role: Primary Care Nurse Address: Address: [address] [place] [address]- [place] Name: Hanh Devlin RN Position: [facility] RN Member Role: Primary Care Nurse Name: Christina Guerrero RN Position: [facility] RN Member Role: Primary Care Nurse Name: Jennifer Zendejas RN Position: [facility] RN Member Role: Primary Care Nurse Name: Keven Robison MD Position: [facility] Primary Care Physician Member Role: PCP Address: Address: [address] [place] [address]- [place] Name: Dary Jensen RN Position: [facility] RN Member Role: Primary Care Nurse Care Team Related Persons Name: MARTINIMAYUR DEL CIDNE Address: [address] [address]
--- OUTSIDE RECORDS SUMMARY | 2022-11-20 11:48 | XMS_ITS | Continuity of Care Document ---
Author Name Unknown Organization [facility] Address [address] [place] [address] [address] [place] [address]- Care Team Providers Care Tobacco Drying Machine Operator Name Role Phone Enriqueta DUMONT, Keven Cho Primary Care Physician Encounter [facility] Date(s): 10/03/20 - 11/02/[address] [place], [place] [address] Attending Physician: Admtr, Ar8 Admitting Physician: Admtr, [...] Not Given Patient Refuses 1Result Comment: [10/19/2017] [id number] Medications furosemide 20 mg oral tablet 1, tablet, By Mouth, Daily, # 30 tablet, Refills 0, Tot. Refills 0, Maintenance, 09/15/20 8:51:00 EDT, Route to Pharmacy Electronically, [facility] #[id number], 149.86, cm, 08/01/20 16:14:00 EDT, Height, 100.91, kg, 05/20/20 15:45:00 EST, Dry Weight Start Date: 09/15/20 Status: Ordered levothyroxine 0.1 mg oral tablet 1 tablet = 100 mcg, By Mouth, Daily, # 90 tablet, 1 Refills, Maintenance, 05/23/20 9:52:00 EST, Tablet, [facility] #18878, 149.86, cm, 05/22/20 13:49:00 EST, Height, 100.91, [...] 180 tablet, 3 Refills, Maintenance, 01/25/20 8:47:00EDT, [facility] #[id number], 149.86, cm, 01/25/20 8:03:00 EDT, Height, 103, [...]
--- OUTSIDE RECORDS SUMMARY | 2022-11-20 11:48 | XMS_ITS | Continuity of Care Document ---
Author Name Unknown Organization [facility] Address [address] [place] [address]- Care Team Providers Care Contact Center Rep Name Role Phone Erniqueta DUMONT, Keven Cho Primary Care Physician Encounter [facility] Date(s): 06/22/19 - 07/02/19 [facility] Adult [address] [place] [address]- [facility] Attending Physician: AdmLudy camacho Admitting Physician: AdmtrLudy [...] Not Given Patient Refuses 1Result Comment: [10/19/2017] [id number] Medications atorvastatin 40 mg oral tablet 1 tablet = 40 mg, By Mouth, Daily, INCREASED DOSE, # 30 tablet, 6 Refills, Maintenance, 01/24/19 16:53:45 EDT, INCREASED DOSE DC 20mg daily Start Date: 01/24/19 Status: Ordered CPAP Machine See Instructions, # 1 each, Maintenance, iVAPS with EPAP 5 and TVa of 5.5 and PS min of 4 and PS max of 12 and PA 20 and height 80 inches with 2 liters oxygen. DME Provider--[facility]., 02/05/18 16:53:41 EDT, Compound Start Date: 02/05/18 Status: Ordered furosemide 20 mg oral tablet 20 mg, 1, tablet, By Mouth, Daily, # 30 tablet, Refills 1, Tot. Refills 1, Maintenance, 05/11/19 19:48:00 EST, [id number], 147.32, cm, 04/16/19 8:24:00 EST, Height, 108.3, kg, 12/05/18 11:18:00 EDT, D... Start Date: 05/11/19 Status: Ordered levothyroxine 0.1 mg oral tablet 1 tablet = 100 mcg, By Mouth, Daily, # 90 tablet, 1 Refills, Maintenance, 05/11/19 19:48:00 EST, [facility]t, [facility]14[facility], 147.32, cm, 04/16/19 8:24:00 EST, Height, 108.3, kg, 12/05/18 11:18:00 EDT, Dry Weight Start Date: 05/11/19 Status: Ordered metFORMIN 500 mg oral tablet, extended release 1 tablet = 500 mg, By Mouth, Daily, # 30 tablet, 5 Refills, Maintenance, 04/06/19 12:06:00 EST, ER Tablet, [facility], 147.32, cm, 03/05/19 9:49:00 EST, [...]
--- OUTSIDE RECORDS SUMMARY | 2022-11-20 11:48 | XMS_ITS | Continuity of Care Document ---
Author Name Unknown Organization [facility] Address [address] [place] [address] D[address] [place] [address]- Care Team Providers Care Heavy Truck Driver Name Role Phone Enriqueta DUMONT, Keven Cho Primary Care Physician [phone] Encounter [facility] Date(s): 06/21/19 - 06/28/19 [facility] [address] [place] [address]- [facility] Attending Physician: Dary Palma RD Allergies, Adverse Reactions, Alerts Substance Reaction Severity Status NKA Active Immunizations Given and Recorded Vaccine Date Status Refusal Reason tetanus/diphtheria/pertussis, acel(Tdap) 1 10/19/17 Given influenza virus vaccine, inactivated 02/24/08 Give n Pneumococcal Vaccine (oldterm) 02/24/08 Given Not Given Vaccine Date Status Refusal Reason influenza virus vaccine, inactivated 06/11/15 Not Given Patient Refuses 1Result Comment: [10/19/2017] [id number] Medications atorvastatin 40 mg oral tablet 1 tablet = 40 mg, By Mouth, Daily, INCREASED DOSE, # 30 tablet, 6 Refills, Maintenance, 01/24/19 16:53:45 EDT, INCREASED DOSE DC 20mg daily Start Date: 01/24/19 Status: Ordered CPAP Machine See Instructions, # 1 each, Maintenance, iVAPS with EPAP 5 and TVa of 5.5 and PS min of 4 and PS max of 12 and NC 20 and height 80 inches with 2 liters oxygen. DME Provider--[facility]., 02/05/18 16:53:41 EDT, Compound Start Date: 02/05/18 Status: Ordered furosemide 20 mg oral tablet 20 mg, 1, tablet, By Mouth, Daily, # 30 tablet, Refills 1, Tot. Refills 1, Maintenance, 05/11/19 19:48:00 EST, Route to Pharmacy Electronically, [facility] #[id number], 147.32, cm, 04/16/19 8:24:00 EST, Height, 108.3, kg, 12/05/18 11:18:00 EDT, D... Start Date: 05/11/19 Status: Ordered levothyroxine 0.1 mg oral tablet 1 tablet = 100 mcg, By Mouth, Daily, # 90 tablet, 1 Refills, Maintenance, 05/11/19 19:48:00 EST, Tablet, [facility] #[id number], 147.32, cm, 04/16/19 8:24:00 EST, Height, 108.3, kg, 12/05/18 11:18:00 EDT, Dry Weight Start Date: 05/11/19 Status: Ordered metFORMIN 500 mg oral tablet, extended release 1 tablet = 500 mg, By Mouth, Daily, # 30 tablet, 5 Refills, Maintenance, 04/06/19 12:06:00 EST, ER Tablet, [facility], 147.32, cm, 03/05/19 9:49:00 [...]
--- OUTSIDE RECORDS SUMMARY | 2022-11-20 11:48 | XMS_ITS | Continuity of Care Document ---
Author Name Unknown Organization [facility] Norm Address [address] [place] [address]- Care Team Providers Care Lean Facilitator Name Role Phone Enriqueta DUMONT, Keven Cho Primary Care Physician [facility]counter [facility] Date(s): 07/19/22 - 08/18/22 [facility] Adult [address] [place] [address]- Allergies, Adverse Reactions, Alerts No Known Allergies [...] Not Given Patient Refuses 1Result Comment: [10/19/2017] [id number] Medications furosemide 20 mg oral tablet See Instructions, TAKE 1 TABLET BY MOUTH DAILY, # 30 tablet, Refills 2, Tot. Refills 2, 01/15/22 11:17:00 EDT, Instructions Replace Required Details, Route to Pharmacy Electronically, [facility] #[id number], 147, cm, 01/01/22 10:56:00 EDT, Height... Start Date: 01/15/22 Status: Ordered furosemide 20 mg oral tablet 20 mg, 1, tablet, By Mouth, Daily, # 30 tablet, Refills 0, Tot. Refills 0, 07/20/22 15:16:00 EDT, Route to Pharmacy Electronically, [facility] #[id number], 147, cm, 05/31/22 15:05:00 EST, Height, 60.8, kg, 07/07/21 7:44:00 EDT, Dry Weight Start Date: 07/20/22 Status: Ordered levothyroxine 0.1 mg oral tablet 1 tablet, By Mouth, Daily, # 90 tablet, 0 Refills, Maintenance, 07/14/22 20:53:00 EDT, [facility] #[id number], 147, cm, 05/31/22 15:05:00 EST, Height, 60.8, [...] 90 tablet, 3 Refills, Maintenance, 08/17/22 14:51:00EDT, [facility] #[id number], Partial fill upon patient request if the [...] Team Personnel Name: Bozena Bateman RN Position: [facility] SN RN Member Role: Primary Care Nurse Name: Swati Thomas NP Position: [facility] Associate Professional Member Role: Primary Care Nurse Name: Kyara Catalan RN Position: [facility] RN Member Role: Primary Care Nurse Name: Torrey Blanchard MD Position: [facility] AIR SAMPLER MD Member Role: [employer] AIR SAMPLER Physician Address: Address: [address] [place] [address] [place] [address]- Name: Paz Villarreal RN Position: [facility] SN RN Member Role: Primary Care Nurse Name: Gege Paulino NP Position: [facility] Associate Professional Member Role: Primary Care Nurse Address: Address: [address] [facility] [place] [address]- Name: Hanh Devlin RN Position: [facility] RN Member Role: Primary Care Nurse Name: Christina Guerrero RN Position: [facility] RN Member Role: Primary Care Nurse Name: Jennifer Zendejas RN Position: [facility] RN Member Role: Primary Care Nurse Name: Keven Robison MD Position: [facility] Primary Care Physician Member Role: PCP Address: Address: [address] [place] [address]- [place] Name: Dary Jensen RN Position: [facility] RN Member Role: Primary Care Nurse Care Team Related Persons Name: JUDI MARTINI Address: [address] [address]
--- OUTSIDE RECORDS SUMMARY | 2022-11-20 11:48 | XMS_ITS | Continuity of Care Document ---
Author Name Unknown Organization [facility] Address [address] [place] [address] [address] [place] [address]- Care Team Providers Care Meter Repairer Helper Name Role Phone Keven Robison MD Primary Care Physician [phone] [place] [facility] [place]20 - 07/08/[address] [place] [address]- Encounter Diagnosis Morbid obesity with BMI of 40.0-44.9, adult(Discharge Diagnosis) - 07/01/20 S/P laparoscopic sleeve gastrectomy(Discharge Diagnosis) - 07/01/20 Attending Physician: Sajan Caro Referring Physician: Keven Robison MD Allergies, Adverse Reactions, Alerts Substance Reaction Severity Status NKA Active Immunizations Given and Recorded Vaccine Date Status Refusal Reason tetanus/diphtheria/pertussis, acel(Tdap) 1 10/19/17 Given influenza virus vaccine, inactivated 02/24/08 Give n Pneumococcal Vaccine (oldterm) 02/24/08 Given Not Given Vaccine Date Status Refusal Reason influenza virus vaccine, inactivated 06/11/15 Not Given Patient Refuses 1Result Comment: [10/19/2017] [id number] Medications atorvastatin 40 mg oral tablet 1 tablet = 40 mg, By Mouth, Daily, INCREASED DOSE, # 90 tablet, 1 Refills, Maintenance, 01/25/20 8:43:00 EDT, [facility] #[id number], INCREASED DOSE DC 20mg daily, 149.86, cm, 01/25/20 8:03:00 EDT, Height, 103, kg, 11/21/19 8:04:00 EDT, Dry Weight Start Date: 01/25/20 Status: Ordered Colace sodium 100 mg oral capsule 100 mg, 1, capsule, By Mouth, 2 times a day, with plenty of water, # 60 capsule, Refills 0, Tot. Refills 0, Maintenance, 05/22/20 12:36:00 EST, Route to Pharmacy Electronically, [facility], Partial fill upon patient request if the prescr... Start Date: 05/22/20 Status: Ordered CPAP Machine See Instructions, # 1 each, Maintenance, iVAPS with EPAP 5 and TVa of 5.5 and PS min of 4 and PS max of 12 and AR 20 and height 80 inches with 2 liters oxygen. DME Provider--[facility] 02/05/18 16:53:41 EDT, Compound Start Date: 02/05/18 Status: Ordered furosemide 20 mg oral tablet 20 mg, 1, tablet, By Mouth, Daily, # 90 tablet, Refills 1, Tot. Refills 1, Maintenance, 01/25/20 8:44:00 EDT, Route to Pharmacy Electronically, [facility] #[id number], 149.86, cm, 01/25/20 8:03:00 EDT, Height, 103, kg, 11/21/19 8:04:00 EDT, Dry W... Start Date: 01/25/20 Status: Ordered levothyroxine 0.1 mg oral tablet 1 tablet = 100 mcg, By Mouth, Daily, # 90 tablet, 1 Refills, Maintenance, 05/23/20 9:52:00 EST, Tablet, [facility] #[id number], 149.86, cm, 05/22/20 13:49:00 EST, Height, 100.91, [...] 05/22/20 12:36:00 EST, Route to Pharmacy Electronically, [facility], Partial fill upon patient request if the prescription... Start Date: 05/22/20 Status: Ordered pantoprazole 40 mg oral delayed release tablet 1 tablet, By Mouth, Daily, # 90 tablet, 1 Refills, Maintenance, 01/25/20 8:47:00 EDT, 149.86, cm, 01/25/20 8:03:00 EDT, Height, 103, kg, 11/21/19 8:04:00 EDT, Dry Weight Start Date: 01/25/20 Status: Ordered Protonix 40 mg oral delayed [...] 180 tablet, 3 Refills, Maintenance, 01/25/20 8:47:00EDT, [facility] #[id number], 149.86, cm, 01/25/20 8:03:00 EDT, Height, 103, [...] chew., # 90 tablet, 1 Refills, Maintenance, 07/08/20 13:59:00 EDT, ER Tablet, [facility] #[id number], 149.86, cm, 05/30/20 10:26:00 EST, Height, 100.91, kg, 05/20/20 15:45:00 EST, Dry W... Start Date: 07/08/20 Status: Ordered Problem List Condition Effective Dates [...] Effective Dates Health Status Clinical Service Informant Morbid obesity with BMI of 40.0-44.9, adult Discharge Diagnosis 07/01/20 S/P laparoscopic sleeve gastrectomy Discharge Diagnosis 07/01/20 Social History Social History Type Response Smoking Status Never smoker; Tobacc o user in household: No entered on: 06/20/15 Sex
--- OUTSIDE RECORDS SUMMARY | 2022-11-20 11:48 | XMS_ITS | Continuity of Care Document ---
Author Name Unknown Organization [facility] Address [address] [place] [address] ve [address] [place] [address]- Care Team Providers Care Coil Maker Name Role Phone Keven Robison MD Primary Care Physician Encounter [facility] Date(s): 05/11/22 - 06/10/[address] [place], [place] [address] Attending Physician: Admtr, [id number] Admitting Physician: Admtr, [...] Not Given Patient Refuses 1Result Comment: [10/19/2017] [id number] Medications furosemide 20 mg oral tablet See Instructions, TAKE 1 TABLET BY MOUTH DAILY, # 30 tablet, Refills 2, Tot. Refills 2, 01/15/22 11:17:00 EDT, Instructions Replace Required Details, Route to Pharmacy Electronically, [facility] #[id number], 147, cm, 01/01/22 10:56:00 EDT, Height... Start Date: 01/15/22 Status: Ordered furosemide 20 mg oral tablet See Instructions, TAKE 1 TABLET BY MOUTH DAILY, # 30 tablet, Refills 0, Instructions Replace Required Details, Route to Pharmacy Electronically, [facility] #[id number], 149.86, cm, 10/03/20 15:02:00 EDT, Height, 73.3, kg, 10/03/20 15:02:00 EDT, D... Start Date: 12/01/20 Status: Ordered levothyroxine 0.1 mg oral tablet 1 tablet, By Mouth, Daily, # 90 tablet, 0 Refills, Maintenance, 03/30/22 15:42:00 EST, [facility] #69369, 147, cm, 01/01/22 10:56:00 EDT, Height, 60.8, [...] 180 tablet, 3 Refills, Maintenance, 01/25/20 8:47:00EDT, [facility] #[id number], 149.86, cm, 01/25/20 8:03:00 EDT, Height, 103, kg, 11/21/19 8:04:00 EDT, Dry Weight Start Date: 01/25/20 Status: Ordered sertraline 100 mg oral tablet See Instructions, TAKE 2 TABLETS BY MOUTH DAILY, # 180 tablet, 3 Refills, 12/26/21 13:09:00 EDT, [facility] #[id number], 147, cm, 10/06/21 10:57:00 EDT, Height, 60.8, kg, 07/07/21 7:44:00 EDT, Dry Weight Start Date: 12/26/21 Status: Ordered Wellbutrin XL 150 mg/24 hours oral tablet, extended release 1 tablet = 150 mg, By Mouth, Every 24 hours, # 90 tablet, 0 Refills, Maintenance, 03/30/22 15:48:00EST, [facility] #[id number], Partial fill upon patient request if the [...] Team Personnel Name: Bozena Bateman RN Position: [facility] SN RN Member Role: Primary Care Nurse Name: Swati Thomas NP Position: [facility] PCO Associate Professional Member Role: Primary Care Nurse Name: Kyara Catalan RN Position: [facility] RN Member Role: Primary Care Nurse Name: Torrey Blanchard MD Position: [facility] TOOLROOM KEEPER MD Member Role: Lifetime TOOLROOM KEEPER Physician Address: Address: [address] [place] [address] [employer], [place] [address]- [place] Name: Paz Villarreal RN Position: [facility] SN RN Member Role: Primary Care Nurse Name: Gege Paulino NP Position: [facility] PCO Associate Professional Member Role: Primary Care Nurse Address: Address: [address] [facility] [place] [address]- [place] Name: Hanh Devlin RN Position: [facility] RN Member Role: Primary Care Nurse Name: Christina Guerrero RN Position: [facility] RN Member Role: Primary Care Nurse Name: Jennifer Zendejas RN Position: [facility] RN Member Role: Primary Care Nurse Name: Keven Robison MD Position: [facility] Primary Care Physician Member Role: PCP Address: Address: [address] [place] [address]- [place] Name: Dary Jensen RN Position: [facility] RN Member Role: Primary Care Nurse Care Team Related Persons Name: JUDI MARTINI Address: [address] [address]
--- OUTSIDE RECORDS SUMMARY | 2022-11-20 11:48 | XMS_ITS | Continuity of Care Document ---
Author Name Unknown Organization [facility] Address [address] [place] [address] [address] [place] [address]- Care Team Providers Care Medical Equipment Technician Name Role Phone Keven Robison MD Primary Care Physician [place] [facility] [place] 11/26/19 - 12/03/[address] [place] [address]- [facility] Attending Physician: Blane Valles MD Referring Physician: Keven Robison MD Allergies, Adverse Reactions, Alerts Substance Reaction Severity Status NKA Active Immunizations Given and Recorded Vaccine Date Status Refusal Reason tetanus/diphtheria/pertussis, acel(Tdap) 1 10/19/17 Given influenza virus vaccine, inactivated 02/24/08 Give n Pneumococcal Vaccine (oldterm) 02/24/08 Given Not Given Vaccine Date Status Refusal Reason influenza virus vaccine, inactivated 06/11/15 Not Given Patient Refuses 1Result Comment: [10/19/2017] [id number] Medications atorvastatin 40 mg oral tablet 1 tablet = 40 mg, By Mouth, Daily, INCREASED DOSE, # 90 tablet, 1 Refills, Maintenance, 07/20/19 10:58:00 EDT, [facility] #[id number], INCREASED DOSE DC 20mg daily, 147.32, cm, 06/22/19 9:10:00 EDT, Height, 108.3, kg, 12/05/18 11:18:00 EDT, Dry W... Start Date: 07/20/19 Status: Ordered CPAP Machine See Instructions, # 1 each, Maintenance, iVAPS with EPAP 5 and TVa of 5.5 and PS min of 4 and PS max of 12 and IN 20 and height 80 inches with 2 liters oxygen. DME Provider--[facility] 02/05/18 16:53:41 EDT, Compound Start Date: 02/05/18 Status: Ordered furosemide 20 mg oral tablet 20 mg, 1, tablet, By Mouth, Daily, # 30 tablet, Refills 5, Tot. Refills 5, Maintenance, 10/10/19 16:17:00 EDT, Route to Pharmacy Electronically, [facility] #[id number], 147.32, cm, 10/01/19 9:28:00 EDT, Height, 108.3, kg, 12/05/18 11:18:00 EDT, D... Start Date: 10/10/19 Status: Ordered ibuprofen 600 mg oral tablet 600 mg, 1, tablet, By Mouth, Every 6 hours, for 14 days, # 56 tablet, Refills 0, Tot. Refills 0, Acute 12/05/19 10:36:00 EDT, 11/21/19 10:36:00 EDT, Route to Pharmacy Electronically, [facility] #[id number], 149.86, cm, 11/21/19 8:04:00 EDT, [facility]... Start Date: 11/21/19 Stop Date: 12/05/19 Status: Ordered levothyroxine 0.1 mg oral tablet 1 tablet = 100 mcg, By Mouth, Daily, # 90 tablet, 1 Refills, Maintenance, 11/20/19 12:52:00 EDT, Tablet, [facility] #[id number], 147.32, cm, 10/01/19 9:28:00 EDT, Height, 108.3, kg, 12/05/18 11:18:00 EDT, Dry Weight Start Date: 11/20/19 Status: Ordered metFORMIN 500 mg oral tablet, extended release 1 tablet = 500 mg, By Mouth, Daily, # 30 tablet, 5 Refills, Maintenance, 10/10/19 16:17:00 EDT, ER Tablet, [facility] #54862, 147.32, cm, 10/01/19 9:28:00 EDT, Height, 108.3, [...] tablet, 1 Refills, Maintenance, 12/03/19 15:01:00 EDT, [facility] #[id number], 149.86, cm, 11/21/19 8:04:00 EDT, Height, 103, kg, 11/21/19 8:04:00 EDT, Dry Weight Start Date: 12/03/19 Status: Ordered Tylenol 325 mg oral capsule 2 capsule = 650 mg, By Mouth, Every 6 hours, PRN as needed for pain, for 14 days, # 112 capsule, 0 Refills, Acute 12/05/19 10:36:00 EDT, 11/21/19 10:36:00 EDT, Capsule, [facility] #09277, 149.86, cm, 11/21/19 8:04:00 EDT, Height, 103, kg, 08... Start Date: 11/21/19 Stop Date: 12/05/19 Status: Ordered Wellbutrin XL 150 mg/24 hours oral tablet, extended release 1 tablet = 150 mg, By Mouth, Every 24 hours, do not crush or chew., # 30 tablet, 5 Refills, Maintenance, 08/14/19 14:27:00 EDT, ER Tablet, [facility] #31485, 147.32, cm, 06/22/19 9:10:00 EDT, Height, 108.3, [...]
--- OUTSIDE RECORDS SUMMARY | 2022-11-20 11:48 | XMS_ITS | Continuity of Care Document ---
Author Name Unknown Organization [facility] Norm lt Address [address] [place] [address]- Care Team Providers Care Superintendent Service Name Role Phone Keven Robison MD Primary Care Physician [phone] Encounter [facility] Date(s): 09/24/21 - 10/24/21 [facility] Adult [address] [place] [address]- Allergies, Adverse Reactions, Alerts No Known Allergies [...] Not Given Patient Refuses 1Result Comment: [10/19/2017] [id number] Medications buPROPion 150 mg/24 hours (XL) oral tablet, extended release 1 tablet, By Mouth, Every 24 hours, DO NOT CRUSH OR CHEW, # 90 tablet, 1 Refills, [facility] #[id number], 90, TAKE 1 TABLET BY MOUTH EVERY 24 HOURS. DO NOT CRUSH OR CHEW, 149.86, cm, 10/03/20 15:02:00 EDT, Height, 73.3, kg, 10/03/20 15:02:00 EDT,... Start Date: 02/17/21 Status: Ordered furosemide 20 mg oral tablet 1, tablet, By Mouth, Daily, # 30 tablet, Refills 0, Tot. Refills 0, Maintenance, 09/15/20 8:51:00 EDT, Route to Pharmacy Electronically, [facility] #[id number], 149.86, cm, 08/01/20 16:14:00 EDT, Height, 100.91, kg, 05/20/20 15:45:00 EST, Dry Weight Start Date: 09/15/20 Status: Ordered furosemide 20 mg oral tablet See Instructions, TAKE 1 TABLET BY MOUTH DAILY, # 30 tablet, Refills 2, Tot. Refills 2, 09/24/21 11:39:00 EDT, Instructions Replace Required Details, Route to Pharmacy Electronically, [facility] #[id number], 147, cm, 08/03/21 15:14:00 EDT, Height... Start Date: 09/24/21 Status: Ordered furosemide 20 mg oral tablet See Instructions, TAKE 1 TABLET BY MOUTH DAILY, # 30 tablet, Refills 0, Instructions Replace Required Details, Route to Pharmacy Electronically, [facility] #[id number], 149.86, cm, 10/03/20 15:02:00 EDT, Height, 73.3, kg, 10/03/20 15:02:00 EDT, D... Start Date: 12/01/20 Status: Ordered levothyroxine 0.1 mg oral tablet 1 tablet, By Mouth, Daily, # 90 tablet, 1 Refills, Maintenance, 09/24/21 11:40:00 EDT, [facility] #[id number], 147, cm, 08/03/21 15:14:00 EDT, Height, 60.8, [...] tablet, 0 Refills, Maintenance, 10/06/21 11:09:00 EDT, [facility] #[id number], Partial fill upon patient request if the [...] 180 tablet, 0 Refills, 09/24/21 11:39:00 EDT, [facility] #44883, 147, cm, 08/03/21 15:14:00 EDT, Height, 60.8, kg, 07/07/21 7:44:00 EDT, Dry Weight Start Date: 09/24/21 Status: Ordered sertraline 100 mg oral tablet 2 tablet = 200 mg, By Mouth, Daily, REFAXED, # 180 tablet, 3 Refills, Maintenance, 01/25/20 8:47:00EDT, [facility] #48186, 149.86, cm, 01/25/20 8:03:00 EDT, Height, 103, kg, 11/21/19 8:04:00 EDT, Dry Weight Start Date: 01/25/20 Status: Ordered Wellbutrin XL 150 mg/24 hours oral tablet, extended release 1 tablet = 150 mg, By Mouth, Every 24 hours, # 90 tablet, 1 Refills, Maintenance, 06/08/21 13:12:00THOMAS, [facility] #[id number], Partial fill upon patient request if the [...]
--- OUTSIDE RECORDS SUMMARY | 2022-11-20 11:48 | XMS_ITS | Continuity of Care Document ---
Author Name Unknown Organization [facility] Norm lt Address [address] [place] [address]- Care Team Providers Care Poultry Sexer Name Role Phone Keven Robison MD Primary Care Physician [place] [facility] [place] 10/13/21 [facility] Adult [address] [place] [address]- Attending Physician: Keven Robison MD Allergies, Adverse [...] Not Given Patient Refuses 1Result Comment: [10/19/2017] [id number] Medications buPROPion 150 mg/24 hours (XL) oral tablet, extended release 1 tablet, By Mouth, Every 24 hours, DO NOT CRUSH OR CHEW, # 90 tablet, 1 Refills, [facility] #[id number], 90, TAKE 1 TABLET BY MOUTH EVERY 24 HOURS. DO NOT CRUSH OR CHEW, 149.86, cm, 10/03/20 15:02:00 EDT, Height, 73.3, kg, 10/03/20 15:02:00 EDT,... Start Date: 02/17/21 Status: Ordered furosemide 20 mg oral tablet 1, tablet, By Mouth, Daily, # 30 tablet, Refills 0, Tot. Refills 0, Maintenance, 09/15/20 8:51:00 EDT, Route to Pharmacy Electronically, [facility] #[id number], 149.86, cm, 08/01/20 16:14:00 EDT, Height, 100.91, kg, 05/20/20 15:45:00 EST, Dry Weight Start Date: 09/15/20 Status: Ordered furosemide 20 mg oral tablet See Instructions, TAKE 1 TABLET BY MOUTH DAILY, # 30 tablet, Refills 2, Tot. Refills 2, 09/24/21 11:39:00 EDT, Instructions Replace Required Details, Route to Pharmacy Electronically, [facility] #[id number], 147, cm, 08/03/21 15:14:00 EDT, Height... Start Date: 09/24/21 Status: Ordered furosemide 20 mg oral tablet See Instructions, TAKE 1 TABLET BY MOUTH DAILY, # 30 tablet, Refills 0, Instructions Replace Required Details, Route to Pharmacy Electronically, [facility] #[id number], 149.86, cm, 10/03/20 15:02:00 EDT, Height, 73.3, kg, 10/03/20 15:02:00 EDT, D... Start Date: 12/01/20 Status: Ordered levothyroxine 0.1 mg oral tablet 1 tablet, By Mouth, Daily, # 90 tablet, 1 Refills, Maintenance, 09/24/21 11:40:00 EDT, [facility] #[id number], 147, cm, 08/03/21 15:14:00 EDT, Height, 60.8, [...] tablet, 0 Refills, Maintenance, 10/06/21 11:09:00 EDT, [facility] #[id number], Partial fill upon patient request if the [...] 180 tablet, 0 Refills, 09/24/21 11:39:00 EDT, [facility] #32696, 147, cm, 08/03/21 15:14:00 EDT, Height, 60.8, kg, 07/07/21 7:44:00 EDT, Dry Weight Start Date: 09/24/21 Status: Ordered sertraline 100 mg oral tablet 2 tablet = 200 mg, By Mouth, Daily, REFAXED, # 180 tablet, 3 Refills, Maintenance, 01/25/20 8:47:00EDT, [facility] #53082, 149.86, cm, 01/25/20 8:03:00 EDT, Height, 103, kg, 11/21/19 8:04:00 EDT, Dry Weight Start Date: 10/16/20 Status: Ordered Wellbutrin XL 150 mg/24 hours oral tablet, extended release 1 tablet = 150 mg, By Mouth, Every 24 hours, # 90 tablet, 1 Refills, Maintenance, 06/08/21 13:12:00[facility], [facility] #[id number], Partial fill upon patient request if the [...] oldest [Reference Range]: 1 Height 147 cm (10/06/21 10:57 AM) Weight 63.4 kg (10/06/21 10:57 AM) Body Mass Index [18.5-24.99] 29.34 *H* (10/06/21 10:57 AM) Weight Obtained Via Standing scale (10/06/21 10:57 AM) Social History Social History Type Response Smoking Status Never smoker; Tobacc o user in household: No entered on: 06/20/15 Sex Female
--- OUTSIDE RECORDS SUMMARY | 2022-11-20 11:48 | XMS_ITS | Continuity of Care Document ---
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 Name Role Phone Keven Robison MD Primary Care Physician Encounter [facility] Date(s): 06/10/20 - 07/10/[address] [place], [place] [address] Allergies, Adverse Reactions, Alerts Substance Reaction Severity Status NKA Active Immunizations Given and Recorded Vaccine Date Status Refusal Reason tetanus/diphtheria/pertussis, acel(Tdap) 1 10/19/17 Given influenza virus vaccine, inactivated 02/24/08 Give n Pneumococcal Vaccine (oldterm) 02/24/08 Given Not Given Vaccine Date Status Refusal Reason influenza virus vaccine, inactivated 06/11/15 Not Given Patient Refuses 1Result Comment: [10/19/2017] [id number] Medications atorvastatin 40 mg oral tablet 1 tablet = 40 mg, By Mouth, Daily, INCREASED DOSE, # 90 tablet, 1 Refills, Maintenance, 01/25/20 8:43:00 EDT, [facility] #[id number], INCREASED DOSE DC 20mg daily, 149.86, cm, 01/25/20 8:03:00 EDT, Height, 103, kg, 11/21/19 8:04:00 EDT, Dry Weight Start Date: 01/25/20 Status: Ordered Colace sodium 100 mg oral capsule 100 mg, 1, capsule, By Mouth, 2 times a day, with plenty of water, # 60 capsule, Refills 0, Tot. Refills 0, Maintenance, 05/22/20 12:36:00 EST, Route to Pharmacy Electronically, [facility], Partial fill upon patient request if the prescr... Start Date: 05/22/20 Status: Ordered CPAP Machine See Instructions, # 1 each, Maintenance, iVAPS with EPAP 5 and TVa of 5.5 and PS min of 4 and PS max of 12 and IA 20 and height 80 inches with 2 liters oxygen. DME Provider--[facility] 02/05/18 16:53:41 EDT, Compound Start Date: 02/05/18 Status: Ordered furosemide 20 mg oral tablet 20 mg, 1, tablet, By Mouth, Daily, # 90 tablet, Refills 1, Tot. Refills 1, Maintenance, 01/25/20 8:44:00 EDT, Route to Pharmacy Electronically, [facility] #[id number], 149.86, cm, 01/25/20 8:03:00 EDT, Height, 103, kg, 11/21/19 8:04:00 EDT, Dry W... Start Date: 01/25/20 Status: Ordered levothyroxine 0.1 mg oral tablet 1 tablet = 100 mcg, By Mouth, Daily, # 90 tablet, 1 Refills, Maintenance, 05/23/20 9:52:00 EST, Tablet, [facility] #[id number], 149.86, cm, 05/22/20 13:49:00 EST, Height, 100.91, [...] 05/22/20 12:36:00 EST, Route to Pharmacy Electronically, [facility], Partial fill upon patient [...] 180 tablet, 3 Refills, Maintenance, 01/25/20 8:47:00EDT, [facility] #[id number], 149.86, cm, 01/25/20 8:03:00 EDT, Height, 103, [...] Refills, Maintenance, 07/08/20 13:59:00 EDT, ER Tablet, [facility] #[id number], 149.86, cm, 05/30/20 10:26:00 EST, Height, 100.91, [...]
--- OUTSIDE RECORDS SUMMARY | 2022-11-20 11:48 | XMS_ITS | Continuity of Care Document ---
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 [place] Date(s): 12/02/20 - 01/03/21 [facility] [address] [place] [address]- Attending Physician: Keven Robison MD Allergies, Adverse [...] Not Given Patient Refuses 1Result Comment: [10/19/2017] [id number] Medications furosemide 20 mg oral tablet 1, tablet, By Mouth, Daily, # 30 tablet, Refills 0, Tot. Refills 0, Maintenance, 09/15/20 8:51:00 EDT, Route to Pharmacy Electronically, [facility] #[id number], 149.86, cm, 08/01/20 16:14:00 EDT, Height, 100.91, kg, 05/20/20 15:45:00 EST, Dry Weight Start Date: 09/15/20 Status: Ordered furosemide 20 mg oral tablet See Instructions, TAKE 1 TABLET BY MOUTH DAILY, # 30 tablet, Refills 0, Instructions Replace Required Details, Route to Pharmacy Electronically, [facility] #[id number], 149.86, cm, 10/03/20 15:02:00 EDT, Height, 73.3, kg, 10/03/20 15:02:00 EDT, D... Start Date: 12/29/20 Status: Ordered furosemide 20 mg oral tablet See Instructions, TAKE 1 TABLET BY MOUTH DAILY, # 30 tablet, Refills 0, Instructions Replace Required Details, Route to Pharmacy Electronically, [facility] #[id number], 149.86, cm, 10/03/20 15:02:00 EDT, Height, 73.3, kg, 10/03/20 15:02:00 EDT, D... Start Date: 12/01/20 Status: Ordered levothyroxine 0.1 mg oral tablet 1 tablet, By Mouth, Daily, # 90 tablet, 1 Refills, Maintenance, 11/11/20 16:04:00 EDT, [facility] #[id number], 149.86, cm, 10/03/20 15:02:00 EDT, Height, 73.3, [...] MOUTH DAILY, # 180 tablet, 0 Refills, [facility] #[id number], 149.86, cm, 10/03/20 15:02:00 EDT, Height, 73.3, kg, 10/03/20 15:02:00 EDT, Dry Weight Start Date: 12/29/20 Status: Ordered sertraline 100 mg oral tablet 2 tablet = 200 mg, By Mouth, Daily, REFAXED, # 180 tablet, 3 Refills, Maintenance, 01/25/20 8:47:00EDT, [facility] #[id number], 149.86, cm, 01/25/20 8:03:00 EDT, Height, 103, [...]
--- OUTSIDE RECORDS SUMMARY | 2022-11-20 11:48 | XMS_ITS | Continuity of Care Document ---
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 DO NOT CRUSH OR CHEW, 149.86, cm, 10/03/20 15:02:00 EDT, Height, 73.3, kg, 10/03/20 15:02:00 EDT,... Start Date: 02/17/21 Status: Ordered furosemide 20 mg oral tablet 1, tablet, By Mouth, Daily, # 30 tablet, Refills 0, Tot. Refills 0, Maintenance, 09/15/20 8:51:00 EDT, Route to Pharmacy Electronically, [facility] #[id number], 149.86, cm, 08/01/20 16:14:00 EDT, Height, 100.91, kg, 05/20/20 15:45:00 EST, Dry Weight Start Date: 09/15/20 Status: Ordered furosemide 20 mg oral tablet See Instructions, TAKE 1 TABLET BY MOUTH DAILY, # 30 tablet, Refills 2, Tot. Refills 2, 09/24/21 11:39:00 EDT, Instructions Replace Required Details, Route to Pharmacy Electronically, [facility] #[id number], 147, cm, 08/03/21 15:14:00 EDT, Height... Start Date: 09/24/21 Status: Ordered furosemide 20 mg oral tablet See Instructions, TAKE 1 TABLET BY MOUTH DAILY, # 30 tablet, Refills 0, Instructions Replace Required Details, Route to Pharmacy Electronically, [facility] #13373, 149.86, cm, 10/03/20 15:02:00 EDT, Height, 73.3, kg, 10/03/20 15:02:00 EDT, D... Start Date: 12/01/20 Status: Ordered levothyroxine 0.1 mg oral tablet 1 tablet, By Mouth, Daily, # 90 tablet, 1 Refills, Maintenance, 09/24/21 11:40:00 EDT, [facility] #41717, 147, cm, 08/03/21 15:14:00 EDT, Height, 60.8, kg, 07/07/21 7:44:00 EDT, Dry Weight Start Date: 09/24/21 Status: Ordered Multivitamin Daily, 0 Refills, Maintenance, 05/30/20 10:28:00 EST, Partial fill upon patient request if the prescription is for a schedule II opioid drug. Start Date: 2/19/21 Status: Ordered pantoprazole 40 mg oral delayed [...] tablet, 0 Refills, Maintenance, 10/06/21 11:09:00 EDT, [facility] #06014, Partial fill upon patient request if the [...] 180 tablet, 3 Refills, Maintenance, 01/25/20 8:47:00EDT, [facility] #70488, 149.86, cm, 01/25/20 8:03:00 EDT, Height, 103, kg, 11/21/19 8:04:00 EDT, Dry Weight Start Date: 01/25/20 Status: Ordered sertraline 100 mg oral tablet See Instructions, TAKE 2 TABLETS BY MOUTH DAILY, # 180 tablet, 3 Refills, 12/26/21 13:09:00 EDT, [facility] #21462, 147, cm, 10/06/21 10:57:00 EDT, Height, 60.8, kg, 07/07/21 7:44:00 EDT, Dry Weight Start Date: 12/26/21 Status: Ordered Wellbutrin XL 150 mg/24 hours oral tablet, extended release 1 tablet = 150 mg, By Mouth, Every 24 hours, # 90 tablet, 1 Refills, Maintenance, 06/08/21 13:12:00EST, [facility] #[id number], Partial fill upon patient request if the [...] sleep apnea) Confirmed Active Prediabetes Confirmed Active Vital Signs Most recent to oldest [Reference Range]: 1 Height 147 cm (01/01/22 10:56 AM) Weight 63.3 kg (01/01/22 10:56 AM) Pulse Rate [55-90 bpm] 72 bpm (01/01/22 10:56 AM) Body Mass Index [18.5-24.99 kg/m2] 29.29 kg/m2 *H* (01/01/22 10:56 AM) Blood Pressure [90-138/55-84 mm Hg] 138/ 95mm Hg (01/01/22 10:56 AM) Respiratory Rate [16-30 br/min] 16 br/mi n (01/01/22 10:56 AM) Temperature [96.8-100.4 DegF] 97.3 DegF (01/01/22 10:56 AM) Blood pressure sites Arm, right (01/01/22 10:56 AM) Temperature Route Temporal (01/01/22 10:56 AM) Weight Obtained Via Standing scale (01/01/22 10:56 AM) Social History Social History Type Response Smoking Status Never smoker; Tobacc o user in household: No entered on: 06/20/15 Sex Female Patient Care team information Personnel Name: Enriqueta DUMONT, Keven Cho Address: Address: [address] [place] [id number]-
[2022-11-20 11:49] LABS: MANUAL DIFF FLAG NO
--- OUTSIDE RECORDS SUMMARY | 2022-11-20 11:49 | XMS_ITS | Continuity of Care Document ---
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 Refills 2, 01/15/22 11:17:00 EDT, Instructions Replace Required Details, Route to Pharmacy Electronically, [facility] #[id number], 147, cm, 01/01/22 10:56:00 EDT, Height... Start Date: 01/15/22 Status: Ordered furosemide 20 mg oral tablet See Instructions, TAKE 1 TABLET BY MOUTH DAILY, # 30 tablet, Refills 0, Instructions Replace Required Details, Route to Pharmacy Electronically, [facility] #24741, 149.86, cm, 10/03/20 15:02:00 EDT, Height, 73.3, kg, 10/03/20 15:02:00 EDT, D... Start Date: 12/01/20 Status: Ordered levothyroxine 0.1 mg oral tablet 1 tablet, By Mouth, Daily, # 90 tablet, 0 Refills, Maintenance, 03/30/22 15:42:00 EST, [facility] #[id number], 147, cm, 01/01/22 10:56:00 EDT, Height, 60.8, [...] 180 tablet, 3 Refills, Maintenance, 01/25/20 8:47:00EDT, [facility] #[id number], 149.86, cm, 01/25/20 8:03:00 EDT, Height, 103, kg, 11/21/19 8:04:00 EDT, Dry Weight Start Date: 01/25/20 Status: Ordered sertraline 100 mg oral tablet See Instructions, TAKE 2 TABLETS BY MOUTH DAILY, # 180 tablet, 3 Refills, 12/26/21 13:09:00 EDT, [facility] #[id number], 147, cm, 10/06/21 10:57:00 EDT, Height, 60.8, kg, 07/07/21 7:44:00 EDT, Dry Weight Start Date: 12/26/21 Status: Ordered Wellbutrin XL 150 mg/24 hours oral tablet, extended release 1 tablet = 150 mg, By Mouth, Every 24 hours, # 90 tablet, 0 Refills, Maintenance, 03/30/22 15:48:00EST, [facility] #[id number], Partial fill upon patient request if the [...] Care Nurse Name: Swati Thomas NP Position: [facility] PCO Associate Professional Member Role: Primary Care Nurse Name: Kyara Catalan RN Position: [facility] RN Member Role: Primary Care Nurse Name: Torrey Blanchard MD Position: [facility] HEALTH INFORMATION CODER MD Member Role: [facility] INFORMATION [facility] Physician Address: Address: [address] [place] [address] [employer], [place] [address]- [place] Name: Paz Villarreal RN Position: [facility] SN RN Member Role: Primary Care Nurse Name: Gege Paulino NP Position: [facility] Associate Professional Member Role: Primary Care Nurse Address: Address: [address] [facility] [place] [address]- [place] Name: Hanh Devlin RN Position: [facility] RN Member Role: Primary Care Nurse Name: Christina Guerrero RN Position: S RN Member Role: Primary Care Nurse Name: Jennifer Zendejas RN Position: [facility] RN Member Role: Primary Care Nurse Name: Keven Robison MD Position: [facility] Primary Care Physician Member Role: PCP Address: Address: [address] [place] [address]- [place] Name: Dary Jensen RN Position: [facility] RN Member Role: Primary Care Nurse Care Team Related Persons Name: JUDI MARTINI Address: [address] [address]
--- OUTSIDE RECORDS SUMMARY | 2022-11-20 11:49 | XMS_ITS | Continuity of Care Document ---
Author Name Unknown Organization [facility] Address [address] [place] [address] ve [address] [place] [address]- Care Team Providers Care Tank Riveter Name Role Phone Enriqueta DUMONT, Keven Cho Primary Care Physician Encounter [facility] [place] Date(s): 10/19/19 - 10/26/[address] [place] [address]- [facility] Attending Physician: Dary Palma RD Allergies, Adverse Reactions, Alerts Substance Reaction Severity Status NKA Active Immunizations Given and Recorded Vaccine Date Status Refusal Reason tetanus/diphtheria/pertussis, acel(Tdap) 1 10/19/17 Given influenza virus vaccine, inactivated 02/24/08 Give n Pneumococcal Vaccine (oldterm) 02/24/08 Given Not Given Vaccine Date Status Refusal Reason influenza virus vaccine, inactivated 06/11/15 Not Given Patient Refuses 1Result Comment: [10/19/2017] [id number] Medications atorvastatin 40 mg oral tablet 1 tablet = 40 mg, By Mouth, Daily, INCREASED DOSE, # 90 tablet, 1 Refills, Maintenance, 07/20/19 10:58:00 EDT, [facility] #[id number], INCREASED DOSE DC 20mg daily, 147.32, cm, 06/22/19 9:10:00 EDT, Height, 108.3, kg, 12/05/18 11:18:00 EDT, Dry W... Start Date: 07/20/19 Status: Ordered CPAP Machine See Instructions, # 1 each, Maintenance, iVAPS with EPAP 5 and TVa of 5.5 and PS min of 4 and PS max of 12 and SD 20 and height 80 inches with 2 liters oxygen. DME Provider--[facility]., 10/28/18 16:53:41 EDT, Compound Start Date: 02/05/18 Status: Ordered furosemide 20 mg oral tablet 20 mg, 1, tablet, By Mouth, Daily, # 30 tablet, Refills 5, Tot. Refills 5, Maintenance, 10/10/19 16:17:00 EDT, Route to Pharmacy Electronically, [facility] #[id number], 147.32, cm, 10/01/19 9:28:00 EDT, Height, 108.3, kg, 12/05/18 11:18:00 EDT, D... Start Date: 10/10/19 Status: Ordered levothyroxine 0.1 mg oral tablet 1 tablet = 100 mcg, By Mouth, Daily, # 90 tablet, 1 Refills, Maintenance, 05/11/19 19:48:00 EST, Tablet, [facility] #[id number], 147.32, cm, 04/16/19 8:24:00 EST, Height, 108.3, kg, 12/05/18 11:18:00 EDT, Dry Weight Start Date: 05/11/19 Status: Ordered metFORMIN 500 mg oral tablet, extended release 1 tablet = 500 mg, By Mouth, Daily, # 30 tablet, 5 Refills, Maintenance, 10/10/19 16:17:00 EDT, ER Tablet, [facility] #[id number], 147.32, cm, 10/01/19 9:28:00 EDT, Height, 108.3, [...] tablet, 1 Refills, Maintenance, 08/31/19 13:43:00 EDT, [facility] #[id number], 147.32, cm, 08/30/19 12:07:00 EDT, Height, 108.3, kg, 12/05/18 11:18:00 EDT, Dry Weight Start Date: 08/31/19 Status: Ordered Wellbutrin XL 150 mg/24 hours oral tablet, extended release 1 tablet = 150 mg, By Mouth, Every 24 hours, do not crush or chew., # 30 tablet, 5 Refills, Maintenance, 08/14/19 14:27:00 EDT, ER Tablet, [facility] #[id number], 147.32, cm, 06/22/19 9:10:00 EDT, Height, 108.3, [...]
--- OUTSIDE RECORDS SUMMARY | 2022-11-20 11:49 | XMS_ITS | Continuity of Care Document ---
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 DO NOT CRUSH OR CHEW, 149.86, cm, 10/03/20 15:02:00 EDT, Height, 73.3, kg, 10/03/20 15:02:00 EDT,... Start Date: 02/17/21 Status: Ordered furosemide 20 mg oral tablet 1, tablet, By Mouth, Daily, # 30 tablet, Refills 0, Tot. Refills 0, Maintenance, 09/15/20 8:51:00 EDT, Route to Pharmacy Electronically, [facility] #[id number], 149.86, cm, 08/01/20 16:14:00 EDT, Height, 100.91, kg, 05/20/20 15:45:00 EST, Dry Weight Start Date: 09/15/20 Status: Ordered furosemide 20 mg oral tablet See Instructions, TAKE 1 TABLET BY MOUTH DAILY, # 30 tablet, Refills 2, Tot. Refills 2, 09/24/21 11:39:00 EDT, Instructions Replace Required Details, Route to Pharmacy Electronically, [facility] #[id number], 147, cm, 08/03/21 15:14:00 EDT, Height... Start Date: 09/24/21 Status: Ordered furosemide 20 mg oral tablet See Instructions, TAKE 1 TABLET BY MOUTH DAILY, # 30 tablet, Refills 0, Instructions Replace Required Details, Route to Pharmacy Electronically, [facility] #[id number], 149.86, cm, 10/03/20 15:02:00 EDT, Height, 73.3, kg, 10/03/20 15:02:00 EDT, D... Start Date: 12/01/20 Status: Ordered levothyroxine 0.1 mg oral tablet 1 tablet, By Mouth, Daily, # 90 tablet, 1 Refills, Maintenance, 09/24/21 11:40:00 EDT, [facility] #[id number], 147, cm, 08/03/21 15:14:00 EDT, Height, 60.8, [...] tablet, 0 Refills, Maintenance, 10/06/21 11:09:00 EDT, [facility] #[id number], Partial fill upon patient request if the [...] 180 tablet, 0 Refills, 09/24/21 11:39:00 EDT, [facility] #[id number], 147, cm, 08/03/21 15:14:00 EDT, Height, 60.8, kg, 07/07/21 7:44:00 EDT, Dry Weight Start Date: 09/24/21 Status: Ordered sertraline 100 mg oral tablet 2 tablet = 200 mg, By Mouth, Daily, REFAXED, # 180 tablet, 3 Refills, Maintenance, 01/25/20 8:47:00EDT, [facility] #[id number], 149.86, cm, 01/25/20 8:03:00 EDT, Height, 103, kg, 11/21/19 8:04:00 EDT, Dry Weight Start Date: 01/25/20 Status: Ordered Wellbutrin XL 150 mg/24 hours oral tablet, extended release 1 tablet = 150 mg, By Mouth, Every 24 hours, # 90 tablet, 1 Refills, Maintenance, 06/08/21 13:12:00EST, [facility] #[id number], Partial fill upon patient request if the [...]
--- OUTSIDE RECORDS SUMMARY | 2022-11-20 11:49 | XMS_ITS | Continuity of Care Document ---
Author Name Unknown Organization [facility] Address Unknown Care Team Providers Care Account Supervisor Name Role Phone Keven Robison MD Primary Care Physician Encounter [facility] [place] Date(s): 05/29/21 - 06/28/21 [facility] Attending Physician: AdmtrLudy Admitting Physician: AdmtrLudy Referring Physician: Admtr, Ar8 [...] Not Given Patient Refuses 1Result Comment: [10/19/2017] [id number] Medications buPROPion 150 mg/24 hours (XL) oral tablet, extended release 1 tablet, By Mouth, Every 24 hours, DO NOT CRUSH OR CHEW, # 90 tablet, 1 Refills, [facility] #[id number], 90, TAKE 1 TABLET BY MOUTH EVERY 24 HOURS. DO NOT CRUSH OR CHEW, 149.86, cm, 10/03/20 15:02:00 EDT, Height, 73.3, kg, 10/03/20 15:02:00 EDT,... Start Date: 02/17/21 Status: Ordered furosemide 20 mg oral tablet 1, tablet, By Mouth, Daily, # 30 tablet, Refills 0, Tot. Refills 0, Maintenance, 09/15/20 8:51:00 EDT, Route to Pharmacy Electronically, [facility] #[id number], 149.86, cm, 08/01/20 16:14:00 EDT, Height, 100.91, kg, 05/20/20 15:45:00 EST, Dry Weight Start Date: 09/15/20 Status: Ordered furosemide 20 mg oral tablet See Instructions, TAKE 1 TABLET BY MOUTH DAILY, # 30 tablet, Refills 0, Instructions Replace Required Details, Route to Pharmacy Electronically, [facility] #21624, 149.86, cm, 10/03/20 15:02:00 EDT, Height, 73.3, kg, 10/03/20 15:02:00 EDT, D... Start Date: 12/29/20 Status: Ordered furosemide 20 mg oral tablet See Instructions, TAKE 1 TABLET BY MOUTH DAILY, # 30 tablet, Refills 0, Instructions Replace Required Details, Route to Pharmacy Electronically, [facility] #[id number], 149.86, cm, 10/03/20 15:02:00 EDT, Height, 73.3, kg, 10/03/20 15:02:00 EDT, D... Start Date: 12/01/20 Status: Ordered levothyroxine 0.1 mg oral tablet 1 tablet, By Mouth, Daily, # 90 tablet, 1 Refills, Maintenance, 11/11/20 16:04:00 EDT, [facility] #[id number], 149.86, cm, 10/03/20 15:02:00 EDT, Height, 73.3, [...] MOUTH DAILY, # 180 tablet, 0 Refills, [facility] #[id number], 149.86, cm, 10/03/20 15:02:00 EDT, Height, 73.3, kg, 10/03/20 15:02:00 EDT, Dry Weight Start Date: 12/29/20 Status: Ordered sertraline 100 mg oral tablet 2 tablet = 200 mg, By Mouth, Daily, REFAXED, # 180 tablet, 3 Refills, Maintenance, 01/25/20 8:47:00EDT, [facility] #92611, 149.86, cm, 01/25/20 8:03:00 EDT, Height, 103, kg, 11/21/19 8:04:00 EDT, Dry Weight Start Date: 01/25/20 Status: Ordered Wellbutrin XL 150 mg/24 hours oral tablet, extended release 1 tablet = 150 mg, By Mouth, Every 24 hours, # 90 tablet, 1 Refills, Maintenance, 06/08/21 13:12:00EST, [facility] #[id number], Partial fill upon patient request if the [...]
--- OUTSIDE RECORDS SUMMARY | 2022-11-20 11:49 | XMS_ITS | Continuity of Care Document ---
Author Name Unknown Organization [facility] Norm lt Address [address] [place] [address]- Care Team Providers Care Honey Extractor Name Role Phone Keven Robison MD Primary Care Physician Encounter [facility] [place] Date(s): 08/30/19 - 09/06/19 [facility] [address] [place] [address]- [facility] Attending Physician: Keven Robison MD Allergies, Adverse Reactions, Alerts Substance Reaction Severity Status NKA Active Immunizations Given and Recorded Vaccine Date Status Refusal Reason tetanus/diphtheria/pertussis, acel(Tdap) 1 10/19/17 Given influenza virus vaccine, inactivated 02/24/08 Give n Pneumococcal Vaccine (oldterm) 02/24/08 Given Not Given Vaccine Date Status Refusal Reason influenza virus vaccine, inactivated 06/11/15 Not Given Patient Refuses 1Result Comment: [10/19/2017] [id number] Medications atorvastatin 40 mg oral tablet 1 tablet = 40 mg, By Mouth, Daily, INCREASED DOSE, # 90 tablet, 1 Refills, Maintenance, 07/20/19 10:58:00 EDT, [facility] #[id number], INCREASED DOSE DC 20mg daily, 147.32, cm, 06/22/19 9:10:00 EDT, Height, 108.3, kg, 12/05/18 11:18:00 EDT, Dry W... Start Date: 07/20/19 Status: Ordered CPAP Machine See Instructions, # 1 each, Maintenance, iVAPS with EPAP 5 and TVa of 5.5 and PS min of 4 and PS max of 12 and AK 20 and height 80 inches with 2 liters oxygen. DME Provider--[facility]., 10/28/18 16:53:41 EDT, Compound Start Date: 02/05/18 Status: Ordered furosemide 20 mg oral tablet 20 mg, 1, tablet, By Mouth, Daily, # 30 tablet, Refills 2, Tot. Refills 2, Maintenance, 07/20/19 9:06:00 EDT, Route to Pharmacy Electronically, [facility] #[id number], 147.32, cm, 06/22/19 9:10:00 EDT, Height, 108.3, kg, 12/05/18 11:18:00 EDT, . Start Date: 07/20/19 Status: Ordered levothyroxine 0.1 mg oral tablet 1 tablet = 100 mcg, By Mouth, Daily, # 90 tablet, 1 Refills, Maintenance, 05/11/19 19:48:00 EST, Tablet, [facility] #[id number], 147.32, cm, 04/16/19 8:24:00 EST, Height, 108.3, [...] tablet, 1 Refills, Maintenance, 08/31/19 13:43:00 EDT, [facility] #[id number], 147.32, cm, 08/30/19 12:07:00 EDT, Height, 108.3, kg, 12/05/18 11:18:00 EDT, Dry Weight Start Date: 08/31/19 Status: Ordered Wellbutrin XL 150 mg/24 hours oral tablet, extended release 1 tablet = 150 mg, By Mouth, Every 24 hours, do not crush or chew., # 30 tablet, 5 Refills, Maintenance, 08/14/19 14:27:00 EDT, ER Tablet, [facility] #68325, 147.32, cm, 06/22/19 9:10:00 EDT, Height, 108.3, [...] oldest [Reference Range]: 1 Height 147.32 cm (08/30/19 12:07 PM) Social History Social History Type Response Smoking Status Never smoker; Tobacc o user in household: No entered on: 06/20/15 Sex
--- OUTSIDE RECORDS SUMMARY | 2022-11-20 11:49 | XMS_ITS | Continuity of Care Document ---
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 Refills 2, 01/15/22 11:17:00 EDT, Instructions Replace Required Details, Route to Pharmacy Electronically, [facility] #[id number], 147, cm, 01/01/22 10:56:00 EDT, Height... Start Date: 01/15/22 Status: Ordered furosemide 20 mg oral tablet 20 mg, 1, tablet, By Mouth, Daily, # 30 tablet, Refills 0, Tot. Refills 0, 07/20/22 15:16:00 EDT, Route to Pharmacy Electronically, [facility] #[id number], 147, cm, 05/31/22 15:05:00 EST, Height, 60.8, kg, 07/07/21 7:44:00 EDT, Dry Weight Start Date: 07/20/22 Status: Ordered levothyroxine 0.1 mg oral tablet 1 tablet, By Mouth, Daily, # 90 tablet, 0 Refills, Maintenance, 07/14/22 20:53:00 EDT, [facility] #[id number], 147, cm, 05/31/22 15:05:00 EST, Height, 60.8, [...] 90 tablet, 3 Refills, Maintenance, 08/17/22 14:51:00EDT, [facility] #[id number], Partial fill upon patient request if the [...] Team Personnel Name: Bozena Bateman RN Position: [facility] SN RN Member Role: Primary Care Nurse Name: Swati Thomas NP Position: [facility] Associate Professional Member Role: Primary Care Nurse Name: Kyara Catalan RN Position: [facility] RN Member Role: Primary Care Nurse Name: Torrey Blanchard MD Position: [facility] TRANSITIONAL STUDIES INSTRUCTOR MD Member Role: Lifetime TRANSITIONAL STUDIES INSTRUCTOR Physician Address: Address: [address] [place] [address] [employer], [place] [address]- Name: Paz Villarreal RN Position: [facility] SN RN Member Role: Primary Care Nurse Name: Gege Paulino NP Position: [facility] Associate Professional Member Role: Primary Care Nurse Address: Address: [address] [facility] [place] [address]- [place] Name: Hanh Devlin RN Position: [facility] RN Member Role: Primary Care Nurse Name: Christina Guerrero RN Position: [facility] RN Member Role: Primary Care Nurse Name: Jennifer Zendejas RN Position: [facility] RN Member Role: Primary Care Nurse Name: Keven Robison MD Position: [facility] Physician - Primary Care Member Role: PCP Address: Address: [address] [place] [address]- [place] Name: Dary Jensen RN Position: [facility] RN Member Role: Primary Care Nurse Care Team Related Persons Name: JUDI MARTINI Address: [address] [address]
--- OUTSIDE RECORDS SUMMARY | 2022-11-20 11:49 | XMS_ITS | Continuity of Care Document ---
Author Name Unknown Organization [facility] Address [address] [place] [address] [address] [place] [address]- Care Team Providers Care Checkerer Hand Name Role Phone Enriqueta DUMONT, Keven Cho Primary Care Physician Encounter [facility] [place] Date(s): 01/19/20 - 05/18/[address] [place] [address]- Attending Physician: Dc Cobian MD Allergies, Adverse Reactions, Alerts Substance Reaction Severity Status NKA Active Immunizations Given and Recorded Vaccine Date Status Refusal Reason tetanus/diphtheria/pertussis, acel(Tdap) 1 10/19/17 Given influenza virus vaccine, inactivated 02/24/08 Give n Pneumococcal Vaccine (oldterm) 02/24/08 Given Not Given Vaccine Date Status Refusal Reason influenza virus vaccine, inactivated 06/11/15 Not Given Patient Refuses 1Result Comment: [10/19/2017] [id number] Medications atorvastatin 40 mg oral tablet 1 tablet = 40 mg, By Mouth, Daily, INCREASED DOSE, # 90 tablet, 1 Refills, Maintenance, 01/25/20 8:43:00 EDT, [facility] #[id number], INCREASED DOSE DC 20mg daily, 149.86, cm, [...] 01/25/20 8:44:00 EDT, Route to Pharmacy Electronically, [facility] #[id number], 149.86, cm, 01/25/20 8:03:00 EDT, Height, 103, kg, 11/21/19 8:04:00 EDT, Dry W... Start Date: 01/25/20 Status: Ordered levothyroxine 0.1 mg oral tablet 1 tablet = 100 mcg, By Mouth, Daily, # 90 tablet, 1 Refills, Maintenance, 11/20/19 12:52:00 EDT, Tablet, [facility] #[id number], 147.32, cm, 10/01/19 9:28:00 EDT, Height, 108.3, kg, 12/05/18 11:18:00 EDT, Dry Weight Start Date: 11/20/19 Status: Ordered metFORMIN 500 mg oral tablet, extended release 1 tablet = 500 mg, By Mouth, Daily, # 90 tablet, 1 Refills, Maintenance, 04/07/20 16:17:00 EST, ER Tablet, [facility] #75443, 149.86, cm, 01/25/20 8:03:00 EDT, Height, 103, [...] 180 tablet, 3 Refills, Maintenance, 01/25/20 8:47:00EDT, [facility] #30076, 149.86, cm, 01/25/20 8:03:00 EDT, Height, 103, kg, 11/21/19 8:04:00 EDT, Dry Weight Start Date: 01/25/20 Status: Ordered Wellbutrin XL 150 mg/24 hours oral tablet, extended release 1 tablet = 150 mg, By Mouth, Every 24 hours, do not crush or chew., # 90 tablet, 1 Refills, Maintenance, 01/25/20 8:44:00 EDT, ER Tablet, [facility] #78356, 149.86, cm, 01/25/20 8:03:00 EDT, Height, 103, [...]
--- OUTSIDE RECORDS SUMMARY | 2022-11-20 11:49 | XMS_ITS | Continuity of Care Document ---
Author Name Unknown Organization [facility] Norm lt Address [address] [place] [address]- Care Team Providers Care Carrot Buncher Name Role Phone Enriqueta DUMONT, Keven Cho Primary Care Physician [phone] [place] [facility] [place]s): 12/03/19 - 01/02/20 [facility] Adult [address] [place] [address]- [facility] Allergies, Adverse Reactions, Alerts Substance Reaction Severity Status NKA Active Immunizations Given and Recorded Vaccine Date Status Refusal Reason tetanus/diphtheria/pertussis, acel(Tdap) 1 10/19/17 Given influenza virus vaccine, inactivated 02/24/08 Give n Pneumococcal Vaccine (oldterm) 02/24/08 Given Not Given Vaccine Date Status Refusal Reason influenza virus vaccine, inactivated 06/11/15 Not Given Patient Refuses 1Result Comment: [10/19/2017] [id number] Medications atorvastatin 40 mg oral tablet 1 tablet = 40 mg, By Mouth, Daily, INCREASED DOSE, # 90 tablet, 1 Refills, Maintenance, 07/20/19 10:58:00 EDT, [facility] #[id number], INCREASED DOSE DC 20mg daily, 147.32, cm, 06/22/19 9:10:00 EDT, Height, 108.3, kg, 12/05/18 11:18:00 EDT, Dry W... Start Date: 07/20/19 Status: Ordered CPAP Machine See Instructions, # 1 each, Maintenance, iVAPS with EPAP 5 and TVa of 5.5 and PS min of 4 and PS max of 12 and [place] 20 and height 80 inches with 2 liters oxygen. DME Provider--[facility]., 02/05/18 16:53:41 EDT, Compound Start Date: 02/05/18 Status: Ordered furosemide 20 mg oral tablet 20 mg, 1, tablet, By Mouth, Daily, # 30 tablet, Refills 5, Tot. Refills 5, Maintenance, 10/10/19 16:17:00 EDT, Route to Pharmacy Electronically, [facility] #[id number], 147.32, cm, 10/01/19 9:28:00 EDT, Height, 108.3, kg, 12/05/18 11:18:00 EDT, D... Start Date: 10/10/19 Status: Ordered levothyroxine 0.1 mg oral tablet 1 tablet = 100 mcg, By Mouth, Daily, # 90 tablet, 1 Refills, Maintenance, 11/20/19 12:52:00 EDT, Tablet, [facility] #02523, 147.32, cm, 10/01/19 9:28:00 EDT, Height, 108.3, kg, 12/05/18 11:18:00 EDT, Dry Weight Start Date: 11/20/19 Status: Ordered metFORMIN 500 mg oral tablet, extended release 1 tablet = 500 mg, By Mouth, Daily, # 30 tablet, 5 Refills, Maintenance, 10/10/19 16:17:00 EDT, ER Tablet, [facility] #98694, 147.32, cm, 10/01/19 9:28:00 EDT, Height, 108.3, [...] tablet, 1 Refills, Maintenance, 12/03/19 15:01:00 EDT, [facility] #76505, 149.86, cm, 11/21/19 8:04:00 EDT, Height, 103, kg, 11/21/19 8:04:00 EDT, Dry Weight Start Date: 12/03/19 Status: Ordered Wellbutrin XL 150 mg/24 hours oral tablet, extended release 1 tablet = 150 mg, By Mouth, Every 24 hours, do not crush or chew., # 30 tablet, 5 Refills, Maintenance, 08/14/19 14:27:00 EDT, ER Tablet, [facility] #92244, 147.32, cm, 06/22/19 9:10:00 EDT, Height, 108.3, [...]
--- OUTSIDE RECORDS SUMMARY | 2022-11-20 11:49 | XMS_ITS | Continuity of Care Document ---
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 Role Phone Enriqueta DUMONT, Keven Cho Primary Care Physician Encounter [facility] [place] Date(s): 05/22/19 - 06/01/[address] [place] [address]- [facility] Attending Physician: Ludy Thakur Admitting Physician: AdmLudy [...] Not Given Patient Refuses 1Result Comment: [10/19/2017] [id number] Medications atorvastatin 40 mg oral tablet 1 tablet = 40 mg, By Mouth, Daily, INCREASED DOSE, # 30 tablet, 6 Refills, Maintenance, 01/24/19 16:53:45 EDT, INCREASED DOSE DC 20mg daily Start Date: 01/24/19 Status: Ordered CPAP Machine See Instructions, # 1 each, Maintenance, iVAPS with EPAP 5 and TVa of 5.5 and PS min of 4 and PS max of 12 and [place] 20 and height 80 inches with 2 liters oxygen. DME Provider--[facility]., 02/05/18 16:53:41 EDT, Compound Start Date: 02/05/18 Status: Ordered furosemide 20 mg oral tablet 20 mg, 1, tablet, By Mouth, Daily, # 30 tablet, Refills 1, Tot. Refills 1, Maintenance, 05/11/19 19:48:00 EST, Route to Pharmacy Electronically, [facility] #[id number], 147.32, cm, 04/16/19 8:24:00 EST, Height, 108.3, kg, 12/05/18 11:18:00 EDT, D... Start Date: 05/11/19 Status: Ordered levothyroxine 0.1 mg oral tablet 1 tablet = 100 mcg, By Mouth, Daily, # 90 tablet, 1 Refills, Maintenance, 05/11/19 19:48:00 EST, Tablet, [facility] #[id number], 147.32, cm, 04/16/19 8:24:00 EST, Height, 108.3, kg, 12/05/18 11:18:00 EDT, Dry Weight Start Date: 05/11/19 Status: Ordered metFORMIN 500 mg oral tablet, extended release 1 tablet = 500 mg, By Mouth, Daily, # 30 tablet, 5 Refills, Maintenance, 04/06/19 12:06:00 EST, ER Tablet, [facility], 147.32, cm, 03/05/19 9:49:00 EST, Height, 108.3, kg, 12/05/18 11:18:00 EDT, Dry Weight Start Date: 04/06/19 Stop Date: 10/03/19 Status: Ordered Multivitamin Daily, 0 Refills, Maintenance, 05/22/19 14:28:00 EST Start Date: 05/22/19 Status: Ordered pantoprazole 40 mg oral delayed release tablet See Instructions, # 90 tablet, take 1 tablet by mouth once daily, [facility] Start Date: 01/14/19 Status: Ordered traZODone 50 mg oral tablet 50 mg, 1, tablet, By Mouth, Daily at bedtime, with food, # 30 tablet, Refills 5, Tot. Refills 5, Maintenance, 02/09/19 11:41:02 EDT, Route to Pharmacy Electronically, [id number], [facility] Start Date: 02/09/19 Stop Date: 08/08/19 Status: [...]
--- OUTSIDE RECORDS SUMMARY | 2022-11-20 11:49 | XMS_ITS | Continuity of Care Document ---
Author Name Unknown Organization [facility] Norm Address [address] [place] [address]- Care Team Providers Care Cigarette Roller Name Role Phone Enriqueta DUMONT, Keven Cho Primary Care Physician [phone] [place] [facility] [place]21 [facility] Adult [address] [place] [address]- Attending Physician: AdmEdmond [id number] Admitting Physician: AdmtrLudy [...] Not Given Patient Refuses 1Result Comment: [10/19/2017] [id number] Medications furosemide 20 mg oral tablet 1, tablet, By Mouth, Daily, # 30 tablet, Refills 0, Tot. Refills 0, Maintenance, 09/15/20 8:51:00 EDT, Route to Pharmacy Electronically, [facility] #[id number], 149.86, cm, 08/01/20 16:14:00 EDT, Height, 100.91, kg, 05/20/20 15:45:00 EST, Dry Weight Start Date: 09/15/20 Status: Ordered furosemide 20 mg oral tablet See Instructions, TAKE 1 TABLET BY MOUTH DAILY, # 30 tablet, Refills 0, Instructions Replace Required Details, Route to Pharmacy Electronically, [facility] #[id number], 149.86, cm, 10/03/20 15:02:00 EDT, Height, 73.3, kg, 10/03/20 15:02:00 EDT, D... Start Date: 12/29/20 Status: Ordered furosemide 20 mg oral tablet See Instructions, TAKE 1 TABLET BY MOUTH DAILY, # 30 tablet, Refills 0, Instructions Replace Required Details, Route to Pharmacy Electronically, [id number], 149.86, cm, 10/03/20 15:02:00 EDT, Height, 73.3, kg, 10/03/20 15:02:00 EDT, D... Start Date: 12/01/20 Status: Ordered levothyroxine 0.1 mg oral tablet 1 tablet, By Mouth, Daily, # 90 tablet, 1 Refills, Maintenance, 11/11/20 16:04:00 EDT, [facility] #[id number], 149.86, cm, 10/03/20 15:02:00 EDT, Height, 73.3, [...] MOUTH DAILY, # 180 tablet, 0 Refills, [facility] #[id number], 149.86, cm, 10/03/20 15:02:00 EDT, Height, 73.3, kg, 10/03/20 15:02:00 EDT, Dry Weight Start Date: 12/29/20 Status: Ordered sertraline 100 mg oral tablet 2 tablet = 200 mg, By Mouth, Daily, REFAXED, # 180 tablet, 3 Refills, Maintenance, 01/25/20 8:47:00EDT, [facility] #[id number], 149.86, cm, 01/25/20 8:03:00 EDT, Height, 103, [...]
--- OUTSIDE RECORDS SUMMARY | 2022-11-20 11:49 | XMS_ITS | Continuity of Care Document ---
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 Refills 0, Maintenance, 09/15/20 8:51:00 EDT, Route to Pharmacy Electronically, [facility] #[id number], 149.86, cm, 08/01/20 16:14:00 EDT, Height, 100.91, kg, 05/20/20 15:45:00 EST, Dry Weight Start Date: 09/15/20 Status: Ordered furosemide 20 mg oral tablet See Instructions, TAKE 1 TABLET BY MOUTH DAILY, # 30 tablet, Refills 0, Instructions Replace Required Details, Route to Pharmacy Electronically, [facility] #[id number], 149.86, cm, 10/03/20 15:02:00 EDT, Height, 73.3, kg, 10/03/20 15:02:00 EDT, D... Start Date: 12/29/20 Status: Ordered furosemide 20 mg oral tablet See Instructions, TAKE 1 TABLET BY MOUTH DAILY, # 30 tablet, Refills 0, Instructions Replace Required Details, Route to Pharmacy Electronically, [facility] #[id number], 149.86, cm, 10/03/20 15:02:00 EDT, Height, 73.3, kg, 10/03/20 15:02:00 EDT, D... Start Date: 12/01/20 Status: Ordered levothyroxine 0.1 mg oral tablet 1 tablet, By Mouth, Daily, # 90 tablet, 1 Refills, Maintenance, 11/11/20 16:04:00 EDT, [facility] #[id number], 149.86, cm, 10/03/20 15:02:00 EDT, Height, 73.3, [...] MOUTH DAILY, # 180 tablet, 0 Refills, [facility] #[id number], 149.86, cm, 10/03/20 15:02:00 EDT, Height, 73.3, kg, 10/03/20 15:02:00 EDT, Dry Weight Start Date: 12/29/20 Status: Ordered sertraline 100 mg oral tablet 2 tablet = 200 mg, By Mouth, Daily, REFAXED, # 180 tablet, 3 Refills, Maintenance, 01/25/20 8:47:00EDT, [facility] #[id number], 149.86, cm, 01/25/20 8:03:00 EDT, Height, 103, [...]
--- OUTSIDE RECORDS SUMMARY | 2022-11-20 11:49 | XMS_ITS | Continuity of Care Document ---
Author Name Unknown Organization [facility] Address Unknown Care Team Providers Care Cashier Credit Name Role Phone Enriqueta DUMONT, Keven Cho Primary Care Physician Encounter [facility] [place] Date(s): 06/08/21 - 07/08/21 [facility] Allergies, Adverse Reactions, Alerts No Known Allergies Immunizations Given and Recorded Vaccine Date Status Refusal Reason SARS-CoV-2 (COVID-19) mRNA BNT-162b2 vac 10/13/20 Recorded SARS-CoV-2 (COVID-19) mRNA BNT-162k4 vac 08/30/20 Recorded tetanus/diphtheria/pertussis, acel(Tdap) 1 10/19/17 Given tetanus/diphtheria/pertussis, acel(Tdap) 05/20/11 Recorded Measles/Mumps/Rubella Virus Vaccine 06/21/11 Recor ded Measles/Mumps/Rubella Virus Vaccine 05/20/11 Recor ded influenza virus vaccine, inactivated 02/24/08 Give n Pneumococcal Vaccine (oldterm) 02/24/08 Given Not Given Vaccine Date Status Refusal Reason influenza virus vaccine, inactivated 06/11/15 Not Given Patient Refuses 1Result Comment: [10/19/2017] [id number] Medications buPROPion 150 mg/24 hours (XL) oral tablet, extended release 1 tablet, By Mouth, Every 24 hours, DO NOT CRUSH OR CHEW, # 90 tablet, 1 Refills, [facility] #[id number], 90, TAKE 1 TABLET BY MOUTH EVERY 24 HOURS. DO NOT CRUSH OR CHEW, 149.86, cm, 10/03/20 15:02:00 EDT, Height, 73.3, kg, 10/03/20 15:02:00 EDT,... Start Date: 02/17/21 Status: Ordered furosemide 20 mg oral tablet 1, tablet, By Mouth, Daily, # 30 tablet, Refills 0, Tot. Refills 0, Maintenance, 09/15/20 8:51:00 EDT, Route to Pharmacy Electronically, [facility] #[id number], 149.86, cm, 08/01/20 16:14:00 EDT, Height, 100.91, kg, 05/20/20 15:45:00 EST, Dry Weight Start Date: 09/15/20 Status: Ordered furosemide 20 mg oral tablet See Instructions, TAKE 1 TABLET BY MOUTH DAILY, # 30 tablet, Refills 0, Instructions Replace Required Details, Route to Pharmacy Electronically, [facility][id number], 149.86, cm, 10/03/20 15:02:00 EDT, Height, 73.3, kg, 10/03/20 15:02:00 EDT, D... Start Date: 12/29/20 Status: Ordered furosemide 20 mg oral tablet See Instructions, TAKE 1 TABLET BY MOUTH DAILY, # 30 tablet, Refills 0, Instructions Replace Required Details, [id number], 149.86, cm, 10/03/20 15:02:00 EDT, Height, 73.3, kg, 10/03/20 15:02:00 EDT, D... Start Date: 12/01/20 Status: Ordered levothyroxine 0.1 mg oral tablet 1 tablet, By Mouth, Daily, # 90 tablet, 1 Refills, Maintenance, 11/11/20 16:04:00 EDT, [facility][id number], 149.86, cm, 10/03/20 15:02:00 EDT, Height, 73.3, [...] MOUTH DAILY, # 180 tablet, 0 Refills, [facility] #[id number], 149.86, cm, 10/03/20 15:02:00 EDT, Height, 73.3, kg, 10/03/20 15:02:00 EDT, Dry Weight Start Date: 12/29/20 Status: Ordered sertraline 100 mg oral tablet 2 tablet = 200 mg, By Mouth, Daily, REFAXED, # 180 tablet, 3 Refills, Maintenance, 01/25/20 8:47:00EDT, [facility] #[id number], 149.86, cm, 01/25/20 8:03:00 EDT, Height, 103, kg, 11/21/19 8:04:00 EDT, Dry Weight Start Date: 01/25/20 Status: Ordered Wellbutrin XL 150 mg/24 hours oral tablet, extended release 1 tablet = 150 mg, By Mouth, Every 24 hours, # 90 tablet, 1 Refills, Maintenance, 06/08/21 13:12:00EST, [facility] #[id number], Partial fill upon patient request if the [...]
--- OUTSIDE RECORDS SUMMARY | 2022-11-20 11:49 | XMS_ITS | Continuity of Care Document ---
Author Name Unknown Organization [facility] Address [address] [place] [address] [address] [place] [address]- Care Team Providers Care Rewinder Operator Helper Name Role Phone Enriqueta DUMONT, Keven Cho Primary Care Physician [phone] [place] [facility] [place] - 05/18/[address] [place] [address]- Attending Physician: Knee RD , Dary Allergies, Adverse Reactions, Alerts Substance Reaction Severity Status NKA Active Immunizations Given and Recorded Vaccine Date Status Refusal Reason tetanus/diphtheria/pertussis, acel(Tdap) 1 10/19/17 Given influenza virus vaccine, inactivated 02/24/08 Give n Pneumococcal Vaccine (oldterm) 02/24/08 Given Not Given Vaccine Date Status Refusal Reason influenza virus vaccine, inactivated 06/11/15 Not Given Patient Refuses 1Result Comment: [10/19/2017] [id number] Medications atorvastatin 40 mg oral tablet 1 tablet = 40 mg, By Mouth, Daily, INCREASED DOSE, # 90 tablet, 1 Refills, Maintenance, 01/25/20 8:43:00 EDT, [facility] #[id number], INCREASED DOSE DC 20mg daily, 149.86, cm, 01/25/20 8:03:00 EDT, Height, 103, kg, 11/21/19 8:04:00 EDT, Dry Weight Start Date: 01/25/20 Status: Ordered CPAP Machine See Instructions, # 1 each, Maintenance, iVAPS with EPAP 5 and TVa of 5.5 and PS min of 4 and PS max of 12 and [place] 20 and height 80 inches with 2 liters oxygen. DME Provider--[facility]., 02/05/18 16:53:41 EDT, Compound Start Date: 02/05/18 Status: Ordered furosemide 20 mg oral tablet 20 mg, 1, tablet, By Mouth, Daily, # 90 tablet, Refills 1, Tot. Refills 1, Maintenance, 01/25/20 8:44:00 EDT, Route to Pharmacy Electronically, [facility] #[id number], 149.86, cm, 01/25/20 8:03:00 EDT, Height, 103, kg, 11/21/19 8:04:00 EDT, Dry W... Start Date: 01/25/20 Status: Ordered levothyroxine 0.1 mg oral tablet 1 tablet = 100 mcg, By Mouth, Daily, # 90 tablet, 1 Refills, Maintenance, 11/20/19 12:52:00 EDT, Tablet, [facility] #61596, 147.32, cm, 10/01/19 9:28:00 EDT, Height, 108.3, kg, 12/05/18 11:18:00 EDT, Dry Weight Start Date: 11/20/19 Status: Ordered metFORMIN 500 mg oral tablet, extended release 1 tablet = 500 mg, By Mouth, Daily, # 90 tablet, 1 Refills, Maintenance, 04/07/20 16:17:00 EST, ER Tablet, [facility] #[id number], 149.86, cm, 01/25/20 8:03:00 EDT, Height, 103, [...] 180 tablet, 3 Refills, Maintenance, 01/25/20 8:47:00EDT, [facility] #24330, 149.86, cm, 01/25/20 8:03:00 EDT, Height, 103, kg, 11/21/19 8:04:00 EDT, Dry Weight Start Date: 01/25/20 Status: Ordered Wellbutrin XL 150 mg/24 hours oral tablet, extended release 1 tablet = 150 mg, By Mouth, Every 24 hours, do not crush or chew., # 90 tablet, 1 Refills, Maintenance, 01/25/20 8:44:00 EDT, ER Tablet, [facility] #92469, 149.86, cm, 01/25/20 8:03:00 EDT, Height, 103, [...]
[2022-11-20 11:50] LABS: Basophils Absolute Auto 0.1 X10*3/uL (0.0-0.2); Basophils Percent Auto 0.9 % (0-2); Eosinophils Absolute Auto 0.7 X10*3/uL (0.0-0.4); Eosinophils Percent Auto 9.1 % (0-4); Hematocrit 36.2 % (37.0-47.0); Hemoglobin 12.3 g/dl (12.0-16.0); Imm Gran Abs Auto 0.02 X10*3/uL (0.00-0.03); Imm Gran Pct Auto 0.3 % (0.0-0.4); Lymphocytes Absolute Auto 2.3 X10*3/uL (1.2-4.9); Lymphocytes Percent Auto 29.7 % (20-40); Mean Corpuscular Hemoglobin 29.1 pg (27.0-33.0); Mean Corpuscular Volume 85.8 fL (80.0-98.0); Mean Platelet Volume 9.4 fL (9.4-12.3); Monocytes Absolute Auto 0.5 X10*3/uL (0.1-1.2); Monocytes Percent Auto 6.9 % (2-11); Neutrophils Absolute Auto 4.2 x10*3/uL (2.0-8.3); Neutrophils Percent Auto 53.1 % (45-73); Platelet Count 288 X10*3/uL (160-400); Red Blood Count 4.22 X10*6/uL (4.20-5.50); Red Cell Distribution Width 11.9 % (11.0-16.0); White Blood Count 7.9 X10*3/uL (4.8-10.8)
[2022-11-20 11:52] LABS: Appearance Urine Cloudy; Color Urine Yellow; Glucose Urine UA Negative (Negative); Leukocyte Esterase Urine Negative (Negative); Nitrite Urine Negative (Negative); PH 8.5 (5.0-9.0); Specific Gravity - Urine 1.015 (1.005-1.025); Urine Blood Negative (Negative); Urine Ketones Negative (Negative); Urine Protein Negative (Neg-Trace)
[2022-11-20 11:58] VITALS: BP 169/103; PULSE 125; RESP 18; TEMP 36.8; O2SAT 96
[2022-11-20 12:01] LABS: Bacteria Urine 3+ (None Seen); Hyaline Casts Urine 0-2 /LPF (0-2); Squamous Epithelial Cell Urine >20 /HPF (0-2); WBC Urine 0-5 /HPF (0-5)
--- NOTE | 2022-11-20 12:02 | PC.NURSE ---
Patient alert and oriented. Arrived from home reporting joint pain and swelling x 2 days. fingers, feet, toes noted to be swollen. Patients reports tight feeling in joints along with itciness. Reports no known tick bites. States this has never happened before. Reports feeling overall tired and week. Denies chest pain, nausea, vomiting, or sob. patient reports hx of throid problems, states last draw to check levels was less than 6 months ago and levels were normal.
--- NOTE | 2022-11-20 12:19 | ED_ITS ---
HPI - General Adult General Chief complaint: General Medical Stated complaint: swelling and joint pain Time Seen by Provider: 11/20/22 12:18 Source: patient and other (Boyfriend, Tony) Mode of arrival: ambulatory Limitations: no limitations History of Present Illness HPI narrative: 47-year-old female who presents emergency department for evaluation pain and swelling of her hands and feet with a burning and itching sensation throughout her entire body. Patient feels like her body is bloated. She states that the joints of her hands and feet are hurting. She states she has been feeling very fatigued and tired. She states she had a similar feeling many years ago when she was 1st diagnosed with hypothyroidism. She does take levothyroxine 100 mcg daily and she states she has been compliant with his medication. She states she has noticed bruising on different parts of her body without having any injury. She denied fever but states she did have chills and sweats yesterday. She has had a cough which is nonproductive. She denied rhinorrhea, sore throat, chest pain, shortness of breath, dyspnea on exertion, nausea, vomiting, diarrhea. She denied dysuria or frequency. She states that her urine output is normal. Related Data Home Medications Medication Instructions Recorded Confirmed bupropion HCl 150 mg 24 hr tablet, 150 mg PO DAILY 11/25/20 extended release furosemide 20 mg tablet 20 mg PO DAILY 11/25/20 levothyroxine 100 mcg tablet 100 mcg PO DAILY 11/25/20 pantoprazole 40 mg tablet,delayed 40 mg PO BID 11/25/20 release sertraline 100 mg tablet 200 mg PO DAILY 11/25/20 Previous Rx's Medication Instructions Recorded docusate sodium 100 mg capsule 100 mg PO BEDTIME #30 caps 11/25/20 sennosides 8.6 mg tablet (Natural 8.6 mg PO BEDTIME constipation #30 11/25/20 Senna Laxative) tabs simethicone 180 mg capsule (Gas 180 mg PO BID PRN abdominal 11/25/20 Relief (simethicone)) distention #60 caps morphine 15 mg immediate release 15 mg PO Q4-6H PRN pain #10 tabs 11/24/21 tablet ondansetron 4 mg disintegrating 4 mg PO Q6-8H PRN nausea and 11/24/21 tablet vomiting #14 tabs prednisone 20 mg tablet 60 mg PO DAILY 5 days #15 tabs 11/20/22 Allergies Allergy/AdvReac Type Severity Reaction Status Date / Time No Known Allergies Allergy Verified 11/20/22 10:27 [No Known Allergies*] Review of Systems Review of Systems: Yes all other systems are reviewed and are negative [facility] Past Medical History [facility] Narrative: Social history: She denies tobacco use, she does drink 2 to 3 times a week, 3-4 alcoholic beverages . she denies drug use. Medical History Depression GERD (gastroesophageal reflux disease) Hypercholesteremia Hypothyroid Leg swelling Surgical History Gastric bypass status for obesity History of History of hysterectomy Social History Social History Alcohol intake: former Patient Tobacco Use Status: Never used Tobacco Smoked in Last 30 Days: No Use of substances other than those prescribed or required for medical reasons: No Advance Directives: No Advance Directives Information Provided: Yes Physical Exam ED Vital Signs: Vital Signs - 24 hr 11/20/22 10:27 11/20/22 11:58 11/20/22 13:46 Temperature 98.8 F 98.3 F Pulse Rate 86 125 H 73 Respiratory Rate 16 18 18 Blood Pressure 177/112 H 169/103 H 173/96 H Pulse Oximetry 98 96 97 Oxygen Delivery Method Room Air Room Air Room Air BMI result Body Mass Index 30.3 Vital signs revealed an elevated blood pressure of 177/112 otherwise unremarkable. Exam: General: Awake, alert in no distress Head: Normocephalic, atraumatic EENT: PERRL, Lids normal, sclera normal, conjunctiva normal, nose normal , ears normal, throat without erythema or exudates Neck: Supple, no adenopathy, trachea midline and nontender Lung: breath sounds symmetric, no wheezing, rales or rhonchi Chest: symmetric movement, nontender Heart: regular rate and rhythm, normal S1, S2 no murmurs or rubs Abdomen: soft, non-tender, nondistended, normal bowel sounds Back: no vertebral tenderness, no CVAT Extremities: The patient's hands and feet do appear to be slightly swollen, the joints are not warm to the touch but she does have tenderness palpation over the joints hands, she has no increased warmth or erythema over the rest of her joint, there is no pitting edema. Skin: no rashes, no lesion, normal color and warmth. There are some small bruises on her body but no [place] areas to suggest abnormal bruising. Neuro: Awake, alert, oriented, normal speech, cranial nerves intact, moves all extremities symmetrically Psych: Pleasant, cooperative Medications Administered Discontinued Medications Generic Name Dose Route Start Last Admin Trade Name Anival PRN Reason Stop Dose Admin Acetaminophen 975 mg 11/20/22 14:50 11/20/22 15:02 Acetaminophen 325 Mg Tablet PO 11/20/22 14:51 975 mg ONCE STA Administration Medical Decision Making Medical Decision Making [facility] Narrative: 47-year-old female with a history of hypothyroidism, GERD, depression, anxiety who presents emergency department for evaluation of 2 days of pain and swelling of her hands and feet, increased bruising, burning and itchiness of her skin and fatigue. Patient had chills with sweats, a nonproductive cough otherwise review of systems were unremarkable. Patient's examination did reveal some swelling of her hands and feet but no increased warmth or erythema over her joints. She does have some tenderness palpation of the joints of her hand and fingers. Following tests were ordered on the patient: CBC, CMP, urinalysis, ESR, CRP, PT/INR, PTT, TSH with reflex T4. 1505: Patient's laboratory evaluation was unremarkable. Patient's presentation is consistent with an inflammatory arthritis and I did discuss this with the patient. Patient started on prednisone 60 mg once a day for 5 days, she was given a dose here in the emergency department as well. She was also treated with Tylenol 975 orally. Patient was advised to follow-up with her PCP for re-evaluation and return if her symptoms get worse. Differential Diagnosis Differential Diagnoses: The differential diagnosis associated with the presentation includes Differential diagnosis includes was not limited to inflammatory arthritis, blood dyscrasia, fluid retention, kidney failure, liver failure, urinary tract infect, malignant Admission/Observation Consideration of admission/observation: Escalation of care including admission/observation considered Lab Data [facility] Lab Attestation statement: I reviewed the patient's lab results. My independent interpretation patient's laboratory evaluation as follows: CBC was normal, CMP was normal, ESR was normal. CRP is pen 11/20/22 11:41 11/20/22 11:41 Labs: Lab Results 11/20/22 11/20/22 11/20/22 Range/Units 11:41 11:41 11:44 WBC 7.9 (4.8-10.8) X10*3/uL RBC 4.22 (4.20-5.50) X10*6/uL Hgb 12.3 (12.0-16.0) g/dl Hct 36.2 L (37.0-47.0) % MCV 85.8 (80.0-98.0) fL MCH 29.1 (27.0-33.0) pg MCHC 34.0 (31.0-35.0) g/dl RDW 11.9 (11.0-16.0) % Plt Count 288 (160-400) X10*3/uL MPV 9.4 (9.4-12.3) fL Immature Gran % (Auto) 0.3 (0.0-0.4) % Neut % (Auto) 53.1 (45-73) % Lymph % (Auto) 29.7 (20-40) % [place] % (Auto) 6.9 (2-11) % Eos % (Auto) 9.1 H (0-4) % Baso % (Auto) 0.9 (0-2) % Lymph # (Auto) 2.3 (1.2-4.9) X10*3/uL [place] # (Auto) 0.5 (0.1-1.2) X10*3/uL Eos # (Auto) 0.7 H (0.0-0.4) X10*3/uL Baso # (Auto) 0.1 (0.0-0.2) X10*3/uL Abs Immat Gran (auto) 0.02 (0.00-0.03) X10*3/uL Absolute Neuts (auto) 4.2 (2.0-8.3) x10*3/uL Absolute Nucleated RBC 0.000 (0.0-0.012) X10*3/uL Nucleated RBC % (auto) 0.0 (0.0-0.2) /100WBC ESR (0-20) MM/HR PT (11.1-13.3) SEC INR (0.9-1.1) APTT (26.0-36.4) SEC Sodium 139 (135-145) mmol/L Potassium 4.2 (3.3-5.1) mmol/L Chloride 108 (96-108) mmol/L Carbon Dioxide 24 (22-29) mmol/L Anion Gap 11 L (12-20) BUN 10 (9-16) mg/dL Creatinine 0.70 (0.5-1.4) mg/dL Estim Creat Clear Calc 80.6 Estimated GFR > 60 Random Glucose 99 (60-115) mg/dL Calcium 8.7 D (8.4-10.2) mg/dL Total Bilirubin 0.6 (0.0-1.0) mg/dL Direct Bilirubin 0.2 (0.0-0.5) mg/dL AST 17 (5-31) U/L ALT 12 (0-31) U/L Alkaline Phosphatase 51 (39-117) U/L Total Protein 6.6 (6.5-8.0) g/dL Albumin 3.4 L (3.5-5.0) g/dL TSH 0.62 (0.32-4.0) uIU/mL Urine Color Yellow Urine Appearance Cloudy Urine pH 8.5 (5.0-9.0) Ur Specific [place] 1.015 (1.005-1.025) Urine Protein Negative (Neg-Trace) mg/dL Urine Glucose (UA) Negative (Negative) mg/dL Urine Ketones Negative (Negative) mg/dL Urine Blood Negative (Negative) Urine Nitrite Negative (Negative) Ur Leukocyte Esterase Negative (Negative) Urine RBC 3-5 H (0-2) /HPF Urine WBC 0-5 (0-5) /HPF Ur Squamous Epith Cells >20 (0-2) /HPF Urine Bacteria 3+ (None Seen) Hyaline Casts 0-2 (0-2) /LPF Ethyl Alcohol mg/dL 11/20/22 11/20/22 11/20/22 Range/Units 12:54 12:54 12:54 WBC (4.8-10.8) X10*3/uL RBC (4.20-5.50) X10*6/uL Hgb (12.0-16.0) g/dl Hct (37.0-47.0) % MCV (80.0-98.0) fL MCH (27.0-33.0) pg MCHC (31.0-35.0) g/dl RDW (11.0-16.0) % Plt Count (160-400) X10*3/uL MPV (9.4-12.3) fL Immature Gran % (Auto) (0.0-0.4) % Neut % (Auto) (45-73) % Lymph % (Auto) (20-40) % [place] % (Auto) (2-11) % Eos % (Auto) (0-4) % Baso % (Auto) (0-2) % Lymph # (Auto) (1.2-4.9) X10*3/uL [place] # (Auto) (0.1-1.2) X10*3/uL Eos # (Auto) (0.0-0.4) X10*3/uL Baso # (Auto) (0.0-0.2) X10*3/uL Abs Immat Gran (auto) (0.00-0.03) X10*3/uL Absolute Neuts (auto) (2.0-8.3) x10*3/uL Absolute Nucleated RBC (0.0-0.012) X10*3/uL Nucleated RBC % (auto) (0.0-0.2) /100WBC ESR 19 (0-20) MM/HR PT 10.9 L (11.1-13.3) SEC INR 0.9 (0.9-1.1) APTT 32.1 (26.0-36.4) SEC Sodium (135-145) mmol/L Potassium (3.3-5.1) mmol/L Chloride (96-108) mmol/L Carbon Dioxide (22-29) mmol/L Anion Gap (12-20) BUN (9-16) mg/dL Creatinine (0.5-1.4) mg/dL Estim Creat Clear Calc Estimated GFR Random Glucose (60-115) mg/dL Calcium (8.4-10.2) mg/dL Total Bilirubin (0.0-1.0) mg/dL Direct Bilirubin (0.0-0.5) mg/dL AST (5-31) U/L ALT (0-31) U/L Alkaline Phosphatase (39-117) U/L Total Protein (6.5-8.0) g/dL Albumin (3.5-5.0) g/dL TSH (0.32-4.0) uIU/mL Urine Color Urine Appearance Urine pH (5.0-9.0) Ur Specific [place] (1.005-1.025) Urine Protein (Neg-Trace) mg/dL Urine Glucose (UA) (Negative) mg/dL Urine Ketones (Negative) mg/dL Urine Blood (Negative) Urine Nitrite (Negative) Ur Leukocyte Esterase (Negative) Urine RBC (0-2) /HPF Urine WBC (0-5) /HPF Ur Squamous Epith Cells (0-2) /HPF Urine Bacteria (None Seen) Hyaline Casts (0-2) /LPF Ethyl Alcohol < 10 mg/dL Discharge Plan Discharge Clinical Impression: Inflammatory arthritis Additional Instructions: Your complete blood count and comprehensive metabolic panel were normal. Your coagulopathy studies including a PT/INR and PTT were normal. Your platelet count was normal as well pain. Your TSH which is a screening test for your thyroid function is normal suggesting you are taking the right amount of thyroid hormone replacement. Your other inflammatory marker, CRP, is pending and I will contact you with this result. At this time, I want to treat you for possible inflammatory arthritis with prednisone. Take prednisone 20 mg pills, 3 pills once a day for 5 days. While you are taking prednisone, do not take any NSAIDs (Motrin, Advil, ibuprofen, Aleve, naproxen). Take Tylenol (acetaminophen) 500 mg pills, 2 pills every 6 hours as needed for p ain or fever. Follow-up with your doctor in 2 days. Please return to the emergency department if your symptoms get worse or if you develop any symptoms that are concerning to you. Prescriptions: New prednisone 20 mg tablet 60 mg PO DAILY 5 Days Qty: 15 0RF No Action morphine 15 mg tablet 15 mg PO Q4-6H PRN (Reason: pain) Qty: 10 0RF Rx Instructions: The patient may ask for partial fill; Partial Fill upon patient request. ondansetron 4 mg tablet,disintegrating 4 mg PO Q6-8H PRN (Reason: nausea and vomiting) Qty: 14 0RF levothyroxine 100 mcg tablet 100 mcg PO DAILY furosemide 20 mg tablet 20 mg PO DAILY pantoprazole 40 mg tablet,delayed release (DR/EC) 40 mg PO BID sertraline 100 mg tablet 200 mg PO DAILY bupropion HCl 150 mg tablet extended release 24 hr 150 mg PO DAILY sennosides [Natural Senna Laxative] 8.6 mg tablet 8.6 mg PO BEDTIME Qty: 30 2RF docusate sodium 100 mg capsule 100 mg PO BEDTIME Qty: 30 3RF simethicone [Gas Relief (simethicone)] 180 mg capsule 180 mg PO BID PRN (Reason: abdominal distention) Qty: 60 1RF
[2022-11-20 12:21] LABS: Alanine Aminotransferase 12 U/L (0-31); Albumin Level 3.4 g/dL (3.5-5.0); Alkaline Phosphatase 51 U/L (39-117); Anion Gap 11 (12-20); Aspartate Amino Transferase 17 U/L (5-31); Bilirubin Direct 0.2 mg/dL (0.0-0.5); Bilirubin Total 0.6 mg/dL (0.0-1.0); Blood Urea Nitrogen 10 mg/dL (9-16); Calcium 8.7 mg/dL (8.4-10.2); Carbon Dioxide 24 mmol/L (22-29); Chloride 108 mmol/L (96-108); Creatinine Clr Calc Pharmacy 80.6; Estimated Glomerular Filt Rate > 60; Glucose Random 99 mg/dL (60-115); Potassium 4.2 mmol/L (3.3-5.1); Sodium 139 mmol/L (135-145); Total Protein 6.6 g/dL (6.5-8.0)
[2022-11-20 13:11] LABS: INTERNATIONAL NORM RATIO 0.9 (0.9-1.1); Prothrombin Time 10.9 SEC (11.1-13.3)
[2022-11-20 13:13] LABS: Partial Thromboplastin Time 32.1 SEC (26.0-36.4)
[2022-11-20 13:28] LABS: TSH reflex Free T4 0.62 uIU/mL (0.32-4.0)
[2022-11-20 13:38] LABS: Ethanol < 10 mg/dL
[2022-11-20 13:39] LABS: Erythrocyte Sedimentation Rate 19 MM/HR (0-20)
[2022-11-20 13:46] VITALS: BP 173/96; PULSE 73; RESP 18; O2SAT 97
[2022-11-20] MEDS: Acetaminophen 325 MG TABLET 975 MG PO (15:02)
[2022-11-20] MEDS: predniSONE 20 MG TABLET 60 MG PO (15:08)
[2022-11-20 15:09] VITALS: BP 173/97; PULSE 121; RESP 18; O2SAT 97
[2022-11-20 15:17] LABS: C Reactive Protein 1.84 mg/dL (< or = 0.50)
--- NOTE | 2022-11-20 15:30 | PC.NURSE ---
Discharge plan reviewed with patient who verbalized understanding
[2022-11-22 15:48] LABS: CRP High Sensitivity >10.0 mg/L
== END 2022-11-20 15:32 | disposition home or self-care (01) ==
PROVIDERS: Physician Assistant; Emergency Provider Emergency Medicine Emergency Medical Services; PCP Internal Medicine
DX: M19.90 Unspecified osteoarthritis, unspecified site (principal); M79.642 Pain in left hand; M79.641 Pain in right hand; M79.672 Pain in left foot; M79.671 Pain in right foot; E03.9 Hypothyroidism, unspecified; R53.83 Other fatigue; M25.442 Effusion, left hand; M25.441 Effusion, right hand; M25.475 Effusion, left foot; M25.474 Effusion, right foot; E78.00 Pure hypercholesterolemia, unspecified; K21.9 Gastro-esophageal reflux disease without esophagitis; Z79.899 Other long term (current) drug therapy
CPT/HCPCS: 36415; 80048; 80076; 80307; 81001; 84443; 85025; 85610; 85652; 85730; 86140; 86141; 99283; 99284

== ENCOUNTER 2023-02-23 10:09 | Outpatient (REF) | payer OTHER, SELFPAY ==
[2023-02-23 10:36] LABS: MANUAL DIFF FLAG NO
[2023-02-23 10:37] LABS: Appearance Urine Clear; Basophils Absolute Auto 0.1 X10*3/uL (0.0-0.2); Basophils Percent Auto 1.3 % (0-2); Color Urine Yellow; Eosinophils Absolute Auto 1.4 X10*3/uL (0.0-0.4); Eosinophils Percent Auto 18.8 % (0-4); Glucose Urine UA Negative (Negative); Hematocrit 39.5 % (37.0-47.0); Hemoglobin 12.8 g/dl (12.0-16.0); Imm Gran Abs Auto 0.01 X10*3/uL (0.00-0.03); Imm Gran Pct Auto 0.1 % (0.0-0.4); Leukocyte Esterase Urine Moderate (2+) (Negative); Lymphocytes Absolute Auto 2.6 X10*3/uL (1.2-4.9); Lymphocytes Percent Auto 35.8 % (20-40); Mean Corpuscular HGB Conc 32.4 g/dl (31.0-35.0); Mean Corpuscular Hemoglobin 27.8 pg (27.0-33.0); Mean Corpuscular Volume 85.9 fL (80.0-98.0); Mean Platelet Volume 9.5 fL (9.4-12.3); Monocytes Absolute Auto 0.4 X10*3/uL (0.1-1.2); Monocytes Percent Auto 5.3 % (2-11); Neutrophils Absolute Auto 2.8 x10*3/uL (2.0-8.3); Neutrophils Percent Auto 38.7 % (45-73); Nitrite Urine Negative (Negative); Platelet Count 358 X10*3/uL (160-400); Red Cell Distribution Width 12.4 % (11.0-16.0); UMIC TRIGGER UA YES; Urine Blood Negative (Negative); Urine Ketones Negative (Negative); Urine Protein Negative (Neg-Trace); White Blood Count 7.2 X10*3/uL (4.8-10.8)
[2023-02-23 10:39] LABS: Bacteria Urine None Seen (None Seen); Hyaline Casts Urine 0-2 /LPF (0-2)
[2023-02-23 11:24] LABS: Alanine Aminotransferase 8 U/L (0-31); Albumin Level 3.5 g/dL (3.5-5.0); Alkaline Phosphatase 59 U/L (39-117); Anion Gap 7 (12-20); Aspartate Amino Transferase 13 U/L (5-31); Bilirubin Total 0.4 mg/dL (0.0-1.0); Blood Urea Nitrogen 12 mg/dL (9-16); Carbon Dioxide 31 mmol/L (22-29); Chloride 106 mmol/L (96-108); Cholesterol 210 mg/dL (<200); Estimated Glomerular Filt Rate > 60; Glucose Random 92 mg/dL (60-115); HDL Cholesterol 56 mg/dL (>40); LDL Cholesterol Calculated 135 mg/dL (<100); Potassium 4.2 mmol/L (3.3-5.1); Sodium 140 mmol/L (135-145); Total Protein 6.9 g/dL (6.5-8.0); Triglycerides 95 mg/dL (<150)
[2023-02-23 11:41] LABS: TSH reflex Free T4 2.15 uIU/mL (0.32-4.0)
== END 2023-02-23 10:10 | disposition home or self-care (01) ==
LOC: HO.10HDL 10:09
PROVIDERS: Visit Provider Internal Medicine
DX: Z00.00 Encounter for general adult medical examination without abnormal findings (principal); E03.9 Hypothyroidism, unspecified
CPT/HCPCS: 36415; 80053; 80061; 81001; 84443; 85025

== ENCOUNTER 2023-03-18 14:47 | Outpatient (AMB) | payer OTHER, SELFPAY ==
--- NOTE | 2023-03-18 14:48 | A.OFFVIS_ITS ---
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 Prior to this she states she had been using here and there Last use was one week ago, 1 30mg tab 1/3 fentanyl patch under the tongue 2-3 weeks ago, states she would use this when dealer was out of percocet. For the last month she was using 5-6 30mg tabs daily IN She reports she was put on leave from work and she disclosed use to her PCP who prescribed clonidine Substance use history: -started using at age 25 recreational th en increased from there -has used IV heroin one overdose in 2019 or 2020 No alcohol cocaine once per week Treatment history: 3 [facility] admissions 2014 suboxone 2016 methadone for 1.5 years (highest do se 40mg) tapered off 3 years in recovery in 2017 Social History: -lives with parents and son -Has a boyfriend of 2 years Withdrawal sx -restless, fidgety, achy, cold BH Hx: -no admissions -PCP anxiety and depression Medical History reviewed [facility] Medical History Depression GERD (gastroesophageal reflux disease) Hypercholesteremia Hypothyroid Leg swelling Surgical History Gastric bypass status for obesity History of History of hysterectomy Social History Alcohol intake: former Patient Tobacco Use Status: Never used Tobacco Review of Systems Const Reports as per HPI, Reports body aches, Reports chills, Reports difficulty sleeping, Reports lethargy and Reports malaise GI Reports loose stools Psych Reports anxiety Physical Exam Vital Signs: Last Vital Signs Pulse 107 H 03/18/23 14:52 BP 138/86 03/18/23 14:52 Pulse Ox 98 03/18/23 14:52 Oxygen Delivery Method Room Air 03/18/23 14:52 Const General: cooperative, alert and anxious Results AMB 14 Panel Urine Drug Screen Urine Marijuana (THC) Negative Last Edit by Sangeetha Johns CMA on 03/18/23 15:21 Urine Cocaine Positive Last Edit by Sangeetha Johns CMA on 03/18/23 15:21 Urine Morphine Negative Last Edit by Sangeetha Johns CMA on 03/18/23 15:21 Urine Methamphetamine Negative Last Edit by Sangeetha Johns CMA on 03/18/23 15:21 Urine Amphetamine Negative Last Edit by Sangeetha Johns CMA on 03/18/23 15:2 1 Urine Benzodiazepine Negative Last Edit by Sangeetha Johns CMA on 03/18/23 15:21 Urine Barbiturates Negative Last Edit by Sangeetha Johns CMA on 03/18/23 15: 21 Urine Methadone Negative Last Edit by Sangeetha Johns CMA on 03/18/23 15:21 Urine Buprenorphine Negative Last Edit by Sangeetha Johns CMA on 03/18/23 15 :21 Urine Tricyclic Antidepressant Negative Last Edit by Sangeetha Johns CMA on 03/18/23 15:21 Urine MDMA Negative Last Edit by Sangeetha Johns CMA on 03/18/23 15:21 Urine Oxycodone Negative Last Edit by Sangeetha Johns CMA on 03/18/23 15:21 Urine Phencyclidine Negative Last Edit by Sangeetha Johns CMA on 03/18/23 15 :21 Urine Propoxyphene Negative Last Edit by Sangeetha Johns CMA on 03/18/23 15: 21 Results Reviewed Results Reviewed: Laboratory Last Values POC Urine Buprenorphine Negative 03/18/23 15:15 POC Urine Morphine Negative 03/18/23 15:15 POC Urine Oxycodone Negative 03/18/23 15:15 POC Urine Methadone Negative 03/18/23 15:15 POC Urine Propoxyphene Negative 03/18/23 15:15 POC Urine Barbiturates Negative 03/18/23 15:15 POC U Tricyclic Antidpr Negative 03/18/23 15:15 POC Urine PCP Negative 03/18/23 15:15 POC Ur Amphetamines Negative 03/18/23 15:15 POC Ur Methamphetamine Negative 03/18/23 15:15 POC Urine MDMA Negative 03/18/23 15:15 POC Ur Benzodiazepine Negative 03/18/23 15:15 POC Urine Cocaine Positive 03/18/23 15:15 POC Ur Marijuana (THC) Negative 03/18/23 15:15 Assessment & Plan Assessment & Plan (1) Opioid use disorder: Code(s): F11.90 - Opioid use, unspecified, uncomplicated Plan: * Suboxone 4mg BID. * Patient familiar with suboxone as she has taken in previously * While patient reports no opiate use for a week, reminded of risk of precipitated withdrawal if she takes has used more recently * Narcan provided * follow up on Tuesday Orders: Orders AMB 14 Panel Urine Drug Screen Today Z51.81 - Encounter for therapeutic drug level monitoring Medications: New buprenorphine-naloxone 4-1 mg (Suboxone) 1 film sublingual BID 10 ea 0RF clonidine HCl 0.1 mg PO BID PRN 10 tabs 0RF withdrawal symptoms clonidine HCl 0.1 mg PO BID PRN 10 tabs 0RF withdrawal symptoms Coding Level of Care Code New Pt Level 4 (68642) Diagnoses Opioid use disorder F11.90
[2023-03-18 14:52] VITALS: BP 138/86; PULSE 107; O2SAT 98
== END 2023-03-18 15:28 | disposition home or self-care (01) ==
PROVIDERS: PCP Internal Medicine; Visit Provider Nurse Practitioner Psychiatric/Mental Health
DX: Z51.81 Encounter for therapeutic drug level monitoring (principal); F11.90 Opioid use, unspecified, uncomplicated
CPT/HCPCS: 99204

== ENCOUNTER → 2023-03-18 14:47 | Outpatient (BNVA) | payer OTHER, SELFPAY | PROVIDERS: PCP Internal Medicine; Visit Provider Nurse Practitioner Psychiatric/Mental Health | DX: F11.20 Opioid dependence, uncomplicated (principal) | CPT/HCPCS: 80305 ==

== ENCOUNTER 2023-03-22 10:43 | Outpatient (AMB) | payer OTHER, SELFPAY ==
--- NOTE | 2023-03-22 10:46 | MHC.AM.SUB ---
Intake Vital Signs 03/22/23 10:54 BP 130/78 Blood Pressure Location Lt radial Position Sitting Pulse 97 Pulse Source Pulse Oximeter Pulse Oximetry (%) 96 Oxygen Delivery Method Room Air Intake Visit Reasons: MAT Visit Intake Note: the patient presents for a mat visit Emergency Operator Required: No Allergies No Known Allergies [No Known Allergies*] Allergy (Verified 03/22/23 10:54) Do you need a note to return to daycare/school/sports/work: No HPI MAT Visit HPI Details Patient presents for OUD treatment follow up Dose increase 6mg BID Doing well overall Anxiety has decreased, sleep not impacted Reporting constipation --has medication at home PFSH Medical History Depression GERD (gastroesophageal reflux disease) Hypercholesteremia Hypothyroid Leg swelling Surgical History Gastric bypass status for obesity History of History of hysterectomy Social History Alcohol intake: former Patient Tobacco Use Status: Never used Tobacco Review of Systems Const Reports as per HPI and Reports no additional complaints Physical Exam Vital Signs: Last Vital Signs Pulse 97 03/22/23 10:54 BP 130/78 03/22/23 10:54 Pulse Ox 96 03/22/23 10:54 Oxygen Delivery Method Room Air 03/22/23 10:54 Const General: cooperative, healthy appearing and comfortable Limitations: no limitations Psych Appearance: well kempt Speech and movement: Clear speech present Affect: normal affect Attitude: cooperative Thought process: Normal thought process present Thought content: Normal thought content present Insight: Fair insight present (Psych) Judgement: Good judgement present (Psych) Assessment & Plan Assessment & Plan (1) Opioid use disorder: Code(s): F11.90 - Opioid use, unspecified, uncomplicated Plan: no refill needed at this time continue suboxone 6mg BID Coding Level of Care Code Est Pt Level 3 (00352) Diagnoses Opioid use disorder F11.90
[2023-03-22 10:54] VITALS: BP 130/78; PULSE 97; O2SAT 96
== END 2023-03-22 11:35 | disposition home or self-care (01) ==
PROVIDERS: PCP Internal Medicine; Visit Provider Nurse Practitioner Psychiatric/Mental Health
DX: F11.90 Opioid use, unspecified, uncomplicated (principal)
CPT/HCPCS: 99213

== ENCOUNTER → 2023-03-22 10:43 | Outpatient (BNVA) | payer OTHER, SELFPAY | PROVIDERS: PCP Internal Medicine; Visit Provider Nurse Practitioner Psychiatric/Mental Health | DX: Z51.81 Encounter for therapeutic drug level monitoring (principal) ==

== ENCOUNTER 2023-03-28 10:53 | Outpatient (AMB) | payer OTHER, SELFPAY ==
--- NOTE | 2023-03-28 10:55 | A.OFFVIS_ITS ---
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 Allergies No Known Allergies [No Known Allergies*] Allergy (Verified 03/28/23 11:01) Medication List - Last Reconciled 03/28/23 by Katiana Perry CNP buprenorphine-naloxone 12-3 mg (Suboxone) 1 film sublingual Q24H bupropion HCl 150 mg PO DAILY levothyroxine 100 mcg PO DAILY pantoprazole 40 mg PO BID sertraline 200 mg PO DAILY Do you need a note to return to daycare/school/sports/work: No HPI MAT Visit HPI Details Patient presents for follow up Feels better on 12mg (6mg BID) Denies any side effects from medication Unclear regarding plan to return to work--encouraged patient to get clarity regarding requirements as she believed this office would suffice as IOP level of care. This health technical writer clarified that this is not an IOP and provider her with resources on connecting with an IOP [facility] Medical History Depression GERD (gastroesophageal reflux disease) Hypercholesteremia Hypothyroid Leg swelling Surgical History Gastric bypass status for obesity History of History of hysterectomy Social History Alcohol intake: former Patient Tobacco Use Status: Never used Tobacco Review of Systems Const Reports as per HPI and Reports no additional complaints Physical Exam Vital Signs: Last Vital Signs Pulse 73 03/28/23 11:00 BP 130/72 03/28/23 11:00 Pulse Ox 96 03/28/23 11:00 Oxygen Delivery Method Room Air 03/28/23 11:00 Const General: cooperative, healthy appearing and comfortable Limitations: no limitations Psych Appearance: well kempt Speech and movement: Clear speech present Affect: normal affect Attitude: cooperative Thought process: Normal thought process present Thought content: Normal thought content present Insight: Fair insight present (Psych) Judgement: Good judgement present (Psych) Assessment & Plan Assessment & Plan (1) Opioid use disorder: Code(s): F11.90 - Opioid use, unspecified, uncomplicated Plan: no refill needed at this time continue suboxone 6mg BID follow up one week Coding Level of Care Code Est Pt Level 3 (82605) Diagnoses Opioid use disorder F11.90
[2023-03-28 11:00] VITALS: BP 130/72; PULSE 73; O2SAT 96
== END 2023-03-28 11:22 | disposition home or self-care (01) ==
PROVIDERS: PCP Internal Medicine; Visit Provider Nurse Practitioner Psychiatric/Mental Health
DX: F11.90 Opioid use, unspecified, uncomplicated (principal)
CPT/HCPCS: 99213

== ENCOUNTER → 2023-03-28 10:53 | Outpatient (BNVA) | payer OTHER, SELFPAY | PROVIDERS: PCP Internal Medicine; Visit Provider Nurse Practitioner Psychiatric/Mental Health | DX: Z51.81 Encounter for therapeutic drug level monitoring (principal) ==

== ENCOUNTER 2023-04-05 13:01 | Outpatient (AMB) | payer OTHER, SELFPAY ==
[2023-04-05 13:14] VITALS: BP 126/74; PULSE 89; O2SAT 99
--- NOTE | 2023-04-05 13:14 | A.OFFVISCC_ITS ---
Intake Vital Signs 04/05/23 13:14 BP 126/74 Blood Pressure Location Lt radial Position Sitting Pulse 89 Pulse Source Pulse Oximeter Pulse Oximetry (%) 99 Oxygen Delivery Method Room Air Intake Visit Reasons: MAT Visit Intake Note: the patient presents for a mat visit Curriculum And Assessment Coordinator Required: No Allergies No Known Allergies [No Known Allergies*] Allergy (Verified 04/05/23 13:15) Do you need a note to return to daycare/school/sports/work: No HPI MAT Visit HPI Details Patient presents for follow up Continues to do well with Suboxone dose Experiencing some constipation Still somewhat guarded related to substance use and challenges that have occurred because of it [facility] Medical History Depression GERD (gastroesophageal reflux disease) Hypercholesteremia Hypothyroid Leg swelling Surgical History Gastric bypass status for obesity History of History of hysterectomy Social History Alcohol intake: former Patient Tobacco Use Status: Never used Tobacco Review of Systems Const Reports as per HPI Physical Exam Vital Signs: Last Vital Signs Pulse 89 04/05/23 13:14 BP 126/74 04/05/23 13:14 Pulse Ox 99 04/05/23 13:14 Oxygen Delivery Method Room Air 04/05/23 13:14 Const General: cooperative, healthy appearing and comfortable Limitations: no limitations Psych Appearance: well kempt Speech and movement: Clear speech present Affect: normal affect Attitude: cooperative Thought process: Normal thought process present Thought content: Normal thought content present Insight: Fair insight present (Psych) Judgement: Good judgement present (Psych) Assessment & Plan Assessment & Plan (1) Opioid use disorder: Code(s): F11.90 - Opioid use, unspecified, uncomplicated Plan: * continue suboxone at current dose * encouraged to take colace * follow up 2 weeks Medications: Refilled buprenorphine-naloxone 12-3 mg (Suboxone) 1 film sublingual Q24H 30 ea 0RF Coding Level of Care Code Est Pt Level 3 (49115) Diagnoses Opioid use disorder F11.90
== END 2023-04-05 13:37 | disposition home or self-care (01) ==
PROVIDERS: PCP Internal Medicine; Visit Provider Nurse Practitioner Psychiatric/Mental Health
DX: F11.90 Opioid use, unspecified, uncomplicated (principal)
CPT/HCPCS: 99213

== ENCOUNTER → 2023-04-05 13:01 | Outpatient (BNVA) | payer OTHER, SELFPAY | PROVIDERS: PCP Internal Medicine; Visit Provider Nurse Practitioner Psychiatric/Mental Health | DX: Z51.81 Encounter for therapeutic drug level monitoring (principal) ==

== ENCOUNTER 2023-04-19 10:41 | Outpatient (AMB) | payer OTHER, SELFPAY ==
[2023-04-19 10:51] VITALS: BP 142/84; PULSE 94; O2SAT 97
--- NOTE | 2023-04-19 10:51 | A.OFFVISCC_ITS ---
Intake Vital Signs 04/19/23 10:51 BP 142/84 H Blood Pressure Location Rt brachial Position Sitting Pulse 94 Pulse Source Pulse Oximeter Pulse Oximetry (%) 97 Oxygen Delivery Method Room Air Intake Visit Reasons: MAT Visit Allergies No Known Allergies [No Known Allergies*] Allergy (Verified 05/03/23 11:05) HPI HPI Comments History of Present Illness Details Pt presents for OUD treatment follow up Currently being prescribed Suboxone 12mg daily Denies any side effects related to medication still unsure of what she needs to do to return to work limited insight related to her use while working--some minimizing PFSH Medical History Depression GERD (gastroesophageal reflux disease) Hypercholesteremia Hypothyroid Leg swelling Surgical History Gastric bypass status for obesity History of History of hysterectomy Social History Alcohol intake: former Patient Tobacco Use Status: Never used Tobacco Review of Systems Const Reports as per HPI Physical Exam Vital Signs: Last Vital Signs Pulse 94 04/19/23 10:51 BP 142/84 H 04/19/23 10:51 Pulse Ox 97 04/19/23 10:51 Oxygen Delivery Method Room Air 04/19/23 10:51 Const General: cooperative, healthy appearing and comfortable Limitations: no limitations Psych Appearance: well kempt Speech and movement: Clear speech present Affect: normal affect Attitude: cooperative Thought process: Normal thought process present Thought content: Normal thought content present Insight: Fair insight present (Psych) Judgement: Good judgement present (Psych) Assessment & Plan Assessment & Plan (1) Opioid use disorder: Code(s): F11.90 - Opioid use, unspecified, uncomplicated Plan: * continue suboxone at current dose * follow up 2 weeks Coding Level of Care Code Est Pt Level 3 (25694) Diagnoses Opioid use disorder F11.90
== END 2023-04-19 11:44 | disposition home or self-care (01) ==
PROVIDERS: PCP Internal Medicine; Visit Provider Nurse Practitioner Psychiatric/Mental Health
DX: F11.90 Opioid use, unspecified, uncomplicated (principal)
CPT/HCPCS: 99213

== ENCOUNTER → 2023-04-19 10:41 | Outpatient (BNVA) | payer OTHER, SELFPAY | PROVIDERS: PCP Internal Medicine; Visit Provider Nurse Practitioner Psychiatric/Mental Health | DX: Z51.81 Encounter for therapeutic drug level monitoring (principal) ==

== ENCOUNTER 2023-05-03 10:52 | Outpatient (AMB) | payer OTHER, SELFPAY ==
[2023-05-03 11:04] VITALS: BP 134/86; PULSE 98; O2SAT 94
--- NOTE | 2023-05-03 11:04 | A.OFFVISCC_ITS ---
Intake Vital Signs 05/03/23 11:04 BP 134/86 Blood Pressure Location Lt radial Position Sitting Pulse 98 Pulse Source Pulse Oximeter Pulse Oximetry (%) 94 Oxygen Delivery Method Room Air Intake Visit Reasons: MAT Visit Intake Note: the patient presents for a mat visit Market Research Worker Required: No Allergies No Known Allergies [No Known Allergies*] Allergy (Verified 05/03/23 11:05) Do you need a note to return to daycare/school/sports/work: No HPI MAT Visit HPI Details Patient presents for OUD treatment follow up Currently prescribed SUboxone 12mg QD Would like to transition to Sublocade since she will be working at 4am and is concerned about medication wearing off Has a start date in mid May [facility] Medical History Depression GERD (gastroesophageal reflux disease) Hypercholesteremia Hypothyroid Leg swelling Surgical History Gastric bypass status for obesity History of History of hysterectomy Social History Alcohol intake: former Patient Tobacco Use Status: Never used Tobacco Review of Systems Const Reports as per HPI and Reports no additional complaints Physical Exam Vital Signs: Last Vital Signs Pulse 98 05/03/23 11:04 BP 134/86 05/03/23 11:04 Pulse Ox 94 05/03/23 11:04 Oxygen Delivery Method Room Air 05/03/23 11:04 Const General: cooperative, healthy appearing and comfortable Limitations: no limitations Psych Appearance: well kempt Speech and movement: Clear speech present Affect: normal affect Attitude: cooperative Thought process: Normal thought process present Thought content: Normal thought content present Insight: Fair insight present (Psych) Judgement: Good judgement present (Psych) Assessment & Plan Assessment & Plan (1) Opioid use disorder: Code(s): F11.90 - Opioid use, unspecified, uncomplicated Plan: * continue suboxone at current dose * follow up 2 weeks * Sublocade ordered Medications: New buprenorphine ER (Sublocade) 300 mg (1.5 mL) subcut .every 4 weeks 1.5 mL 2RF Refilled buprenorphine-naloxone 12-3 mg (Suboxone) 1 film sublingual Q24H 30 ea 0RF Coding Level of Care Code Est Pt Level 3 (59467) Diagnoses Opioid use disorder F11.90
== END 2023-05-03 11:26 | disposition home or self-care (01) ==
PROVIDERS: PCP Internal Medicine; Visit Provider Nurse Practitioner Psychiatric/Mental Health
DX: F11.90 Opioid use, unspecified, uncomplicated (principal)
CPT/HCPCS: 99213

== ENCOUNTER → 2023-05-03 10:52 | Outpatient (BNVA) | payer OTHER, SELFPAY | PROVIDERS: PCP Internal Medicine; Visit Provider Nurse Practitioner Psychiatric/Mental Health | DX: Z51.81 Encounter for therapeutic drug level monitoring (principal) ==

== ENCOUNTER 2023-05-18 10:49 | Outpatient (AMB) | payer OTHER, SELFPAY ==
--- NOTE | 2023-05-18 10:54 | A.OFFVISCC_ITS ---
Intake Vital Signs 05/18/23 11:00 BP 150/90 H Blood Pressure Location Lt radial Position Sitting Pulse 85 Pulse Source Pulse Oximeter Pulse Oximetry (%) 99 Oxygen Delivery Method Room Air Intake Visit Reasons: MAT visit/Sub inj Intake Note: The patient presents for a sub inj Dean Of Girls Required: No Allergies No Known Allergies [No Known Allergies*] Allergy (Verified 05/18/23 10:54) HPI MAT visit/Sub inj HPI Details Patient presents for first sublocade injection SHe has no concerns related to recovery today She did not take a film this morning because she was not sure if she was supposed to, advised her to take one if she begins to feel any withdrawal symptoms. [facility] Medical History Depression GERD (gastroesophageal reflux disease) Hypercholesteremia Hypothyroid Leg swelling Surgical History Gastric bypass status for obesity History of History of hysterectomy Social History Alcohol intake: former Patient Tobacco Use Status: Never used Tobacco Review of Systems Const Reports as per HPI Physical Exam Vital Signs: Last Vital Signs Pulse 85 05/18/23 11:00 BP 150/90 H 05/18/23 11:00 Pulse Ox 99 05/18/23 11:00 Oxygen Delivery Method Room Air 05/18/23 11:00 Const General: cooperative and healthy appearing Resp Effort & Inspection: normal respiratory effort Psych Appearance: grossly normal Mental Status: mental status grossly normal Speech and movement: Normal speech and movement present Affect: normal affect Thought content: Normal thought content present Office Meds Sublocade 300 mg/1.5 mL solution,extended release subcutaneous syringe Performing Provider: Jolene Candelario NP Performing Location: [facility] Administered by: Randi Chopra on 05/18/23 11:25 Dose Route Admin Location Dispensed Lot Number Expiration Date [facility] Sales Representative Adding Machines 300 mg subcut RLQ 1.5 mL [id number] 05/12/24 [address]-2 [employer] Comments: Pt tolerated injection well. Educated on signs/symptoms of infection. Encouraged to call the [facility] with any questions or concerns. Pt verbalized understanding. Results AMB Test Urine AMB Test Urine Negative Last Edit by Sangeetha Johns CMA on 11:05 Results Reviewed Results Reviewed: Laboratory Last Values [facility] Clinic Negative 05/18/23 10:54 Assessment & Plan Assessment & Plan (1) Opioid use disorder: Code(s): F11.90 - Opioid use, unspecified, uncomplicated Plan: -Patient provided with injection education, she was given time to ask questions -Follow up 4 weeks Orders: Orders AMB Buprenorphine Injection Today F11.90 - Opioid use, unspecified, uncomplicated AMB HCG Urine Test Today Z32.01 - Encounter for test, result positive, Z32.02 - Encounter for test, result negative Coding Level of Care Code Est Pt Level 3 (27894) Diagnoses Opioid use disorder F11.90
[2023-05-18 11:00] VITALS: BP 150/90; PULSE 85; O2SAT 99
== END 2023-05-18 13:08 | disposition home or self-care (01) ==
PROVIDERS: PCP Internal Medicine; Visit Provider Nurse Practitioner Family
DX: Z32.02 Encounter for pregnancy test, result negative (principal); Z32.01 Encounter for pregnancy test, result positive; F11.90 Opioid use, unspecified, uncomplicated
CPT/HCPCS: 99213

== ENCOUNTER → 2023-05-18 10:49 | Outpatient (BNVA) | payer OTHER, SELFPAY | PROVIDERS: PCP Internal Medicine; Visit Provider Nurse Practitioner Family | DX: F11.90 Opioid use, unspecified, uncomplicated (principal) | CPT/HCPCS: 81025; 96372; Q9992 ==

== ENCOUNTER 2023-06-17 13:36 | Outpatient (AMB) | payer OTHER, SELFPAY ==
--- NOTE | 2023-06-17 13:42 | AM.OFFVISNUR ---
Intake Vital Signs 06/17/23 14:02 BP 130/80 Blood Pressure Location Rt radial Position Sitting Respiration 20 Pulse 80 Pulse Source Pulse Oximeter Pulse Oximetry (%) 96 Oxygen Delivery Method Room Air Intake Visit Reasons: Sub Inj Allergies No Known Allergies [No Known Allergies*] Allergy (Verified 05/18/23 10:54) Office Meds Sublocade 300 mg/1.5 mL solution,extended release subcutaneous syringe Performing Provider: Katiana Perry CNP Performing Location: [facility] Administered by: Dary Fairbanks RN on 06/17/23 13:44 Dose Route Admin Location Dispensed Lot Number Expiration Date [facility] Product Steward 300 mg subcut LLQ 1.5 mL [id number] 06/09/24 [address]-2 [employer]. Comments: Patient tolerated injection well, no stated or noted signs of complications. Coding Assessment & Plan Assessment & Plan Orders: Orders AMB Buprenorphine Injection Today F11.90 - Opioid use, unspecified, uncomplicated
[2023-06-17 14:02] VITALS: BP 130/80; PULSE 80; RESP 20; O2SAT 96
== END 2023-06-17 15:51 | disposition home or self-care (01) ==
PROVIDERS: PCP Internal Medicine
DX: F11.90 Opioid use, unspecified, uncomplicated (principal)

== ENCOUNTER → 2023-06-17 13:36 | Outpatient (BNVA) | payer OTHER, SELFPAY | PROVIDERS: PCP Internal Medicine | DX: F11.90 Opioid use, unspecified, uncomplicated (principal); Z51.81 Encounter for therapeutic drug level monitoring | CPT/HCPCS: 96372; Q9992 ==

== ENCOUNTER 2023-07-20 14:31 | Outpatient (AMB) | payer OTHER, SELFPAY ==
[2023-07-20 14:36] VITALS: BP 130/70; PULSE 90; RESP 19; O2SAT 93
--- NOTE | 2023-07-20 14:36 | A.OFFVISCC_ITS ---
Intake Vital Signs 07/20/23 14:36 BP 130/70 Blood Pressure Location Lt radial Position Sitting Respiration 19 Pulse 90 Pulse Source Pulse Oximeter Pulse Oximetry (%) 93 Intake Visit Reasons: MAT visit/ Sub Inj Allergies No Known Allergies [No Known Allergies*] Allergy (Verified 05/18/23 10:54) HPI MAT visit/ Sub Inj HPI Details Patient presents for follow up and Sublocade injection No issues with tolerating injection--does note that she feels clammy or hot an cold during the week before injection is due. Enjoys not having to take medication everyday and feels injection has improved quality of life in that capacity. Does not like that she has nodules still from first injection. Reminded patient that they will get smaller and eventually gone, but may take several months. Reports thoughts of using are minimal and fleeting. Working during the day when it is busy is helpful to keeping mind occupied. [facility] Medical History Depression GERD (gastroesophageal reflux disease) Hypercholesteremia Hypothyroid Leg swelling Surgical History Gastric bypass status for obesity History of History of hysterectomy Social History Alcohol intake: former Patient Tobacco Use Status: Never used Tobacco Review of Systems Const Reports as per HPI Physical Exam Vital Signs: Last Vital Signs Pulse 90 07/20/23 14:36 Resp 19 07/20/23 14:36 BP 130/70 07/20/23 14:36 Pulse Ox 93 07/20/23 14:36 Const General: cooperative and healthy appearing Nutritional Appearance: average body habitus Orientation/consciousness: patient oriented x3 Limitations: no limitations Neuro General: patient oriented x3 Psych Appearance: well kempt Speech and movement: Normal speech and movement present Affect: normal affect Attitude: cooperative Thought process: Normal thought process present Thought content: Normal thought content present Insight: Good insight present (Psych) Judgement: Good judgement present (Psych) Office Meds Sublocade 300 mg/1.5 mL solution,extended release subcutaneous syringe Performing Provider: Katiana Perry CNP Performing Location: [facility] Administered by: Dary Fairbanks RN on 07/20/23 14:55 Dose Route Admin Location Dispensed Lot Number Expiration Date [employer] P[employer] Field Service Technician 300 mg subcut llq 1.5 mL [id number] 06/09/24 [address]-7 [employer]. Comments: Patient tolerated injection with no stated or noted side effects, agrees to call [facility] with any complications or questions. Assessment & Plan Assessment & Plan (1) Opioid use disorder: Code(s): F11.90 - Opioid use, unspecified, uncomplicated Plan: * sublocade 300mg today * next injection in August 100mg--rx already on file * encouraged to call office with any questions or concerns Orders: Orders AMB Buprenorphine Injection Today F11.90 - Opioid use, unspecified, uncomplicated Coding Level of Care Code Est Pt Level 3 (26541) Diagnoses Opioid use disorder F11.90
== END 2023-07-20 15:02 | disposition home or self-care (01) ==
PROVIDERS: PCP Internal Medicine; Visit Provider Nurse Practitioner Psychiatric/Mental Health
DX: F11.90 Opioid use, unspecified, uncomplicated (principal)
CPT/HCPCS: 99213

== ENCOUNTER → 2023-07-20 14:31 | Outpatient (BNVA) | payer OTHER, SELFPAY | PROVIDERS: PCP Internal Medicine; Visit Provider Nurse Practitioner Psychiatric/Mental Health | DX: F11.20 Opioid dependence, uncomplicated (principal); Z51.81 Encounter for therapeutic drug level monitoring | CPT/HCPCS: 96372; Q9992 ==

== ENCOUNTER 2023-09-13 11:01 | Outpatient (AMB) | payer MEDICAID, SELFPAY ==
[2023-09-13 11:06] VITALS: BP 158/98; PULSE 88; O2SAT 98
--- NOTE | 2023-09-13 11:08 | A.OFFVISCC_ITS ---
Vital Signs 09/13/23 11:06 BP 158/98 H Blood Pressure Location Lt brachial Position Sitting Pulse 88 Pulse Source Pulse Oximeter Pulse Oximetry (%) 98 Oxygen Delivery Method Room Air Intake Visit Reasons: sub inj Allergies No Known Allergies [No Known Allergies*] Allergy (Verified 05/18/23 10:54) HPI HPI sub inj: Details: Patient presents for follow up and sublocade injection Since last visit patient's employment was terminated secondary to a positive random drug screen. She reports using cocaine the weekend before. She states last opiate use was approx 2 weeks ago. Discussed at length recovery supports. Patient does not have any that are not her family or partner. She verbalized increased guilt and shame with ongoing (occasional use), and frustration that she continues to do so despite all that she has lost. This staff writer inquired about PHP/IOP--in light of her current unemploymnent and increased availability. Patient hesitant, but open to reviewing information about this [facility] Medical History Depression GERD (gastroesophageal reflux disease) Hypercholesteremia Hypothyroid Leg swelling Surgical History Gastric bypass status for obesity History of History of hysterectomy Social History Alcohol intake: former Patient Tobacco Use Status: Never used Tobacco Review of Systems Const Reports as per HPI Physical Exam Vital Signs: Last Vital Signs Pulse 88 09/13/23 11:06 BP 158/98 H 09/13/23 11:06 Pulse Ox 98 09/13/23 11:06 Oxygen Delivery Method Room Air 09/13/23 11:06 Const General: cooperative, healthy appearing and no acute distress Nutritional Appearance: average body habitus Orientation/consciousness: patient oriented x3 Limitations: no limitations Neuro General: patient oriented x3 Psych Appearance: well kempt Speech and movement: Normal speech and movement present Affect: normal affect Attitude: cooperative and Guarded attititude/behavior present Thought process: Normal thought process present Thought content: Normal thought content present Insight: Fair insight present (Psych) Judgement: Fair judgement present (Psych) Office Meds Sublocade 300 mg/1.5 mL solution,extended release subcutaneous syringe Performing Provider: Katiana Perry CNP Performing Location: [facility] Administered by: Dary Fairbanks RN on 09/13/23 11:36 Dose Route Admin Location Dispensed Lot Number Expiration Date [facility] Java Web Application Developer 300 mg subcut RUQ 1.5 mL [id number] 09/09/24 [address]-8 [employer]. Assessment & Plan Assessment & Plan (1) Opioid use disorder: Code(s): F11.90 - Opioid use, unspecified, uncomplicated Category: Medical Plan: * tolerated injection * provided information on SMART recovery, PHP IOP and Recovery coaching * follow up 4 weeks Orders: Orders AMB Buprenorphine Injection - Patient Supplied 09/13/23 F11.90 - Opioid use, unspecified, uncomplicated
== END 2023-09-13 11:30 | disposition home or self-care (01) ==
PROVIDERS: PCP Internal Medicine; Visit Provider Nurse Practitioner Psychiatric/Mental Health
DX: F11.90 Opioid use, unspecified, uncomplicated (principal)
CPT/HCPCS: 99214

== ENCOUNTER → 2023-09-13 11:01 | Outpatient (BNVA) | payer OTHER, SELFPAY | PROVIDERS: PCP Internal Medicine; Visit Provider Nurse Practitioner Psychiatric/Mental Health | DX: F11.90 Opioid use, unspecified, uncomplicated (principal) | CPT/HCPCS: 96372; 99212; Q9992 ==

== ENCOUNTER 2023-10-19 10:48 | Outpatient (AMB) | payer MEDICAID, SELFPAY ==
--- NOTE | 2023-10-19 11:12 | AM.OFFVISNUR ---
Intake Visit Reasons: sub inj Allergies No Known Allergies [No Known Allergies*] Allergy (Verified 05/18/23 10:54) Nursing Note Patient to clinic today for Sublocade 300mg injection. Alert and oriented x4, denies any complications with previous injection, injection today given per orders in the RUQ. Will follow up in 4 weeks with RN. Patient had a procedure planned that she was excited for last visit, states that at this time insurance denied the claim to have it done, she at last visit had concerns due to it possibly removing the depo from her abd, she will keep up updated if the surgery is cleared with insurance. Office Meds Sublocade 300 mg/1.5 mL solution,extended release subcutaneous syringe Performing Provider: Katiana Perry CNP Performing Location: [facility] Administered by: Dary Fairbanks RN on 10/19/23 12:47 Dose Route Admin Location Dispensed Lot Number Expiration Date [facility] Field Applications Specialist 300 mg subcut RUQ 1.5 mL [id number] 01/09/25 [address]-1 [employer]. Assessment & Plan Assessment & Plan Orders: Orders AMB Buprenorphine Injection - Patient Supplied Today F11.90 - Opioid use, unspecified, uncomplicated Medications: New Sublocade ER (buprenorphine) 300 mg (1.5 mL) subcut ONCE 1.5 mL 0RF NS F11.90 - Opioid use, unspecified, uncomplicated
== END 2023-10-19 11:34 | disposition home or self-care (01) ==
PROVIDERS: PCP Internal Medicine
DX: F11.90 Opioid use, unspecified, uncomplicated (principal)

== ENCOUNTER → 2023-10-19 10:48 | Outpatient (BNVA) | payer OTHER, SELFPAY | PROVIDERS: PCP Internal Medicine | DX: F11.90 Opioid use, unspecified, uncomplicated (principal) | CPT/HCPCS: 96372; Q9992 ==

== ENCOUNTER 2023-11-18 11:04 | Outpatient (AMB) | payer MEDICAID, SELFPAY ==
--- NOTE | 2023-11-18 11:39 | AM.OFFVISNUR ---
Intake Visit Reasons: sub inj Allergies No Known Allergies [No Known Allergies*] Allergy (Verified 05/18/23 10:54) Nursing Note Patient Presents for Sublocade 300mg Injection. Current Dose 300mg. Given in the LUQ with no noted or stated complication. Denies any issues with previous injection. Denies symptoms, and denies any break through cravings. will follow up with RN in 4 weeks for injection. Will need to see provider for check in January . Office Meds Sublocade 300 mg/1.5 mL solution,extended release subcutaneous syringe Performing Provider: Katiana Perry CNP Performing Location: [facility] Administered by: Dary Fairbanks RN on 11/18/23 12:04 Dose Route Admin Location Dispensed Lot Number Expiration Date [facility] Custom Feed Mill Operator Helper 300 mg subcut LUQ 1.5 mL [id number] 01/09/25 [address]-0 [employer]. Assessment & Plan Assessment & Plan Orders: Orders AMB Buprenorphine Injection - Patient Supplied Today F11.90 - Opioid use, unspecified, uncomplicated Medications: New Sublocade ER (buprenorphine) 300 mg (1.5 mL) subcut ONCE 1.5 mL 0RF NS F11.90 - Opioid use, unspecified, uncomplicated
== END 2023-11-18 11:36 | disposition home or self-care (01) ==
PROVIDERS: PCP Internal Medicine
DX: F11.90 Opioid use, unspecified, uncomplicated (principal)

== ENCOUNTER → 2023-11-18 11:04 | Outpatient (BNVA) | payer MEDICAID, SELFPAY | PROVIDERS: PCP Internal Medicine | DX: F11.20 Opioid dependence, uncomplicated (principal); Z51.81 Encounter for therapeutic drug level monitoring | CPT/HCPCS: 96372; Q9992 ==

== ENCOUNTER 2023-12-16 10:47 | Outpatient (AMB) | payer MEDICAID, SELFPAY ==
--- NOTE | 2023-12-16 11:08 | AM.OFFVISNUR ---
Intake Visit Reasons: sub inj Allergies No Known Allergies [No Known Allergies*] Allergy (Verified 05/18/23 10:54) Nursing Note Patient Presents for Sublocade Injection. Current Dose 300mg . Given in the RLQ with no noted or stated complications. Denies any issues with previous injection. Denies symptoms, and denies any break through cravings. Last appt with provider was , will follow up with RN for injection when shes back from vacation. Patient headed to [place] to visit family for 6 weeks. Office Meds Sublocade 300 mg/1.5 mL solution,extended release subcutaneous syringe Performing Provider: Katiana Perry CNP Performing Location: [facility] Administered by: Dary Fairbanks RN on 12/16/23 11:19 Dose Route Admin Location Dispensed Lot Number Expiration Date [facility] Radio Officer 300 mg subcut RLQ 1.5 mL [id number] 01/09/25 [address]-8 [employer]. Assessment & Plan Assessment & Plan Orders: Orders AMB Buprenorphine Injection - Patient Supplied Today F11.90 - Opioid use, unspecified, uncomplicated
== END 2023-12-16 11:25 | disposition home or self-care (01) ==
PROVIDERS: PCP Internal Medicine
DX: F11.90 Opioid use, unspecified, uncomplicated (principal)

== ENCOUNTER → 2023-12-16 10:47 | Outpatient (BNVA) | payer MEDICAID, SELFPAY | PROVIDERS: PCP Internal Medicine | DX: F11.90 Opioid use, unspecified, uncomplicated (principal); Z79.899 Other long term (current) drug therapy | CPT/HCPCS: 96372; Q9992 ==

== ENCOUNTER 2024-01-19 08:47 | Outpatient (AMB) | payer MEDICAID, SELFPAY ==
--- NOTE | 2024-01-19 08:52 | AM.OFFVISNUR ---
Intake Visit Reasons: sub inj Allergies No Known Allergies [No Known Allergies*] Allergy (Verified 05/18/23 10:54) Nursing Note Patient Presents for sublocade Injection. Current Dose is 300mg . Given in LLQ the with no noted or stated complication. Denies any issues with previous injection. Denies symptoms, and denies any break through cravings. Last appt with provider was 2 months ago , will follow up with RN in 4 weeks for injection. Will need to see provider for check in March. Office Meds Sublocade 300 mg/1.5 mL solution,extended release subcutaneous syringe Performing Provider: Katiana Perry CNP Performing Location: [facility] Administered by: Dary Fairbanks RN on 01/19/24 09:04 Dose Route Admin Location Dispensed Lot Number Expiration Date [facility] Fluorescent Lamp Replacer 300 mg subcut llq 1.5 mL [id number] 02/09/25 [address]-1 [email or web address]. Assessment & Plan Assessment & Plan Orders: Orders AMB Buprenorphine Injection - Patient Supplied Today F11.90 - Opioid use, unspecified, uncomplicated Medications: New Sublocade ER (buprenorphine) 300 mg (1.5 mL) subcut ONCE 1.5 mL 0RF NS F11.90 - Opioid use, unspecified, uncomplicated
== END 2024-01-19 09:32 | disposition home or self-care (01) ==
PROVIDERS: PCP Internal Medicine
DX: F11.90 Opioid use, unspecified, uncomplicated (principal)

== ENCOUNTER → 2024-01-19 08:47 | Outpatient (BNVA) | payer MEDICAID, SELFPAY | PROVIDERS: PCP Internal Medicine | DX: F11.20 Opioid dependence, uncomplicated (principal); Z51.81 Encounter for therapeutic drug level monitoring | CPT/HCPCS: 96372; Q9992 ==

== ENCOUNTER 2024-05-14 16:00 | Emergency (ER) | payer OTHER, SELFPAY | END 2024-05-14 19:37 | disposition left against medical advice (07) | LOC: HO.ED 19:33 | PROVIDERS: Emergency Provider Emergency Medicine; PCP Internal Medicine | DX: R50.9 Fever, unspecified (principal); M79.10 Myalgia, unspecified site ==